=== PATIENT | male | born 1955 | race Two or more races ===

== ENCOUNTER 2018-12-23 14:48 | Inpatient (IN) | payer MEDICAID, OTHER ==
[~2018-12-23] VITALS: Ht 165.1 cm; Wt 71.4 kg
[2018-12-23] MEDS ORDERED: SODIUM CHLORIDE 0.9% 500 ML IVB ONE (15:44)
[2018-12-23 16:22] LABS: Calcium 7.2 mg/dL (8.5-10.1); Magnesium 3.7 mg/dL (1.6-2.6); Total Protein 7.1 g/dL (6.4-8.2)
[2018-12-23 16:29] LABS: Bilirubin, Total 0.9 mg/dL (0.2-1.0)
[2018-12-23 16:37] LABS: Basophils # (auto) 0 uL; Basophils % (auto) 0.2 % (0.0-2.0); Eosinophils # (auto) 0 uL; Eosinophils % (auto) 0.5 % (0.0-7.0); Hemoglobin 13.6 g/dL (13.5-17.5); Lymphocytes # (auto) 0.7 uL; Lymphocytes % (auto) 7.9 % (10.0-50.0); Mean Corpuscular Hemoglobin 29.3 pg (28.0-32.0); Mean Corpuscular Hgb Conc. 33.9 g/dL (32.0-36.0); Mean Corpuscular Volume 86.6 fL (80.0-100.0); Monocytes # (auto) 0.8 uL; Monocytes % (auto) 8.2 % (0.0-12.0); Neutrophils # (auto) 7.7 uL; Neutrophils % (auto) 83.2 % (37.0-80.0); Nucleated Red Blood Cells % 0.1 %; Platelet Count (auto) 155 10^3/uL (140-450); Red Blood Cells 4.62 10^6/uL (4.5-5.90); Red Cell Distribution Width 14.5 % (11.8-14.3); White Blood Cell 9.3 10^3/uL (4.4-10.8)
[2018-12-23 16:38] LABS: Potassium 6.3 mmol/L (3.5-5.1)
[2018-12-23] MEDS ORDERED: SODIUM BICARBONATE 8.4 % INJ 50ML VIAL IV ONE (17:00)
[2018-12-23] MEDS ORDERED: DEXTROSE (50%) 50ML SYRG IV ONE (17:00)
[2018-12-23] MEDS ORDERED: CALCIUM GLUC 4.65meq/50ml D5AE 50 ML IV ONE (17:00)
[2018-12-23] MEDS: InsuLIN REG 1unit/0.01ml Soln (100units/ml) IV ONE ×2 (17:13→17:44)
[2018-12-23] MEDS ORDERED: ONDANSETRON HCL 4 MG/2 ML VIAL IV PRN (21:00)
[2018-12-23 21:49] LABS: BUN/Creatinine Ratio 13.8
[2018-12-23 21:53] LABS: Partial Thromboplastin Time 50.6 sec (23.78-33.04); Prothrombin Time 49.2 sec (9.27-12.13)
[2018-12-23 22:27] LABS: INR 5.04 (0.9-1.15)
[2018-12-23 22:58] LABS: Urine Amorphous Crystal FEW /hpf (None Seen); Urine Bacteria FEW /hpf (None Seen); Urine Blood 2+ /uL (Negative); Urine Specific Gravity 1.011 (1.001-1.035); Urine WBC 3 /hpf (0 - 3)
[2018-12-23 23:18] LABS: Amphetamine Screen, Urine POSITIVE (NEGATIVE); Barbiturate Scree,Urine NEGATIVE (NEGATIVE); Benzodiazephine Screen, Urine NEGATIVE (NEGATIVE); Cannabinoid Screen, Urine NEGATIVE (NEGATIVE); Cocaine Screen, Urine POSITIVE (NEGATIVE); Opiate Scree,Urine POSITIVE (NEGATIVE); Phencyclidine Screen, Urine NEGATIVE (NEGATIVE)
[2018-12-24] MEDS ORDERED: SODIUM CHLORIDE 0.9% 500 ML IV ONE (07:00)
[2018-12-24 08:00] LABS: Basophils # (auto) 0 uL; Basophils % (auto) 0.4 % (0.0-2.0); Eosinophils # (auto) 0 uL; Eosinophils % (auto) 0.4 % (0.0-7.0); Hemoglobin 12.3 g/dL (13.5-17.5); Lymphocytes # (auto) 0.8 uL; Lymphocytes % (auto) 10.1 % (10.0-50.0); Mean Corpuscular Hemoglobin 29.9 pg (28.0-32.0); Mean Corpuscular Hgb Conc. 34.1 g/dL (32.0-36.0); Mean Corpuscular Volume 87.6 fL (80.0-100.0); Monocytes # (auto) 0.7 uL; Monocytes % (auto) 8.4 % (0.0-12.0); Neutrophils # (auto) 6.3 uL; Neutrophils % (auto) 80.7 % (37.0-80.0); Platelet Count (auto) 123 10^3/uL (140-450); Red Blood Cells 4.11 10^6/uL (4.5-5.90); Red Cell Distribution Width 14.3 % (11.8-14.3); White Blood Cell 7.8 10^3/uL (4.4-10.8)
[2018-12-24 08:19] LABS: Calcium 6.4 mg/dL (8.5-10.1); Potassium 5.3 mmol/L (3.5-5.1)
[2018-12-24 08:35] LABS: BUN/Creatinine Ratio 14.2
[2018-12-24] MEDS: SODIUM BICARBONATE 50ML VIAL 150 ML in D5W 5% 1,000 ML IV SCH ×3 (09:43→18:30)
--- NOTE | 2018-12-24 13:00 | NUR ---
Telemetry admit from ER MANDIE KELLY admitted to Telemetry unit after SBAR received. Patient oriented to Margarette Nolasco, primary RN, unit, room, bed, and unit policies regarding patient care and visiting hours. Patient now on continuous telemetry monitoring, tele box#19 and telemetry reading on arrival to unit is SR. Patient placed on bedside oxygen, weighed by bedscale and encouraged to call if they need something. All questions and concerns addressed, patient verbalized understanding. Family at bed side.
[2018-12-24] MEDS: ACETAMINOPHEN 500 MG TAB PO PRN ×2 (13:28→22:48)
[2018-12-24 15:09] VITALS: BP 102/58
[2018-12-24 17:35] VITALS: BP 96/50
--- NOTE | 2018-12-24 18:50 | NUR ---
end of shift note: Patient is comfortably resting in bed. Bed at lowest position and call light at reach. Will endorse care to NOC RN.
[2018-12-24] MEDS ORDERED: ALPR1TAB7 PO (19:08)
[2018-12-24] MEDS ORDERED: MET50T PO (19:08)
[2018-12-24] MEDS ORDERED: HYDR-4416 (19:08)
[2018-12-24] MEDS ORDERED: MORP1TAB13 PO (19:08)
[2018-12-24] MEDS ORDERED: FUR20T PO (19:08)
[2018-12-24] MEDS ORDERED: WARF3TAB22 PO (19:08)
[2018-12-24] MEDS ORDERED: AMLO5TAB13 PO (19:08)
[2018-12-24] MEDS ORDERED: LIDO1PAD55 BC (19:08)
[2018-12-24] MEDS ORDERED: BECL40AE11 IN (19:08)
[2018-12-24 22:00] VITALS: BP 106/62
[2018-12-25] MEDS: SODIUM BICARBONATE 50ML VIAL 150 ML in D5W 5% 1,000 ML IV SCH ×3 (00:18→17:30)
[2018-12-25 05:00] VITALS: BP 108/55
[2018-12-25 06:31] LABS: Basophils # (auto) 0 uL; Basophils % (auto) 0.2 % (0.0-2.0); Eosinophils # (auto) 0.1 uL; Eosinophils % (auto) 1.1 % (0.0-7.0); Hemoglobin 11.7 g/dL (13.5-17.5); Lymphocytes # (auto) 1.1 uL; Lymphocytes % (auto) 20.4 % (10.0-50.0); Mean Corpuscular Hemoglobin 29.9 pg (28.0-32.0); Mean Corpuscular Hgb Conc. 35.4 g/dL (32.0-36.0); Mean Corpuscular Volume 84.4 fL (80.0-100.0); Monocytes # (auto) 0.4 uL; Neutrophils # (auto) 3.9 uL; Neutrophils % (auto) 70.3 % (37.0-80.0); Platelet Count (auto) 113 10^3/uL (140-450); Red Blood Cells 3.91 10^6/uL (4.5-5.90); Red Cell Distribution Width 14.2 % (11.8-14.3); White Blood Cell 5.5 10^3/uL (4.4-10.8)
[2018-12-25] MEDS ORDERED: DICL1GEL26 TD (06:47)
[2018-12-25] MEDS ORDERED: RANO500T2 PO (06:47)
[2018-12-25] MEDS ORDERED: LOSA25TA40 PO (06:47)
[2018-12-25] MEDS ORDERED: PRED1SOL8 PO (06:47)
[2018-12-25] MEDS ORDERED: BUDE0.5S IN (06:47)
[2018-12-25] MEDS ORDERED: HYDR1TAB97 PO (06:47)
[2018-12-25 06:53] LABS: Chloride 99 mmol/L (98-107); Potassium 4.1 mmol/L (3.5-5.1); Sodium 136 mmol/L (136-145)
[2018-12-25 07:05] LABS: INR 3.17 (0.9-1.15); Prothrombin Time 31.8 sec (9.27-12.13)
--- NOTE | 2018-12-25 07:30 | NUR ---
Morning Note Patient resting in bed with even and unlabored respirations. NC resting on patient's forehead. Instructed patient on proper NC placement and positioned NC appropriately. Patient verbalized understanding. Patient is A&O to name only. Instructed patient on POC, fall precautions and to call for assistance as needed using the call light. Patient verbalized understanding although frequent reorientation is needed. Fall precautions in place with bed alarm on for safety. Will continue to monitor q1hr & PRN.
[2018-12-25 07:36] LABS: Alanine Aminotransferase 257 U/L (16-61); Alkaline Phosphatase 66 U/L (45-117); Anion Gap 15 (5-15); Aspartate Aminotransferase 177 U/L (15-37); Bilirubin, Total 0.9 mg/dL (0.2-1.0); Calcium 6.4 mg/dL (8.5-10.1); Carbon Dioxide 22 mmol/L (21-32); Creatine Kinase IFCC 6800 U/L (39-308); GFR African American 6 mL/min; GFR Non-African American 5 mL/min; Glucose 125 mg/dL (74-106); Total Protein 5.6 g/dL (6.4-8.2)
[2018-12-25 07:43] LABS: BUN/Creatinine Ratio 13.3
[2018-12-25 07:44] LABS: Blood Urea Nitrogen > 150 mg/dL (7-18)
[2018-12-25 08:32] VITALS: BP 112/60
--- NOTE | 2018-12-25 09:45 | NUR ---
Patient's statement Patient stated "I don't care any more. I don't want to live. I'm going to anyway. All I care about is my 2 dogs and my cat. They are my life. I told my sister I would do dialysis once and if I don't like it, I will just make sure my animals are taken care of and then [place] I just need to put my animals to sleep. No one can take care of them like I take care of them. Once I take care of that, I have nothing. I don't want to kill myself but I just don't want to live any more. I just don't want to get the medical treatment to keep me alive. I just want to get home to my animals and get out of here." RN will notify , Dr. Rodarte, as well as zaina Kraft RN. Will continue to monitor patient closely q1hr & PRN.
--- NOTE | 2018-12-25 10:00 | NUR ---
MD was at bedside - Dr. Aster Rodarte was at bedside discussing the POC with the patient, the patient's sister (Munira), and this RN. This RN updated MD with patient's statement. Verbal orders received. MD to place orders. RN to obtain a tele-psych. RN to place orders tele-psych recommendations per Dr. Rodarte.
--- NOTE | 2018-12-25 10:08 | NUR ---
Patient's sister (Munira) at bedside
--- NOTE | 2018-12-25 10:44 | NUR ---
Telephone call received from Digital Community Manager Dr. Wick called this RN to receive an update. Update given. Telephone orders received and read back to verify. RN to place orders per MD's request.
--- NOTE | 2018-12-25 11:06 | NUR ---
Sitter at bedside for safety. In the process of getting the tele-psych monitor to bedside.
--- NOTE | 2018-12-25 11:15 | NUR ---
Patient's niece (Marilyn) at bedside.
[2018-12-25 11:53] LABS: Hepatitis A Ab IgM Negative; Hepatitis B Core IgM Negative; Hepatitis B Surface Antigen Negative (Negative); Hepatitis C Antibody Positive (Negative)
[2018-12-25 12:02] VITALS: BP 109/58
--- NOTE | 2018-12-25 12:43 | NUR ---
Tele-psych called spoke with Tabatha. Called [phone].
--- NOTE | 2018-12-25 13:40 | NUR ---
Tele-psych in process
--- NOTE | 2018-12-25 15:00 | NUR ---
Tele-psych report placed in patient's hard chart Notified zaina Kraft RN, of tele-psych's recommendation. Patient is not medically cleared at this time. 5150 hold not to be placed on patient at this time per LINCOLN Kraft, due to patient not being medically cleared at this time. Will endorse to NOC RN.
[2018-12-25 16:06] VITALS: BP 110/46
--- NOTE | 2018-12-25 18:00 | NUR ---
Copy of recommendation given to chargeback analyst Tele-psych recommendation of Ethics consult given to Alyssa, chargeback analyst.
--- NOTE | 2018-12-25 18:45 | NUR ---
End of shift patient resting in bed with even and unlabored respirations on RA at this time. Fall precautions in place. Sitter at bedside per MD's orders to maintain patient safety. Patient continues to verbalize that he "doesn't care to continue on with life like this" and that "he doesn't care about anything but his 2 dogs and cat." and he "has no reason to smile after being in alf." Family is at bedside at this time. Urinary output not documented by Angela, day employee that sat with the patient. Staff attempting to receive information from Angela for documentation. Patient states "she emptied it twice today and it's filled again." Patient is A&Ox4 at this time. Call light within reach. Will endorse care to RN.
--- NOTE | 2018-12-25 19:30 | NUR ---
Opening Shift Note Assumed care of patient, awake and alert oriented x4. No S/S of distress/SOB noted. Sitter is at the bedside, bed is in lowest locked position with bed rails up x2 and call light is within reach of the patient. Instructed on POC and to call for assist PRN.
[2018-12-25 21:23] VITALS: BP 107/60
--- NOTE | 2018-12-25 21:30 | NUR ---
Patient seems anxious, threatens to leave AMA. Educated patient: Patient seemed anxious when walking in the room stating "They aren't going to put me on no dialysis. Its my body and I will walk out of here for a second opinion." Educated the patient about the importance of staying over night to talk to the doctor about further plan of care the next morning and to evaluate lab levels. 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 Attempted to educate patient about the benefits of dialysis treatment and what a high BUN level means but reinforcements needed.
[2018-12-25] MEDS: ACETAMINOPHEN 500 MG TAB PO PRN (23:20)
[2018-12-26] MEDS: SODIUM BICARBONATE 50ML VIAL 150 ML in D5W 5% 1,000 ML IV SCH ×2 (02:03→09:57)
[2018-12-26 06:13] VITALS: BP 118/55
[2018-12-26 06:54] LABS: Basophils # (auto) 0 uL; Basophils % (auto) 0.4 % (0.0-2.0); Eosinophils # (auto) 0.1 uL; Eosinophils % (auto) 1.1 % (0.0-7.0); Hematocrit 33.4 % (41.0-53.0); Hemoglobin 11.8 g/dL (13.5-17.5); Lymphocytes # (auto) 0.9 uL; Lymphocytes % (auto) 16.5 % (10.0-50.0); Mean Corpuscular Hemoglobin 29.7 pg (28.0-32.0); Mean Corpuscular Hgb Conc. 35.3 g/dL (32.0-36.0); Mean Corpuscular Volume 84.1 fL (80.0-100.0); Monocytes # (auto) 0.4 uL; Monocytes % (auto) 7.5 % (0.0-12.0); Neutrophils # (auto) 4.2 uL; Neutrophils % (auto) 74.5 % (37.0-80.0); Platelet Count (auto) 113 10^3/uL (140-450); Red Blood Cells 3.98 10^6/uL (4.5-5.90); Red Cell Distribution Width 14.1 % (11.8-14.3); White Blood Cell 5.7 10^3/uL (4.4-10.8)
[2018-12-26 07:03] LABS: INR 1.47 (0.9-1.15); Prothrombin Time 15.4 sec (9.27-12.13)
[2018-12-26 07:06] LABS: Albumin 3.2 g/dL (3.4-5.0); Calcium 6.9 mg/dL (8.5-10.1); Potassium 3.5 mmol/L (3.5-5.1)
--- NOTE | 2018-12-26 07:10 | NUR ---
Opening Shift Note Received report from night nurse Asya. Pt resting in bed, bed locked and in low pos., rails up x2, call light in reach. No distress noted.
[2018-12-26 07:26] LABS: BUN/Creatinine Ratio 14.4; Bilirubin, Total 0.6 mg/dL (0.2-1.0); Phosphorus 6.2 mg/dL (2.5-4.90); Total Protein 6.2 g/dL (6.4-8.2)
--- NOTE | 2018-12-26 07:55 | NUR ---
Critical lab value received: Received critical lab value for patient. Bun was 138. Will call [address] Rodarte and make MD aware.
--- NOTE | 2018-12-26 07:57 | NUR ---
Aster FISHER called, left message regarding critical lab: Left message on Aster answer machine to make doctor aware of critical BUN of 138. Will endorse information and care to day nurse.
--- NOTE | 2018-12-26 08:08 | NUR ---
Closing note: Patient is resting in bed with breaths even and unlabored. No S/S of distress, SOB noted. Sitter is at the bedside. Bed is in lowest locked position, bed rails up x2 and with call light in reach of the patient. Care endorsed to day shift nurse.
--- NOTE | 2018-12-26 08:19 | NUR ---
Dr. Rodarte called back and made aware of critical lab value.
[2018-12-26 08:54] VITALS: BP 115/59
[2018-12-26 10:27] LABS: Basophils # (auto) 0 uL; Basophils % (auto) 0.8 % (0.0-2.0); Eosinophils # (auto) 0 uL; Eosinophils % (auto) 0.8 % (0.0-7.0); Hematocrit 34.8 % (41.0-53.0); Hemoglobin 12.2 g/dL (13.5-17.5); Lymphocytes # (auto) 0.7 uL; Lymphocytes % (auto) 12.5 % (10.0-50.0); Mean Corpuscular Hemoglobin 29.6 pg (28.0-32.0); Mean Corpuscular Hgb Conc. 35.2 g/dL (32.0-36.0); Mean Corpuscular Volume 84.2 fL (80.0-100.0); Monocytes # (auto) 0.4 uL; Monocytes % (auto) 6.6 % (0.0-12.0); Neutrophils # (auto) 4.5 uL; Neutrophils % (auto) 79.3 % (37.0-80.0); Platelet Count (auto) 116 10^3/uL (140-450); Red Blood Cells 4.13 10^6/uL (4.5-5.90); White Blood Cell 5.7 10^3/uL (4.4-10.8)
[2018-12-26 10:43] LABS: Albumin 3.2 g/dL (3.4-5.0); BUN/Creatinine Ratio 14.5; Calcium 7.1 mg/dL (8.5-10.1); Potassium 3.5 mmol/L (3.5-5.1)
[2018-12-26 10:45] LABS: Bilirubin, Total 0.7 mg/dL (0.2-1.0); Total Protein 6.3 g/dL (6.4-8.2)
[2018-12-26] MEDS: SODIUM CHLORIDE 0.9% 1,000 ML IV SCH ×2 (12:16→22:49)
--- NOTE | 2018-12-26 12:30 | NUR ---
Tap Water Enema Completed MD VISIT DR small here and ordered coumadin per pharmacy protocol keeping inr 2.5 to 3.5
[2018-12-26 13:00] VITALS: BP 115/58
--- NOTE | 2018-12-26 16:54 | NUR ---
assessment Patient is a 62 year old male. Per patient prior to admission he lived with his caregiver and functioned with assistance. Per patient he will return home to his prior living arrangements post discharge and his caregiver will transport him home. patient informed me he has a fww and a scooter for home use. Patient informed me he needs assistance due to prior stroke. I informed patient he had a positive drug screen and he denied doing any illegal substance. I offered patient resources for outpatient or inpatient substance abuse facilities. Patient refused. I informed patient he has a right to speak to a hospice social worker regarding all care. I informed patient he has a right to participate in any and all discharge planning. Patient is aware of visiting hours on the hospital floor. I informed patient he has a right to privacy. Patient does not have a POA and advanced directive. I have offered patient information on POA and advanced directives. I informed the patient the advantages and benefits of having an Advanced Directive. Patient verbalized understanding and agreed to discharge plan. Addendum: 12/26/18 at 1657 by Jaelyn JACKSON Amended: Links added.
[2018-12-26 17:00] VITALS: BP 107/51
[2018-12-26] MEDS ORDERED: NICOTINE 21MG/24 HR TOPICAL PATCH TD ONE (17:00)
--- NOTE | 2018-12-26 19:18 | NUR ---
Shift report Gave shift report to Asya night RN. Pt resting in bed, bed locked, in low position, rails up x2, call light in reach. No distress noted.
--- NOTE | 2018-12-26 19:30 | NUR ---
Opening Shift Note Assumed care of patient, awake and alert oriented x4. Sitter is at the bedside. No S/S of distress/SOB noted. Bed is in lowest locked position with bed rails up x2 and call light is within reach of the patient. Instructed on POC and to call for assist PRN.
[2018-12-26 22:00] VITALS: BP 112/60
--- NOTE | 2018-12-26 23:22 | NUR ---
DR Wick office called regarding Coumadin protocol order: Patient never received Coumadin dose per pharmacy protocol today. Called Dr. Wick office and left a message with Shamika toxics program officer. Notified in message that patient had an INR of 1.47 at 0515 on 12/26/2018, has yet to receive Coumadin dose. Asked if DR Wick would want to give dose tonight and order PT INR labs draws for AM, or if they would like patient to be given it the following day. Waiting for physician to call back.
[2018-12-27] MEDS: ACETAMINOPHEN 500 MG TAB PO PRN ×2 (03:31→22:56)
[2018-12-27 04:53] VITALS: BP 129/70
[2018-12-27] MEDS: SODIUM CHLORIDE 0.9% 1,000 ML IV SCH ×2 (06:11→20:15)
[2018-12-27 06:16] LABS: Albumin 3.4 g/dL (3.4-5.0); Calcium 7.8 mg/dL (8.5-10.1); Potassium 3.9 mmol/L (3.5-5.1)
[2018-12-27 06:18] LABS: BUN/Creatinine Ratio 14.6
[2018-12-27 06:31] LABS: Bilirubin, Total 0.5 mg/dL (0.2-1.0); Total Protein 6.5 g/dL (6.4-8.2)
[2018-12-27 07:44] LABS: Basophils # (auto) 0 uL; Basophils % (auto) 0.3 % (0.0-2.0); Eosinophils # (auto) 0.1 uL; Eosinophils % (auto) 1.6 % (0.0-7.0); Hematocrit 34.6 % (41.0-53.0); Hemoglobin 11.9 g/dL (13.5-17.5); Lymphocytes # (auto) 1.1 uL; Lymphocytes % (auto) 16.8 % (10.0-50.0); Mean Corpuscular Hemoglobin 29.4 pg (28.0-32.0); Mean Corpuscular Hgb Conc. 34.4 g/dL (32.0-36.0); Mean Corpuscular Volume 85.6 fL (80.0-100.0); Monocytes # (auto) 0.4 uL; Monocytes % (auto) 6.4 % (0.0-12.0); Neutrophils # (auto) 5.1 uL; Neutrophils % (auto) 74.9 % (37.0-80.0); Nucleated Red Blood Cells % 0.1 %; Platelet Count (auto) 122 10^3/uL (140-450); Red Blood Cells 4.04 10^6/uL (4.5-5.90); Red Cell Distribution Width 14.2 % (11.8-14.3); White Blood Cell 6.8 10^3/uL (4.4-10.8)
--- NOTE | 2018-12-27 08:00 | NUR ---
Received critical lab values: Received critical lab value of BUN 112. Notified day shift nurse and care endorsed to day shift nurse. BUN is trending down and improving from previous BUN values.
--- NOTE | 2018-12-27 08:02 | NUR ---
Closing note: Patient is resting in bed with no S/S of distress or SOB noted. Sitter is at the bedside. Bed is in lowest locked position with bed rails up x2 and call light is within reach of the patient. Care endorsed to day shift nurse.
--- NOTE | 2018-12-27 08:03 | NUR ---
DR Wick did not call back for Coumadin order: No call received back about Coumadin protocol order to be placed per communication order or to obtain updated PT and INR. Care endorsed to day shift nurse.
[2018-12-27 08:30] VITALS: BP 127/63
[2018-12-27 10:28] LABS: INR 1.07 (0.9-1.15); Prothrombin Time 11.4 sec (9.27-12.13)
[2018-12-27] MEDS ORDERED: WARFARIN SODIUM 2 MG TAB PO ONE (12:00)
[2018-12-27 12:21] VITALS: BP 122/62
--- NOTE | 2018-12-27 15:07 | NUR ---
NUTRITION ASSESSMENT NOTES Please refer to link notes of nutrition screen form filed under the intervention section of the plan of care for further details. Est. Needs: 1550 kcal to 1950 kcal (20-25 kcal/kgBW), 62 gms to 78 gms pro (0.8-1.0 gms/kgBW). Will continue to monitor pertinent labs and reassess nutrient needs prn Thank you. Addendum: 12/27/18 at [address] Amended: Links added.
[2018-12-27 16:15] VITALS: BP 138/68
--- NOTE | 2018-12-27 20:00 | NUR ---
Opening Shift Note Assumed care of patient, awake and alert. No S/S of distress/SOB or pain. Instructed on POC and to call for assist PRN, will continue to monitor for changes Q1hr and PRN.Sitter at bedside.
[2018-12-27 21:30] VITALS: BP 134/74
[2018-12-28] MEDS: SODIUM CHLORIDE 0.9% 1,000 ML IV SCH ×3 (04:47→23:13)
[2018-12-28 05:00] VITALS: BP 120/74
[2018-12-28 06:38] LABS: INR 1.13 (0.9-1.15)
[2018-12-28 06:43] LABS: Calcium 8.2 mg/dL (8.5-10.1)
[2018-12-28 06:47] LABS: BUN/Creatinine Ratio 18.2; Phosphorus 4.5 mg/dL (2.5-4.90)
--- NOTE | 2018-12-28 07:08 | NUR ---
Report given to Abdi Brown to assume care, patient is resting no distress.
--- NOTE | 2018-12-28 07:25 | NUR ---
Opening Shift Note Assumed care of patient, awake and alert oriented x4. Sitter is at the bedside. No S/S of distress/SOB noted. Bed is in lowest locked position with bed rails up x2 and call light is within reach of the patient. Patient denied thoughts of suicide.Instructed on POC and to call for assist PRN.
[2018-12-28 08:59] VITALS: BP 139/81
--- NOTE | 2018-12-28 09:42 | NUR ---
Art catheter dc'd PER DR SHIN ORDER Order to discontinue art catheter. Art dc'd with clean technique following deflation of balloon. Patient tolerated well with no complaints of pain. Continue care.
--- NOTE | 2018-12-28 14:30 | NUR ---
URINAL EMPTIED 650 CC OF LIGHT YELLOW URINE.
[2018-12-28 17:00] VITALS: BP 140/80
[2018-12-28] MEDS ORDERED: WARFARIN SODIUM 2.5 MG TAB PO ONE (17:00)
[2018-12-28] MEDS ORDERED: WARFARIN SODIUM 5 MG TAB PO ONE (17:00)
--- NOTE | 2018-12-28 19:21 | NUR ---
ENDORSED CARE TO NIGHT LINCOLN BALLARD
--- NOTE | 2018-12-28 19:58 | NUR ---
Opening Shift Note Assumed care of patient, awake and alert. No S/S of distress/SOB or pain. Instructed on POC and to call for assist PRN, will continue to monitor for changes Q1hr and PRN.
[2018-12-28 21:30] VITALS: BP 131/81
[2018-12-29] MEDS: SODIUM CHLORIDE 0.9% 1,000 ML IV SCH ×3 (04:15→20:08)
[2018-12-29 05:00] VITALS: BP 135/79
[2018-12-29 06:44] LABS: Calcium 8.7 mg/dL (8.5-10.1); Potassium 4.3 mmol/L (3.5-5.1)
[2018-12-29 06:47] LABS: BUN/Creatinine Ratio 16.4; Phosphorus 3.9 mg/dL (2.5-4.90)
[2018-12-29 06:49] LABS: INR 1.57 (0.9-1.15); Prothrombin Time 16.4 sec (9.27-12.13)
--- NOTE | 2018-12-29 07:04 | NUR ---
Report given to Abdi Bronw to assume care.
--- NOTE | 2018-12-29 07:25 | NUR ---
Opening Shift Note Assumed care of patient, awake and alert oriented x4. Sitter is at the bedside. No S/S of distress/SOB noted. Bed is in lowest locked position with bed rails up x2 and call light is within reach of the patient. Patient denied thoughts of suicide.Instructed on POC; INR 1.57 this morning.
[2018-12-29 09:00] VITALS: BP 145/80
--- NOTE | 2018-12-29 11:34 | NUR ---
IV insertion IV access obtained, via clean sterile technique by inserting 22 gauge catheter at LEFT FOREARM after 1 attempt. IV secured properly. No trauma to site. Patient tolerated well.
--- NOTE | 2018-12-29 11:35 | NUR ---
IV removal IV DC'd from right forearm with clean sterile technique, catheter fully intact. Pressure dressing applied to site. Patient tolerated well.
[2018-12-29 13:00] VITALS: BP 140/82
--- NOTE | 2018-12-29 16:02 | NUR ---
AMBULATION ACTIVITY PATIENT AMBULATED HALLWAYS WITHIN THE UNIT WITH A FWW; TOLERATED ACTIVITY WELL.
[2018-12-29] MEDS ORDERED: WARFARIN SODIUM 2.5 MG TAB PO ONE (17:00)
[2018-12-29] MEDS ORDERED: WARFARIN SODIUM 10 MG TAB PO ONE (17:00)
[2018-12-29 17:40] VITALS: BP 142/87
[2018-12-29 22:29] VITALS: BP 142/78
[2018-12-30] MEDS: SODIUM CHLORIDE 0.9% 1,000 ML IV SCH ×2 (04:20→12:15)
[2018-12-30 05:30] VITALS: BP 130/74
[2018-12-30 06:38] LABS: Basophils # (auto) 0 uL; Basophils % (auto) 0.3 % (0.0-2.0); Eosinophils # (auto) 0.3 uL; Eosinophils % (auto) 3.6 % (0.0-7.0); Hematocrit 35.1 % (41.0-53.0); Hemoglobin 12.1 g/dL (13.5-17.5); Lymphocytes # (auto) 1.1 uL; Lymphocytes % (auto) 16.2 % (10.0-50.0); Mean Corpuscular Hemoglobin 29.6 pg (28.0-32.0); Mean Corpuscular Hgb Conc. 34.5 g/dL (32.0-36.0); Monocytes # (auto) 0.4 uL; Monocytes % (auto) 5.2 % (0.0-12.0); Neutrophils # (auto) 5.2 uL; Neutrophils % (auto) 74.7 % (37.0-80.0); Nucleated Red Blood Cells % 0.2 %; Platelet Count (auto) 140 10^3/uL (140-450); Red Blood Cells 4.08 10^6/uL (4.5-5.90); Red Cell Distribution Width 13.7 % (11.8-14.3)
[2018-12-30 06:51] LABS: Calcium 8.4 mg/dL (8.5-10.1); Potassium 4.5 mmol/L (3.5-5.1)
[2018-12-30 06:55] LABS: BUN/Creatinine Ratio 17.1
[2018-12-30 06:58] LABS: INR 3.78 (0.9-1.15); Prothrombin Time 37.5 sec (9.27-12.13)
--- NOTE | 2018-12-30 07:42 | NUR ---
Report given to Abdi Murphy to assume care, patient is resting no distress.
--- NOTE | 2018-12-30 07:45 | NUR ---
Opening Shift Note Assuming care of patient at this time. Patient is resting in bed. Patient does not show any signs or symptoms of distress or shortness of breath. Patient denies pain. Patient is in bed with bed locked and lowered with side rails up x2. Instructed patient on the plan of care for today. Patient verbalizes understanding. He also verbalizes that he should be going home today. Will continue to monitor. Call light within reach.
[2018-12-30 09:00] VITALS: BP 134/71
--- NOTE | 2018-12-30 10:45 | NUR ---
Re: Refusing Tele Patient is refusing to wear tele monitor at this time. Educated patient. Will continue to monitor.
--- NOTE | 2018-12-30 11:45 | NUR ---
Re: Telepsych Call Spoke with Dr. Tyler at this time. Gave report on the patient. Dr. Tyler will call patient in 60 seconds in order to do telepsych call.
--- NOTE | 2018-12-30 12:04 | NUR ---
Re: Patient off Unit Patient has left unit at this time. States that he is walking his sister out.
--- NOTE | 2018-12-30 12:05 | NUR ---
Re: Telepsych call Dr. Tyler called at this time. Patient is cleared at this time. Will fax report over when it is ready.
[2018-12-30 12:47] VITALS: BP 158/84
[2018-12-30 13:18] VITALS: BP 134/71
--- NOTE | 2018-12-30 14:11 | NUR ---
Re: Discharge Discharge instructions given as ordered. Encourage to follow up with [facility] between the hours of 0800am-0800pm. Other Options include:1)[facility] or 2) [facility] Patient should also follow up outpatient with mental health care per Dr. Tyler. All questions and concerns addressed. Patient verbalized understanding. Medication reconciliation form completed and copy given to patient. IV removed with catheter intact, pressure dressing applied. Telemetry unit returned to [facility]. Patient ambulated with walker along with all personal belongings, accompanied by family member. No distress noted at time of departure.
== END 2018-12-30 14:10 | disposition home or self-care (01) | DRG 469 ==
LOC: EDBD 14:48 → ER 14:48 → TELE 20:50 → TELE-EAST 12-24 13:03
PROVIDERS: ADMIT Nurse Practitioner Family; ATTEND Internal Medicine
DX: N17.9 Acute kidney failure, unspecified (principal); G93.41 Metabolic encephalopathy; D68.9 Coagulation defect, unspecified; E83.51 Hypocalcemia; E87.2 Acidosis; E87.1 Hypo-osmolality and hyponatremia; E87.8 Other disorders of electrolyte and fluid balance, not elsewhere classified; I95.9 Hypotension, unspecified; E83.39 Other disorders of phosphorus metabolism; M62.82 Rhabdomyolysis; I13.10 Hypertensive heart and chronic kidney disease without heart failure, with stage 1 through stage 4 chronic kidney disease, or unspecified chronic kidney disease; D64.9 Anemia, unspecified; N18.3 Chronic kidney disease, stage 3 (moderate); F32.9 Major depressive disorder, single episode, unspecified; E87.6 Hypokalemia; Z95.2 Presence of prosthetic heart valve; I25.10 Atherosclerotic heart disease of native coronary artery without angina pectoris; E87.5 Hyperkalemia; R45.851 Suicidal ideations; B19.20 Unspecified viral hepatitis C without hepatic coma; K59.00 Constipation, unspecified; F19.10 Other psychoactive substance abuse, uncomplicated; Z91.19 Patient's noncompliance with other medical treatment and regimen; F17.200 Nicotine dependence, unspecified, uncomplicated; Z79.01 Long term (current) use of anticoagulants
CPT/HCPCS: 36415; 70450; 71045; 74176; 80048; 80053; 80074; 80307; 80320; 81001; 82150; 82550; 82962; 83605; 83690; 83735; 83880; 83970; 84100; 84484; 85025; 85610; 85652; 85730; 87040; 87086; 93005; 94761; 96361; 96374; 96375; 99291; A6257; G0378; J0610; J1815

== ENCOUNTER 2023-04-10 18:35 | Inpatient (IN) | payer OTHER, MEDICAID ==
[~2023-04-10] VITALS: Ht 160 cm; Wt 65.5 kg
[2023-04-10 03:31] VITALS: BP 127/72
[~2023-04-10 18:35] MED LIST: ALPR1TAB7 PO; AMLO1TAB22 PO; BECL40AE11 IN; BUDE0.5S IN; DICL1GEL26 TD; FUR20T PO; HYDR1TAB97 PO; LIDO1PAD55 BC; LOSA25TA15 PO; MET50T PO; MORP1TAB13 PO; PRED1SOL8 PO; RANO500T2 PO; WARF-111 PO
[2023-04-10] MEDS ORDERED: IPRATROPIUM BROM 0.5 MG/2.5ML INH SOL NEB ONE (21:45)
[2023-04-10] MEDS ORDERED: DexAMETHasone SOD PHOS 10MG/1ML VIAL INJ IM ONE (21:45)
[2023-04-10] MEDS ORDERED: ALBUTEROL SULF 2.5 MG/0.5ML(0.5%) NEB SOLN NEB ONE (21:45)
[2023-04-10 22:14] LABS: Basophils # (auto) 0 10 ^3/uL (0-0.2); Eosinophils # (auto) 0 10 ^3/uL (0-0.8); Hemoglobin 10.1 g/dL (13.5-17.5)
[2023-04-10 22:17] LABS: Basophils % (auto) 0.2 % (0.0-2.0); Hematocrit 30.4 % (41.0-53.0); Lymphocytes % (auto) 5.7 % (10.0-50.0); Mean Corpuscular Hemoglobin 28.1 pg (28.0-32.0); Mean Corpuscular Hgb Conc. 33.2 g/dL (32.0-36.0); Mean Corpuscular Volume 84.7 fL (80.0-100.0); Monocytes # (auto) 0.6 10 ^3/uL (0-1.3); Monocytes % (auto) 3.3 % (0.0-12.0); Neutrophils # (auto) 15.8 10 ^3/uL (1.6-8.6); Neutrophils % (auto) 90.8 % (37.0-80.0); Nucleated Red Blood Cells % 0.1 %; Red Blood Cells 3.59 10^6/uL (4.5-5.90); Red Cell Distribution Width 14.1 % (11.8-14.3); White Blood Cell 17.4 10^3/uL (4.4-10.8)
[2023-04-10 22:30] LABS: Albumin 3.6 g/dL (3.4-5.0); Calcium 9.2 mg/dL (8.5-10.1); INR 1.41 (0.9-1.15); Magnesium 2.5 mg/dL (1.6-2.6); Partial Thromboplastin Time 33.8 sec (24.6-33.4); Potassium 4.6 mmol/L (3.5-5.1)
[2023-04-10 22:34] LABS: BUN/Creatinine Ratio 17.1 (10.0-20.0); Bilirubin, Total 0.2 mg/dL (0.2-1.0); Total Protein 7.5 g/dL (6.4-8.2)
[2023-04-10 22:37] LABS: Urine Bacteria NONE SEEN /hpf (None Seen); Urine Blood Negative /uL (Negative); Urine Specific Gravity 1.014 (1.001-1.035); Urine WBC 2 /hpf (0 - 3)
[2023-04-11] VITALS (9 sets, daily range): BP systolic 96–133; BP diastolic 50–81
[2023-04-11] MEDS ORDERED: AZITHROMYCIN 500MG/ 250ML 250 ML IV ONE
[2023-04-11] MEDS ORDERED: TEMAZEPAM 15 MG CAP PO PRN (01:00)
[2023-04-11] MEDS ORDERED: ACETAMINOPHEN 325 MG TAB PO PRN (01:00)
[2023-04-11] MEDS ORDERED: DEXTROSE (50%) 50ML SYRG IV PRN (01:00)
[2023-04-11] MEDS ORDERED: ALBUTEROL SULF 2.5 MG/0.5ML(0.5%) NEB SOLN NEB PRN (01:00)
[2023-04-11] MEDS ORDERED: cefTRIAXone 1GM/50ML D5W 50 ML IV ONE (01:00)
[2023-04-11 01:50] LABS: Lactic Acid w/Reflex 2.2 mmol/L (0.4-2.0)
[2023-04-11] MEDS ORDERED: SODIUM CHLORIDE 0.9% 500 ML IV ONE (05:15)
[2023-04-11] MEDS ORDERED: FUROSEMIDE 20 MG TAB PO SCH ×2 (06:00→18:00)
[2023-04-11] MEDS ORDERED: SODIUM BICARBONATE 650 MG TAB PO SCH (06:00)
[2023-04-11] MEDS: InsuLIN REG 1unit/0.01ml Soln (100units/ml) SC SCH ×4 (06:37→21:25)
[2023-04-11] MEDS: ACCU-CHEK COMFORT CURVE STRIP VI SCH ×4 (06:44→21:25)
[2023-04-11] MEDS ORDERED: cefTRIAXone 1GM/50ML D5W 50 ML IV SCH (09:00)
[2023-04-11] MEDS ORDERED: METOPROLOL TARTRATE 25 MG TAB PO SCH (10:00)
[2023-04-11] MEDS ORDERED: AZITHROMYCIN 500MG/ 250ML 250 ML IV SCH (10:00)
[2023-04-11] MEDS: RANOLAZINE ER 500 MG TAB PO SCH ×2 (10:16→21:20)
[2023-04-11] MEDS: PANTOPRAZOLE 40 MG TAB PO SCH (10:16)
[2023-04-11] MEDS ORDERED: FUROSEMIDE 20 MG/2 ML VIAL IV ONE (11:15)
[2023-04-11] MEDS ORDERED: MORPHINE SULF 30 mg ER tab PO ONE (11:15)
[2023-04-11 12:00] LABS: Calcium 9.1 mg/dL (8.5-10.1); Potassium 4.5 mmol/L (3.5-5.1)
[2023-04-11 12:02] LABS: BUN/Creatinine Ratio 16.7 (10.0-20.0)
[2023-04-11] MEDS ORDERED: ENOXAPARIN SOD 80 MG/0.8ML SYRINGE SC ONE (16:15)
[2023-04-11] MEDS ORDERED: WARFARIN SODIUM 2 MG TAB PO ONE (17:00)
[2023-04-11] MEDS: FUROSEMIDE 40 MG/4 ML VIAL IV SCH (17:24)
[2023-04-11] MEDS: MORPHINE SULF 30 mg ER tab PO SCH (21:21)
[2023-04-11] MEDS: DOCUSATE SOD 100 MG CAP PO SCH (21:21)
[2023-04-11] MEDS: ATORVASTATIN 20 MG TAB PO SCH (21:22)
[2023-04-12] MEDS: HYDROcodone-ACET 10/325MG TAB PO PRN (01:18)
[2023-04-12 05:00] VITALS: BP 126/83
[2023-04-12 05:13] LABS: Basophils # (auto) 0.1 10 ^3/uL (0-0.2); Basophils % (auto) 0.3 % (0.0-2.0); Eosinophils # (auto) 0.1 10 ^3/uL (0-0.8); Eosinophils % (auto) 0.4 % (0.0-7.0); Hematocrit 32.9 % (41.0-53.0); Hemoglobin 11.1 g/dL (13.5-17.5); Lymphocytes % (auto) 12.9 % (10.0-50.0); Mean Corpuscular Hgb Conc. 33.6 g/dL (32.0-36.0); Mean Corpuscular Volume 83.4 fL (80.0-100.0); Monocytes # (auto) 0.6 10 ^3/uL (0-1.3); Neutrophils % (auto) 82.4 % (37.0-80.0); Red Blood Cells 3.95 10^6/uL (4.5-5.90); Red Cell Distribution Width 14.4 % (11.8-14.3); White Blood Cell 15.7 10^3/uL (4.4-10.8)
[2023-04-12 05:41] LABS: BUN/Creatinine Ratio 18.1 (10.0-20.0); Calcium 9.1 mg/dL (8.5-10.1); Potassium 4.4 mmol/L (3.5-5.1)
[2023-04-12] MEDS: FUROSEMIDE 40 MG/4 ML VIAL IV SCH ×2 (06:19→16:54)
[2023-04-12] MEDS: ACCU-CHEK COMFORT CURVE STRIP VI SCH ×4 (06:20→21:52)
[2023-04-12] MEDS: InsuLIN REG 1unit/0.01ml Soln (100units/ml) SC SCH ×4 (06:26→21:58)
[2023-04-12 09:00] VITALS: BP 114/68
[2023-04-12] MEDS ORDERED: cefTRIAXone 1GM/50ML D5W 50 ML IV ONE (11:15)
[2023-04-12] MEDS ORDERED: AZITHROMYCIN 500MG/ 250ML 250 ML IV ONE (11:15)
[2023-04-12] MEDS: RANOLAZINE ER 500 MG TAB PO SCH ×2 (11:32→21:50)
[2023-04-12] MEDS: PANTOPRAZOLE 40 MG TAB PO SCH (11:32)
[2023-04-12] MEDS: MORPHINE SULF 30 mg ER tab PO SCH ×2 (11:32→22:00)
[2023-04-12] MEDS: DOCUSATE SOD 100 MG CAP PO SCH ×2 (11:32→21:50)
[2023-04-12] MEDS: ENOXAPARIN SOD 80 MG/0.8ML SYRINGE SC SCH (11:33)
[2023-04-12 13:00] VITALS: BP 107/72
[2023-04-12 17:00] VITALS: BP 106/65
[2023-04-12] MEDS: ATORVASTATIN 20 MG TAB PO SCH (21:50)
[2023-04-12 22:00] VITALS: BP 102/59
[2023-04-13 05:00] VITALS: BP 97/63
[2023-04-13] MEDS: FUROSEMIDE 40 MG/4 ML VIAL IV SCH ×2 (05:46→17:43)
[2023-04-13] MEDS: ACCU-CHEK COMFORT CURVE STRIP VI SCH ×4 (05:46→21:13)
[2023-04-13] MEDS: HYDROcodone-ACET 10/325MG TAB PO PRN ×2 (05:46→15:19)
[2023-04-13] MEDS: InsuLIN REG 1unit/0.01ml Soln (100units/ml) SC SCH ×4 (06:42→21:12)
[2023-04-13 06:53] LABS: Basophils # (auto) 0.1 10 ^3/uL (0-0.2); Basophils % (auto) 0.9 % (0.0-2.0); Eosinophils # (auto) 0.2 10 ^3/uL (0-0.8); Eosinophils % (auto) 2.1 % (0.0-7.0); Hematocrit 33.9 % (41.0-53.0); Hemoglobin 11.8 g/dL (13.5-17.5); Lymphocytes # (auto) 2.3 10 ^3/uL (0.4-5.4); Lymphocytes % (auto) 25.9 % (10.0-50.0); Mean Corpuscular Hemoglobin 28.6 pg (28.0-32.0); Mean Corpuscular Hgb Conc. 34.7 g/dL (32.0-36.0); Mean Corpuscular Volume 82.4 fL (80.0-100.0); Monocytes # (auto) 0.7 10 ^3/uL (0-1.3); Monocytes % (auto) 7.5 % (0.0-12.0); Neutrophils # (auto) 5.5 10 ^3/uL (1.6-8.6); Neutrophils % (auto) 63.6 % (37.0-80.0); Red Blood Cells 4.12 10^6/uL (4.5-5.90); Red Cell Distribution Width 14.7 % (11.8-14.3); White Blood Cell 8.7 10^3/uL (4.4-10.8)
[2023-04-13 07:41] LABS: Potassium 4.5 mmol/L (3.5-5.1)
[2023-04-13 07:48] LABS: BUN/Creatinine Ratio 19.1 (10.0-20.0); Calcium 8.7 mg/dL (8.5-10.1)
[2023-04-13 08:05] VITALS: BP 112/63
[2023-04-13 08:38] VITALS: BP 112/63
[2023-04-13] MEDS: cefTRIAXone 1GM/50ML D5W 50 ML IV SCH (09:21)
[2023-04-13] MEDS: PANTOPRAZOLE 40 MG TAB PO SCH (10:47)
[2023-04-13] MEDS: ENOXAPARIN SOD 80 MG/0.8ML SYRINGE SC SCH (10:47)
[2023-04-13] MEDS: RANOLAZINE ER 500 MG TAB PO SCH ×2 (10:47→21:07)
[2023-04-13] MEDS: AZITHROMYCIN 500MG/ 250ML 250 ML IV SCH (10:47)
[2023-04-13] MEDS: MORPHINE SULF 30 mg ER tab PO SCH ×2 (10:47→21:12)
[2023-04-13] MEDS: DOCUSATE SOD 100 MG CAP PO SCH ×2 (10:47→21:07)
[2023-04-13 13:00] VITALS: BP 102/68
[2023-04-13] MEDS: ONDANSETRON HCL 4 MG/2 ML VIAL IV PRN (15:19)
[2023-04-13 17:00] VITALS: BP 90/51
[2023-04-13] MEDS ORDERED: LACTULOSE 20Gm/30ML SOLN PO ONE (17:15)
[2023-04-13] MEDS: ATORVASTATIN 20 MG TAB PO SCH (21:07)
[2023-04-13 21:47] VITALS: BP 97/61
[2023-04-14] VITALS (7 sets, daily range): BP systolic 97–114; BP diastolic 57–71
[2023-04-14] MEDS: FUROSEMIDE 40 MG/4 ML VIAL IV SCH ×2 (06:21→17:59)
[2023-04-14] MEDS: InsuLIN REG 1unit/0.01ml Soln (100units/ml) SC SCH ×4 (06:26→21:39)
[2023-04-14] MEDS: ACCU-CHEK COMFORT CURVE STRIP VI SCH ×4 (06:34→22:00)
[2023-04-14] MEDS: cefTRIAXone 1GM/50ML D5W 50 ML IV SCH (08:56)
[2023-04-14] MEDS: MORPHINE SULF 30 mg ER tab PO SCH ×2 (10:00→22:00)
[2023-04-14] MEDS: PANTOPRAZOLE 40 MG TAB PO SCH (10:00)
[2023-04-14] MEDS: ONDANSETRON HCL 4 MG/2 ML VIAL IV PRN (10:04)
[2023-04-14] MEDS: ENOXAPARIN SOD 80 MG/0.8ML SYRINGE SC SCH (10:04)
[2023-04-14] MEDS: DOCUSATE SOD 100 MG CAP PO SCH ×2 (10:04→21:35)
[2023-04-14] MEDS: AZITHROMYCIN 500MG/ 250ML 250 ML IV SCH (10:04)
[2023-04-14] MEDS: RANOLAZINE ER 500 MG TAB PO SCH ×2 (10:04→21:35)
[2023-04-14] MEDS: HYDROcodone-ACET 10/325MG TAB PO PRN ×2 (10:06→19:53)
[2023-04-14] MEDS: ATORVASTATIN 20 MG TAB PO SCH (21:35)
[2023-04-15] VITALS (7 sets, daily range): BP systolic 67–118; BP diastolic 58–66
[2023-04-15] MEDS: InsuLIN REG 1unit/0.01ml Soln (100units/ml) SC SCH ×4 (06:09→23:01)
[2023-04-15] MEDS: FUROSEMIDE 40 MG/4 ML VIAL IV SCH (06:16)
[2023-04-15] MEDS: ACCU-CHEK COMFORT CURVE STRIP VI SCH ×4 (07:00→22:00)
[2023-04-15] MEDS: RANOLAZINE ER 500 MG TAB PO SCH ×2 (09:56→23:07)
[2023-04-15] MEDS: ENOXAPARIN SOD 80 MG/0.8ML SYRINGE SC SCH (09:56)
[2023-04-15] MEDS: cefTRIAXone 1GM/50ML D5W 50 ML IV SCH (09:56)
[2023-04-15] MEDS: MORPHINE SULF 30 mg ER tab PO SCH ×2 (09:56→22:00)
[2023-04-15] MEDS: DOCUSATE SOD 100 MG CAP PO SCH ×2 (09:56→23:07)
[2023-04-15] MEDS: PANTOPRAZOLE 40 MG TAB PO SCH ×2 (09:56→10:00)
[2023-04-15] MEDS: AZITHROMYCIN 500MG/ 250ML 250 ML IV SCH (11:06)
[2023-04-15] MEDS: FUROSEMIDE 40 MG TAB PO SCH (18:00)
[2023-04-15] MEDS: ATORVASTATIN 20 MG TAB PO SCH (23:07)
[2023-04-15] MEDS: HYDROcodone-ACET 10/325MG TAB PO PRN (23:07)
[2023-04-16 05:04] VITALS: BP 122/75
[2023-04-16 05:49] LABS: Basophils # (auto) 0.1 10 ^3/uL (0-0.2); Basophils % (auto) 0.7 % (0.0-2.0); Eosinophils # (auto) 0.3 10 ^3/uL (0-0.8); Eosinophils % (auto) 3.1 % (0.0-7.0); Hematocrit 33.2 % (41.0-53.0); Hemoglobin 11.5 g/dL (13.5-17.5); Lymphocytes # (auto) 2.1 10 ^3/uL (0.4-5.4); Lymphocytes % (auto) 25.1 % (10.0-50.0); Mean Corpuscular Hemoglobin 28.6 pg (28.0-32.0); Mean Corpuscular Hgb Conc. 34.5 g/dL (32.0-36.0); Mean Corpuscular Volume 82.8 fL (80.0-100.0); Monocytes # (auto) 0.6 10 ^3/uL (0-1.3); Monocytes % (auto) 7.1 % (0.0-12.0); Neutrophils # (auto) 5.3 10 ^3/uL (1.6-8.6); Red Blood Cells 4.01 10^6/uL (4.5-5.90); Red Cell Distribution Width 14.3 % (11.8-14.3); White Blood Cell 8.2 10^3/uL (4.4-10.8)
[2023-04-16 05:59] LABS: BUN/Creatinine Ratio 17.8 (10.0-20.0); Calcium 9.3 mg/dL (8.5-10.1); Magnesium 2.6 mg/dL (1.6-2.6); Phosphorus 4.3 mg/dL (2.5-4.90); Potassium 4.3 mmol/L (3.5-5.1)
[2023-04-16] MEDS: ACCU-CHEK COMFORT CURVE STRIP VI SCH ×4 (06:05→21:38)
[2023-04-16] MEDS: InsuLIN REG 1unit/0.01ml Soln (100units/ml) SC SCH ×4 (06:05→21:40)
[2023-04-16] MEDS: FUROSEMIDE 40 MG TAB PO SCH (06:08)
[2023-04-16] MEDS: cefTRIAXone 1GM/50ML D5W 50 ML IV SCH (08:56)
[2023-04-16] MEDS: ENOXAPARIN SOD 80 MG/0.8ML SYRINGE SC SCH (08:56)
[2023-04-16] MEDS: AZITHROMYCIN 250 MG TAB PO SCH (08:57)
[2023-04-16] MEDS: RANOLAZINE ER 500 MG TAB PO SCH ×2 (08:57→21:34)
[2023-04-16] MEDS: HYDROcodone-ACET 10/325MG TAB PO PRN ×3 (08:57→21:35)
[2023-04-16] MEDS: PANTOPRAZOLE 40 MG TAB PO SCH (08:58)
[2023-04-16] MEDS: MORPHINE SULF 30 mg ER tab PO SCH ×2 (08:58→21:39)
[2023-04-16] MEDS: DOCUSATE SOD 100 MG CAP PO SCH ×2 (08:58→21:35)
[2023-04-16 09:00] VITALS: BP 111/73
[2023-04-16] MEDS: SODIUM CHLORIDE 0.9% 1,000 ML IV SCH (12:01)
[2023-04-16 12:39] LABS: INR 1.21 (0.9-1.15); Partial Thromboplastin Time 38.8 sec (24.6-33.4)
[2023-04-16 12:59] VITALS: BP 107/62
[2023-04-16 16:56] VITALS: BP 113/56
[2023-04-16] MEDS ORDERED: WARFARIN SODIUM 2 MG TAB PO ONE (17:00)
[2023-04-16] MEDS: ATORVASTATIN 20 MG TAB PO SCH (21:35)
[2023-04-16 22:00] VITALS: BP 106/59
[2023-04-17] MEDS: SODIUM CHLORIDE 0.9% 1,000 ML IV SCH ×2 (02:50→21:15)
[2023-04-17 05:00] VITALS: BP 110/68
[2023-04-17 06:12] LABS: INR 1.12 (0.9-1.15); Partial Thromboplastin Time 32.2 sec (24.6-33.4)
[2023-04-17] MEDS: FUROSEMIDE 40 MG TAB PO SCH (06:21)
[2023-04-17] MEDS: ACCU-CHEK COMFORT CURVE STRIP VI SCH ×4 (06:21→21:13)
[2023-04-17 06:26] LABS: BUN/Creatinine Ratio 17.6 (10.0-20.0); Calcium 8.9 mg/dL (8.5-10.1); Potassium 4.5 mmol/L (3.5-5.1)
[2023-04-17] MEDS: InsuLIN REG 1unit/0.01ml Soln (100units/ml) SC SCH ×4 (06:34→21:29)
[2023-04-17 08:36] VITALS: BP 110/68
[2023-04-17] MEDS: MORPHINE SULF 30 mg ER tab PO SCH ×2 (10:00→21:29)
[2023-04-17] MEDS: PANTOPRAZOLE 40 MG TAB PO SCH (10:00)
[2023-04-17] MEDS: ENOXAPARIN SOD 80 MG/0.8ML SYRINGE SC SCH ×2 (10:13→11:22)
[2023-04-17] MEDS: RANOLAZINE ER 500 MG TAB PO SCH ×2 (10:13→21:12)
[2023-04-17] MEDS: AZITHROMYCIN 250 MG TAB PO SCH (10:13)
[2023-04-17] MEDS: DOCUSATE SOD 100 MG CAP PO SCH ×2 (10:13→21:12)
[2023-04-17] MEDS: cefTRIAXone 1GM/50ML D5W 50 ML IV SCH (10:13)
[2023-04-17] MEDS: HYDROcodone-ACET 10/325MG TAB PO PRN ×3 (10:14→23:17)
[2023-04-17 13:00] VITALS: BP 124/76
[2023-04-17 17:00] VITALS: BP 124/73
[2023-04-17] MEDS ORDERED: WARFARIN SODIUM 2 MG TAB PO ONE (17:00)
[2023-04-17] MEDS: ATORVASTATIN 20 MG TAB PO SCH (21:12)
[2023-04-17 22:00] VITALS: BP 106/70
[2023-04-18 05:00] VITALS: BP 115/69
[2023-04-18 05:34] LABS: INR 1.66 (0.9-1.15)
[2023-04-18 05:38] LABS: BUN/Creatinine Ratio 19.5 (10.0-20.0); Calcium 9.3 mg/dL (8.5-10.1); Potassium 4.8 mmol/L (3.5-5.1)
[2023-04-18] MEDS: FUROSEMIDE 40 MG TAB PO SCH (06:24)
[2023-04-18] MEDS: InsuLIN REG 1unit/0.01ml Soln (100units/ml) SC SCH (06:26)
[2023-04-18] MEDS: ACCU-CHEK COMFORT CURVE STRIP VI SCH (06:26)
[2023-04-18] MEDS: cefTRIAXone 1GM/50ML D5W 50 ML IV SCH (08:57)
[2023-04-18 09:00] VITALS: BP 117/85
[2023-04-18] MEDS: AZITHROMYCIN 250 MG TAB PO SCH (09:30)
[2023-04-18] MEDS: ENOXAPARIN SOD 80 MG/0.8ML SYRINGE SC SCH (09:30)
[2023-04-18] MEDS: DOCUSATE SOD 100 MG CAP PO SCH (09:30)
[2023-04-18] MEDS: PANTOPRAZOLE 40 MG TAB PO SCH (09:30)
[2023-04-18] MEDS: RANOLAZINE ER 500 MG TAB PO SCH (09:30)
[2023-04-18] MEDS: MORPHINE SULF 30 mg ER tab PO SCH (09:32)
[2023-04-18] MEDS: HYDROcodone-ACET 10/325MG TAB PO PRN (09:40)
[2023-04-18] MEDS ORDERED: AZIT500T PO (11:02)
[2023-04-18] MEDS ORDERED: ENOX80IN SC (11:02)
[2023-04-18 11:17] VITALS: BP 115/69
[2023-04-18] MEDS ORDERED: WARFARIN SODIUM 1 MG TAB PO ONE (17:00)
== END 2023-04-18 12:00 | disposition home or self-care (01) | DRG 871 ==
LOC: ER 18:35 → OVERFLOW 04-11 01:02 → EAST 04-11 02:45 → TELE-EAST 04-11 16:10
PROVIDERS: ADMIT Nurse Practitioner; ATTEND Internal Medicine
DX: A41.9 Sepsis, unspecified organism (principal); I50.43 Acute on chronic combined systolic (congestive) and diastolic (congestive) heart failure; J15.9 Unspecified bacterial pneumonia; N17.0 Acute kidney failure with tubular necrosis; I13.0 Hypertensive heart and chronic kidney disease with heart failure and stage 1 through stage 4 chronic kidney disease, or unspecified chronic kidney disease; J44.0 Chronic obstructive pulmonary disease with (acute) lower respiratory infection; I38 Endocarditis, valve unspecified; I69.354 Hemiplegia and hemiparesis following cerebral infarction affecting left non-dominant side; D64.9 Anemia, unspecified; E11.22 Type 2 diabetes mellitus with diabetic chronic kidney disease; E11.65 Type 2 diabetes mellitus with hyperglycemia; N18.32 Chronic kidney disease, stage 3b; G89.29 Other chronic pain; E78.5 Hyperlipidemia, unspecified; G47.33 Obstructive sleep apnea (adult) (pediatric); K74.60 Unspecified cirrhosis of liver; B19.20 Unspecified viral hepatitis C without hepatic coma; N40.0 Benign prostatic hyperplasia without lower urinary tract symptoms; I34.0 Nonrheumatic mitral (valve) insufficiency; Z91.041 Radiographic dye allergy status; Z83.3 Family history of diabetes mellitus; Z95.2 Presence of prosthetic heart valve
CPT/HCPCS: 36415; 71045; 71250; 80048; 80053; 81001; 82962; 83036; 83605; 83735; 83880; 84100; 84443; 84484; 85025; 85610; 85730; 87081; 93005; 93306; 94640; 96365; 96367; 96372; G0378; J0696; J1100; J1815; J2405

== ENCOUNTER 2024-01-17 | Inpatient (IN) | payer OTHER, MEDICAID ==
[2024-01-17] VITALS (12 sets, daily range): BP systolic 112–161; BP diastolic 61–93; PULSE 100–115; RESP 18–27; TEMP 97.8–98.4; O2SAT 92–98
[~2024-01-17] VITALS: Ht 160 cm; Wt 71.0 kg
[~2024-01-17] MED LIST changes: +AZIT500T PO; +ENOX80IN SC
[2024-01-17] MEDS: IPRATROPIUM BROM 0.5 MG/2.5ML INH SOL NEB ONE (00:47)
[2024-01-17] MEDS: ALBUTEROL SULF 2.5 MG/0.5ML(0.5%) NEB SOLN NEB ONE (00:47)
[2024-01-17 01:06] LABS: Albumin 4.2 g/dL (3.2-4.8); Alkaline Phosphatase 83 U/L (46-116); Anion Gap 9 (5-15); Aspartate Aminotransferase 13 U/L (13-40); BUN/Creatinine Ratio 12.8 (10.0-20.0); Bilirubin, Total 0.6 mg/dL (0.2-1.0); Blood Urea Nitrogen 24 mg/dL (9-23); Calcium 9.2 mg/dL (8.7-10.4); Carbon Dioxide 23 mmol/L (20-30); Chloride 107 mmol/L (98-107); Glucose 116 mg/dL (74-106); Lipase 41 U/L (12-53); Potassium 4.2 mmol/L (3.5-5.1); Sodium 139 mmol/L (136-145); Total Protein 6.7 g/dL (5.7-8.2)
[2024-01-17 01:09] LABS: Alanine Aminotransferase 9 U/L (7-40)
[2024-01-17 01:26] LABS: Basophils # (auto) 0.1 10 ^3/uL (0-0.2); Basophils % (auto) 0.9 % (0.0-2.0); Eosinophils # (auto) 0.2 10 ^3/uL (0-0.8); Eosinophils % (auto) 1.9 % (0.0-7.0); Hematocrit 35.3 % (41.0-53.0); Lymphocytes # (auto) 1.7 10 ^3/uL (0.4-5.4); Lymphocytes % (auto) 18.8 % (10.0-50.0); Mean Corpuscular Hemoglobin 28.9 pg (28.0-32.0); Mean Corpuscular Volume 85.1 fL (80.0-100.0); Monocytes # (auto) 0.5 10 ^3/uL (0-1.3); Monocytes % (auto) 5.5 % (0.0-12.0); Neutrophils # (auto) 6.7 10 ^3/uL (1.6-8.6); Neutrophils % (auto) 72.9 % (37.0-80.0); Nucleated Red Blood Cells % 0.2 %; Red Blood Cells 4.15 10^6/uL (4.5-5.90); Red Cell Distribution Width 15.4 % (11.8-14.3); White Blood Cell 9.2 10^3/uL (4.4-10.8)
[2024-01-17] MEDS ORDERED: HYDROcodone-ACET 5/325MG TAB PO PRN (03:15)
[2024-01-17] MEDS ORDERED: ACETAMINOPHEN 325 MG TAB PO PRN (03:15)
[2024-01-17] MEDS: DexAMETHasone SOD PHOS 10MG/1ML VIAL INJ IM ONE (04:33)
[2024-01-17] MEDS: HYDROcodone-ACET 10/325MG TAB PO ONE (04:33)
[2024-01-17] MEDS: SODIUM CHLORIDE 0.9% 1,000 ML IV SCH (04:33)
[2024-01-17 06:23] LABS: Basophils # (auto) 0.1 10 ^3/uL (0-0.2); Basophils % (auto) 0.7 % (0.0-2.0); Eosinophils # (auto) 0.1 10 ^3/uL (0-0.8); Eosinophils % (auto) 1.5 % (0.0-7.0); Hematocrit 31.1 % (41.0-53.0); Hemoglobin 10.6 g/dL (13.5-17.5); Lymphocytes # (auto) 1.2 10 ^3/uL (0.4-5.4); Lymphocytes % (auto) 15.5 % (10.0-50.0); Mean Corpuscular Hemoglobin 28.9 pg (28.0-32.0); Mean Corpuscular Hgb Conc. 34.2 g/dL (32.0-36.0); Mean Corpuscular Volume 84.5 fL (80.0-100.0); Monocytes # (auto) 0.5 10 ^3/uL (0-1.3); Monocytes % (auto) 6.4 % (0.0-12.0); Neutrophils # (auto) 5.7 10 ^3/uL (1.6-8.6); Neutrophils % (auto) 75.9 % (37.0-80.0); Red Blood Cells 3.68 10^6/uL (4.5-5.90); Red Cell Distribution Width 15.7 % (11.8-14.3); White Blood Cell 7.5 10^3/uL (4.4-10.8)
[2024-01-17] MEDS: methylPREDNISolone SOD SUCC 40 MG/ML VL IV SCH (06:30)
[2024-01-17 06:33] LABS: Alanine Aminotransferase 10 U/L (7-40); Albumin 3.8 g/dL (3.2-4.8); Alkaline Phosphatase 79 U/L (46-116); Anion Gap 9 (5-15); Aspartate Aminotransferase 18 U/L (13-40); BUN/Creatinine Ratio 15.6 (10.0-20.0); Blood Urea Nitrogen 32 mg/dL (9-23); Calcium 8.9 mg/dL (8.5-10.1); Carbon Dioxide 24 mmol/L (20-30); Chloride 107 mmol/L (98-107); Glucose 106 mg/dL (74-106); Sodium 140 mmol/L (136-145)
[2024-01-17 06:34] LABS: Bilirubin, Total 0.5 mg/dL (0.2-1.0); Total Protein 5.7 g/dL (5.7-8.2)
[2024-01-17] MEDS ORDERED: NITROGLYCERIN 0.4 MG SL TAB SL PRN (07:00)
[2024-01-17] MEDS: ONDANSETRON HCL 4 MG/2 ML VIAL IV PRN (08:20)
[2024-01-17] MEDS: MORPHINE SULFATE INJ 2 MG/ml SYRG IV PRN (08:21)
[2024-01-17 08:48] LABS: Urine Bacteria NONE SEEN /hpf (None Seen); Urine Blood Negative /uL (Negative); Urine Clarity Clear (Clear); Urine Protein, UAD 2+ (Negative); Urine Specific Gravity 1.014 (1.001-1.035); Urine Urobilinogen Normal (Negative); Urine WBC <1 /hpf (0 - 3); Urine pH 5.5 (5.0-8.0)
[2024-01-17 08:49] LABS: Urine Color Yellow (Yellow)
[2024-01-17] MEDS: ASPirin 81 mg TAB PO SCH (10:00)
[2024-01-17] MEDS: HEPARIN SODIUM (PORCINE) 5000 UNITS/ML 1ML VIAL SC SCH (10:00)
[2024-01-17] MEDS: FAMOTIDINE (10MG/ML) 2ML VL IV SCH (10:45)
[2024-01-17 12:22] LABS: Magnesium 1.9 mg/dL (1.6-2.6)
[2024-01-17 12:23] LABS: Phosphorus 3.5 mg/dL (2.4-5.1)
[2024-01-17 13:30] LABS: Protein, Urine 101.8 mg/dL (0.0-11.9)
[2024-01-17 13:32] LABS: Creatinine, Urine 52.68 mg/dL (30.0-125.0); Creatinine, Urine 54.04 mg/dL (30.0-125.0); Urine Protein/Creatinine Ratio 1.88
[2024-01-17] MEDS: FUROSEMIDE 20 MG/2 ML VIAL IV ONE (16:15)
[2024-01-17] MEDS ORDERED: SENNA 8.6 MG TAB PO PRN (16:15)
[2024-01-17] MEDS ORDERED: guaiFENesin-DM 100/10mg/5ml SYR PO PRN (16:15)
[2024-01-17] MEDS: AZITHROMYCIN 500MG/ 250ML 250 ML IV ONE (16:15)
[2024-01-17 17:59] LABS: INR 1.98 (0.9-1.15); Prothrombin Time 19.9 sec (9.3-11.8)
[2024-01-17 19:35] LABS: Erythrocyte Sedimentation Rate 41 mm/hr (0-20)
[2024-01-17] MEDS: METOPROLOL TARTRATE 50 MG TAB PO SCH (21:41)
[2024-01-17] MEDS: guaiFENesin 200 MG/10 ML UD PO PRN (21:41)
[2024-01-18] VITALS (11 sets, daily range): BP systolic 104–128; BP diastolic 69–89; PULSE 90–109; RESP 14–20; TEMP 97.4–97.8; O2SAT 94–100
[2024-01-18] MEDS: WARFARIN SODIUM 2 MG TAB PO ONE (02:21)
[2024-01-18 06:54] LABS: Basophils # (auto) 0 10 ^3/uL (0-0.2); Basophils % (auto) 0.2 % (0.0-2.0); Eosinophils # (auto) 0 10 ^3/uL (0-0.8); Eosinophils % (auto) 0.1 % (0.0-7.0); Hematocrit 32.2 % (41.0-53.0); Hemoglobin 10.5 g/dL (13.5-17.5); Lymphocytes # (auto) 0.9 10 ^3/uL (0.4-5.4); Lymphocytes % (auto) 7.1 % (10.0-50.0); Mean Corpuscular Hemoglobin 27.7 pg (28.0-32.0); Mean Corpuscular Hgb Conc. 32.5 g/dL (32.0-36.0); Mean Corpuscular Volume 85.2 fL (80.0-100.0); Monocytes # (auto) 0.6 10 ^3/uL (0-1.3); Monocytes % (auto) 4.8 % (0.0-12.0); Neutrophils # (auto) 11.6 10 ^3/uL (1.6-8.6); Neutrophils % (auto) 87.8 % (37.0-80.0); Red Blood Cells 3.78 10^6/uL (4.5-5.90); Red Cell Distribution Width 15.6 % (11.8-14.3); White Blood Cell 13.2 10^3/uL (4.4-10.8)
[2024-01-18 07:03] LABS: Alanine Aminotransferase 12 U/L (7-40); Albumin 3.9 g/dL (3.2-4.8); Alkaline Phosphatase 75 U/L (46-116); Anion Gap 8 (5-15); Aspartate Aminotransferase 16 U/L (13-40); BUN/Creatinine Ratio 14.5 (10.0-20.0); Blood Urea Nitrogen 31 mg/dL (9-23); Calcium 9.5 mg/dL (8.5-10.1); Carbon Dioxide 23 mmol/L (20-30); Chloride 108 mmol/L (98-107); Glucose 131 mg/dL (74-106); Potassium 4.5 mmol/L (3.5-5.1); Sodium 139 mmol/L (136-145)
[2024-01-18 07:04] LABS: Bilirubin, Total 0.3 mg/dL (0.2-1.0); Total Protein 6.4 g/dL (5.7-8.2)
[2024-01-18 07:09] LABS: INR 1.97 (0.9-1.15); Partial Thromboplastin Time 39.3 SEC (24.5-34.5); Prothrombin Time 19.8 sec (9.3-11.8)
[2024-01-18] MEDS: cefTRIAXone 1GM/50ML D5W 50 ML IV SCH (09:28)
[2024-01-18] MEDS: methylPREDNISolone SOD SUCC 40 MG/ML VL IV SCH (09:29)
[2024-01-18] MEDS: DOCUSATE SOD 100 MG CAP PO PRN (09:31)
[2024-01-18] MEDS: PANTOPRAZOLE 40 MG TAB PO SCH (09:31)
[2024-01-18] MEDS: EMPAGLIFLOZIN 10 MG TAB PO SCH (09:41)
[2024-01-18] MEDS: MORPHINE SULFATE INJ 2 MG/ml SYRG IV PRN (09:44)
[2024-01-18] MEDS: AZITHROMYCIN 500MG/ 250ML 250 ML IV SCH (10:32)
[2024-01-18] MEDS: IPRATROPIUM BROM 0.5 MG/2.5ML INH SOL NEB PRN (12:03)
[2024-01-18] MEDS: ALBUTEROL SULF 2.5 MG/0.5ML(0.5%) NEB SOLN NEB PRN (12:03)
[2024-01-18] MEDS: WARFARIN SODIUM 5 MG TAB PO ONE (16:58)
[2024-01-18] MEDS: HYDROcodone-ACET 10/325MG TAB PO PRN (16:59)
[2024-01-19] VITALS (10 sets, daily range): BP systolic 105–129; BP diastolic 58–87; PULSE 91–105; RESP 18–20; TEMP 97.3–97.7; O2SAT 92–97
[2024-01-19 07:02] LABS: INR 3.95 (0.9-1.15); Partial Thromboplastin Time 38.9 SEC (24.5-34.5); Prothrombin Time 37.9 sec (9.3-11.8)
[2024-01-20] VITALS (11 sets, daily range): BP systolic 58–132; BP diastolic 67–83; PULSE 88–100; RESP 18–22; TEMP 96–98.4; O2SAT 92–99
[2024-01-20] MEDS: ALPRAZolam 0.5 MG TAB PO PRN (01:51)
[2024-01-20 05:56] LABS: Anion Gap 7 (5-15); Carbon Dioxide 20 mmol/L (20-30); Chloride 108 mmol/L (98-107); Potassium 5.5 mmol/L (3.5-5.1); Sodium 135 mmol/L (136-145)
[2024-01-20 05:57] LABS: Calcium 8.7 mg/dL (8.7-10.4)
[2024-01-20 06:02] LABS: BUN/Creatinine Ratio 14.1 (10.0-20.0); Blood Urea Nitrogen 32 mg/dL (9-23); Glucose 111 mg/dL (74-106)
[2024-01-20 07:14] LABS: Partial Thromboplastin Time 41.5 SEC (24.5-34.5)
[2024-01-20 07:43] LABS: INR 4.75 (0.9-1.15)
[2024-01-20 12:24] LABS: Hemoglobin 10.8 g/dL (13.5-17.5); Mean Corpuscular Hemoglobin 28.4 pg (28.0-32.0); Mean Corpuscular Hgb Conc. 30.9 g/dL (32.0-36.0); Mean Corpuscular Volume 91.8 fL (80.0-100.0); Red Blood Cells 3.82 10^6/uL (4.5-5.90); Red Cell Distribution Width 17.1 % (11.8-14.3); White Blood Cell 14.5 10^3/uL (4.4-10.8)
[2024-01-20 12:28] LABS: Band Neutrophils % (manual) 0; Basophils % (manual) 0 (0.0-2.0); Blast Cells 0; Eosinophils % (manual) 0 (0-7); Metamyelocytes % 0; Myelocytes % 0; Promyelocytes % 0; Reactive Lymphocytes 0
[2024-01-20 12:53] LABS: Lymphocytes % (manual) 12 (10.0-50.0); Monocytes % (manual) 11 (0-12); Platelet Estimate Adequate
[2024-01-20] MEDS ORDERED: DEXTROSE (50%) 50ML SYRG IV PRN (14:45)
[2024-01-20] MEDS ORDERED: SODI650T PO (14:51)
[2024-01-20] MEDS ORDERED: IPRIH INH (14:51)
[2024-01-20] MEDS ORDERED: GLIP5TAB12 PO (14:51)
[2024-01-20] MEDS ORDERED: PRAV20TA3 PO (14:51)
[2024-01-20] MEDS ORDERED: DAPA1TAB4 PO (14:51)
[2024-01-20] MEDS ORDERED: BENA-19 PO (14:51)
[2024-01-20] MEDS ORDERED: ISOS20TA5 PO (14:51)
[2024-01-20] MEDS: FUROSEMIDE 40 MG/4 ML VIAL IV ONE (14:58)
[2024-01-20] MEDS: SODIUM ZIRCONIUM CYCL 10 GM PAK PO ONE (15:55)
[2024-01-20] MEDS: ACCU-CHEK COMFORT CURVE STRIP VI SCH (17:40)
[2024-01-20] MEDS: InsuLIN REG 1unit/0.01ml Soln (100units/ml) SC SCH (17:46)
[2024-01-21] VITALS (13 sets, daily range): BP systolic 118–134; BP diastolic 77–94; PULSE 86–105; RESP 17–24; TEMP 97.6–98.7; O2SAT 93–100
[2024-01-21 06:27] LABS: Hematocrit 34.2 % (41.0-53.0); Hemoglobin 11.4 g/dL (13.5-17.5); Mean Corpuscular Hemoglobin 28.2 pg (28.0-32.0); Mean Corpuscular Hgb Conc. 33.4 g/dL (32.0-36.0); Mean Corpuscular Volume 84.3 fL (80.0-100.0); Red Blood Cells 4.06 10^6/uL (4.5-5.90); Red Cell Distribution Width 15.8 % (11.8-14.3); White Blood Cell 16.2 10^3/uL (4.4-10.8)
[2024-01-21 06:41] LABS: Basophils % (manual) 0 (0.0-2.0); Blast Cells 0; Eosinophils % (manual) 0 (0-7); INR 2.86 (0.9-1.15); Metamyelocytes % 0; Myelocytes % 0; Partial Thromboplastin Time 36.4 SEC (24.5-34.5); Promyelocytes % 0; Reactive Lymphocytes 0
[2024-01-21 06:42] LABS: Anion Gap 10 (5-15); Carbon Dioxide 22 mmol/L (20-30); Chloride 104 mmol/L (98-107); Potassium 4.9 mmol/L (3.5-5.1); Sodium 136 mmol/L (136-145)
[2024-01-21 06:43] LABS: Calcium 9.4 mg/dL (8.5-10.1)
[2024-01-21 06:48] LABS: BUN/Creatinine Ratio 20.9 (10.0-20.0); Glucose 131 mg/dL (74-106)
[2024-01-21 06:51] LABS: Blood Urea Nitrogen 49 mg/dL (9-23)
[2024-01-21 07:49] LABS: Band Neutrophils % (manual) 2; Lymphocytes % (manual) 11 (10.0-50.0); Monocytes % (manual) 4 (0-12)
[2024-01-21 07:50] LABS: Platelet Estimate Adequate
[2024-01-21] MEDS: FUROSEMIDE 40 MG/4 ML VIAL IV ONE (08:28)
[2024-01-21] MEDS: ALBUTEROL SULF 2.5 MG/0.5ML(0.5%) NEB SOLN ONE (11:18)
[2024-01-21] MEDS: IPRATROPIUM BROM 0.5 MG/2.5ML INH SOL ONE (11:19)
[2024-01-21] MEDS: DOXYCYCLINE 100MG/250ML 250 ML IV SCH (15:27)
[2024-01-21] MEDS: CEFEPIME 1GM/ 50ML 50 ML IV SCH (18:13)
[2024-01-21] MEDS: WARFARIN SODIUM 2.5 MG TAB PO ONE (18:26)
[2024-01-21] MEDS: ALBUTEROL SULF 2.5 MG/0.5ML(0.5%) NEB SOLN NEB SCH (18:50)
[2024-01-21] MEDS: IPRATROPIUM BROM 0.5 MG/2.5ML INH SOL NEB SCH (18:50)
[2024-01-21] MEDS: BUDESONIDE (INHALATION) 0.5 MG/2 ML NEB NEB SCH (18:50)
[2024-01-22] VITALS (12 sets, daily range): BP systolic 114–136; BP diastolic 48–92; PULSE 81–95; RESP 16–21; TEMP 97.4–98.3; O2SAT 91–99
[2024-01-22 06:54] LABS: Anion Gap 10 (5-15); Basophils # (auto) 0 10 ^3/uL (0-0.2); Basophils % (auto) 0.1 % (0.0-2.0); Carbon Dioxide 24 mmol/L (20-30); Chloride 107 mmol/L (98-107); Eosinophils # (auto) 0 10 ^3/uL (0-0.8); Hemoglobin 11.7 g/dL (13.5-17.5); Lymphocytes # (auto) 1.3 10 ^3/uL (0.4-5.4); Lymphocytes % (auto) 8.2 % (10.0-50.0); Mean Corpuscular Hemoglobin 28.8 pg (28.0-32.0); Mean Corpuscular Hgb Conc. 34.3 g/dL (32.0-36.0); Mean Corpuscular Volume 84.2 fL (80.0-100.0); Monocytes # (auto) 0.9 10 ^3/uL (0-1.3); Monocytes % (auto) 5.6 % (0.0-12.0); Neutrophils % (auto) 86.1 % (37.0-80.0); Nucleated Red Blood Cells % 0.2 %; Potassium 4.1 mmol/L (3.5-5.1); Red Blood Cells 4.04 10^6/uL (4.5-5.90); Red Cell Distribution Width 15.9 % (11.8-14.3); Sodium 141 mmol/L (136-145); White Blood Cell 16.3 10^3/uL (4.4-10.8)
[2024-01-22 07:00] LABS: BUN/Creatinine Ratio 20.8 (10.0-20.0); Blood Urea Nitrogen 50 mg/dL (9-23); Glucose 124 mg/dL (74-106)
[2024-01-22 10:47] LABS: INR 2.02 (0.9-1.15); Prothrombin Time 20.3 sec (9.3-11.8)
[2024-01-22] MEDS: WARFARIN SODIUM 1 MG TAB PO ONE (16:59)
[2024-01-23] VITALS (12 sets, daily range): BP systolic 109–133; BP diastolic 71–77; PULSE 80–93; RESP 18–19; TEMP 97.6–97.9; O2SAT 91–99
[2024-01-23 07:26] LABS: Hematocrit 35.1 % (41.0-53.0); Hemoglobin 11.3 g/dL (13.5-17.5); Mean Corpuscular Hemoglobin 27.8 pg (28.0-32.0); Mean Corpuscular Hgb Conc. 32.3 g/dL (32.0-36.0); Mean Corpuscular Volume 86.2 fL (80.0-100.0); Red Blood Cells 4.08 10^6/uL (4.5-5.90); White Blood Cell 12.6 10^3/uL (4.4-10.8)
[2024-01-23 07:30] LABS: Chloride 110 mmol/L (98-107); Potassium 4.5 mmol/L (3.5-5.1); Sodium 139 mmol/L (136-145)
[2024-01-23 07:31] LABS: Anion Gap 7 (5-15); Calcium 8.9 mg/dL (8.5-10.1); Carbon Dioxide 22 mmol/L (20-30)
[2024-01-23 07:36] LABS: BUN/Creatinine Ratio 19.3 (10.0-20.0); Blood Urea Nitrogen 42 mg/dL (9-23); Glucose 92 mg/dL (74-106)
[2024-01-23 07:39] LABS: Band Neutrophils % (manual) 0; Basophils % (manual) 0 (0.0-2.0); Blast Cells 0; Metamyelocytes % 0; Promyelocytes % 0; Reactive Lymphocytes 0
[2024-01-23 07:56] LABS: INR 2.1 (0.9-1.15); Partial Thromboplastin Time 28.2 SEC (24.5-34.5)
[2024-01-23 08:31] LABS: Eosinophils % (manual) 1 (0-7); Lymphocytes % (manual) 23 (10.0-50.0); Monocytes % (manual) 5 (0-12); Myelocytes % 4; Platelet Estimate Adequate
[2024-01-23] MEDS: WARFARIN SODIUM 1 MG TAB PO ONE (19:12)
[2024-01-24] VITALS (9 sets, daily range): BP systolic 110–128; BP diastolic 71–79; PULSE 79–90; RESP 16–21; TEMP 36.4; O2SAT 94–98
[2024-01-24 07:11] LABS: Anion Gap 7 (5-15); Carbon Dioxide 22 mmol/L (20-30); Chloride 108 mmol/L (98-107); Sodium 137 mmol/L (136-145)
[2024-01-24 07:12] LABS: Hematocrit 36.1 % (41.0-53.0); Hemoglobin 11.9 g/dL (13.5-17.5); Mean Corpuscular Hemoglobin 28.4 pg (28.0-32.0); Mean Corpuscular Hgb Conc. 32.9 g/dL (32.0-36.0); Mean Corpuscular Volume 86.3 fL (80.0-100.0); Red Blood Cells 4.19 10^6/uL (4.5-5.90); Red Cell Distribution Width 16.1 % (11.8-14.3); White Blood Cell 12.7 10^3/uL (4.4-10.8)
[2024-01-24 07:13] LABS: Calcium 9.1 mg/dL (8.5-10.1)
[2024-01-24 07:14] LABS: Basophils % (manual) 0 (0.0-2.0); Blast Cells 0; Metamyelocytes % 0; Myelocytes % 0; Promyelocytes % 0; Reactive Lymphocytes 0
[2024-01-24 07:17] LABS: BUN/Creatinine Ratio 14.6 (10.0-20.0); Glucose 94 mg/dL (74-106); INR 2.32 (0.9-1.15); Partial Thromboplastin Time 34.8 SEC (24.5-34.5); Prothrombin Time 23.1 sec (9.3-11.8)
[2024-01-24 07:23] LABS: Blood Urea Nitrogen 31 mg/dL (9-23)
[2024-01-24 07:40] LABS: Band Neutrophils % (manual) 4; Eosinophils % (manual) 2 (0-7); Lymphocytes % (manual) 27 (10.0-50.0); Monocytes % (manual) 3 (0-12); Platelet Estimate Adequate
[2024-01-24] MEDS ORDERED: CEFP200T15 PO (10:36)
[2024-01-24] MEDS ORDERED: DOXY-448 PO (10:36)
[2024-01-24] MEDS: FUROSEMIDE 20 MG/2 ML VIAL IV ONE (12:14)
[2024-01-24] MEDS ORDERED: WARFARIN SODIUM 2.5 MG TAB PO ONE (17:00)
== END 2024-01-24 17:32 | disposition hospice, home (50) | DRG 177 ==
LOC: ER → TELE 07:00 → TELE-WESTW 09:20
PROVIDERS: ADMIT Nurse Practitioner Family; ATTEND Nurse Practitioner Acute Care
DX: J15.69 Pneumonia due to other Gram-negative bacteria (principal); I50.43 Acute on chronic combined systolic (congestive) and diastolic (congestive) heart failure; J96.21 Acute and chronic respiratory failure with hypoxia; I13.0 Hypertensive heart and chronic kidney disease with heart failure and stage 1 through stage 4 chronic kidney disease, or unspecified chronic kidney disease; N17.9 Acute kidney failure, unspecified; N18.32 Chronic kidney disease, stage 3b; E11.22 Type 2 diabetes mellitus with diabetic chronic kidney disease; E78.5 Hyperlipidemia, unspecified; I34.0 Nonrheumatic mitral (valve) insufficiency; B19.20 Unspecified viral hepatitis C without hepatic coma; G89.4 Chronic pain syndrome; I48.91 Unspecified atrial fibrillation; K74.60 Unspecified cirrhosis of liver; D63.1 Anemia in chronic kidney disease; G47.33 Obstructive sleep apnea (adult) (pediatric); F17.200 Nicotine dependence, unspecified, uncomplicated; I25.10 Atherosclerotic heart disease of native coronary artery without angina pectoris; I27.20 Pulmonary hypertension, unspecified; J43.9 Emphysema, unspecified; E87.5 Hyperkalemia; Z91.041 Radiographic dye allergy status; Z79.899 Other long term (current) drug therapy; Z83.3 Family history of diabetes mellitus; I25.2 Old myocardial infarction; Z99.81 Dependence on supplemental oxygen; Z79.01 Long term (current) use of anticoagulants; Z79.891 Long term (current) use of opiate analgesic; Z86.73 Personal history of transient ischemic attack (TIA), and cerebral infarction without residual deficits; Z95.2 Presence of prosthetic heart valve
CPT/HCPCS: 36415; 71045; 71046; 71250; 76775; 78582; 80048; 80053; 81001; 82306; 82570; 82962; 83036; 83690; 83735; 83880; 83970; 84100; 84156; 84300; 84484; 85007; 85025; 85027; 85379; 85610; 85652; 85730; 86141; 93005; 93306; 94640; G0378; J1100; J1815; J2405; J3490

== ENCOUNTER 2024-07-20 04:57 | Inpatient (IN) | payer OTHER, MEDICAID ==
[~2024-07-20] VITALS: Ht 160 cm; Wt 73.8 kg
[~2024-07-20 04:57] MED LIST changes: -AZIT500T PO; +BENA10TA90 PO; +CEFP200T15 PO; +DAPA1TAB4 PO; +DOXY100C79 PO; -FUR20T PO; +FURO20TA4 PO; +GLIP5TAB21 PO; +INSU100I54 SC; +IPRIH INH; +ISOS20TA5 PO; -LIDO1PAD55 BC; +LIDO1PAD55 TOP; -LOSA25TA15 PO; +PRAV20TA3 PO; +SODI650T PO
[2024-07-20 06:23] LABS: Basophils # (auto) 0.1 10 ^3/uL (0-0.2); Eosinophils # (auto) 0.2 10 ^3/uL (0-0.8); Eosinophils % (auto) 2.5 % (0.0-7.0); Lymphocytes # (auto) 1.1 10 ^3/uL (0.4-5.4); Monocytes # (auto) 0.5 10 ^3/uL (0-1.3); Platelet Count (auto) 195 10^3/uL (140-450)
[2024-07-20 06:24] LABS: Basophils % (auto) 0.7 % (0.0-2.0); Hematocrit 32.2 % (41.0-53.0); Hemoglobin 10.7 g/dL (13.5-17.5); Lymphocytes % (auto) 11.3 % (10.0-50.0); Mean Corpuscular Hemoglobin 26.4 pg (28.0-32.0); Mean Corpuscular Hgb Conc. 33.1 g/dL (32.0-36.0); Mean Corpuscular Volume 79.8 fL (80.0-100.0); Neutrophils # (auto) 7.9 10 ^3/uL (1.6-8.6); Neutrophils % (auto) 80.5 % (37.0-80.0); Nucleated Red Blood Cells % 0.3 %; Red Blood Cells 4.03 10^6/uL (4.5-5.90); White Blood Cell 9.8 10^3/uL (4.4-10.8)
[2024-07-20 06:32] LABS: Alanine Aminotransferase 19 U/L (7-40); Albumin 4.4 g/dL (3.2-4.8); Alkaline Phosphatase 113 U/L (46-116); Anion Gap 9 (5-15); Aspartate Aminotransferase 15 U/L (13-40); BUN/Creatinine Ratio 14.9 (10.0-20.0); Blood Urea Nitrogen 33 mg/dL (9-23); Calcium 9.7 mg/dL (8.7-10.4); Carbon Dioxide 18 mmol/L (20-30); Chloride 113 mmol/L (98-107); Magnesium 2.1 mg/dL (1.6-2.6); Potassium 4.1 mmol/L (3.5-5.1); Sodium 140 mmol/L (136-145); Total Protein 7.3 g/dL (5.7-8.2)
[2024-07-20 06:42] LABS: Glucose 113 mg/dL (74-106)
[2024-07-20 06:44] LABS: Red Cell Distribution Width 20.1 % (11.8-14.3)
[2024-07-20 07:13] LABS: Partial Thromboplastin Time 40.4 SEC (24.5-34.5)
[2024-07-20 07:21] LABS: INR 2.47 (0.9-1.15); Prothrombin Time 24.5 sec (9.3-11.8)
[2024-07-20] MEDS: ASPirin 81 mg TAB PO ONE (08:27)
[2024-07-20 09:20] VITALS: PULSE 103; RESP 15; O2SAT 98
[2024-07-20 09:58] LABS: Urine Bacteria None Seen /hpf (None Seen)
[2024-07-20 10:17] LABS: Urine Blood TRACE /uL (Negative); Urine Clarity Clear (Clear); Urine Color Light-Yellow (Yellow); Urine Mucus FEW (None Seen); Urine Protein, UAD 2+ (Negative); Urine Specific Gravity 1.015 (1.001-1.035); Urine Urobilinogen Normal (Negative); Urine WBC 1 /hpf (0 - 3); Urine pH 5.5 (5.0-9.0)
[2024-07-20] MEDS: HYDROcodone-ACET 10/325MG TAB PO ONE (11:13)
[2024-07-20] MEDS ORDERED: ACETAMINOPHEN 325 MG TAB PO PRN (14:45)
[2024-07-20] MEDS ORDERED: DEXTROSE (50%) 50ML SYRG IV PRN (14:45)
[2024-07-20] MEDS ORDERED: MORPHINE SULFATE INJ 2 MG/ml SYRG IV PRN (15:15)
[2024-07-20] MEDS: FUROSEMIDE 20 MG/2 ML VIAL IV ONE (16:15)
[2024-07-20] MEDS: MORPHINE SULFATE INJ 2 MG/ml SYRG IV PRN (16:16)
[2024-07-20] MEDS: ONDANSETRON HCL 4 MG/2 ML VIAL IV PRN (16:16)
[2024-07-20] MEDS: WARFARIN SODIUM 2 MG TAB PO ONE (17:00)
[2024-07-20] MEDS: InsuLIN REG 1unit/0.01ml Soln (100units/ml) SC SCH (17:00)
[2024-07-20] MEDS: ACCU-CHEK COMFORT CURVE STRIP VI SCH (17:14)
[2024-07-20] MEDS: WARFARIN SODIUM 1 MG TAB PO ONE (18:30)
[2024-07-20] MEDS: ATORVASTATIN 20 MG TAB PO SCH (21:55)
[2024-07-20] MEDS: CARVEDILOL 3.125 MG TAB PO SCH (21:56)
[2024-07-20] MEDS ORDERED: FAMOTIDINE (10MG/ML) 2ML VL IV SCH (22:00)
[2024-07-20] MEDS: SODIUM CHLOR 0.9% PF (SALINE LOCK) 10ML VIAL/SYR IV SCH (22:03)
[2024-07-20 23:06] VITALS: BP 126/73; PULSE 98; RESP 20; TEMP 97.4; O2SAT 96
[2024-07-20 23:17] VITALS: BP 126/73; PULSE 98; RESP 20; TEMP 97.4; O2SAT 96
[2024-07-20] MEDS ORDERED: HYDR-4072 PO (23:38)
[2024-07-20] MEDS ORDERED: DOCU-94 PO (23:38)
[2024-07-20] MEDS ORDERED: PROM25TA10 PO (23:38)
[2024-07-20] MEDS ORDERED: ASCO500T11 PO (23:38)
[2024-07-20] MEDS ORDERED: INSU1.2I SC (23:38)
[2024-07-20] MEDS ORDERED: FERR325T20 PO (23:38)
[2024-07-20] MEDS ORDERED: AML5T PO (23:38)
[2024-07-21] VITALS (8 sets, daily range): BP systolic 100–113; BP diastolic 61–80; PULSE 74–96; RESP 18–22; TEMP 97.4–98.7; O2SAT 96–100
[2024-07-21] MEDS: NITROGLYCERIN 0.4 MG SL TAB SL PRN (03:49)
[2024-07-21 06:26] LABS: Basophils # (auto) 0.1 10 ^3/uL (0-0.2); Hemoglobin 9.9 g/dL (13.5-17.5); Lymphocytes # (auto) 1.1 10 ^3/uL (0.4-5.4); Monocytes # (auto) 0.5 10 ^3/uL (0-1.3); Neutrophils # (auto) 6.5 10 ^3/uL (1.6-8.6); White Blood Cell 8.4 10^3/uL (4.4-10.8)
[2024-07-21 06:28] LABS: Basophils % (auto) 0.8 % (0.0-2.0); Eosinophils # (auto) 0.3 10 ^3/uL (0-0.8); Eosinophils % (auto) 3.2 % (0.0-7.0); Hematocrit 29.9 % (41.0-53.0); Mean Corpuscular Hemoglobin 25.7 pg (28.0-32.0); Monocytes % (auto) 5.9 % (0.0-12.0); Neutrophils % (auto) 77.1 % (37.0-80.0); Platelet Count (auto) 172 10^3/uL (140-450); Red Blood Cells 3.84 10^6/uL (4.5-5.90); Red Cell Distribution Width 19.2 % (11.8-14.3)
[2024-07-21 06:34] LABS: Alanine Aminotransferase 14 U/L (7-40); Alkaline Phosphatase 101 U/L (46-116); Anion Gap 7 (5-15); Aspartate Aminotransferase 10 U/L (13-40); BUN/Creatinine Ratio 17.3 (10.0-20.0); Calcium 9.3 mg/dL (8.7-10.4); Carbon Dioxide 23 mmol/L (20-30); Chloride 110 mmol/L (98-107); Glucose 102 mg/dL (74-106); Potassium 4.4 mmol/L (3.5-5.1); Sodium 140 mmol/L (136-145)
[2024-07-21 06:35] LABS: Bilirubin, Total 1.3 mg/dL (0.2-1.0); Total Protein 6.5 g/dL (5.7-8.2)
[2024-07-21 06:36] LABS: Blood Urea Nitrogen 45 mg/dL (9-23)
[2024-07-21 09:28] LABS: INR 2.34 (0.9-1.15); Prothrombin Time 23.3 sec (9.3-11.8)
[2024-07-21] MEDS: ASPirin 81 mg TAB PO SCH (09:48)
[2024-07-21] MEDS: FUROSEMIDE 20 MG/2 ML VIAL IV SCH (09:50)
[2024-07-21] MEDS: FAMOTIDINE (10MG/ML) 2ML VL IV SCH (09:51)
[2024-07-21] MEDS ORDERED: BECLOMETHASONE DIPROPIONATE 40 MCG IN PRN (10:30)
[2024-07-21] MEDS: DOXYCYCLINE 100 MG TAB/CAP PO ONE (11:24)
[2024-07-21] MEDS: cefTRIAXone 1GM/50ML D5W 50 ML IV ONE (11:25)
[2024-07-21 12:11] LABS: Triglycerides 96 mg/dL (< 150)
[2024-07-21 12:12] LABS: LDL Cholesterol 75 mg/dL (< 100)
[2024-07-21 12:13] LABS: Cholesterol 125 mg/dL (< 200); HDL Cholesterol 34 mg/dL (40-59)
[2024-07-21] MEDS: Glucerna Carbsteady SHAKE Vanilla 8oz PO SCH (13:18)
[2024-07-21] MEDS ORDERED: WARFARIN SODIUM 1 MG TAB PO ONE (17:00)
[2024-07-21] MEDS: WARFARIN SODIUM 2 MG TAB PO ONE (17:03)
[2024-07-21] MEDS: METOPROLOL TARTRATE 50 MG TAB PO SCH (21:43)
[2024-07-21] MEDS: MORPHINE SULF 30 mg ER tab PO SCH (21:43)
[2024-07-21] MEDS: DOXYCYCLINE 100 MG TAB/CAP PO SCH (21:44)
[2024-07-21] MEDS: ALPRAZolam 0.5 MG TAB PO PRN (21:45)
[2024-07-21] MEDS: INSULIN LANTUS (GLARGINE) 1 /0.01ml (100units/ml) SC SCH (21:46)
[2024-07-21] MEDS ORDERED: ISOSORBIDE DINITRATE PO SCH (22:00)
[2024-07-21] MEDS ORDERED: ISOSORBIDE DINITRATE 10 MG TAB PO SCH (22:00)
[2024-07-21] MEDS: DOCUSATE SOD 100 MG CAP PO SCH (23:00)
[2024-07-22] VITALS (9 sets, daily range): BP systolic 95–129; BP diastolic 61–79; PULSE 71–84; RESP 15–18; TEMP 96.6–98.5; O2SAT 90–99
[2024-07-22] MEDS: HYDROcodone-ACET 5/325MG TAB PO PRN (06:18)
[2024-07-22] MEDS: DOCUSATE SOD 100 MG CAP PO PRN (06:18)
[2024-07-22 06:40] LABS: INR 2.57 (0.9-1.15); Prothrombin Time 25.4 sec (9.3-11.8)
[2024-07-22] MEDS: amLODIPine BESYLATE 5 MG TAB PO SCH (10:00)
[2024-07-22] MEDS: BENAZEPRIL HCL 10 MG TAB PO SCH (10:00)
[2024-07-22] MEDS ORDERED: PATIENTS OWN MEDICATION (Ferrous Sulfate (Ferosul) 1 TAB) PO SCH (10:00)
[2024-07-22] MEDS: ISOSORBIDE MONONITRATE ER 60 MG TAB PO SCH (10:00)
[2024-07-22] MEDS: cefTRIAXone 1GM/50ML D5W 50 ML IV SCH (11:02)
[2024-07-22] MEDS: FERROUS SULFATE 325mg EC TAB PO SCH (11:02)
[2024-07-22] MEDS: ASCORBIC ACID 500 MG TAB PO SCH (11:03)
[2024-07-22] MEDS: LACTULOSE 20Gm/30ML SOLN PO PRN (11:15)
[2024-07-22 12:30] LABS: Amphetamine Screen, Urine Neg (NEGATIVE); Benzodiazephine Screen, Urine Neg (NEGATIVE)
[2024-07-22 12:31] LABS: Barbiturate Scree,Urine Neg (NEGATIVE); Cannabinoid Screen, Urine Neg (NEGATIVE); Cocaine Screen, Urine Neg (NEGATIVE); Opiate Scree,Urine Pos (NEGATIVE); Phencyclidine Screen, Urine Neg (NEGATIVE)
[2024-07-22] MEDS: WARFARIN SODIUM 2 MG TAB PO ONE (17:01)
[2024-07-23 01:00] VITALS: BP 103/68; PULSE 73; RESP 15; TEMP 97.3; O2SAT 96
[2024-07-23 05:00] VITALS: BP 129/77; PULSE 80; RESP 16; TEMP 98.9; O2SAT 99
[2024-07-23 06:18] LABS: INR 2.85 (0.9-1.15)
[2024-07-23 08:00] VITALS: PULSE 75; RESP 18
[2024-07-23 08:01] VITALS: BP 127/76; PULSE 79; RESP 18; TEMP 98.5; O2SAT 94
[2024-07-23] MEDS ORDERED: HYDR-4902 PO (11:06)
[2024-07-23] MEDS ORDERED: DOXY1CAP57 PO (11:06)
[2024-07-23 11:58] VITALS: BP 122/77; PULSE 79; RESP 16; TEMP 97.4; O2SAT 91
== END 2024-07-23 14:25 | disposition home or self-care (01) | DRG 291 ==
LOC: ER 05:14 → TELE 15:11 → TELE-E-ADS 23:00
PROVIDERS: ADMIT Nurse Practitioner Family; ATTEND Internal Medicine Geriatric Medicine
DX: I13.0 Hypertensive heart and chronic kidney disease with heart failure and stage 1 through stage 4 chronic kidney disease, or unspecified chronic kidney disease (principal); I50.23 Acute on chronic systolic (congestive) heart failure; J44.0 Chronic obstructive pulmonary disease with (acute) lower respiratory infection; I69.354 Hemiplegia and hemiparesis following cerebral infarction affecting left non-dominant side; J20.9 Acute bronchitis, unspecified; I25.118 Atherosclerotic heart disease of native coronary artery with other forms of angina pectoris; D64.9 Anemia, unspecified; E87.8 Other disorders of electrolyte and fluid balance, not elsewhere classified; E11.22 Type 2 diabetes mellitus with diabetic chronic kidney disease; E66.9 Obesity, unspecified; I35.0 Nonrheumatic aortic (valve) stenosis; I34.0 Nonrheumatic mitral (valve) insufficiency; N18.30 Chronic kidney disease, stage 3 unspecified; E78.5 Hyperlipidemia, unspecified; I25.2 Old myocardial infarction; K74.60 Unspecified cirrhosis of liver; Z91.041 Radiographic dye allergy status; Z83.3 Family history of diabetes mellitus; Z82.49 Family history of ischemic heart disease and other diseases of the circulatory system; Z87.891 Personal history of nicotine dependence; Z95.2 Presence of prosthetic heart valve; Z79.01 Long term (current) use of anticoagulants; Z68.27 Body mass index [BMI] 27.0-27.9, adult
CPT/HCPCS: 36415; 71046; 80053; 80061; 80307; 81001; 82962; 83036; 83735; 83880; 84443; 84484; 85025; 85610; 85730; 87081; 93005; 93306; 99291; G0378; J2405; J3490

== ENCOUNTER 2024-08-14 18:29 | Inpatient (IN) | payer OTHER, MEDICAID ==
[~2024-08-14] VITALS: Ht 160 cm; Wt 75.1 kg
[~2024-08-14 18:29] MED LIST changes: +AML5T PO; -AMLO1TAB22 PO; +ASCO500T11 PO; +CARV-214 PO; -CEFP200T15 PO; +DOCU-94 PO; -DOXY100C79 PO; +DOXY1CAP57 PO; -ENOX80IN SC; +FERR325T20 PO; -GLIP5TAB21 PO; +HYDR-4072 PO; +HYDR-4902 PO; -HYDR1TAB97 PO; +INSU1.2I SC; -PRED1SOL8 PO; +PROM25TA10 PO; -RANO500T2 PO; -SODI650T PO
[2024-08-14] MEDS ORDERED: NITROGLYCERIN 0.4 MG SL TAB SL ONE (19:15)
[2024-08-14] MEDS: ALBUTEROL SULF 2.5 MG/0.5ML(0.5%) NEB SOLN NEB ONE (19:25)
[2024-08-14] MEDS: IPRATROPIUM BROM 0.5 MG/2.5ML INH SOL NEB ONE (19:25)
[2024-08-14 19:28] LABS: Basophils # (auto) 0 10 ^3/uL (0-0.2); Basophils % (auto) 0.7 % (0.0-2.0); Eosinophils # (auto) 0.1 10 ^3/uL (0-0.8); Hematocrit 29.8 % (41.0-53.0); Lymphocytes # (auto) 0.6 10 ^3/uL (0.4-5.4); Monocytes # (auto) 0.5 10 ^3/uL (0-1.3)
[2024-08-14 19:30] LABS: Hemoglobin 9.7 g/dL (13.5-17.5); Lymphocytes % (auto) 9.6 % (10.0-50.0); Mean Corpuscular Hgb Conc. 32.7 g/dL (32.0-36.0); Mean Corpuscular Volume 79.4 fL (80.0-100.0); Monocytes % (auto) 8.5 % (0.0-12.0); Neutrophils # (auto) 5.1 10 ^3/uL (1.6-8.6); Neutrophils % (auto) 80.2 % (37.0-80.0); Platelet Count (auto) 159 10^3/uL (140-450); Red Blood Cells 3.75 10^6/uL (4.5-5.90); White Blood Cell 6.4 10^3/uL (4.4-10.8)
[2024-08-14 19:36] LABS: Red Cell Distribution Width 20.4 % (11.8-14.3)
[2024-08-14 19:45] LABS: Alanine Aminotransferase 21 U/L (7-40); Albumin 4.3 g/dL (3.2-4.8); Alkaline Phosphatase 111 U/L (46-116); Anion Gap 9 (5-15); Aspartate Aminotransferase 21 U/L (13-40); BUN/Creatinine Ratio 15.6 (10.0-20.0); Blood Urea Nitrogen 40 mg/dL (9-23); Calcium 9.2 mg/dL (8.7-10.4); Carbon Dioxide 20 mmol/L (20-30); Chloride 110 mmol/L (98-107); Glucose 111 mg/dL (74-106); INR 2.24 (0.9-1.15); Magnesium 2.1 mg/dL (1.6-2.6); Potassium 4.3 mmol/L (3.5-5.1); Prothrombin Time 22.4 sec (9.3-11.8); Sodium 139 mmol/L (136-145)
[2024-08-14 19:46] LABS: Bilirubin, Total 1.5 mg/dL (0.2-1.0); Total Protein 6.5 g/dL (5.7-8.2)
[2024-08-14] MEDS: ONDANSETRON HCL 4 MG/2 ML VIAL IV ONE (20:35)
[2024-08-14] MEDS: MORPHINE SULFATE INJ 2 MG/ml SYRG IM ONE (20:36)
[2024-08-14 21:19] VITALS: PULSE 96; RESP 19; O2SAT 93
[2024-08-15] VITALS (14 sets, daily range): BP systolic 108–126; BP diastolic 63–86; PULSE 66–96; RESP 12–22; TEMP 96–98.8; O2SAT 92–100
[2024-08-15] MEDS: HYDROcodone-ACET 10/325MG TAB PO ONE (00:57)
[2024-08-15] MEDS: LORazepam 2MG/ML-1ML VIAL IV ONE (00:57)
[2024-08-15] MEDS ORDERED: ACETAMINOPHEN 325 MG TAB PO PRN (01:30)
[2024-08-15] MEDS ORDERED: MORPHINE SULFATE INJ 2 MG/ml SYRG IV PRN (01:30)
[2024-08-15] MEDS ORDERED: DEXTROSE (50%) 50ML SYRG IV PRN (01:30)
[2024-08-15] MEDS ORDERED: DOCUSATE SOD 100 MG CAP PO PRN (01:30)
[2024-08-15] MEDS ORDERED: NITROGLYCERIN 0.4 MG SL TAB SL PRN (01:30)
[2024-08-15] MEDS: SODIUM CHLOR 0.9% PF (SALINE LOCK) 10ML VIAL/SYR IV SCH (05:52)
[2024-08-15 05:55] LABS: Alanine Aminotransferase 17 U/L (7-40); Albumin 4.1 g/dL (3.2-4.8); Alkaline Phosphatase 99 U/L (46-116); Anion Gap 7 (5-15); Aspartate Aminotransferase 16 U/L (13-40); BUN/Creatinine Ratio 12.6 (10.0-20.0); Bilirubin, Total 1.1 mg/dL (0.2-1.0); Blood Urea Nitrogen 33 mg/dL (9-23); Calcium 9.2 mg/dL (8.7-10.4); Carbon Dioxide 21 mmol/L (20-30); Chloride 109 mmol/L (98-107); Glucose 122 mg/dL (74-106); Potassium 4.1 mmol/L (3.5-5.1); Sodium 137 mmol/L (136-145)
[2024-08-15 05:56] LABS: Total Protein 6.6 g/dL (5.7-8.2)
[2024-08-15] MEDS: InsuLIN REG 1unit/0.01ml Soln (100units/ml) SC SCH (06:24)
[2024-08-15] MEDS: ACCU-CHEK COMFORT CURVE STRIP VI SCH (06:24)
[2024-08-15] MEDS: ALBUTEROL SULF 2.5 MG/0.5ML(0.5%) NEB SOLN NEB PRN (07:23)
[2024-08-15] MEDS: IPRATROPIUM BROM 0.5 MG/2.5ML INH SOL NEB PRN (07:23)
[2024-08-15] MEDS: FUROSEMIDE 20 MG/2 ML VIAL IV ONE (08:11)
[2024-08-15] MEDS: MORPHINE SULFATE INJ 2 MG/ml SYRG IV PRN (08:12)
[2024-08-15 08:17] LABS: Basophils # (auto) 0 10 ^3/uL (0-0.2); Basophils % (auto) 0.6 % (0.0-2.0); Eosinophils # (auto) 0.1 10 ^3/uL (0-0.8); Eosinophils % (auto) 1.8 % (0.0-7.0); Hemoglobin 10.1 g/dL (13.5-17.5); Lymphocytes # (auto) 0.7 10 ^3/uL (0.4-5.4); Lymphocytes % (auto) 16.8 % (10.0-50.0); Mean Corpuscular Hemoglobin 26.6 pg (28.0-32.0); Mean Corpuscular Hgb Conc. 32.6 g/dL (32.0-36.0); Mean Corpuscular Volume 81.6 fL (80.0-100.0); Monocytes # (auto) 0.3 10 ^3/uL (0-1.3); Monocytes % (auto) 8.5 % (0.0-12.0); Neutrophils # (auto) 2.8 10 ^3/uL (1.6-8.6); Neutrophils % (auto) 72.3 % (37.0-80.0); Nucleated Red Blood Cells % 0.1 %; Platelet Count (auto) 132 10^3/uL (140-450); Red Cell Distribution Width 21.3 % (11.8-14.3); White Blood Cell 3.9 10^3/uL (4.4-10.8)
[2024-08-15 09:02] LABS: Anisocytosis Slight
[2024-08-15 09:03] LABS: Ovalocytes FEW; Platelet Estimate Decreased
[2024-08-15] MEDS: CARVEDILOL 3.125 MG TAB PO SCH (09:22)
[2024-08-15] MEDS: ASPirin 81 mg TAB PO SCH (09:23)
[2024-08-15] MEDS: FUROSEMIDE 20 MG/2 ML VIAL IV SCH (09:23)
[2024-08-15] MEDS: FAMOTIDINE (10MG/ML) 2ML VL IV SCH (09:23)
[2024-08-15 12:02] LABS: Magnesium 2.2 mg/dL (1.6-2.6)
[2024-08-15 12:03] LABS: Phosphorus 5.1 mg/dL (2.4-5.1)
[2024-08-15] MEDS: ONDANSETRON HCL 4 MG/2 ML VIAL IV PRN (14:17)
[2024-08-15 17:20] LABS: INR 2.06 (0.9-1.15); Partial Thromboplastin Time 39.5 SEC (24.5-34.5); Prothrombin Time 20.7 sec (9.3-11.8)
[2024-08-15] MEDS: WARFARIN SODIUM 2 MG TAB PO ONE (17:57)
[2024-08-15] MEDS: ATORVASTATIN 20 MG TAB PO SCH (22:28)
[2024-08-16] VITALS (10 sets, daily range): BP systolic 105–125; BP diastolic 65–83; PULSE 78–92; RESP 16–21; TEMP 97.1–98.8; O2SAT 90–98
[2024-08-16] MEDS: LORazepam 2MG/ML-1ML VIAL IV PRN (00:21)
[2024-08-16 07:44] LABS: Alanine Aminotransferase 16 U/L (7-40); Alkaline Phosphatase 101 U/L (46-116); Anion Gap 9 (5-15); BUN/Creatinine Ratio 14.1 (10.0-20.0); Basophils # (auto) 0 10 ^3/uL (0-0.2); Basophils % (auto) 0.8 % (0.0-2.0); Blood Urea Nitrogen 41 mg/dL (9-23); Calcium 9.2 mg/dL (8.7-10.4); Carbon Dioxide 21 mmol/L (20-30); Chloride 107 mmol/L (98-107); Eosinophils # (auto) 0.2 10 ^3/uL (0-0.8); Eosinophils % (auto) 3.3 % (0.0-7.0); Glucose 93 mg/dL (74-106); Hematocrit 29.9 % (41.0-53.0); Hemoglobin 10.1 g/dL (13.5-17.5); Lymphocytes # (auto) 0.9 10 ^3/uL (0.4-5.4); Lymphocytes % (auto) 17.3 % (10.0-50.0); Mean Corpuscular Hemoglobin 27.2 pg (28.0-32.0); Mean Corpuscular Hgb Conc. 33.9 g/dL (32.0-36.0); Mean Corpuscular Volume 80.1 fL (80.0-100.0); Monocytes # (auto) 0.6 10 ^3/uL (0-1.3); Monocytes % (auto) 11.4 % (0.0-12.0); Neutrophils # (auto) 3.6 10 ^3/uL (1.6-8.6); Neutrophils % (auto) 67.2 % (37.0-80.0); Nucleated Red Blood Cells % 0.1 %; Platelet Count (auto) 149 10^3/uL (140-450); Potassium 4.6 mmol/L (3.5-5.1); Red Blood Cells 3.73 10^6/uL (4.5-5.90); Sodium 137 mmol/L (136-145); White Blood Cell 5.4 10^3/uL (4.4-10.8)
[2024-08-16 07:45] LABS: Albumin 4.1 g/dL (3.2-4.8); Aspartate Aminotransferase 16 U/L (13-40); Bilirubin, Total 0.9 mg/dL (0.2-1.0); Total Protein 6.5 g/dL (5.7-8.2)
[2024-08-16 07:58] LABS: INR 2.12 (0.9-1.15); Prothrombin Time 21.3 sec (9.3-11.8)
[2024-08-16] MEDS: ALBUMIN 25% 50 ML IV SCH (17:41)
[2024-08-16] MEDS: HYDROcodone-ACET 5/325MG TAB PO PRN (17:45)
[2024-08-16] MEDS: WARFARIN SODIUM 2 MG TAB PO ONE (18:06)
[2024-08-17 05:00] VITALS: BP 98/58; PULSE 68; RESP 18; TEMP 98.3; O2SAT 95
[2024-08-17 07:39] LABS: Anion Gap 9 (5-15); Calcium 9.3 mg/dL (8.7-10.4); Carbon Dioxide 21 mmol/L (20-30); Chloride 106 mmol/L (98-107); Potassium 4.4 mmol/L (3.5-5.1); Sodium 136 mmol/L (136-145)
[2024-08-17 07:43] LABS: Glucose 116 mg/dL (74-106)
[2024-08-17 07:45] LABS: BUN/Creatinine Ratio 14.8 (10.0-20.0); Blood Urea Nitrogen 44 mg/dL (9-23); Magnesium 2.3 mg/dL (1.6-2.6)
[2024-08-17 07:53] LABS: INR 2.59 (0.9-1.15); Partial Thromboplastin Time 40.7 SEC (24.5-34.5); Prothrombin Time 25.6 sec (9.3-11.8)
[2024-08-17 08:00] VITALS: PULSE 71
[2024-08-17 08:09] VITALS: O2SAT 99
[2024-08-17 09:00] VITALS: BP 101/71; PULSE 67; RESP 18; TEMP 98.1; O2SAT 99
[2024-08-17 10:00] VITALS: O2SAT 95
[2024-08-17] MEDS ORDERED: WARFARIN SODIUM 2 MG TAB PO ONE (17:00)
== END 2024-08-17 13:48 | disposition left against medical advice (07) | DRG 682 ==
LOC: ER 18:29 → EDBD 18:29 → EDUNIT# 18:29 → TELE 08-15 01:16 → TELE-EAST 08-15 06:00
PROVIDERS: ADMIT Nurse Practitioner Family; ATTEND Hospitalist
DX: N17.9 Acute kidney failure, unspecified (principal); I50.23 Acute on chronic systolic (congestive) heart failure; I13.0 Hypertensive heart and chronic kidney disease with heart failure and stage 1 through stage 4 chronic kidney disease, or unspecified chronic kidney disease; I24.9 Acute ischemic heart disease, unspecified; N18.4 Chronic kidney disease, stage 4 (severe); D63.1 Anemia in chronic kidney disease; Z53.29 Procedure and treatment not carried out because of patient's decision for other reasons; E11.22 Type 2 diabetes mellitus with diabetic chronic kidney disease; J44.9 Chronic obstructive pulmonary disease, unspecified; N18.9 Chronic kidney disease, unspecified; I25.2 Old myocardial infarction; Z87.891 Personal history of nicotine dependence; Z83.3 Family history of diabetes mellitus; Z86.73 Personal history of transient ischemic attack (TIA), and cerebral infarction without residual deficits
CPT/HCPCS: 36415; 71045; 76775; 80048; 80053; 82306; 82962; 83735; 83880; 83970; 84100; 84484; 85025; 85610; 85730; 86850; 86900; 86901; 87081; 93005; 94640; 96372; 96374; 97110; 97163; G0378; J1815; J2405; J3490

== ENCOUNTER 2024-08-20 18:58 | Emergency (ER) | payer OTHER, MEDICAID ==
[~2024-08-20] VITALS: Ht 160 cm; Wt 70.9 kg
[~2024-08-20 18:58] MED LIST changes: -ALBU108A5 IN; -ATOR-507 PO; -EZET10TA22 PO; -GLIP5TAB21 PO; -[UNRECOGNIZED DRUG - CODE] BU
[2024-08-20 19:08] VITALS: BP 132/89
[2024-08-20 19:14] VITALS: RESP 19; O2SAT 97
[2024-08-20 20:04] LABS: Basophils # (auto) 0.1 10 ^3/uL (0-0.2); Basophils % (auto) 0.6 % (0.0-2.0); Eosinophils # (auto) 0.1 10 ^3/uL (0-0.8); Eosinophils % (auto) 1.6 % (0.0-7.0); Hematocrit 33.2 % (41.0-53.0); Hemoglobin 11.1 g/dL (13.5-17.5); Lymphocytes # (auto) 1.3 10 ^3/uL (0.4-5.4); Lymphocytes % (auto) 13.3 % (10.0-50.0); Mean Corpuscular Hemoglobin 26.2 pg (28.0-32.0); Mean Corpuscular Hgb Conc. 33.3 g/dL (32.0-36.0); Mean Corpuscular Volume 78.5 fL (80.0-100.0); Monocytes # (auto) 0.6 10 ^3/uL (0-1.3); Monocytes % (auto) 5.9 % (0.0-12.0); Neutrophils # (auto) 7.4 10 ^3/uL (1.6-8.6); Neutrophils % (auto) 78.6 % (37.0-80.0); Platelet Count (auto) 208 10^3/uL (140-450); Red Blood Cells 4.23 10^6/uL (4.5-5.90); White Blood Cell 9.4 10^3/uL (4.4-10.8)
[2024-08-20 20:05] LABS: Red Cell Distribution Width 20.4 % (11.8-14.3)
[2024-08-20 20:13] VITALS: PULSE 97
[2024-08-20 20:19] LABS: Alanine Aminotransferase 19 U/L (7-40); Albumin 4.7 g/dL (3.2-4.8); Alkaline Phosphatase 111 U/L (46-116); Anion Gap 6 (5-15); Aspartate Aminotransferase 18 U/L (13-40); BUN/Creatinine Ratio 12.8 (10.0-20.0); Blood Urea Nitrogen 30 mg/dL (9-23); Carbon Dioxide 22 mmol/L (20-31); Chloride 113 mmol/L (98-107); Glucose 101 mg/dL (74-106); Potassium 4.7 mmol/L (3.5-5.1); Sodium 141 mmol/L (136-145)
[2024-08-20 20:20] LABS: Total Protein 7.1 g/dL (5.7-8.2)
== END 2024-08-20 23:30 | disposition left against medical advice (07) ==
LOC: ER 18:58
DX: E11.22 Type 2 diabetes mellitus with diabetic chronic kidney disease (principal); I13.0 Hypertensive heart and chronic kidney disease with heart failure and stage 1 through stage 4 chronic kidney disease, or unspecified chronic kidney disease; N18.9 Chronic kidney disease, unspecified; I50.89 Other heart failure; R07.9 Chest pain, unspecified; J44.9 Chronic obstructive pulmonary disease, unspecified; E78.5 Hyperlipidemia, unspecified; Z86.73 Personal history of transient ischemic attack (TIA), and cerebral infarction without residual deficits; Z87.891 Personal history of nicotine dependence
CPT/HCPCS: 36415; 71045; 80053; 83880; 84484; 85025; 93005

== ENCOUNTER → 2024-08-20 | Emergency (ER) | payer OTHER, MEDICAID ==
[~2024-08-20] MED LIST changes: +ALBU108A5 IN; +ATOR-507 PO; +EZET10TA22 PO; +GLIP5TAB21 PO; +[UNRECOGNIZED DRUG - CODE] BU
== END | disposition left against medical advice (07) ==
LOC: EDUNIT# 18:55 → ER 18:55
DX: R06.02 Shortness of breath (principal); Z53.21 Procedure and treatment not carried out due to patient leaving prior to being seen by health care provider

== ENCOUNTER 2024-08-21 14:50 | Emergency (ER) | payer OTHER, MEDICAID ==
[~2024-08-21] VITALS: Ht 160 cm; Wt 71.0 kg
[2024-08-21 15:58] LABS: Basophils # (auto) 0.1 10 ^3/uL (0-0.2); Basophils % (auto) 0.9 % (0.0-2.0); Eosinophils # (auto) 0.2 10 ^3/uL (0-0.8); Eosinophils % (auto) 2.4 % (0.0-7.0); Hematocrit 31.9 % (41.0-53.0); Hemoglobin 10.6 g/dL (13.5-17.5); Lymphocytes # (auto) 1.1 10 ^3/uL (0.4-5.4); Lymphocytes % (auto) 12.8 % (10.0-50.0); Mean Corpuscular Hemoglobin 26.2 pg (28.0-32.0); Mean Corpuscular Hgb Conc. 33.2 g/dL (32.0-36.0); Mean Corpuscular Volume 79.1 fL (80.0-100.0); Monocytes # (auto) 0.6 10 ^3/uL (0-1.3); Monocytes % (auto) 6.5 % (0.0-12.0); Neutrophils # (auto) 6.5 10 ^3/uL (1.6-8.6); Neutrophils % (auto) 77.4 % (37.0-80.0); Platelet Count (auto) 205 10^3/uL (140-450); Red Blood Cells 4.03 10^6/uL (4.5-5.90); Red Cell Distribution Width 19.6 % (11.8-14.3); White Blood Cell 8.4 10^3/uL (4.4-10.8)
[2024-08-21 16:07] LABS: Chloride 111 mmol/L (98-107); Potassium 4.3 mmol/L (3.5-5.1); Sodium 141 mmol/L (136-145)
[2024-08-21 16:08] LABS: Anion Gap 9 (5-15); Carbon Dioxide 21 mmol/L (20-31)
[2024-08-21 16:09] LABS: Calcium 9.9 mg/dL (8.7-10.4)
[2024-08-21 16:13] LABS: BUN/Creatinine Ratio 12.2 (10.0-20.0); Blood Urea Nitrogen 28 mg/dL (9-23); Glucose 114 mg/dL (74-106)
[2024-08-21 18:15] VITALS: PULSE 98; RESP 20; O2SAT 93
[2024-08-21 19:45] VITALS: BP 136/79
[2024-08-21 20:57] VITALS: PULSE 90; RESP 20; O2SAT 95
[2024-08-21] MEDS ORDERED: DOCUSATE SOD 100 MG CAP PO PRN (22:00)
[2024-08-21] MEDS ORDERED: ATORVASTATIN 20 MG TAB PO SCH (22:00)
[2024-08-21] MEDS ORDERED: CARVEDILOL 3.125 MG TAB PO SCH (22:00)
[2024-08-21] MEDS ORDERED: ACCU-CHEK COMFORT CURVE STRIP VI SCH (22:00)
[2024-08-21] MEDS ORDERED: ONDANSETRON HCL 4 MG/2 ML VIAL IV PRN (22:00)
[2024-08-21] MEDS ORDERED: SODIUM CHLOR 0.9% PF (SALINE LOCK) 10ML VIAL/SYR IV SCH (22:00)
[2024-08-21] MEDS ORDERED: FUROSEMIDE 40 MG/4 ML VIAL IV ONE (22:00)
[2024-08-21] MEDS ORDERED: ACETAMINOPHEN 325 MG TAB PO PRN (22:00)
[2024-08-21] MEDS ORDERED: InsuLIN REG 1unit/0.01ml Soln (100units/ml) SC SCH (22:00)
[2024-08-21] MEDS ORDERED: HYDROcodone-ACET 5/325MG TAB PO PRN (22:00)
[2024-08-21] MEDS ORDERED: DEXTROSE (50%) 50ML SYRG IV PRN (22:00)
[2024-08-22] MEDS ORDERED: FUROSEMIDE 40 MG/4 ML VIAL IV SCH (10:00)
== END 2024-08-21 15:57 | disposition left against medical advice (07) ==
LOC: ER 14:50
DX: I50.43 Acute on chronic combined systolic (congestive) and diastolic (congestive) heart failure (principal)
CPT/HCPCS: 36415; 71045; 80048; 82962; 83880; 84484; 85025; 93005; 99291

== ENCOUNTER 2024-08-21 14:50 | Emergency (ER) | payer OTHER, MEDICAID ==
[~2024-08-21 14:50] MED LIST changes: -BENA10TA90 PO; -DAPA1TAB4 PO; -FERR325T20 PO; -FURO20TA4 PO; +GLIP5TAB21 PO; -HYDR-4072 PO; -INSU1.2I SC; -INSU100I54 SC; -IPRIH INH; -MET50T PO; -WARF-111 PO
[2024-08-28] MEDS ORDERED: DAPA1TAB4 PO (14:51)
[2024-09-08] MEDS ORDERED: BENA10TA90 PO (14:51)
[2024-09-08] MEDS ORDERED: MET50T PO (19:08)
[2024-09-08] MEDS ORDERED: INSU100I54 SC (23:38)
[2024-09-09] MEDS ORDERED: IPRIH INH (14:51)
[2024-09-09] MEDS ORDERED: INSU1.2I SC (23:38)
[2024-09-11] MEDS ORDERED: WARF-111 PO (19:08)
[2024-09-25] MEDS ORDERED: [UNRECOGNIZED DRUG - CODE] BU (13:52)
[2024-09-25] MEDS ORDERED: FERR325T20 PO (23:38)
[2024-09-27] MEDS ORDERED: EZET10TA22 PO (13:52)
[2024-09-27] MEDS ORDERED: ATOR-507 PO (13:52)
[2024-09-28] MEDS ORDERED: FURO20TA4 PO (19:08)
[2024-10-05] MEDS ORDERED: HYDR-4072 PO (23:38)
== END 2024-08-21 15:01 | disposition left against medical advice (07) ==
LOC: ER 14:50 → EDUNIT# 14:50 → ER 15:01
DX: R06.02 Shortness of breath (principal)
CPT/HCPCS: 82962

== ENCOUNTER 2024-10-14 00:52 | Inpatient (IN) | payer OTHER, MEDICAID ==
[~2024-10-14] VITALS: Ht 160 cm; Wt 70.9 kg
[~2024-10-14 00:52] MED LIST changes: +ATOR-507 PO; +BENA10TA90 PO; +DAPA1TAB4 PO; +EZET10TA22 PO; +FERR325T20 PO; +FURO20TA4 PO; +HYDR-4072 PO; +INSU1.2I SC; +INSU100I54 SC; +IPRIH INH; +MET50T PO; +WARF-111 PO; +[UNRECOGNIZED DRUG - CODE] BU
[2024-10-14 01:11] LABS: Basophils # (auto) 0.1 10 ^3/uL (0-0.2); Basophils % (auto) 0.8 % (0.0-2.0); Eosinophils # (auto) 0.2 10 ^3/uL (0-0.8); Eosinophils % (auto) 2.5 % (0.0-7.0); Hematocrit 32.9 % (41.0-53.0); Hemoglobin 10.8 g/dL (13.5-17.5); Lymphocytes # (auto) 1.2 10 ^3/uL (0.4-5.4); Mean Corpuscular Hemoglobin 27.2 pg (28.0-32.0); Mean Corpuscular Hgb Conc. 32.9 g/dL (32.0-36.0); Mean Corpuscular Volume 82.7 fL (80.0-100.0); Monocytes # (auto) 0.6 10 ^3/uL (0-1.3); Neutrophils # (auto) 7.1 10 ^3/uL (1.6-8.6); Neutrophils % (auto) 77.7 % (37.0-80.0); Nucleated Red Blood Cells % 0.1 %; Platelet Count (auto) 210 10^3/uL (140-450); Red Blood Cells 3.98 10^6/uL (4.5-5.90); Red Cell Distribution Width 17.9 % (11.8-14.3); White Blood Cell 9.1 10^3/uL (4.4-10.8)
--- NOTE | 2024-10-14 01:18 | ED.PDOC ---
History of Present Illness HPI Comments 68 y/o M, with a Hx of CHF, CKF, CKF w/PRN homeO2, DM, HLD, IA, CABG, heart valve Sx, and former tobacco use and a FMHx of heart disease, is BIBA for c/o chest pain, shortness of breath, productive cough, nausea, vomiting, and chills, today. Patient endorses on 06/03 persisting, sharp chest pain for 1 week, with additional onset of difficulty breathing w/yellow sputum producing cough and other remaining aforementioned symptoms for the past 2 past two days. Patient arrived to ED with a SpO2 of 99%2LPM> Patient denies having any palpitations, dizziness, lightheadedness, fever, or other associated symptoms or modifiers at this time. Time Seen by MD: 01:00 Primary Care Provider: AMADOU Reviewed Notes: Nurses Notes, Etl Application Developer Notes, Medications, Allergies Allergies: Coded Allergies: Iodine (Verified Allergy, Unknown, 04/10/23) No Known Drug Allergy (Unverified Allergy, 11/15/10) Home Meds Active Scripts Hydrocodone-Acetaminophen (Hydrocodone Bitartrate/AC 5-325 mg) 1 Tab Tab, 1 TAB PO Q6HP PRN, #20 TAB Prov:MARILYNN MALLOY MD 07/23/24 Doxycycline Monohydrate (Doxycycline Monohydrate) 100 Mg Cap, 1 CAP PO BID, #10 CAP Prov:MARILYNN MALLOY MD 07/23/24 Isosorbide Dinitrate (Isosorbide Dinitrate) 20 Mg Tab, 20 MG PO DAILY, #30 TAB Prov:ISAIAH STANFORD MD 03/19/24 Carvedilol (COREG) 3.125 Mg Tab, 3.125 MG PO BID, #60 TAB Prov:ISAIAH STANFORD MD 03/19/24 Reported Medications Ascorbic Acid (VITAMIN C TABLET) 500 Mg Tb, 500 MG PO DAILY, TAB 07/20/24 Ferrous Sulfate (Ferosul) 325 Mg Tab, 1 TAB PO DAILY 07/20/24 Insulin Lispro (Insulin Lispro Kwikpen) 100 Unit/Ml Inj, SC UD for 90 Days, #45 Inject PER SLIDING SCALE 07/20/24 Hydrocodone-Acetaminophen (Hydrocodone/Acetaminophen 10-325 mg) 1 Tab Tab, 1 TAB PO Q6HPRN PRN for PAIN SCALE 7 THRU 10 07/20/24 Insulin Glargine (Toujeo Solostar) 300 Unit/Ml Inj, 15 UNITS SC HS 07/20/24 Promethazine Hcl (Promethazine Hcl) 25 Mg Tab, 25 MG PO BID, TAB 07/20/24 Docusate Sodium (Colace) 100 Mg Cap, 100 MG PO DAILY, CAP 07/20/24 Amlodipine Besylate (NORVASC TABLET) 5 Mg Tb, 5 MG PO DAILY, TAB 07/20/24 Ipratropium [place] Hfa (Atrovent Hfa) 17 Mcg Aer, 2 PUFF INH QID 01/20/24 Benazepril Hcl (Benazepril Hcl) 10 Mg Tab, 1 TAB PO DAILY 01/20/24 Isosorbide Dinitrate (Isosorbide Dinitrate) 20 Mg Tab, 1 TAB PO BID 01/20/24 Pravastatin Sodium (PRAVACHOL TABLET) 20 Mg Tb, 40 MG PO DAILY 01/20/24 Dapagliflozin Propanediol (Farxiga) 10 Mg Tab, 1 TAB PO DAILY for 90 Days, #90 01/20/24 Diclofenac Sodium (Topical) (Voltaren) 1 % Gel, 1 % TD PRN for PAIN, GEL 12/25/18 Budesonide (Inhalation) (Budesonide) 0.5 Mg/2 Ml Janette, 0.5 MG IN QIDP 12/25/18 Beclomethasone Dipropionate (Qvar Redihaler) 40 Mcg/Act Aer, 40 MCG IN PRN PRN for SHORTNESS OF BREATH 12/24/18 Lidocaine (Lidocaine) 5 % Pad, 1 PATCH TOP DAILY PRN for PAIN for 30 Days, #30 12/24/18 Warfarin Sodium (Warfarin Sodium) 3 Mg Tab, 2 TAB PO DAILY for BLOOD THINNER 12/24/18 Metoprolol Tartrate (LOPRESSOR TABLET) 50 Mg Tb, 50 MG PO BID for BLOOD PRESSURE 12/24/18 Alprazolam (Alprazolam) 1 Mg Tab, 0.5 MG PO QPM PRN for ANXIETY Take 1/2 tablet (0.5 mg) by mouth at night as needed for anxiety 12/24/18 Furosemide (Furosemide) 20 Mg Tab, 20 MG PO BID for WATER RETENTION 12/24/18 Morphine Sulfate (Morphine Sulfate Er) 30 Mg Tab, 30 MG PO Q12HR for PAIN 12/24/18 Information Source: Patient, Emergency Med Personnel Mode of Arrival: EMS Severity: Moderate Timing: Weeks Duration: Since onset Prehospital treatment: 12 Lead EKG, 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 Interactive 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 Past Medical History PAST MEDICAL HISTORY: CHF, CKF, COPD (w/PRN homeO2), DM, High Lipids, IA Surgical History: CABG Surgical History (Other): heart valve Sx Family History Family History: No family hx of Cancer, No family hx of DM, No family hx of HTN, No family hx ofKidney ruben, No family hx of Liver ruben, No family hx of Lung ruben, No family hx of Stroke, Family hx of heart ruben Social History Smoker: Quit Greater Than 1 Year Alcohol: Denies ETOH Use Drugs: Denies Drug Use Lives In: Home Constitutional: reports: chills; denies: diaphoresis, fatigue, fever, malaise, sweats, weakness, others EENTM: denies: blurred vision, double vision, ear bleeding, ear discharge, ear drainage, ear pain, ear ringing, eye pain, eye redness, hearing loss, mouth pain, mouth swelling, nasal discharge, nose bleeding, nose congestion, nose pain, photophobia, tearing, throat pain, throat swelling, voice changes, others Respiratory: reports: cough, shortness of breath; denies: hemoptysis, orthopnea, SOB at rest, SOB with excertion, stridor, wheezing, others Cardiovascular: reports: chest pain; denies: dizzy spells, diaphoresis, Dyspnea on exertion, edema, irregular heart beat, left arm pain, lightheadedness, pa lpitations, PND, syncope, others Gastrointestinal: reports: nausea, vomiting; denies: abdomen distended, abdominal pain, blood streaked bowels, constipated, diarrhea, dysphagia, difficulty swallowing, hematemesis, melena, poor appetite, poor fluid intake, rectal bleeding, rectal pain, others Genitourinary: denies: burning, dysuria, flank pain, frequency, hematuria, incontinence, penile discharge, penile sore, pain, testicle pain, testicle swelling, urgency, others Neurological: denies: dizziness, fainting, headache, left sided numbness, left sided weakness, numbness, paresthesia, pre-existing deficit, right sided numbness, right sided weakness, seizure, speech problems, tingling, tremors, weakness, others Musculoskeletal: denies: back pain, gout, joint pain, joint swelling, muscle pain, muscle stiffness, neck pain, others Integumetry: denies: bruises, change in color, change in hair/nails, dryness, laceration, lesions, lumps, rash, wounds, others Allergic/Immunocompromised: denies: Difficulty Healing, Frequent Infections, Hives, Itching, others Hematologic/Lymphatic: denies: anemia, blood clots, easy bleeding, easy bruising, swollen glands, others Endocrine: denies: excessive hunger, excessive sweating, excessive thirst, excessive urination, flushing, intolerance to cold, intolerance to heat, unex plained weight gain, unexplained weight loss, others Psychiatric: denies: anxiety, bipolar disorder, depression, hopeless, panic disorder, schizophrenia, sleepless, suicidal, others All Other Systems: Reviewed and Negative Physical Exam General Appearance: Moderate Distress HEENT: Normal ENT Inspection, Pharynx Normal, TMs Normal Neck: Full Range of Motion, Non-Tender, Normal, Normal Inspection Respiratory: Chest Non-Tender, Lungs Clear, No Accessory Muscle Use, No Respiratory Distress, Normal Breath Sounds Cardiovascular: No Edema, No JVD, No Murmur, No Gallop, Normal Peripheral Pulses, Regular Rate/Rhythm Breast Exam: Deferred Gastrointestinal: No Organomegaly, Non Tender, No Pulsatile Mass, Normal Bowel Sounds, Soft Genitalia: Deferred Pelvic: Deferred Rectal: Deferred Extremities: No calf tenderness, Normal capillary refill, Pedal edema Musculoskeletal : Apperance: Normal Neurologic: Alert, cpa tax II-XII nml as Tested, Motor Weakness, Normal Affect, Normal Mood, No Sensory Deficits Cerebellar Function: Normal Reflexes: Normal Skin: Dry, Normal Color, Warm Lymphatic: No Adenopathy Was a procedure done? Was a procedure done?: No EKG EKG : Pulse Rate (adult): 102 F[place] Gap: Normal Cardiac Rhythm: ST Block: None Hypertrophy: LAE ST: Normal Differential Dx Considerations may include: IA, ACS, PE, anxiety, angina, costochondritis, pericarditis, gastritis, gastroenteritis, PNA, musculoskeletal pain, viral syndrome, CHF exacerbation X-Ray, Labs, Meds, VS Vital Signs Date Time Temp Pulse Resp B/P (MAP) Pulse Ox O2 Delivery O2 Flow Rate FiO2 10/14/24 01:18 102 10/14/24 00:56 102 10/14/24 00:52 99.1 102 22 155/107 (123) 99 Lab Test 10/14/24 01:00 Range/Units White Blood Count 9.1 4.4-10.8 10^3/uL Red Blood Count 3.98 L 4.5-5.90 10^6/uL Hemoglobin 10.8 L 13.5-17.5 g/dL Hematocrit 32.9 L 41.0-53.0 % Mean Corpuscular Volume 82.7 80.0-100.0 fL Mean Corpuscular Hemoglobin 27.2 L 28.0-32.0 pg Mean Corpuscular Hemoglobin Concent 32.9 32.0-36.0 g/dL Red Cell Distribution Width 17.9 H 11.8-14.3 % Platelet Count 210 140-450 10^3/uL Mean Platelet Volume 7.4 6.9-10.8 fL Neutrophils (%) (Auto) 77.7 37.0-80.0 % Lymphocytes (%) (Auto) 13.0 10.0-50.0 % Monocytes (%) (Auto) 6.0 0.0-12.0 % Eosinophils (%) (Auto) 2.5 0.0-7.0 % Basophils (%) (Auto) 0.8 0.0-2.0 % Neutrophils # (Auto) 7.1 1.6-8.6 10 ^3/uL Lymphocytes # (Auto) 1.2 0.4-5.4 10 ^3/uL Monocytes # (Auto) 0.6 0-1.3 10 ^3/uL Eosinophils # (Auto) 0.2 0-0.8 10 ^3/uL Basophils # (Auto) 0.1 0-0.2 10 ^3/uL Nucleated Red Blood Cells 0.1 % Sodium Level 142 136-145 mmol/L Potassium Level 4.1 3.5-5.1 mmol/L Chloride Level 113 H 98-107 mmol/L Carbon Dioxide Level 20 20-31 mmol/L Anion Gap 9 5-15 Blood Urea Nitrogen 30 H 9-23 mg/dL Creatinine 2.25 H 0.700-1.30 mg/dL Glomerular Filtration Rate Calc 31 >90 mL/min BUN/Creatinine Ratio 13.3 10.0-20.0 Serum Glucose 121 H 74-106 mg/dL Calcium Level 9.4 8.7-10.4 mg/dL Troponin I High Sensitivity 68 *H </=54 ng/L B-Type Natriuretic Peptide 1170.75 0-100 pg/mL PROCEDURE(s): CXRP - CHEST PORTABLE IMPRESSION: 1. Moderate interstitial pulmonary edema in the setting of cardiomegaly. IV Hep-Lock was established The patient was being given Lasix 40 mg IV push The patient's BNP is elevated at 1170.5 The troponin level is elevated at 68 At this time the BUN is 30 and the creatinine is 2.25 The rest of the CBC and chemistry panel indicates some anemia with a hemoglobin of 10.8 and hematocrit of 32.9 At this time, the patient was being admitted to the hospitalist Images Reviewed?: Images reviewed and evaluated by me Time of 1ST Reevaluation: 01:30 Reevaluation 1ST: Unchanged Patient Education/Counseling: Diagnosis, Treatment, Prognosis Family Education/Counseling: No Family Present Departure 1 Departure Time of Disposition: 01:56 Impression: Primary Impression: Acute on chronic diastolic heart failure Disposition: ADMITTED INPATIENT Admit to: Tele Condition: Fair Critical Care Note Critical Care Time?: Yes (35 min-critical care time only) Stability Stability form required: Yes Unstable for transfer: Telemetry monitoring (Telemetry monitoring required), ED Physician Assesment (Clinical assesment) Heart Score Heart Score: Heart Score Response (Comments) Value History Moderate Suspicious 1 EKG Normal 0 Age >65 2 Risk Factors >3 or Hx ASHD 2 Troponin Normal limit 0 Total 5 I personally scribed for DOLLY ROBERTSON MD ([email or web address]) on 10/14/24 at 01:18. Electronically submitted by Stephen Jimenez ([email or web address]). I personally scribed for DOLLY ROBERTSON MD ([email or web address]) on 10/14/24 at 01:36. Electronically submitted by Stephen Jimenez ([email or web address]). I personally scribed for DOLLY ROBERTSON MD ([email or web address]) on 10/14/24 at 01:39. Electronically submitted by Stephen Jimenez ([email or web address]). DOLLY ROBERTSON MD Oct 14, 2024 01:18
[2024-10-14 01:20] LABS: Chloride 113 mmol/L (98-107); Potassium 4.1 mmol/L (3.5-5.1); Sodium 142 mmol/L (136-145)
[2024-10-14 01:21] LABS: Anion Gap 9 (5-15); Carbon Dioxide 20 mmol/L (20-31)
[2024-10-14 01:22] LABS: Calcium 9.4 mg/dL (8.7-10.4)
[2024-10-14 01:26] LABS: BUN/Creatinine Ratio 13.3 (10.0-20.0); Blood Urea Nitrogen 30 mg/dL (9-23); Glucose 121 mg/dL (74-106)
--- NOTE | 2024-10-14 01:27 | DVH ---
CHEST RADIOGRAPH Indication: cp Technique: Single frontal view of the chest was obtained COMPARISON: XY CHEST PORTABLE on DOS: 08/21/24, XY CHEST XRAY 1 VIEW on DOS: 08/20/24, XY CHEST PORTABL E on DOS: 08/14/24, XY CHEST PORTABLE on DOS: 01/24/24, XY CHEST XRAY 1 VIEW on DOS: 01/20/24 FINDINGS: Lines and Tubes: None Lungs: Moderate interstitial pulmonary edema. Pleura: No effusion. No pneumothorax. Cardiomediastinal contours: Cardiomegaly Bones: Unremarkable IMPRESSION: 1. Moderate interstitial pulmonary edema in the setting of cardiomegaly.
[2024-10-14 05:00] VITALS: PULSE 104; RESP 20; O2SAT 99
[2024-10-14] MEDS: FUROSEMIDE 100 MG/10ML VIAL IV ONE (05:18)
[2024-10-14] MEDS: ASPirin 81 mg TAB PO ONE (05:18)
[2024-10-14] MEDS ORDERED: DEXTROSE (50%) 50ML SYRG IV PRN (05:30)
[2024-10-14] MEDS ORDERED: ACETAMINOPHEN 325 MG TAB PO PRN (05:30)
[2024-10-14] MEDS ORDERED: NITROGLYCERIN 0.4 MG SL TAB SL PRN (05:30)
[2024-10-14] MEDS: FUROSEMIDE 20 MG/2 ML VIAL IV SCH (06:00)
[2024-10-14 06:15] VITALS: PULSE 97; RESP 30; O2SAT 100
[2024-10-14] MEDS: ALBUTEROL SULF 2.5 MG/0.5ML(0.5%) NEB SOLN NEB PRN (06:15)
[2024-10-14 06:21] VITALS: PULSE 98; RESP 26; O2SAT 100
[2024-10-14 06:34] LABS: Rapid Influenza A Negative (Negative); Rapid Influenza B Negative (Negative)
[2024-10-14 06:35] LABS: COVID19 ANTIGEN SOFIA FIA NEGATIVE (NEGATIVE)
[2024-10-14 06:52] LABS: INR 3.63 (0.9-1.15); Partial Thromboplastin Time 47.1 SEC (24.5-34.5)
[2024-10-14] MEDS: ACCU-CHEK COMFORT CURVE STRIP VI SCH (07:04)
[2024-10-14] MEDS: InsuLIN REG 1unit/0.01ml Soln (100units/ml) SC SCH (07:08)
--- NOTE | 2024-10-14 07:21 | DVHHP2 ---
History of Present Illness Reason for Visit: Shortness of breaths History of Present Illness 68-year-old male presents for evaluation of shortness for breath. Patient with extensive cardiac history presents with a two day history of worsening shortness for breath with associated chest tightness, cough, nausea and vomiting. Denies any other acute complaints at the moment. Past Medical History COPD, chronic kidney disease, congestive heart failure, dyslipidemia, diabetes mellitus, MT Past Surgical History CABG Family History Noncontributory Smoke: Quit ALCOHOL: none Drugs: None Review of Systems Review of Systems Review of systems are currently negative otherwise addressed in HPI. Allergies: Coded Allergies: Iodine (Verified Allergy, Unknown, 04/10/23) No Known Drug Allergy (Unverified Allergy, Unknown, 10/14/24) Medications Current Medications Medications Dose Ordered Sig/Cynthia Route Start Time Stop Time Status Last Admin Dose Admin Aspirin 81 mg DAILY PO 10/14/24 10:00 Furosemide 20 mg BIDD IV 10/14/24 06:00 Atorvastatin Calcium 40 mg HS PO 10/14/24 22:00 Warfarin Sodium RX PROTOCOL PER PHARMACY PO 10/14/24 05:30 UNV Metoprolol Tartrate 25 mg BID PO 10/14/24 10:00 Albuterol 2.5 mg Q6HPRN PRN NEB 10/14/24 05:30 10/14/24 06:15 2.5 MG Isosorbide Dinitrate 20 mg BID PO 10/14/24 10:00 Diagnostic Test (Pha) 1 strip ACHS 10/14/24 07:00 10/14/24 07:04 1 STRIP Insulin Human Regular ACHS SC 10/14/24 07:00 10/14/24 07:08 3 UNITS Dextrose 50 ml UD PRN IV 10/14/24 05:30 Ondansetron HCl 4 mg Q4HP PRN IV 10/14/24 05:30 Acetaminophen 650 mg Q6HP PRN PO 10/14/24 05:30 Nitroglycerin 0.4 mg Q5MINP PRN SL 10/14/24 05:30 Morphine Sulfate 2 mg Q30M PRN IV 10/14/24 05:30 Exam Vital Signs Vital Signs Date Time Temp Pulse Resp B/P (MAP) Pulse Ox O2 Delivery O2 Flow Rate FiO2 10/14/24 06:21 98 26 100 10/14/24 06:15 Nasal Cannula 3.0 10/14/24 06:15 32 10/14/24 05:18 141/93 10/14/24 00:52 99.1 Exam Gen: 68-year-old male mild distress. Skin: Warm, dry, normal color and texture, no rash. HEENT: Normocephalic atraumatic, mucous membranes moist and pink. Neck: Cervical and supraclavicular nodes normal without enlargement, trachea is midline, thyroid gland is normal without masses. Pulmonary: Clear to auscultation and percussion bilaterally. Cardiac: Regular rate and rhythm. No murmur Abdomen: Soft, nontender, nondistended, bowel sounds present all 4 quadrants, no guarding, no rigidity, no organomegaly. Extremities: No cyanosis, clubbing, no edema Neuro: Cranial nerves II through XII grossly intact, normal affect and speech, no focal motor deficits. Labs/Xrays ORDERING PHYSICIAN: BRIAN AVILA DNP PROCEDURE(s): ECIDC - ECHO 2D MODE CARDIAC DOP REASON: CHF exacerbation, unspecified ORDER NUMBER(s): [id number], ACCESSION NUMBER(s): [id number] APPROVED REPORT EXAM: Two-dimensional and M-mode echocardiogram with Doppler and color Doppler. Blood Pressure: 142/97 mmHg INDICATION CHF exacerbation, unspecified Surgery/Intervention Valve Replacement: Aortic Valve RISK FACTORS Height: 62, Weight: 152 DIMENSIONS LVDd 4.8 (3.8-5.7cm) LA (2D) 4.9 (1.9-4.0cm) Aortic Root (2.0-3 .7cm) LVDs 3.9 (2.5-4.0cm) LA (MM) (1.9-4.0cm) Aortic Cusp Exc (1.5- 2.0cm) EF (%) 40.0 (55-70%) Rt. Atrium 4.7 (1.9-4.0cm) Asc. Aorta cm Mitral Valve Mitral Mitral Stenosis E wave 1.60m/s MV Mean GR. mmHg A wave m/s MV Peak GR. 119mmHg E/A ratio 0.0 2D MVA cm2 DECEL Time ms PRESS 1/2 Time 66ms IVRT ms Dop MVA 3.32cm2 Aortic Valve Aortic Valve Aortic Stenosis V1 2.20m/s AO Mean GR. 11mmHg V2 2.20m/s AO Peak GR. 19mmHg LVOT Diameter 2.0 (1.8-2.4cm) Doppler REKHA 3.14cm2 Pulmonic Valve V2 0.72m/s Tricuspid Valve TR Velocity 3.87m/s RVSP 75mmHg Conclusion Left ventricle: Concentric left ventricular hypertrophy was seen. LVEF was 45 to 50%. Mild diffuse hypokinesis of left ventricle was seen. Right ventricle was dilated with preserved systolic function. Both atria were moderately dilated. Aortic valve: Metallic prosthetic valve was positioned in aortic area. It works properly. There was no stenosis/mismatch. There was trivial regurgi tation. Moderate to severe mitral regurgitation was observed. Moderate tricuspid regurgitation was observed. Pulmonary valve was not well visualized. Right ventricular systolic pressure was assessed at 70 mm Hg. There was no pericardial effusion. ORDERING PHYSICIAN: DOLLY ROBERTSON MD PROCEDURE(s): CXRP - CHEST PORTABLE REASON: cp ORDER NUMBER(s): [id number], ACCESSION NUMBER(s): [id number] CHEST RADIOGRAPH Indication: cp Technique: Single frontal view of the chest was obtained COMPARISON: XY CHEST PORTABLE on DOS: 08/21/24, XY CHEST XRAY 1 VIEW on DOS: 08/20/24, XY CHEST PORTABLE on DOS: 08/14/24, XY CHEST PORTABLE on DOS: 01/24/24, XY CHEST XRAY 1 VIEW on DOS: 01/20/24 FINDINGS: Lines and Tubes: None Lungs: Moderate interstitial pulmonary edema. Pleura: No effusion. No pneumothorax. Cardiomediastinal contours: Cardiomegaly Bones: Unremarkable IMPRESSION: 1. Moderate interstitial pulmonary edema in the setting of cardiomegaly. Labs Test 10/14/24 06:22 10/14/24 05:24 10/14/24 05:05 10/14/24 04:01 Range/Units Influenza Type A Antigen Negative Negative Influenza Type B Antigen Negative Negative SARS-CoV-2 Antigen (Rapid) Negative NEGATIVE POC Glucose 116 H 70-106 mg/dl Troponin I High Sensitivity 65 *H </=54 ng/L Test 10/14/24 01:00 Range/Units White Blood Count 9.1 4.4-10.8 10^3/uL Red Blood Count 3.98 L 4.5-5.90 10^6/uL Hemoglobin 10.8 L 13.5-17.5 g/dL Hematocrit 32.9 L 41.0-53.0 % Mean Corpuscular Volume 82.7 80.0-100.0 fL Mean Corpuscular Hemoglobin 27.2 L 28.0-32.0 pg Mean Corpuscular Hemoglobin Concent 32.9 32.0-36.0 g/dL Red Cell Distribution Width 17.9 H 11.8-14.3 % Platelet Count 210 140-450 10^3/uL Mean Platelet Volume 7.4 6.9-10.8 fL Neutrophils (%) (Auto) 77.7 37.0-80.0 % Lymphocytes (%) (Auto) 13.0 10.0-50.0 % Monocytes (%) (Auto) 6.0 0.0-12.0 % Eosinophils (%) (Auto) 2.5 0.0-7.0 % Basophils (%) (Auto) 0.8 0.0-2.0 % Neutrophils # (Auto) 7.1 1.6-8.6 10 ^3/uL Lymphocytes # (Auto) 1.2 0.4-5.4 10 ^3/uL Monocytes # (Auto) 0.6 0-1.3 10 ^3/uL Eosinophils # (Auto) 0.2 0-0.8 10 ^3/uL Basophils # (Auto) 0.1 0-0.2 10 ^3/uL Nucleated Red Blood Cells 0.1 % Sodium Level 142 136-145 mmol/L Potassium Level 4.1 3.5-5.1 mmol/L Chloride Level 113 H 98-107 mmol/L Carbon Dioxide Level 20 20-31 mmol/L Anion Gap 9 5-15 Blood Urea Nitrogen 30 H 9-23 mg/dL Creatinine 2.25 H 0.700-1.30 mg/dL Glomerular Filtration Rate Calc 31 >90 mL/min BUN/Creatinine Ratio 13.3 10.0-20.0 Serum Glucose 121 H 74-106 mg/dL Calcium Level 9.4 8.7-10.4 mg/dL B-Type Natriuretic Peptide 1170.75 0-100 pg/mL Assessment/Plan Assessment/Plan Assessment Acute on chronic congestive heart failure Diabetes mellitus Chronic kidney disease History of CABG The patient to telemetry to hospitalist IV Lasix Resume home medications Continue treatment per orders. Plan discussed with: Patient My Orders Orders - BHARGAV JACKSON Procedure Category Date Status Time * Cardiology Consult CONS 10/14/24 Transmitted 05:19 Aspirin Tablet PHA 10/14/24 In Process 10:00 Furosemide Injection PHA 10/14/24 In Process (Lasix Injection) 06:00 Atorvastatin (Lipitor) PHA 10/14/24 In Process 22:00 PTPTT LAB 10/14/24 In Process 05:19 Warfarin Per Rx PHA 10/14/24 Pending Protocol (Coumadin 05:30 Metoprolol Tartrate PHA 10/14/24 In Process Tablet (Lopressor Ta 10:00 Albuterol Medneb PHA 10/14/24 In Process (Ventolin Medneb) 05:30 Isosorbide Dinitrate PHA 10/14/24 In Process Tablet (Isordil Tab 10:00 Basic Metabolic Panel LAB 10/15/24 Verified 04:00 Glucose Blood PHA 10/14/24 In Process (Accu-Chek Comfort 07:00 Insulin R (Human) PHA 10/14/24 In Process (Insulin R) 07:00 Dextrose 50% Syringe PHA 10/14/24 In Process 05:30 Admit ADMIT 10/14/24 Transmitted 05:19 Renal DIET 10/14/24 Transmitted Standard(2gna,3gk,Lopho) Breakfast Ondansetron Hcl PHA 10/14/24 In Process (Zofran) 05:30 Condition: Fair VIJAY 10/14/24 In Process 05:19 Acetaminophen Tablet PHA 10/14/24 In Process (Tylenol Tablet) 05:30 Bedrest With Bathroom VIJAY 10/14/24 In Process Privileg 05:19 Nitroglycerin PHA 10/14/24 In Process Sublingual (Ntrostat 05:30 Morphine Sulfate PHA 10/14/24 In Process Injection 05:30 Stat Ekg For Chest [facility] 10/14/24 In Process Pain 05:19 Notify Of Changes [facility] 10/14/24 In Process From Base 05:19 Supervisor Extruding Department For [facility] 10/14/24 In Process 24 Hours 05:19 Emergency Dysrhythmia VIJAY 10/14/24 In Process Protocol 05:19 Rhythm Strips Once [facility] 10/14/24 In Process Every Shift 05:19 Oxygen By Nasal RT 10/14/24 Transmitted Cannula 05:19 Date of Service: Oct 14, 2024 Billing Provider: BHARGAV JACKSON Common Visit Codes: [id number] INP/OBS CARE (HIGH) BHARGAV JACKSON Oct 14, 2024 07:21
[2024-10-14 09:00] VITALS: BP 127/69; PULSE 97; RESP 26; TEMP 97.4; O2SAT 97
[2024-10-14] MEDS: ASPirin 81 mg TAB PO SCH (09:07)
--- NOTE | 2024-10-14 09:29 | DVHCONRES ---
Date Seen: Oct 14, 2024 Resident Creating Document: MARIANN RIBERA RESIDENT Referring Physician MISAEL Dsouza Reason for Consultation CHF exacerbation History of Present Illness 68-year-old man history of COPD, CAD status post CABG, chronic kidney disease, congestive heart failure, dyslipidemia, diabetes mellitus type 2, myocardial infarction who presented with shortness of breath. Patient notes shortness of breath with chest tightness for the last two days. He also notes nausea and vomiting. He is known to Cardiology Service (Dr Greer) Cardiology consultation called for CHF. Review of systems: 14 point review of systems is negative unless otherwise noted above. Past medical history: COPD, chronic kidney disease, congestive heart failure, dyslipidemia, diabetes mellitus type 2, myocardial infarction Past surgical history: CAD status post CABG Medications: Reviewed Allergies: Iodine Family history: No family history of premature CAD. No family history of lung disease. Social history: Ex-smoker. No alcohol or illicit drug use. Family History: Diabetes mellitus G8 FATHER, FH: cancer G8 MOTHER, FH: heart disease G8 MOTHER, FH: kidney disease G8 MOTHER, Allergies: Coded Allergies: Iodine (Verified Allergy, Unknown, 04/10/23) No Known Drug Allergy (Unverified Allergy, Unknown, 10/14/24) Home Meds Active Scripts Hydrocodone-Acetaminophen (Hydrocodone Bitartrate/AC 5-325 mg) 1 Tab Tab, 1 TAB PO Q6HP PRN, #20 TAB Prov:MARILYNN MALLOY MD 07/23/24 Doxycycline Monohydrate (Doxycycline Monohydrate) 100 Mg Cap, 1 CAP PO BID, #10 CAP Prov:MARILYNN MALLOY MD 07/23/24 Isosorbide Dinitrate (Isosorbide Dinitrate) 20 Mg Tab, 20 MG PO DAILY, #30 TAB Prov:ISAIAH STANFORD MD 03/19/24 Carvedilol (COREG) 3.125 Mg Tab, 3.125 MG PO BID, #60 TAB Prov:ISAIAH STANFORD MD 03/19/24 Reported Medications Ascorbic Acid (VITAMIN C TABLET) 500 Mg Tb, 500 MG PO DAILY, TAB 07/20/24 Ferrous Sulfate (Ferosul) 325 Mg Tab, 1 TAB PO DAILY 07/20/24 Insulin Lispro (Insulin Lispro Kwikpen) 100 Unit/Ml Inj, SC UD for 90 Days, #45 Inject PER SLIDING SCALE 07/20/24 Hydrocodone-Acetaminophen (Hydrocodone/Acetaminophen 10-325 mg) 1 Tab Tab, 1 TAB PO Q6HPRN PRN for PAIN SCALE 7 THRU 10 07/20/24 Insulin Glargine (Toujeo Solostar) 300 Unit/Ml Inj, 15 UNITS SC HS 07/20/24 Promethazine Hcl (Promethazine Hcl) 25 Mg Tab, 25 MG PO BID, TAB 07/20/24 Docusate Sodium (Colace) 100 Mg Cap, 100 MG PO DAILY, CAP 07/20/24 Amlodipine Besylate (NORVASC TABLET) 5 Mg Tb, 5 MG PO DAILY, TAB 07/20/24 Ipratropium Marion Hfa (Atrovent Hfa) 17 Mcg Aer, 2 PUFF INH QID 01/20/24 Benazepril Hcl (Benazepril Hcl) 10 Mg Tab, 1 TAB PO DAILY 01/20/24 Isosorbide Dinitrate (Isosorbide Dinitrate) 20 Mg Tab, 1 TAB PO BID 01/20/24 Pravastatin Sodium (PRAVACHOL TABLET) 20 Mg Tb, 40 MG PO DAILY 01/20/24 Dapagliflozin Propanediol (Farxiga) 10 Mg Tab, 1 TAB PO DAILY for 90 Days, #90 01/20/24 Diclofenac Sodium (Topical) (Voltaren) 1 % Gel, 1 % TD PRN for PAIN, GEL 12/25/18 Budesonide (Inhalation) (Budesonide) 0.5 Mg/2 Ml Janette, 0.5 MG IN QIDP 12/25/18 Beclomethasone Dipropionate (Qvar Redihaler) 40 Mcg/Act Aer, 40 MCG IN PRN PRN for SHORTNESS OF BREATH 12/24/18 Lidocaine (Lidocaine) 5 % Pad, 1 PATCH TOP DAILY PRN for PAIN for 30 Days, #30 12/24/18 Warfarin Sodium (Warfarin Sodium) 3 Mg Tab, 2 TAB PO DAILY for BLOOD THINNER 12/24/18 Metoprolol Tartrate (LOPRESSOR TABLET) 50 Mg Tb, 50 MG PO BID for BLOOD PRESSURE 12/24/18 Alprazolam (Alprazolam) 1 Mg Tab, 0.5 MG PO QPM PRN for ANXIETY Take 1/2 tablet (0.5 mg) by mouth at night as needed for anxiety 12/24/18 Furosemide (Furosemide) 20 Mg Tab, 20 MG PO BID for WATER RETENTION 12/24/18 Morphine Sulfate (Morphine Sulfate Er) 30 Mg Tab, 30 MG PO Q12HR for PAIN 12/24/18 Current Medications Current Medications Medications (Trade) Dose Ordered Sig/Cynthia Route PRN Reason Start Time Stop Time Status Last Admin Aspirin 81 mg DAILY PO 10/14/24 10:00 10/14/24 07:17 DC Furosemide (Lasix Injection) 20 mg BIDD IV 10/14/24 06:00 Atorvastatin Calcium (Lipitor) 40 mg HS PO 10/14/24 22:00 Warfarin Sodium (Coumadin Per Rx Protocol) RX PROTOCOL PER PHARMACY PO 10/14/24 05:30 Metoprolol Tartrate (Lopressor Tablet) 25 mg BID PO 10/14/24 10:00 Albuterol (Ventolin Medneb) 2.5 mg Q6HPRN PRN NEB SHORTNESS OF BREATH 10/14/24 05:30 10/14/24 06:15 Isosorbide Dinitrate (Isordil Tablet) 20 mg BID PO 10/14/24 10:00 Diagnostic Test (Pha) (Accu-Chek Comfort Curve T) 1 strip ACHS 10/14/24 07:00 10/14/24 07:04 Insulin Human Regular (InsuLIN R) ACHS SC 10/14/24 07:00 10/14/24 07:08 Dextrose 50 ml UD PRN IV Blood Sugar LESS THAN 60 10/14/24 05:30 Ondansetron HCl (Zofran) 4 mg Q4HP PRN IV NAUSEA / VOMITING 10/14/24 05:30 Acetaminophen (Tylenol Tablet) 650 mg Q6HP PRN PO PAIN SCALE 1-3 OR TEMP>100.4 10/14/24 05:30 Nitroglycerin (Ntrostat Sublingual) 0.4 mg Q5MINP PRN SL FOR CHEST PAIN 10/14/24 05:30 Morphine Sulfate 2 mg Q30M PRN IV FOR CHEST PAIN 10/14/24 05:30 Aspirin 162 mg DAILY PO 10/14/24 07:30 10/14/24 09:07 Ceftriaxone Sodium 50 ml @ 100 mls/hr DAILY@09 IV 10/14/24 09:00 Vital Signs Vital Signs Date Time Temp Pulse Resp B/P (MAP) Pulse Ox O2 Delivery O2 Flow Rate FiO2 10/14/24 07:56 97.4 102 16 127/69 (88) 100 97.4 10/14/24 06:15 Nasal Cannula 3.0 10/14/24 06:15 32 Physical Exam Gen.: Patient lying in bed in no apparent distress. On supplemental oxygen. He is breathing comfortably on room air. Head: Normocephalic, atraumatic Eyes: EOMI/PERRLA. Ears: Normal hearing. Normal anatomy. Neck/trachea: Trachea midline, supple. Nose: Normal external anatomy. Mouth: Moist mucous membranes. Chest: Fair air entry bilaterally. No wheezing or rhonchi. Cardio vascular: Positive S1, positive S2. Regular rate and rhythm. Abdomen: Positive bowel sounds in all 4 quadrants. Soft, non-tender, non- distended. : Deferred. Rectal: Deferred Skin: Warm, dry. Extremities: 2+ radial pulses bilaterally. No lower extremity edema. Neuro: Awake, alert, oriented x3. No gross motor or sensory deficits. Cranial nerves II through XII intact. Gait not assessed. Labs/Diagnostic Data Labs Test 10/14/24 06:22 10/14/24 05:24 10/14/24 05:05 10/14/24 04:01 Range/Units Prothrombin Time 35.0 H 9.3-11.8 sec Prothrombin Time INR 3.63 H 0.9-1.15 Activated Partial Thromboplast Time 47.1 H 24.5-34.5 SEC Influenza Type A Antigen Negative Negative Influenza Type B Antigen Negative Negative SARS-CoV-2 Antigen (Rapid) Negative NEGATIVE POC Glucose 116 H 70-106 mg/dl Troponin I High Sensitivity 65 *H </=54 ng/L Test 10/14/24 01:00 Range/Units White Blood Count 9.1 4.4-10.8 10^3/uL Red Blood Count 3.98 L 4.5-5.90 10^6/uL Hemoglobin 10.8 L 13.5-17.5 g/dL Hematocrit 32.9 L 41.0-53.0 % Mean Corpuscular Volume 82.7 80.0-100.0 fL Mean Corpuscular Hemoglobin 27.2 L 28.0-32.0 pg Mean Corpuscular Hemoglobin Concent 32.9 32.0-36.0 g/dL Red Cell Distribution Width 17.9 H 11.8-14.3 % Platelet Count 210 140-450 10^3/uL Mean Platelet Volume 7.4 6.9-10.8 fL Neutrophils (%) (Auto) 77.7 37.0-80.0 % Lymphocytes (%) (Auto) 13.0 10.0-50.0 % Monocytes (%) (Auto) 6.0 0.0-12.0 % Eosinophils (%) (Auto) 2.5 0.0-7.0 % Basophils (%) (Auto) 0.8 0.0-2.0 % Neutrophils # (Auto) 7.1 1.6-8.6 10 ^3/uL Lymphocytes # (Auto) 1.2 0.4-5.4 10 ^3/uL Monocytes # (Auto) 0.6 0-1.3 10 ^3/uL Eosinophils # (Auto) 0.2 0-0.8 10 ^3/uL Basophils # (Auto) 0.1 0-0.2 10 ^3/uL Nucleated Red Blood Cells 0.1 % Sodium Level 142 136-145 mmol/L Potassium Level 4.1 3.5-5.1 mmol/L Chloride Level 113 H 98-107 mmol/L Carbon Dioxide Level 20 20-31 mmol/L Anion Gap 9 5-15 Blood Urea Nitrogen 30 H 9-23 mg/dL Creatinine 2.25 H 0.700-1.30 mg/dL Glomerular Filtration Rate Calc 31 >90 mL/min BUN/Creatinine Ratio 13.3 10.0-20.0 Serum Glucose 121 H 74-106 mg/dL Calcium Level 9.4 8.7-10.4 mg/dL B-Type Natriuretic Peptide 1170.75 0-100 pg/mL Assessment Impression: Acute on chronic congestive heart failure Diabetes mellitus type 2 Chronic kidney disease CAD status post CABG Status post aortic valve replacement Dhsqqxze-ze-ztbjzo mitral regurgitation Pulmonary hypertension, right ventricular 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 Left ventricular ejection fraction 45-50%. Mild diffuse hypokinesis. Right ventricle was dilated with preserved systolic function. Dilation of bilateral atria. Metallic prosthetic valve in place. Trivial regurgitation. Tbtlwghw-gc-cywdfk mitral regurgitation. Moderate tricuspid regurgitation. Right ventricular systolic pressure 70 mmHg. Chest x-ray imaging report reviewed. Moderate interstitial pulmonary edema. No pleural effusion or pneumothorax. Plan: On 3 liters/minute via nasal cannula Keep O2 saturation above 92%. Bronchodilators Antibiotics Diuresis euvolemia Start Lasix drip, fixed dose 2.5 mg/hour Strict in's and out's Fluid restriction, 1.2 L Monitor renal function Monitor electrolytes . Supplement as necessary. Resume home medications. Continue warfarin per pharmacy protocol due to aortic valve replacement. Accu-Cheks, insulin sliding scale DVT prophylaxis-on warfarin Prognosis: Guarded given multiple comorbidities. Rest of plan per hospitalist and other consultants. Thank you MISAEL Dsouza for allowing me to participate in this patient's care. Further recommendations will depend on patient's clinical course. Please do not hesitate to contact me if you have any questions or concerns. This medical document was created using an electronic medical record system with [employer] dictation system. Although this document has been carefully reviewed, there may still be some phonetic and typographical errors. These areas are purely typographical due to imperfections of the software programs, and do not reflect any compromise in the patient's medical care. Plan discussed with: Patient, Other (RN, ALIGNMENT MECHANIC) Visit Coding Cardiology RES Date of Service: Oct 14, 2024 Billing Provider: ESAU GREER MD Cardiology Common Codes: [id number] INP/OBS CARE (High) MARIANN RIBERA RESIDENT Oct 14, 2024 09:29
[2024-10-14] MEDS ORDERED: ASPirin 81 mg TAB PO SCH (10:00)
[2024-10-14 10:26] VITALS: BP 128/71; PULSE 94; RESP 18
[2024-10-14] MEDS: MORPHINE SULFATE INJ 2 MG/ml SYRG IV PRN (10:26)
[2024-10-14] MEDS: cefTRIAXone 1GM/50ML D5W 50 ML IV SCH (10:44)
[2024-10-14] MEDS: ONDANSETRON HCL 4 MG/2 ML VIAL IV PRN (10:46)
[2024-10-14] MEDS: METOPROLOL TARTRATE 25 MG TAB PO SCH (10:46)
[2024-10-14] MEDS: ISOSORBIDE DINITRATE 10 MG TAB PO SCH (10:46)
[2024-10-14] MEDS ORDERED: FUROSEMIDE INJECTION 100 MG in SODIUM CHL 0.9% 100 ML IV SCH (11:45)
[2024-10-14] MEDS ORDERED: ALBU108A5 IN (13:52)
--- NOTE | 2024-10-14 14:43 | DVHPN2 ---
Reviewed: Care Plan, H&P, Labs, Medications, Previous Orders, Radiology Changes from previous H/P or p: No Changes Objective Vitals Vital Signs Date Time Temp Pulse Resp B/P (MAP) Pulse Ox O2 Delivery O2 Flow Rate FiO2 10/14/24 10:46 128/71 10/14/24 10:46 94 10/14/24 10:26 18 10/14/24 09:00 97.4 97 3.0 32 97.4 10/14/24 06:15 Nasal Cannula Medications Current Medications Medications Dose Ordered Sig/Cynthia Route Start Time Stop Time Status Last Admin Dose Admin Atorvastatin Calcium 40 mg HS PO 10/14/24 22:00 Warfarin Sodium RX PROTOCOL PER PHARMACY PO 10/14/24 05:30 Metoprolol Tartrate 25 mg BID PO 10/14/24 10:00 10/14/24 10:46 25 MG Albuterol 2.5 mg Q6HPRN PRN NEB 10/14/24 05:30 10/14/24 06:15 2.5 MG Isosorbide Dinitrate 20 mg BID PO 10/14/24 10:00 10/14/24 10:46 20 MG Diagnostic Test (Pha) 1 strip ACHS 10/14/24 07:00 10/14/24 07:04 1 STRIP Insulin Human Regular ACHS SC 10/14/24 07:00 10/14/24 07:08 3 UNITS Dextrose 50 ml UD PRN IV 10/14/24 05:30 Ondansetron HCl 4 mg Q4HP PRN IV 10/14/24 05:30 10/14/24 10:46 4 MG Acetaminophen 650 mg Q6HP PRN PO 10/14/24 05:30 Nitroglycerin 0.4 mg Q5MINP PRN SL 10/14/24 05:30 Morphine Sulfate 2 mg Q30M PRN IV 10/14/24 05:30 10/14/24 10:26 2 MG Aspirin 162 mg DAILY PO 10/14/24 07:30 10/14/24 09:07 162 MG Ceftriaxone Sodium 50 ml @ 100 mls/hr DAILY@09 IV 10/14/24 09:00 10/14/24 10:44 100 MLS/HR Furosemide 100 mg/ Sodium Chloride 110 ml @ 2.75 mls/hr Q24H IV 10/14/24 11:45 Laboratory Results Laboratory Tests 10/14/24 01:00 Chemistry Test 10/14/24 01:00 Calcium Level 9.4 mg/dL (8.7-10.4) Coagulation Test 10/14/24 06:22 Prothrombin Time 35.0 sec (9.3-11.8) H Prothrombin Time INR 3.63 (0.9-1.15) H Activated Partial Thromboplast Time 47.1 SEC (24.5-34.5) H Cardiac Markers Test 10/14/24 01:00 B-Type Natriuretic Peptide 1170.75 pg/mL (0-100) Labs and/or images reviewed: Labs reviewed by me, Image(s) reviewed by me Assessment/Plan Assessment/Plan Acute on chronic congestive heart failure , Lasix Non ST-elevation AL: Borderline elevation of troponin, consult for Dr. Ovalle Diabetes mellitus type 2 Chronic kidney disease CAD status post CABG Status post aortic valve replacement on Coumadin Ofmszakk-bi-vwieqg mitral regurgitation Pulmonary hypertension, right ventricular systolic pressure 70 mmHg, Acute hypoxic respiratory failure: Consult by Dr. Jacinto appreciated Time spent 65 minutes Patient is full code Advanced care planning time 20 minutes Plan discussed with: Patient Date of Service: Oct 14, 2024 Billing Provider: ISAIAH STANFORD MD Common Visit Codes: [id number] CARE 30-74 MIN ISAIAH STANFORD MD Oct 14, 2024 14:43
[2024-10-14] MEDS ORDERED: ATORVASTATIN 20 MG TAB PO SCH (22:00)
--- NOTE | 2024-10-15 12:31 | ECG ---
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
--- NOTE | 2024-10-15 12:32 | ECG ---
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
== END 2024-10-14 15:03 | disposition left against medical advice (07) | DRG 280 ==
LOC: ER 00:52 → EDBD 00:52 → TELE 05:26
PROVIDERS: ADMIT Nurse Practitioner; ATTEND Family Medicine
DX: I21.4 Non-ST elevation (NSTEMI) myocardial infarction (principal); I50.33 Acute on chronic diastolic (congestive) heart failure; J96.01 Acute respiratory failure with hypoxia; I13.0 Hypertensive heart and chronic kidney disease with heart failure and stage 1 through stage 4 chronic kidney disease, or unspecified chronic kidney disease; N18.9 Chronic kidney disease, unspecified; I27.20 Pulmonary hypertension, unspecified; I25.10 Atherosclerotic heart disease of native coronary artery without angina pectoris; Z20.822 Contact with and (suspected) exposure to COVID-19; J44.9 Chronic obstructive pulmonary disease, unspecified; I34.0 Nonrheumatic mitral (valve) insufficiency; E11.22 Type 2 diabetes mellitus with diabetic chronic kidney disease; E78.5 Hyperlipidemia, unspecified; Z95.1 Presence of aortocoronary bypass graft; Z95.2 Presence of prosthetic heart valve; Z87.891 Personal history of nicotine dependence; Z91.041 Radiographic dye allergy status; Z79.899 Other long term (current) drug therapy; Z79.891 Long term (current) use of opiate analgesic; Z79.4 Long term (current) use of insulin; Z83.3 Family history of diabetes mellitus; Z82.49 Family history of ischemic heart disease and other diseases of the circulatory system
CPT/HCPCS: 36415; 71045; 80048; 82962; 83605; 83880; 84484; 85025; 85610; 85730; 87426; 87804; 93005; 94640; 99291; G0378; J1815; J2405

== ENCOUNTER → 2024-11-16 | Outpatient (CLI) | payer OTHER, MEDICAID ==
[~2024-11-16] MED LIST changes: +ALBU108A5 IN; +ALPR0.5T PO; +ATOR20TA50 PO; +ATOR40TA52 PO; +AZITTAB PO; +BENA-30 PO; +BENA-36 PO; +CEFP200T15 PO; +FENO5TAB PO; +FURO20TA3 PO; +GABA600T PO; +HYDR-4798 PO; -HYDR-4902 PO; +INSU100I4 SC; +ISOS10TA5 PO; +LINA5TAB IJ; +METH-532 PO; +METH4PAK PO; +METO-158 PO; +METO-289 PO; +MORP1TAB14 PO; +MORP30TA PO; +MORP30TA5 PO; +NOR10T PO; +NORVASC PO; +PANT40TA2 PO; +ROSU5TAB24 PO; +SODI650T PO; +SUCR1TAB31 OR; +TEMA30CA PO; +WARF2TAB PO
== END | disposition home or self-care (01) ==
LOC: MERGE 09:13 → LAB 09:13
PROVIDERS: ATTEND Physician Assistant
DX: D68.69 Other thrombophilia (principal)
CPT/HCPCS: 36415; 85576

== ENCOUNTER 2025-06-01 22:47 | Inpatient (IN) | payer OTHER, MEDICAID ==
[~2025-06-01] VITALS: Ht 160 cm; Wt 70.1 kg
--- NOTE | 2025-06-01 23:00 | ED.PDOC ---
SOB-HPI HPI Comments HPI: Poor Historian. 69-year-old male brought in by ambulance from home for evaluation of three day history of shortness of breath. Patient has history of COPD and CHF and asthma. Patient has been taking his Lasix and Coumadin and albuterol without significant improvement. Patient thinks he needs Lasix today. Denies any chest pain or any other acute symptoms. Per EMS, patient was slightly tachycardic heart rate 106. Patient uses 2 L nasal cannula at baseline at home. Pulse ox was 97% at 2 L. Past Medical History: COPD, asthma, diabetes, CHF, chronic back pain Past Surgical History: , open heart surgery valve replacement. Patient is allergic to iodine. Vitals: Temperature of 98.2 F pulse rate of 104, respiratory rate 30, blood pressure 153/66, and pulse ox 97% on room air REVIEW OF SYSTEMS: CONSTITUTIONAL: Denies acute: fever, diaphoresis, chills, generalized weakness. HEAD: Denies acute: headache, photophobia Eyes: Denies acute: Double vision, vision loss, eye pain, eye discharge. EARS: Denies acute: tinnitus, hearing loss, ear discharge, ear pain, THROAT: Denies acute: sore throat, swelling, difficulty swallowing , pain with swallowing, change in voice. NECK: Denies acute: neck pain, neck swelling, stiff neck. HEART: Denies acute : chest pain, palpitations, LUNGS: Denies acute: wheezing, cough, hemoptysis ABDOMEN: Denies acute: abdominal pain, Nausea, Vomiting, diarrhea, melena , hematemesis, hematochezia SKIN: Denies acute: rash, redness, lesions, itchiness. EXTREMITIES: Denies acute: calf pain, numbness, tingling, weakness, denies pain in extremity. Denies acute: Low back pain. Neuro: Denies acute: focal neurological deficit, motor or sensory focal neurological deficit, tremors, seizure like activity, confusion, dizziness, change in mental status, loss of bowel or bladder function, cauda equina like symptoms. : Denies acute: dysuria, hematuria, flank pain, increase in urinary frequency. PSYCH: Denies acute: hallucination, suicidal ideation, homicidal ideation. PHYSICAL EXAM: General: ---ugtc-hc-gaqbjugm-----acute distress, awake and alert. Head: normocephalic, atraumatic. Neck: supple, trachea is midline, no swelling. Throat: Normal phonation. Eyes:, no erythema, no purulent discharge, no proptosis, no icterus. Heart: regular tachycardia no significant murmur appreciated. Lungs: no apparent respiratory distress, Able to speak in full sentences. No wheezing, no rhonchi, no crackles. No stridors Clear to auscultation bilaterally. Abdomen: non tender to palpation, non distended, soft, no guarding, no rebound, + bowel sounds. Obese Neuro: Awake, Alert, oriented to name, self, situation, follows commands GCS=15. Speech is normal. Skin: no petechia, no purpura, no cyanosis, non-pale, not jaundice. Lower extremities: --no - Pitting edema no deformity, no focal swelling, no calf TTP. Makes eye contact. moves all four extremities. Face: no apparent facial droop. ED COURSE: DISCLAIMER: This medical document was created using an electronic medical record system with voice recognition software and computerized dictation system. Although this document has been carefully reviewed, there might still be some phonetic and typographical errors. Occasional wrong-word or "sound-alike" substitutions may have occurred due to the inherent limitations of voice recognition software. These areas are purely typographical due to imperfections of the software programs and do not reflect any compromise in the patient's medical care. Please read the chart carefully and recognize, using context, where these substitutions have occurred. Time Seen by MD: 22:55 Reviewed notes: Allergies Information Source: Patient, Emergency Med Personnel EKG EKG : Pulse Rate (adult): 104 [place]: Normal Cardiac Rhythm: ST Block: None Hypertrophy: None ST: Normal Was a procedure done? Was a procedure done?: No X-Ray, Labs, Meds, VS Vital Signs Date Time Temp Pulse Resp B/P (MAP) Pulse Ox O2 Delivery O2 Flow Rate FiO2 06/02/25 00:00 107 06/01/25 23:25 154/97 06/01/25 23:03 98.2 106 30 153/66 (95) 97 98.2 06/01/25 22:49 104 Lab Test 06/02/25 00:14 06/01/25 23:57 06/01/25 23:10 Range/Units Troponin I High Sensitivity 62 *H 56 *H </=54 ng/L Thyroid Stimulating Hormone (TSH) 1.69 0.55-4.78 uIU/mL Urine Color Light-yellow Yellow Urine Clarity Clear Clear Urine pH 5.5 5.0-9.0 Urine Specific [place] 1.011 1.001-1.035 Urine Protein 1+ H Negative Urine Ketones Negative Negative Urine Blood Trace H Negative /uL Urine Nitrite Negative Negative Urine Bilirubin Negative Negative Urine Urobilinogen Normal Negative mg/dL Urine Leukocyte Esterase Negative Negative /uL Urine RBC None seen 0 - 3 /hpf Urine Microscopic WBC < 1 0-3 /HPF Urine Squamous Epithelial Cells Few <5 /hpf Urine Bacteria None seen None Seen /hpf Urine Glucose Normal Normal mg/dL White Blood Count 9.3 4.4-10.8 10^3/uL Red Blood Count 3.80 L 4.5-5.90 10^6/uL Hemoglobin 11.3 L 13.5-17.5 g/dL Hematocrit 32.8 L 41.0-53.0 % Mean Corpuscular Volume 86.2 80.0-100.0 fL Mean Corpuscular Hemoglobin 29.7 28.0-32.0 pg Mean Corpuscular Hemoglobin Concent 34.5 32.0-36.0 g/dL Red Cell Distribution Width 14.9 H 11.8-14.3 % Platelet Count 197 140-450 10^3/uL Mean Platelet Volume 7.4 6.9-10.8 fL Neutrophils (%) (Auto) 80.0 37.0-80.0 % Lymphocytes (%) (Auto) 11.4 10.0-50.0 % Monocytes (%) (Auto) 5.2 0.0-12.0 % Eosinophils (%) (Auto) 2.7 0.0-7.0 % Basophils (%) (Auto) 0.7 0.0-2.0 % Neutrophils # (Auto) 7.4 1.6-8.6 10 ^3/uL Lymphocytes # (Auto) 1.1 0.4-5.4 10 ^3/uL Monocytes # (Auto) 0.5 0-1.3 10 ^3/uL Eosinophils # (Auto) 0.2 0-0.8 10 ^3/uL Basophils # (Auto) 0.1 0-0.2 10 ^3/uL Nucleated Red Blood Cells 0.1 % Prothrombin Time 27.5 H 9.3-11.8 sec Prothrombin Time INR 2.88 H 0.9-1.15 Activated Partial Thromboplast Time 46.4 H 24.5-34.5 SEC Sodium Level 141 136-145 mmol/L Potassium Level 4.1 3.5-5.1 mmol/L Chloride Level 111 H 98-107 mmol/L Carbon Dioxide Level 19 L 20-31 mmol/L Anion Gap 11 5-15 Blood Urea Nitrogen 35 H 9-23 mg/dL Creatinine 2.27 H 0.700-1.30 mg/dL Glomerular Filtration Rate Calc 31 >90 mL/min BUN/Creatinine Ratio 15.4 10.0-20.0 Serum Glucose 125 H 74-106 mg/dL Calcium Level 8.9 8.7-10.4 mg/dL Magnesium Level 2.1 1.6-2.6 mg/dL Total Bilirubin 1.1 H 0.2-1.0 mg/dL Aspartate Amino Transferase (AST) 22 13-40 U/L Alanine Aminotransferase (ALT) 20 7-40 U/L Alkaline Phosphatase 91 46-116 U/L B-Type Natriuretic Peptide 907.38 0-100 pg/mL Total Protein 6.4 5.7-8.2 g/dL Albumin 4.0 3.2-4.8 g/dL Current Medications Medications (Trade) Dose Ordered Sig/Cynthia Route Start Time Stop Time Status Last Admin Furosemide (Lasix Injection) 80 mg ONCE ONCE IV 06/01/25 23:00 06/01/25 23:20 DC 06/01/25 23:25 Aspirin 325 mg ONCE ONCE PO 06/02/25 00:30 06/02/25 00:33 DC 06/02/25 00:[address] [address] Ph: [phone] DIAGNOSTIC IMAGING Diagnostic Imaging Report : [id number] Signed PATIENT: MANDIE KELLY SR ACCT: [id number] UNIT: [id number] : 1955 LOC: ER ROOM / BED: / AGE / SEX: 69 / M ADM STATUS: REG ER SERVICE [id number] ORDERING PHYSICIAN: RAJ HILL DO PROCEDURE(s): CXRP - CHEST PORTABLE REASON: sob ORDER NUMBER(s): [id number], ACCESSION NUMBER(s): [id number] CHEST RADIOGRAPH Indication: sob Technique: Single frontal view of the chest was obtained COMPARISON: None FINDINGS: Lines and Tubes: None Lungs: Diffuse pulmonary airspace disease with consolidative features within the right lung base. Pleura: No effusion. No pneumothorax. Cardiomediastinal contours: Cardiomegaly status post median sternotomy. Bones: Unremarkable IMPRESSION: 1. Diffuse bilateral pulmonary airspace disease with right basilar consolidative features, concerning for an infectious process such as pneumonia. 2. Cardiomegaly. ATED BY: BALDIMIR FRANCOIS MD DICTATED DATE/TIME: 06/02/2510 SIGNED BY: BLADIMIR FRANCOIS MD SIGNED DATE/TIME: 06/02/2510 CC: Time of 1ST Reevaluation: 23:15 Reevaluation 1ST: Unchanged Patient Education/Counseling: Other (Need for admission) Family Education/Counseling: No Family Present SEPSIS Sepsis Screen Physician Orders Bilingual Social Worker (06/01/25 ) Chest Portable (06/01/25 22:58) Electrocardigram (06/01/25 22:58) Troponin-I Hs (06/02/25 01:58) Vital Signs Date Time Temp Pulse Resp B/P (MAP) Pulse Ox O2 Delivery O2 Flow Rate FiO2 06/02/25 00:00 107 06/01/25 23:25 154/97 06/01/25 23:03 98.2 106 30 153/66 (95) 97 98.2 06/01/25 22:49 104 Laboratory Tests Test 06/01/25 23:10 White Blood Count 9.3 10^3/uL (4.4-10.8) Medications Medications Dose Ordered Sig/Cynthia Route Start Time Stop Time Status Last Admin Dose Admin Aspirin 325 mg ONCE ONCE PO 06/02/25 00:30 06/02/25 00:33 DC 06/02/25 00:37 Furosemide 80 mg ONCE ONCE IV 06/01/25 23:00 06/01/25 23:20 DC 06/01/25 23:25 Departure 1 Departure Time of Disposition: 23:44 Impression: Primary Impression: CHF exacerbation Additional Impressions: Elevated troponin Acute renal insufficiency Disposition: ADMITTED INPATIENT Admit to: Tele Condition: Guarded Discharged With: Self Critical Care Note Critical Care Time?: No Heart Score Heart Score: Heart Score Response (Comments) Value History N/A 0 EKG Normal 0 Age >65 2 Risk Factors >3 or Hx ASHD 2 Troponin >3 x's Normal limit 2 Total 6 I personally scribed for RAJ HILL DO ([email or web address]) on 06/02/25 at 01:58. Electronically submitted by Stephen Jimenez [email or web address]). RAJ HILL DO Jun 01, 2025 22:59
[2025-06-01] MEDS: FUROSEMIDE 100 MG/10ML VIAL IV ONE (23:25)
[2025-06-01 23:30] VITALS: PULSE 100; RESP 20; O2SAT 98
[2025-06-01 23:45] LABS: Hematocrit 32.8 % (41.0-53.0); Hemoglobin 11.3 g/dL (13.5-17.5); Mean Corpuscular Hemoglobin 29.7 pg (28.0-32.0); Mean Corpuscular Volume 86.2 fL (80.0-100.0); Nucleated Red Blood Cells % 0.1 %
[2025-06-01 23:48] LABS: Alanine Aminotransferase 20 U/L (7-40); Albumin 4.0 g/dL (3.2-4.8); Alkaline Phosphatase 91 U/L (46-116); Anion Gap 11 (5-15); BUN/Creatinine Ratio 15.4 (10.0-20.0); Bilirubin, Total 1.1 mg/dL (0.2-1.0); Calcium 8.9 mg/dL (8.7-10.4); Magnesium 2.1 mg/dL (1.6-2.6); Potassium 4.1 mmol/L (3.5-5.1); Sodium 141 mmol/L (136-145); Total Protein 6.4 g/dL (5.7-8.2)
[2025-06-01 23:57] LABS: Blood Urea Nitrogen 35 mg/dL (9-23); Carbon Dioxide 19 mmol/L (20-31); Chloride 111 mmol/L (98-107); Glucose 125 mg/dL (74-106)
[2025-06-02] VITALS (14 sets, daily range): BP systolic 107–127; BP diastolic 59–72; PULSE 75–99; RESP 17–20; TEMP 97.4–97.9; O2SAT 94–99
--- NOTE | 2025-06-02 00:13 | DVH ---
CHEST RADIOGRAPH Indication: sob Technique: Single frontal view of the chest was obtained COMPARISON: None FINDINGS: Lines and Tubes: None Lungs: Diffuse pulmonary airspace disease with consolidative features within the right lung base. Pleura: No effusion. No pneumothorax. Cardiomediastinal contours: Cardiomegaly status post median sternotomy. Bones: Unremarkable IMPRESSION: 1. Diffuse bilateral pulmonary airspace disease with right basilar consolidative features, concerning for an infectious process such as pneumonia. 2. Cardiomegaly.
[2025-06-02 00:15] LABS: Urine Protein, UAD 1+ (Negative)
[2025-06-02] MEDS: PANTOPRAZOLE 40 MG TAB PO ONE (01:15)
[2025-06-02] MEDS: METOPROLOL SUCCINATE XL 50 MG TAB PO ONE (01:15)
[2025-06-02] MEDS ORDERED: NITROGLYCERIN 0.4 MG SL TAB SL PRN (01:15)
[2025-06-02] MEDS: POTASSIUM CHL 20MEQ/100ML 100 ML IV SCH (01:15)
[2025-06-02] MEDS: FUROSEMIDE 40 MG/4 ML VIAL IV ONE (01:15)
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
[2025-06-02 01:30] LABS: INR 2.88 (0.9-1.15); Partial Thromboplastin Time 46.4 SEC (24.5-34.5); Prothrombin Time 27.5 sec (9.3-11.8)
[2025-06-02] MEDS: ATORVASTATIN 20 MG TAB PO ONE (01:53)
[2025-06-02] MEDS: cefTRIAXone 1GM/50ML D5W 50 ML IV ONE (02:31)
[2025-06-02] MEDS: AZITHROMYCIN 500MG/ 250ML 250 ML IV ONE (02:32)
[2025-06-02 02:37] LABS: Potassium 4.4 mmol/L (3.5-5.1); Sodium 138 mmol/L (136-145)
[2025-06-02 02:38] LABS: Anion Gap 10 (5-15); Calcium 9.2 mg/dL (8.7-10.4)
[2025-06-02 02:43] LABS: BUN/Creatinine Ratio 13.5 (10.0-20.0); Glucose 104 mg/dL (74-106)
[2025-06-02] MEDS ORDERED: DEXTROSE (50%) 50ML SYRG IV PRN (02:45)
[2025-06-02 02:58] LABS: Blood Urea Nitrogen 31 mg/dL (9-23); Carbon Dioxide 19 mmol/L (20-31); Chloride 109 mmol/L (98-107)
[2025-06-02] MEDS: IPRATROPIUM BROM 0.5 MG/2.5ML INH SOL NEB ONE (02:59)
[2025-06-02] MEDS: IPRATROPIUM BROM 0.5 MG/2.5ML INH SOL ONE (02:59)
[2025-06-02] MEDS: ALBUTEROL SULF 2.5 MG/0.5ML(0.5%) NEB SOLN ONE (02:59)
[2025-06-02] MEDS: ALBUTEROL SULF 2.5 MG/0.5ML(0.5%) NEB SOLN NEB ONE (02:59)
[2025-06-02] MEDS: HYDROcodone-ACET 5/325MG TAB PO ONE (03:05)
[2025-06-02] MEDS: SODIUM BICARBONATE 650 MG TAB PO ONE (04:35)
[2025-06-02] MEDS ORDERED: ACETAMINOPHEN 325 MG TAB PO PRN (05:30)
[2025-06-02] MEDS: ACETAMINOPHEN 325 MG TAB PO ONE (05:44)
[2025-06-02] MEDS: ACCU-CHEK COMFORT CURVE STRIP VI SCH (05:47)
--- NOTE | 2025-06-02 05:48 | ECG ---
[facility] Test Date: 2025-06-01 Test Time: 22:49:43 Pat Name: MANDIE KELLY Department: ED Room: 0284T Gender: M Forensic Science Examiner: LAWANDA : 1955 Requested By: RAJ HILL Order Number: [id number] Reading MD: Jacinto Virk Measurements Intervals [place] Rate: 104 P: 49 TX: 205 QRS: 69 QRSD: 85 T: 76 QT: 325 QTc: 428 Interpretive Statements Sinus tachycardia Probable left atrial enlargement Probable left ventricular hypertrophy Borderline T abnormalities, lateral leads Electronically Signed On 06-03-2025 19:04:24 PDT by Jacinto Virk Please click the below link to view image of tracing.
[2025-06-02 05:50] LABS: Hematocrit 36.1 % (41.0-53.0); Hemoglobin 12.2 g/dL (13.5-17.5); Mean Corpuscular Hemoglobin 29.4 pg (28.0-32.0); Mean Corpuscular Volume 87.1 fL (80.0-100.0); Nucleated Red Blood Cells % 0.3 %
[2025-06-02] MEDS: InsuLIN REG 1unit/0.01ml Soln (100units/ml) SC SCH (05:50)
[2025-06-02 05:59] LABS: Calcium 9.7 mg/dL (8.7-10.4); Carbon Dioxide 21 mmol/L (20-31)
[2025-06-02 06:04] LABS: BUN/Creatinine Ratio 15.9 (10.0-20.0); INR 2.95 (0.9-1.15); Partial Thromboplastin Time 48.6 SEC (24.5-34.5); Prothrombin Time 28.1 sec (9.3-11.8)
[2025-06-02 06:06] LABS: Blood Urea Nitrogen 38 mg/dL (9-23); Glucose 164 mg/dL (74-106)
[2025-06-02 06:21] LABS: Anion Gap 11 (5-15); Chloride 106 mmol/L (98-107); Potassium 4.2 mmol/L (3.5-5.1); Sodium 138 mmol/L (136-145)
[2025-06-02] MEDS: ALBUTEROL SULF 2.5 MG/0.5ML(0.5%) NEB SOLN NEB SCH ×2 (06:35→10:43)
[2025-06-02] MEDS: IPRATROPIUM BROM 0.5 MG/2.5ML INH SOL NEB SCH ×2 (06:35→10:43)
[2025-06-02] MEDS: cefTRIAXone 1GM/50ML D5W 50 ML IV SCH (09:15)
[2025-06-02 09:19] LABS: Cocaine Screen, Urine Neg (NEGATIVE)
[2025-06-02 09:34] LABS: Amphetamine Screen, Urine Neg (NEGATIVE); Barbiturate Scree,Urine Neg (NEGATIVE); Benzodiazephine Screen, Urine Neg (NEGATIVE); Cannabinoid Screen, Urine Neg (NEGATIVE); Opiate Scree,Urine Neg (NEGATIVE); Phencyclidine Screen, Urine Neg (NEGATIVE)
[2025-06-02] MEDS: AZITHROMYCIN 500MG/ 250ML 250 ML IV SCH (10:15)
[2025-06-02] MEDS: SACUBITRIL-VALSARTAN 24mg/26mg TAB PO SCH (10:15)
[2025-06-02] MEDS: SODIUM BICARBONATE 650 MG TAB PO SCH (10:16)
[2025-06-02] MEDS: EZETIMIBE 10 MG TAB PO SCH (10:19)
[2025-06-02] MEDS: BUDESONIDE (INHALATION) 0.5 MG/2 ML NEB NEB SCH (10:43)
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
[2025-06-02] MEDS: methylPREDNISolone SOD SUCC 40 MG/ML VL IV SCH (10:52)
--- NOTE | 2025-06-02 10:57 | DVHINCON2 ---
Date Seen: Jun 02, 2025 Referring Physician MD Libra Reason for Consultation Congestive heart failure History of Present Illness This is a 69-year-old man who presented to the emergency room with a chief complaint of shortness of breath for two days. The patient presents with complaints of progressive shortness of breath associated with PINEDA. Denies chest pain, palpitations, diaphoresis, or syncopal events. He underwent a 12 lead electrocardiogram revealing a normal sinus rhythm with an associated first- degree atrioventricular block. Troponin levels peaked at 62 ng/L. Follows up with primary barnworker groom at [facility] with upcoming appointment on 06/03/2025. Significant past medical history includes severe aortic stenosis status post open heart with mechanical aortic valve replacement (on warfarin therapy), congestive heart failure with mildly reduced EF, non-ischemic cardiomyopathy, severe mitral valve regurgitation, hypertension, hyperlipidemia, COPD, chronic kidney disease, type 2 diabetes mellitus, cerebrovascular accident with left- sided hemiparesis in 2002, history of hepatitis C, liver cirrhosis, chronic pain, remote history of drug use, and obesity. Past Medical History Past medical history reviewed. No other significant than mentioned above. Past Surgical History Mechanical aortic valve replacement at [facility] in 2003 Family History Family history reviewed. Social History Denies the use of illicit drugs, alcohol, or tobacco use. Allergies: Coded Allergies: Iodine (Verified Allergy, Unknown, 06/01/25) Home Meds Home medications reviewed. Current Medications Current Medications Medications (Trade) Dose Ordered Sig/Cynthia Route PRN Reason Start Time Stop Time Status Last Admin Nitroglycerin (Ntrostat Sublingual) 0.4 mg Q5MINP PRN SL FOR CHEST PAIN 06/02/25 01:15 Furosemide (Lasix Injection) 40 mg BIDD IV 06/02/25 18:00 Metoprolol Succinate (Toprol Xl) 100 mg DAILY PO 06/03/25 10:00 Sacubitril/ Valsartan (Entresto 24-26 Mg tab) 1 tab BID PO 06/02/25 10:00 06/02/25 10:15 Potassium Chloride 100 ml @ 50 mls/hr Q2H IV 06/02/25 01:15 06/02/25 01:55 DC 06/02/25 01:15 Pantoprazole Sodium (Protonix Tablet) 40 mg DAILY@0600 PO 06/03/25 06:00 Warfarin Sodium (Coumadin) 3 mg DAILY@17 PO 06/02/25 17:00 UNV Atorvastatin Calcium (Lipitor) 40 mg HS PO 06/02/25 22:00 EZETIMIBE (Zetia) 5 mg DAILY PO 06/02/25 10:00 06/02/25 10:19 Ceftriaxone Sodium 50 ml @ 100 mls/hr DAILY@09 IV 06/02/25 09:00 06/02/25 09:15 Azithromycin 250 ml @ 125 mls/hr DAILY IV 06/02/25 10:00 06/02/25 10:15 Acetaminophen/ Hydrocodone Bitart ([place] 5/325MG Tab) 1 tab Q6HPRN PRN PO SEVERE PAIN (7-10 PAIN SCALE) 06/02/25 02:45 Albuterol (Ventolin Medneb) 2.5 mg Q6HWA NEB 06/02/25 06:00 06/02/25 10:11 DC 06/02/25 06:35 Ipratropium [place] (Atrovent Medneb) 0.5 mg Q6HWA NEB 06/02/25 06:00 06/02/25 10:11 DC 06/02/25 06:35 Diagnostic Test (Pha) (Accu-Chek Comfort Curve T) 1 strip ACHS 06/02/25 07:00 06/02/25 05:47 Insulin Human Regular (InsuLIN R) ACHS SC 06/02/25 07:00 06/02/25 05:50 Dextrose 50 ml UD PRN IV Blood Sugar LESS THAN 60 06/02/25 02:45 Sodium Bicarbonate 650 mg BID PO 06/02/25 10:00 06/02/25 10:16 Acetaminophen (Tylenol Tablet) 650 mg Q6HP PRN PO MODERATE PAIN (4-6 PAIN SCALE) 06/02/25 05:30 Methylprednisolone Sodium Succinate (Solu Medrol) 40 mg BID IV 06/02/25 10:00 UNV Budesonide (Pulmicort) 0.5 mg BID NEB 06/02/25 10:00 UNV Albuterol (Ventolin Medneb) 2.5 mg Q4H NEB 06/02/25 10:00 UNV Ipratropium [place] (Atrovent Medneb) 0.5 mg Q4HR NEB 06/02/25 10:00 UNV Review of Systems Constitutional: No symptom reported Ears, Nose, & Throat: No symptom reported Eyes: No symptom reported Neurological: No symptoms reported Pulmonary/Respiratory: SOB Cardiovascular: No symptom reported Gastrointestinal: No symptom reported Genitourinary: No symptom reported Musculoskeletal: No symptom reported Skin: No symptom reported Psychiatric: No symptom reported Endocrine: No symptom reported Hemotologic/Lymphatic: No symptom reported Vital Signs Vital Signs Date Time Temp Pulse Resp B/P (MAP) Pulse Ox O2 Delivery O2 Flow Rate FiO2 06/02/25 08:00 91 06/02/25 06:42 20 98 06/02/25 06:34 Nasal Cannula* 2 28 06/02/25 05:12 98.1 101/69 (80) 98.1 Physical Exam General Appearance: Cooperative. Well developed. Well nourished. In no acute distress Head Exam: Normal inspection Neck Exam: Normal inspection. Non-tender. Normal alignment Pulmonary/Respiratory: Chest non-tender. Coarse bilateral breath sounds R>L Cardiovascular/Chest: Regular rate and rhythm. S1, S2. Clicking sound Peripheral Pulses: 2+ Radial (R). 2+ Radial (L). 2+ Pedal (R). 2+ Pedal (L) Abdominal Exam: Normal bowel sounds. Soft. Nontender. Ankle Exam: Negative ankle edema Lower extremities: Negative lower extremity edema Neuro/Mental Status: A&O x4. Coherent Thoughts/Psych: Normal thought pattern. Appropriate mood and affect. Good judgement and insight Appearance: In no acute distress Skin Exam: Normal inspection. Normal color. Warm. Dry Labs/Diagnostic Data Labs Test 06/02/25 08:07 06/02/25 05:46 06/02/25 05:02 06/02/25 04:21 Range/Units Urine Opiates Screen Neg NEGATIVE Urine Fentanyl Screen Neg NEGATIVE Urine Barbiturates Screen Neg NEGATIVE Urine Phencyclidine Screen Neg NEGATIVE Urine Amphetamines Screen Neg NEGATIVE Urine Benzodiazepines Screen Neg NEGATIVE Urine Cocaine Screen Neg NEGATIVE Urine Cannabinoids Screen Neg NEGATIVE POC Glucose 156 H 70-106 mg/dl White Blood Count 9.7 4.4-10.8 10^3/uL Red Blood Count 4.14 L 4.5-5.90 10^6/uL Hemoglobin 12.2 L 13.5-17.5 g/dL Hematocrit 36.1 #L 41.0-53.0 % Mean Corpuscular Volume 87.1 80.0-100.0 fL Mean Corpuscular Hemoglobin 29.4 28.0-32.0 pg Mean Corpuscular Hemoglobin Concent 33.7 32.0-36.0 g/dL Red Cell Distribution Width 14.7 H 11.8-14.3 % Platelet Count 208 140-450 10^3/uL Mean Platelet Volume 7.7 6.9-10.8 fL Neutrophils (%) (Auto) 77.6 37.0-80.0 % Lymphocytes (%) (Auto) 14.3 10.0-50.0 % Monocytes (%) (Auto) 5.5 0.0-12.0 % Eosinophils (%) (Auto) 1.9 0.0-7.0 % Basophils (%) (Auto) 0.7 0.0-2.0 % Neutrophils # (Auto) 7.5 1.6-8.6 10 ^3/uL Lymphocytes # (Auto) 1.4 0.4-5.4 10 ^3/uL Monocytes # (Auto) 0.5 0-1.3 10 ^3/uL Eosinophils # (Auto) 0.2 0-0.8 10 ^3/uL Basophils # (Auto) 0.1 0-0.2 10 ^3/uL Nucleated Red Blood Cells 0.3 % Prothrombin Time 28.1 H 9.3-11.8 sec Prothrombin Time INR 2.95 H 0.9-1.15 Activated Partial Thromboplast Time 48.6 H 24.5-34.5 SEC Sodium Level 138 136-145 mmol/L Potassium Level 4.2 3.5-5.1 mmol/L Chloride Level 106 98-107 mmol/L Carbon Dioxide Level 21 20-31 mmol/L Anion Gap 11 5-15 Blood Urea Nitrogen 38 H 9-23 mg/dL Creatinine 2.39 H 0.700-1.30 mg/dL Glomerular Filtration Rate Calc 29 >90 mL/min BUN/Creatinine Ratio 15.9 10.0-20.0 Serum Glucose 164 H 74-106 mg/dL Hemoglobin A1c 5.2 <5.7 % A1C Calcium Level 9.7 8.7-10.4 mg/dL Phosphorus Level 3.8 2.4-5.1 mg/dL Vitamin B12 Level 280 211-911 pg/mL Vitamin D 25-Hydroxy 37.0 30.0-100 ng/mL Folic Acid 15.18 >5.38 ng/mL Plasma/Serum Blood Alcohol < 3.0 <10 mg/dL Parathyroid Hormone (Intact) 299.5 H 18.4-80.1 pg/mL Test 06/02/25 02:16 06/02/25 00:14 06/01/25 23:57 06/01/25 23:10 Range/Units Troponin I High Sensitivity 61 *H </=54 ng/L Thyroid Stimulating Hormone (TSH) 1.69 0.55-4.78 uIU/mL Urine Color Light-yellow Yellow Urine Clarity Clear Clear Urine pH 5.5 5.0-9.0 Urine Specific [place] 1.011 1.001-1.035 Urine Protein 1+ H Negative Urine Ketones Negative Negative Urine Blood Trace H Negative /uL Urine Nitrite Negative Negative Urine Bilirubin Negative Negative Urine Urobilinogen Normal Negative mg/dL Urine Leukocyte Esterase Negative Negative /uL Urine RBC None seen 0 - 3 /hpf Urine Microscopic WBC < 1 0-3 /HPF Urine Squamous Epithelial Cells Few <5 /hpf Urine Bacteria None seen None Seen /hpf Urine Glucose Normal Normal mg/dL Magnesium Level 2.1 1.6-2.6 mg/dL Total Bilirubin 1.1 H 0.2-1.0 mg/dL Aspartate Amino Transferase (AST) 22 13-40 U/L Alanine Aminotransferase (ALT) 20 7-40 U/L Alkaline Phosphatase 91 46-116 U/L B-Type Natriuretic Peptide 907.38 0-100 pg/mL Total Protein 6.4 5.7-8.2 g/dL Albumin 4.0 3.2-4.8 g/dL Assessment Acute pneumonia Acute on chronic decompensated HFmrEF, NYHA class III Nonischemic cardiomyopathy Severe aortic stenosis status post open-heart with mechanical valve replacement (on warfarin therapy) Mitral valve/tricuspid valve regurgitation, moderate to severe degree Pulmonary hypertension, moderate degree Hypertension Hyperlipidemia COPD Coby on CKD Stage IIIb CVA with left-sided hemiparesis Obesity Plan/Recommendation (Dr. Virk) Transthoracic echocardiogram from 11/05/24 revealed EF 45%, RVSP 54 mmHg, mo derate to severe mitral/tricuspid valve regurgitation. Continue preload and afterload reduction as tolerated. Continue GDMT for HFmrEF as renal function permits, avoid nephrotoxic agents. Maintain Coumadin levels at therapeutic range for an INR in between 2-3. Continue lipid lowering agent. ABX therapy per primary care team. Continue follow-up at [facility] with primary barnworker groom as scheduled. He can benefit from an outpatient ISIS to further evaluate need of [place] Clip. Abx therapy per primary care team. Kindly call if in need to re- consult or perhaps any questions or concerns. Thank you for allowing us to participate in this patient's care. This medical document was created using an electronic medical record system with voice recognition software and computerized dictation system. Although this document has been carefully reviewed, there might still be some phonetic and typographical errors. Occasional wrong-word or ``sound-alike substitutions may have occurred due to the inherent limitations of voice recognition software. These areas are purely typographical due to imperfections of the software programs and do not reflect any compromise in the patient's medical care. Please read the chart carefully and recognize, using context, where these substitutions have occurred. Plan discussed with: Patient, Other NYHA Physical activity limitations: Class3(Marked) ordinary (activity causes symtoms) Date of Service: Jun 02, 2025 Billing Provider: LOLY EDOUARD Cardiology Common Codes: 23086-[id number] INP/OBS CARE (High) LOLY EDOUARD Jun 02, 2025 10:57
[2025-06-02] MEDS: MORPHINE SULFATE INJ 2 MG/ml SYRG IV PRN (13:16)
[2025-06-02 15:42] LABS: Protein, Urine 122.5 mg/dL (1-14)
[2025-06-02] MEDS ORDERED: WARFARIN SODIUM 1 MG TAB PO ONE (17:00)
[2025-06-02] MEDS ORDERED: WARFARIN SODIUM 1 MG TAB PO SCH (17:00)
--- NOTE | 2025-06-02 17:03 | DVHCONRES ---
Date Seen: Jun 02, 2025 Resident Creating Document: RED FARNSWORTH RESIDENT Referring Physician Dr. Smyth History of Present Illness This is a 69-year-old male with diabetes mellitus type 2 on insulin for the past 5 years, heart failure with moderately reduced ejection fraction-EF 45%, COPD on 2 L home oxygen, history of CVA, asthma, aortic valve replacement 2003 on warfarin, CKD stage 4 who presented to the ER with a chief complaint of shortness of breaths for the past 3 days. Patient reports gradually worsening shortness of breaths associated with cough with clear phlegm, associated symptoms include nausea but no vomiting, reports night sweats and chills. He also reports episodes of loose watery stools with greenish color. Patient reports generalized weakness. Patient increased his O2 from 2 L to 3 L which did not improve his shortness of breaths so he decided to come into the ER. Nephrology consulted for SILVIA on CKD Patient seen and examined at bedside. Bilateral coarse rales heard more on the left lower side, no pedal edema. Family History: Cardiovascular disease G8 MOTHER G8 FATHER G8 MOTHER Cardiovascular disease G8 MOTHER G8 FATHER G8 MOTHER Colon cancer G8 MOTHER, Diabetes mellitus G8 FATHER, G8 FATHER G8 FATHER Diabetes mellitus G8 FATHER, G8 FATHER G8 FATHER Diabetes mellitus G8 FATHER, G8 FATHER G8 FATHER FH: cancer G8 MOTHER, FH: colon cancer FH: heart disease G8 MOTHER, FH: kidney disease G8 MOTHER, Hypertension G8 MOTHER G8 FATHER G8 MOTHER G8 FATHER Hypertension G8 MOTHER G8 FATHER G8 MOTHER G8 FATHER Ischemic heart disease G8 MOTHER G8 FATHER Allergies: Coded Allergies: Iodine (Verified Allergy, Unknown, 04/10/23) Iohexol (Verified Allergy, Unknown, 01/05/25) No Known Drug Allergy (Unverified Allergy, Unknown, 10/14/24) Home Meds Active Scripts Sucralfate (CARAFATE) 1 Gm Tab, 1 GM OR DAILY for 7 Days, #7 TAB Prov:VENITA VILLAR RESIDENT 11/06/24 Methylprednisolone (Medrol Dosepak) 4 Mg Melchor, 4 MG PO UD, #21 TAB UAD Prov:BETZAIDA QUEZADA RESIDENT 09/02/24 Azithromycin (Zithromax Z-Melchor) 250 Mg Tab, 250 MG PO DAILY for 5 Days, #5 TAB Prov:BETZAIDA QUEZADA 09/02/24 Doxycycline Monohydrate (Doxycycline Monohydrate) 100 Mg Cap, 1 CAP PO BID, #10 CAP Prov:MARILYNN MALLOY MD 07/23/24 Carvedilol (COREG) 3.125 Mg Tab, 3.125 MG PO BID, #60 TAB Prov:ISAIAH STANFORD MD 03/19/24 Reported Medications Glipizide (Glipizide) 5 Mg Tab, 5 MG PO QAM, MG 11/06/24 Dapagliflozin Propanediol (Farxiga) 10 Mg Tab, 10 MG PO DAILY, TAB 11/06/24 Insulin Lispro (Humalog Kwikpen) 100 Unit/Ml Inj, SC AC, INJ INJECT WITH MEALS PER SLIDING SCALE REFER TO PRESCRIPTION NOTES 11/06/24 Ipratropium Mathias Hfa (Atrovent Hfa) 17 Mcg Aer, 2 PUFF INH QID PRN for SHORTNESS OF BREATH 11/06/24 Insulin Glargine (Toujeo Solostar) 300 Unit/Ml Inj, 15 UNIT SC HS, INJ 11/06/24 Buprenorphine HCl (Belbuca) 150 Mcg Mis, 150 MCG BU BID PRN for WITHDRAWAL, MISC 11/06/24 Atorvastatin Calcium (ATORVASTATIN CALCIUM) 40 Mg Tab, 40 MG PO DAILY, TAB 11/06/24 Ezetimibe (Zetia) 10 Mg Tab, 10 MG PO, TAB 11/06/24 Isosorbide Dinitrate (Isosorbide Dinitrate) 20 Mg Tab, 20 MG PO BID, MG 11/06/24 Ferrous Sulfate (Ferosul) 325 Mg Tab, 325 MG PO DAILY@BREAKFAST, TAB 11/06/24 Hydrocodone-Acetaminophen (Hydrocodone/Acetaminophen 10-325 mg) 1 Tab Tab, 1 TAB PO TID PRN for PAIN SCALE 7 THRU 10 for 30 Days, #90 TAB 11/06/24 Warfarin Sodium (Warfarin Sodium) 3 Mg Tab, 2 TAB PO DAILY for 30 Days, #60 TAB 11/06/24 Benazepril HCl (Benazepril Hydrochloride) 20 Mg Tab, 20 MG PO DAILY, TAB 11/06/24 Metoprolol Succinate (Metoprolol Succinate Er) 50 Mg Tab, 50 MG PO DAILY, TAB 11/06/24 Pantoprazole Sodium Sesquihydr (Protonix) 40 Mg Tab, 40 MG PO DAILY, #30 TAB 11/05/24 Furosemide (Furosemide) 20 Mg Tab, 20 MG PO BIDD for 30 Days, MG 11/05/24 Albuterol Sulfate (Albuterol Sulfate Hfa) 108 Mcg/Act Aer, 2 PUFF IN Q4-6HR PRN for 16 Days, #8.5 10/14/24 Glipizide (Glipizide) 5 Mg Tab, 1 TAB PO DAILY for 90 Days, #90 10/14/24 Buprenorphine HCl (Belbuca) 150 Mcg Mis, 150 MCG BU BID PRN for 30 Days, #[address] 1 FILM BETWEEN CHEEK AND GUM BY BUCCAL ROUTE NEEDED TWICE A DAY. 10/14/24 Atorvastatin Calcium (Lipitor) 40 Mg Tab, 1 TAB PO DAILY for 90 Days, #90 10/14/24 Ezetimibe (Zetia) 10 Mg Tab, 1 TAB PO DAILY for 90 Days, #90 10/14/24 Atorvastatin Calcium (Lipitor) 40 Mg Tab, 40 MG PO DAILY, TAB 08/31/24 Isosorbide Mononitrate (Isosorbide Mononitrate) 10 Mg Tab, 20 MG PO BID, TAB 08/31/24 Metoprolol Tartrate (Metoprolol Tartrate) 50 Mg Tab, 50 MG PO BID for 30 Days, MG 08/31/24 Temazepam (Temazepam) 30 Mg Cap, 1 CAP PO QPM, #30 CAP 1 Refill 08/31/24 Alprazolam (Xanax) 0.5 Mg Tb, 1 TAB PO DAILY, #30 TAB 08/31/24 Hydrocodone-Acetaminophen (Hydrocodone Bitartrate/AC 10-325 mg) 1 Tab Tab, 1 TAB PO QID, TAB 08/31/24 Morphine Sulfate (Morphine Sulfate Er) 60 Mg Tab, 30 TAB PO BID, #60 TAB 08/31/24 Ascorbic Acid (VITAMIN C TABLET) 500 Mg Tb, 500 MG PO DAILY, TAB 07/20/24 Ferrous Sulfate (Ferosul) 325 Mg Tab, 1 TAB PO DAILY for 30 Days, #30 07/20/24 Insulin Lispro (Insulin Lispro Kwikpen) 100 Unit/Ml Inj, SC UD for 15 Days, #3 INJECT PER SLIDING SCALE 07/20/24 Hydrocodone-Acetaminophen (Hydrocodone/Acetaminophen 10-325 mg) 1 Tab Tab, 1 TAB PO TID PRN for PAIN SCALE 7 THRU 10 for 30 Days, #90 07/20/24 Insulin Glargine (Toujeo Solostar) 300 Unit/Ml Inj, 15 UNITS SC HS for 75 Days, #4.5 07/20/24 Promethazine Hcl (Promethazine Hcl) 25 Mg Tab, 25 MG PO BID, TAB 07/20/24 Docusate Sodium (Colace) 100 Mg Cap, 100 MG PO DAILY, CAP 07/20/24 Amlodipine Besylate (NORVASC TABLET) 5 Mg Tb, 5 MG PO DAILY, TAB 07/20/24 Linagliptin Base (TRADJENTA) 5 Mg Tab, 15 MG IJ PRN for Diabetes, TAB 07/03/24 Promethazine Hcl (Promethazine Hcl) 25 Mg Tab, 25 MG PO Q4HP PRN for NAUSEA OR VOMITING, TAB 06/27/24 Hydrocodone-Acetaminophen (Hydrocodone Bitartrate/AC 10-325 mg) 1 Tab Tab, 1 TAB PO QID PRN for PAIN SCALE 7 THRU 10, TAB 06/27/24 Morphine Sulfate (Morphine Sulfate) 30 Mg Tab, 30 MG PO BID PRN for PAIN SCALE 1 THRU 6, TAB 06/27/24 Amlodipine Besylate (NORVASC TABLET) 5 Mg Tb, 1 TAB PO DAILY, #30 TAB 5 Refills 06/27/24 Benazepril Hcl (Benazepril Hcl) 10 Mg Tab, 10 MG PO DAILY, MG 06/27/24 Metoprolol Tartrate (Metoprolol Tartrate) 50 Mg Tab, 50 MG PO BID for 30 Days, MG 06/27/24 Warfarin Sodium (Warfarin Sodium) 3 Mg Tab, 3 MG PO DAILY for 30 Days, MG 06/27/24 Docusate Sodium (Colace) 100 Mg Cap, 1 CAP PO BID, #30 CAP 03/17/24 Alprazolam (Alprazolam) 1 Mg Tab, 0.5 MG PO QPM PRN for ANXIETY 03/14/24 Rosuvastatin Calcium (Rosuvastatin Calcium) 5 Mg Tab, 1 TAB PO DAILY 03/14/24 Sodium Bicarbonate (Sodium Bicarbonate) 650 Mg Tab, 1 TAB PO BID 03/14/24 Dapagliflozin Propanediol (Farxiga) 10 Mg Tab, 1 TAB PO DAILY 03/14/24 Doxycycline Monohydrate (Doxycycline Monohydrate) 100 Mg Cap, 1 CAP PO BID 03/14/24 Cefpodoxime Proxetil (Cefpodoxime Proxetil) 200 Mg Tab, 1 TAB PO BID 03/14/24 Warfarin Sodium (Warfarin Sodium) 3 Mg Tab, 1 TAB PO DAILY 03/14/24 Lidocaine (Lidocaine) 5 % Pad, 1 PATCH TOP DAILY APPLY 1 PATCH TOPICALLY ONCE DAILY. REMOVE AFTER 12 HOURS. 03/14/24 Isosorbide Dinitrate (Isosorbide Dinitrate) 20 Mg Tab, 1 TAB PO BID 03/14/24 Ipratropium Mathias Hfa (Atrovent Hfa) 17 Mcg Aer, 2 PUFF INH QID 03/14/24 Hydrocodone-Acetaminophen (Hydrocodone/Acetaminophen 10-325 mg) 1 Tab Tab, 1 TAB PO Q6HR PRN for 7 Days 03/14/24 Morphine Sulfate (Morphine Sulfate Cr) 30 Mg Tab, 1 TAB PO Q12HR for 15 Days 03/14/24 Benazepril Hcl (Benazepril Hcl) 10 Mg Tab, 1 TAB PO DAILY 03/14/24 Atorvastatin Calcium (ATORVASTATIN CALCIUM) 20 Mg Tab, 1 TAB PO DAILY 03/14/24 Furosemide (Furosemide) 20 Mg Tab, 1 TAB PO DAILY 03/14/24 Ipratropium Mathias Hfa (Atrovent Hfa) 17 Mcg Aer, 2 PUFF INH Q6HR PRN for 75 Days, #38.7 01/20/24 Benazepril Hcl (Benazepril Hcl) 10 Mg Tab, 1 TAB PO DAILY for 90 Days, #90 01/20/24 Isosorbide Dinitrate (Isosorbide Dinitrate) 20 Mg Tab, 1 TAB PO BID for 90 Days, #180 01/20/24 Pravastatin Sodium (PRAVACHOL TABLET) 20 Mg Tb, 1 TAB PO HS for 90 Days, #90 01/20/24 Dapagliflozin Propanediol (Farxiga) 10 Mg Tab, 1 TAB PO DAILY for 90 Days, #90 01/20/24 Diclofenac Sodium (Topical) (Voltaren) 1 % Gel, 1 % TD PRN for PAIN, GEL 12/25/18 Budesonide (Inhalation) (Budesonide) 0.5 Mg/2 Ml Janette, 0.5 MG IN QIDP 12/25/18 Beclomethasone Dipropionate (Qvar Redihaler) 40 Mcg/Act Aer, 40 MCG IN PRN PRN for SHORTNESS OF BREATH 12/24/18 Lidocaine (Lidocaine) 5 % Pad, 1 PATCH TOP DAILY PRN for PAIN for 30 Days, #30 12/24/18 Warfarin Sodium (Warfarin Sodium) 3 Mg Tab, 2 TAB PO DAILY for BLOOD THINNER for 30 Days, #60 12/24/18 Metoprolol Tartrate (LOPRESSOR TABLET) 50 Mg Tb, 1.5 TAB PO BID for BLOOD PRESSURE for 270 Days, #90 12/24/18 Alprazolam (Alprazolam) 1 Mg Tab, 0.5 MG PO QPM PRN for ANXIETY Take 1/2 tablet (0.5 mg) by mouth at night as needed for anxiety 12/24/18 Furosemide (Furosemide) 20 Mg Tab, 1 TAB PO BID for WATER RETENTION for 90 Days, #180 12/24/18 Morphine Sulfate (Morphine Sulfate Er) 30 Mg Tab, 30 MG PO Q12HR for PAIN 12/24/18 [[facility]] No Conflict Check, 2.5 MG PO DAILY 11/14/10 Hydrocodone-Acetaminophen ([place] 10/325MG) 1 Tab Tb, 10 MG PO 11/14/10 Furosemide (Furosemide) 20 Mg Tab, 20 MG PO DAILY 11/14/10 Fenofibrate (Tricor) 145 Mg Tab, 145 MG PO DAILY 11/14/10 Methocarbamol (Robaxin-750) 750 Mg Tab, 750 MG PO TID 11/14/10 Gabapentin (Neurontin) 600 Mg Tab, 600 MG PO TID 11/14/10 Metoprolol Succinate (Metoprolol Succinate Er) 50 Mg Tab, 50 MG PO BID 11/14/10 Benazepril Hcl (Benazepril Hcl) 20 Mg Tab, 20 MG PO BID 11/14/10 Warfarin Sodium (Coumadin) 2 Mg Tab, 2 MG PO 11/14/10 Current Medications Current Medications Medications (Trade) Dose Ordered Sig/Cynthia Route PRN Reason Start Time Stop Time Status Last Admin Nitroglycerin (Ntrostat Sublingual) 0.4 mg Q5MINP PRN SL FOR CHEST PAIN 06/02/25 01:15 Furosemide (Lasix Injection) 40 mg BIDD IV 06/02/25 18:00 Metoprolol Succinate (Toprol Xl) 100 mg DAILY PO 06/03/25 10:00 06/02/25 11:00 DC Sacubitril/ Valsartan (Entresto 24-26 Mg tab) 1 tab BID PO 06/02/25 10:00 06/02/25 11:00 DC 06/02/25 10:15 Potassium Chloride 100 ml @ 50 mls/hr Q2H IV 06/02/25 01:15 06/02/25 01:55 DC 06/02/25 01:15 Pantoprazole Sodium (Protonix Tablet) 40 mg DAILY@0600 PO 06/03/25 06:00 Warfarin Sodium (Coumadin) 3 mg DAILY@17 PO 06/02/25 17:00 06/02/25 10:56 DC Atorvastatin Calcium (Lipitor) 40 mg HS PO 06/02/25 22:00 EZETIMIBE (Zetia) 5 mg DAILY PO 06/02/25 10:00 06/02/25 10:19 Ceftriaxone Sodium 50 ml @ 100 mls/hr DAILY@09 IV 06/02/25 09:00 06/02/25 09:15 Azithromycin 250 ml @ 125 mls/hr DAILY IV 06/02/25 10:00 06/02/25 10:15 Acetaminophen/ Hydrocodone Bitart ([place] 5/325MG Tab) 1 tab Q6HPRN PRN PO SEVERE PAIN (7-10 PAIN SCALE) 06/02/25 02:45 Albuterol (Ventolin Medneb) 2.5 mg Q6HWA NEB 06/02/25 06:00 06/02/25 10:11 DC 06/02/25 06:35 Ipratropium Mathias (Atrovent Medneb) 0.5 mg Q6HWA NEB 06/02/25 06:00 06/02/25 10:11 DC 06/02/25 06:35 Diagnostic Test (Pha) (Accu-Chek Comfort Curve T) 1 strip ACHS 06/02/25 07:00 06/02/25 11:37 Insulin Human Regular (InsuLIN R) ACHS SC 06/02/25 07:00 06/02/25 11:38 Dextrose 50 ml UD PRN IV Blood Sugar LESS THAN 60 06/02/25 02:45 Sodium Bicarbonate 650 mg BID PO 06/02/25 10:00 06/02/25 10:16 Acetaminophen (Tylenol Tablet) 650 mg Q6HP PRN PO MODERATE PAIN (4-6 PAIN SCALE) 06/02/25 05:30 Methylprednisolone Sodium Succinate (Solu Medrol) 40 mg BID IV 06/02/25 10:00 06/02/25 10:52 Budesonide (Pulmicort) 0.5 mg BID NEB 06/02/25 10:00 06/02/25 10:43 Albuterol (Ventolin Medneb) 2.5 mg Q4H NEB 06/02/25 10:00 06/02/25 13:29 Ipratropium Mathias (Atrovent Medneb) 0.5 mg Q4HR NEB 06/02/25 10:00 06/02/25 13:29 Warfarin Sodium (Coumadin Per Rx Protocol) RX PROTOCOL PER PHARMACY PO 06/02/25 11:00 Metoprolol Succinate (Toprol Xl) 50 mg DAILY PO 06/03/25 10:00 Morphine Sulfate 1 mg Q6HP PRN IV SEVERE PAIN (7-10 PAIN SCALE) 06/02/25 13:15 06/02/25 13:16 Vital Signs Vital Signs Date Time Temp Pulse Resp B/P (MAP) Pulse Ox O2 Delivery O2 Flow Rate FiO2 06/02/25 16:29 97.9 89 19 122/72 (89) 98 97.9 06/02/25 13:29 Nasal Cannula* 2 28 Physical Exam Overweight male patient lying in bed comfortably, no acute distress General: Overweight, palor, mucosae are moist Cardiovascular: Regular S1 and S2. No murmurs, gallops or rubs. No JVD elevation. No pedal edema Respiratory: Bilateral coarse rales heard on auscultation, more on left lower as compared to right. On NC 2 L saturating 94. Abdomen: Soft, nontender, nondistended, normoactive bowel sounds, no rebound tenderness, no organomegaly, no masses Genitourinary: Deferred MSK/skin: Mobilizes 4 limbs. Skin is dry and warm Neurological: No motor, no sensitive deficits, normal speech. Pupils are isocoric and reactive. Psych/Mental Status: A/Ox3 Labs/Diagnostic Data Labs Test 06/02/25 11:30 06/02/25 08:07 06/02/25 05:02 06/02/25 04:21 Range/Units POC Glucose 159 H 70-106 mg/dl Urine Creatinine 52.76 30.0-125.0 mg/dL Urine Protein/Creatinine Ratio 2.32 Urine Sodium 102 40-220 mmol/L Urine Total Protein 122.5 H 1-14 mg/dL Urine Opiates Screen Neg NEGATIVE Urine Fentanyl Screen Neg NEGATIVE Urine Barbiturates Screen Neg NEGATIVE Urine Phencyclidine Screen Neg NEGATIVE Urine Amphetamines Screen Neg NEGATIVE Urine Benzodiazepines Screen Neg NEGATIVE Urine Cocaine Screen Neg NEGATIVE Urine Cannabinoids Screen Neg NEGATIVE White Blood Count 9.7 4.4-10.8 10^3/uL Red Blood Count 4.14 L 4.5-5.90 10^6/uL Hemoglobin 12.2 L 13.5-17.5 g/dL Hematocrit 36.1 #L 41.0-53.0 % Mean Corpuscular Volume 87.1 80.0-100.0 fL Mean Corpuscular Hemoglobin 29.4 28.0-32.0 pg Mean Corpuscular Hemoglobin Concent 33.7 32.0-36.0 g/dL Red Cell Distribution Width 14.7 H 11.8-14.3 % Platelet Count 208 140-450 10^3/uL Mean Platelet Volume 7.7 6.9-10.8 fL Neutrophils (%) (Auto) 77.6 37.0-80.0 % Lymphocytes (%) (Auto) 14.3 10.0-50.0 % Monocytes (%) (Auto) 5.5 0.0-12.0 % Eosinophils (%) (Auto) 1.9 0.0-7.0 % Basophils (%) (Auto) 0.7 0.0-2.0 % Neutrophils # (Auto) 7.5 1.6-8.6 10 ^3/uL Lymphocytes # (Auto) 1.4 0.4-5.4 10 ^3/uL Monocytes # (Auto) 0.5 0-1.3 10 ^3/uL Eosinophils # (Auto) 0.2 0-0.8 10 ^3/uL Basophils # (Auto) 0.1 0-0.2 10 ^3/uL Nucleated Red Blood Cells 0.3 % Prothrombin Time 28.1 H 9.3-11.8 sec Prothrombin Time INR 2.95 H 0.9-1.15 Activated Partial Thromboplast Time 48.6 H 24.5-34.5 SEC Sodium Level 138 136-145 mmol/L Potassium Level 4.2 3.5-5.1 mmol/L Chloride Level 106 98-107 mmol/L Carbon Dioxide Level 21 20-31 mmol/L Anion Gap 11 5-15 Blood Urea Nitrogen 38 H 9-23 mg/dL Creatinine 2.39 H 0.700-1.30 mg/dL Glomerular Filtration Rate Calc 29 >90 mL/min BUN/Creatinine Ratio 15.9 10.0-20.0 Serum Glucose 164 H 74-106 mg/dL Hemoglobin A1c 5.2 <5.7 % A1C Calcium Level 9.7 8.7-10.4 mg/dL Phosphorus Level 3.8 2.4-5.1 mg/dL Vitamin B12 Level 280 211-911 pg/mL Vitamin D 25-Hydroxy 37.0 30.0-100 ng/mL Folic Acid 15.18 >5.38 ng/mL Plasma/Serum Blood Alcohol < 3.0 <10 mg/dL Parathyroid Hormone (Intact) 299.5 H 18.4-80.1 pg/mL Test 06/02/25 02:16 06/02/25 00:14 06/01/25 23:57 06/01/25 23:10 Range/Units Troponin I High Sensitivity 61 *H </=54 ng/L Thyroid Stimulating Hormone (TSH) 1.69 0.55-4.78 uIU/mL Urine Color Light-yellow Yellow Urine Clarity Clear Clear Urine pH 5.5 5.0-9.0 Urine Specific Alexander 1.011 1.001-1.035 Urine Protein 1+ H Negative Urine Ketones Negative Negative Urine Blood Trace H Negative /uL Urine Nitrite Negative Negative Urine Bilirubin Negative Negative Urine Urobilinogen Normal Negative mg/dL Urine Leukocyte Esterase Negative Negative /uL Urine RBC None seen 0 - 3 /hpf Urine Microscopic WBC < 1 0-3 /HPF Urine Squamous Epithelial Cells Few <5 /hpf Urine Bacteria None seen None Seen /hpf Urine Glucose Normal Normal mg/dL Magnesium Level 2.1 1.6-2.6 mg/dL Total Bilirubin 1.1 H 0.2-1.0 mg/dL Aspartate Amino Transferase (AST) 22 13-40 U/L Alanine Aminotransferase (ALT) 20 7-40 U/L Alkaline Phosphatase 91 46-116 U/L B-Type Natriuretic Peptide 907.38 0-100 pg/mL Total Protein 6.4 5.7-8.2 g/dL Albumin 4.0 3.2-4.8 g/dL Assessment Acute kidney injury likely superimposed on CKD stage 4 in the setting of pneumonia Gram-positive and negative pneumonia. Acute on chronic hypoxic respiratory failure Possible COPD exacerbation NSTEMI Chronic congestive systolic heart failure Anemia likely chronic kidney disease Secondary hyperparathyroidism Plan: Continue IV antibiotics per primary team. Renally dose antibiotics to GFR to avoid toxicity Continue Lasix 40 mg daily Fluid restrictions Strict I&Os, daily weight We will continue to follow up Cardiac and renal diet Plan discussed with patient in which all questions have been answered Case discussed with Dr. Huang Addendum Patient seen and examined, plan discussed with resident. Agree with above, we will follow closely Plan discussed with: Patient RED FARNSWORTH RESIDENT Jun 02, 2025 17:03 MARY HUANG MD Jun 02, 2025 18:14
[2025-06-02] MEDS ORDERED: FUROSEMIDE 40 MG/4 ML VIAL IV SCH (18:00)
[2025-06-02] MEDS: WARFARIN SODIUM 2 MG TAB PO ONE (19:41)
[2025-06-02] MEDS: ATORVASTATIN 20 MG TAB PO SCH (21:11)
[2025-06-03] VITALS (19 sets, daily range): BP systolic 102–132; BP diastolic 56–87; PULSE 77–108; RESP 14–20; TEMP 97.4–97.7; O2SAT 91–99
[2025-06-03] MEDS: guaiFENesin-DM 100/10mg/5ml SYR PO PRN (00:19)
[2025-06-03] MEDS: PANTOPRAZOLE 40 MG TAB PO SCH (05:55)
[2025-06-03] MEDS: HYDROcodone-ACET 5/325MG TAB PO PRN (06:05)
[2025-06-03 06:31] LABS: Hematocrit 35.7 % (41.0-53.0); Hemoglobin 12.2 g/dL (13.5-17.5); Mean Corpuscular Hemoglobin 29.2 pg (28.0-32.0); Mean Corpuscular Volume 85.3 fL (80.0-100.0)
[2025-06-03 06:45] LABS: Alanine Aminotransferase 17 U/L (7-40); Albumin 4.2 g/dL (3.2-4.8); Alkaline Phosphatase 91 U/L (46-116); Anion Gap 11 (5-15); BUN/Creatinine Ratio 18.7 (10.0-20.0); Calcium 10.1 mg/dL (8.7-10.4); Carbon Dioxide 22 mmol/L (20-31); Partial Thromboplastin Time 45.4 SEC (24.5-34.5); Potassium 4.5 mmol/L (3.5-5.1); Prothrombin Time 37.2 sec (9.3-11.8); Sodium 141 mmol/L (136-145); Total Protein 6.7 g/dL (5.7-8.2)
[2025-06-03 06:46] LABS: Bilirubin, Total 0.5 mg/dL (0.2-1.0); Blood Urea Nitrogen 47 mg/dL (9-23); Chloride 108 mmol/L (98-107); Glucose 149 mg/dL (74-106)
[2025-06-03 07:08] LABS: INR 4.03 (0.9-1.15)
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
[2025-06-03 08:34] LABS: RBC Morphology Normal; Total Cells Counted 100.0 (100)
[2025-06-03] MEDS ORDERED: METOPROLOL SUCCINATE XL 50 MG TAB PO SCH (10:00)
[2025-06-03] MEDS ORDERED: FUROSEMIDE 40 MG/4 ML VIAL IV SCH (10:00)
[2025-06-03] MEDS: LACTULOSE 20Gm/30ML SOLN PO SCH (10:07)
[2025-06-03] MEDS: METOPROLOL SUCCINATE XL 50 MG TAB PO SCH (10:12)
--- NOTE | 2025-06-03 10:56 | DVHPN2 ---
Progress Note Date Seen: Jun 03, 2025 Resident Creating Document: RED FARNSWORTH RESIDENT Has the PT tested + for MRSA If YES, has PT been informed?: No Medical Necessity Reason Pt with a Central, PICC or Fol: No Subjective Review of Systems This is a 69-year-old male with diabetes mellitus type 2 on insulin for the past 5 years, heart failure with moderately reduced ejection fraction-EF 45%, COPD on 2 L home oxygen, history of CVA, asthma, aortic valve replacement 2003 on warfarin, CKD stage 4 who presented to the ER with a chief complaint of shortness of breaths for the past 3 days. Patient reports gradually worsening shortness of breaths associated with cough with clear phlegm, associated symptoms include nausea but no vomiting, reports night sweats and chills. He also reports episodes of loose watery stools with greenish color. Patient reports generalized weakness. Patient increased his O2 from 2 L to 3 L which did not improve his shortness of breaths so he decided to come into the ER. Nephrology consulted for SILVIA on CKD 06/02-Patient seen and examined at bedside. Bilateral coarse rales heard more on the left lower side, no pedal edema. 06/03-patient seen and examined, rales left greater than right side. Patient reports the cough is worsening, with sputum turning yellow. Objective vital signs Vital Sign Date Time Temp Pulse Resp B/P (MAP) Pulse Ox O2 Delivery O2 Flow Rate FiO2 06/03/25 10:22 85 14 132/76 06/03/25 10:00 96 06/03/25 09:52 Nasal Cannula 2.0 06/03/25 09:52 28 06/03/25 09:00 97.5 97.5 Total Intake and Output 06/02/25 06/02/25 06/03/25 15:00 23:00 07:00 Intake Total 300 ml 0 ml 650 ml Output Total 700 ml Balance 300 ml 0 ml -50 ml medications Current Medications Medications Dose Ordered Sig/Cynthia Route Start Time Stop Time Status Last Admin Dose Admin Nitroglycerin 0.4 mg Q5MINP PRN SL 06/02/25 01:15 Pantoprazole Sodium 40 mg DAILY@0600 PO 06/03/25 06:00 06/03/25 05:55 40 MG Atorvastatin Calcium 40 mg HS PO 06/02/25 22:00 06/02/25 21:11 40 MG EZETIMIBE 5 mg DAILY PO 06/02/25 10:00 06/03/25 10:09 5 MG Ceftriaxone Sodium 50 ml @ 100 mls/hr DAILY@09 IV 06/02/25 09:00 06/03/25 08:20 100 MLS/HR Azithromycin 250 ml @ 125 mls/hr DAILY IV 06/02/25 10:00 06/03/25 10:10 125 MLS/HR Acetaminophen/ Hydrocodone Bitart 1 tab Q6HPRN PRN PO 06/02/25 02:45 06/03/25 06:05 1 TAB Diagnostic Test (Pha) 1 strip ACHS 06/02/25 07:00 06/03/25 05:55 1 STRIP Insulin Human Regular ACHS SC 06/02/25 07:00 06/03/25 06:10 2 UNITS Dextrose 50 ml UD PRN IV 06/02/25 02:45 Acetaminophen 650 mg Q6HP PRN PO 06/02/25 05:30 Methylprednisolone Sodium Succinate 40 mg BID IV 06/02/25 10:00 06/03/25 10:07 40 MG Budesonide 0.5 mg BID NEB 06/02/25 10:00 06/03/25 09:51 0.5 MG Albuterol 2.5 mg Q4H NEB 06/02/25 10:00 06/03/25 09:52 2.5 MG Ipratropium [place] 0.5 mg Q4HR NEB 06/02/25 10:00 06/03/25 09:52 0.5 MG Warfarin Sodium RX PROTOCOL PER PHARMACY PO 06/02/25 11:00 Metoprolol Succinate 50 mg DAILY PO 06/03/25 10:00 06/03/25 10:12 50 MG Morphine Sulfate 1 mg Q6HP PRN IV 06/02/25 13:15 06/03/25 10:22 1 MG Guaifenesin/ Dextromethorphan 10 ml 6XD PRN PO 06/02/25 17:00 06/03/25 00:19 10 ML Lactulose 30 ml DAILY PO 06/03/25 10:00 06/03/25 10:07 30 ML Examination Overweight male patient lying in bed comfortably, no acute distress General: Overweight, palor, mucosae are moist Cardiovascular: Regular S1 and S2. No murmurs, gallops or rubs. No JVD elevation. No pedal edema Respiratory: Bilateral coarse rales heard on auscultation, more on left lower as compared to right. On NC 2 L saturating 94. Abdomen: Soft, nontender, nondistended, normoactive bowel sounds, no rebound tenderness, no organomegaly, no masses Genitourinary: Deferred MSK/skin: Mobilizes 4 limbs. Skin is dry and warm Neurological: No motor, no sensitive deficits, normal speech. Pupils are isocoric and reactive. Psych/Mental Status: A/Ox3 laboratory and microbiology Laboratory Tests 06/03/25 05:57 Test 06/03/25 05:57 Range/Units Serum Glucose 149 H 74-106 mg/dL Microbiology Date/Time Source Procedure Growth Status 06/02/25 05:02 Blood Blood Culture - Preliminary NO GROWTH AFTER 24 HOURS OF INCUBATION. Resulted Labs and/or images reviewed: Labs reviewed by me, Image(s) reviewed by me Problem List/Assessment/Plan Problem List/Assessment/Plan Acute kidney injury likely superimposed on CKD stage 4 in the setting of pneumonia pneumonia. Unknown etiology Acute on chronic hypoxic respiratory failure Possible COPD exacerbation NSTEMI Chronic congestive systolic heart failure Anemia likely chronic kidney disease Secondary hyperparathyroidism FENA 3.4% Plan: Continue IV antibiotics per primary team. Renally dose antibiotics to GFR to avoid toxicity Continue Lasix 40 mg daily Fluid restrictions Echocardiogram report pending Strict I&Os, daily weight We will continue to follow up Cardiac and renal diet Plan discussed with patient in which all questions have been answered Case discussed with Dr. Huang Addendum Patient seen and examined, plan discussed with resident. Agree with above, we will follow closely Plan discussed with: Patient My Orders My Orders Orders - RED FARNSWORTH Procedure Category Date Status Time Cardiac DIET 06/02/25 Transmitted Diet-2gna,Lofat,Lochol Dinner RED FARNSWORTH Jun 03, 2025 10:56 MARY HUANG MD Jun 03, 2025 12:35
[2025-06-03] MEDS ORDERED: Ensure HIGH Protein Chocolate 8oz Bottle PO SCH (12:00)
--- NOTE | 2025-06-03 13:11 | DVHSR ---
APPROVED REPORT EXAM: Two-dimensional and M-mode echocardiogram with Doppler and color Doppler. Blood Pressure: 101/69 mmHg INDICATION HF valvular disease Surgery/Intervention Valve Replacement: Mechanical Type: Aortic RISK FACTORS Height: 63, Weight: 166 DIMENSIONS LVDd5.3 (3.8-5.7cm)LA (2D)4.8 (1.9-4.0cm)Aortic Root2.9 (2.0-3.7cm) LVDs4.2 (2.5-4.0cm)LA (MM) (1.9-4.0cm)Aortic Cusp Exc (1.5-2.0cm) EF (%) 41.0 (55-70%)Rt. Atrium4.3 (1.9-4.0cm)Asc. Aorta cm Mitral Valve MitralMitral Stenosis E wave1.35m/sMV Mean GR.4mmHg A wave0.87m/sMV Peak GR.116mmHg E/A ratio1.62D MVAcm2 DECEL [id number] 1/2 Oxih01ue IVRTmsDop MVA4.04cm2 Aortic Valve Aortic ValveAortic Stenosis V10.74m/Sulma Mean GR.13mmHg V22.38m/S[place]ma Peak GR.23mmHg LVOT Diameter1.7 (1.8-2.4cm)Doppler AVA0.71cm2 Pulmonic Valve V20.75m/s Tricuspid Valve TR Velocity3.31m/s [id number] Conclusion Technically good study. Sinus rhythm. Left atrial enlargement. LV enlargement. There appears to be echogenicity of the aortic leaflets. It appears to be a prosthetic aortic valve. No apparent dysfunction noted. Moderate mitral annular calcification. Left ventricular function is diminished. EF is about 30% with global hypokinesis. Mbootzmw-vo-sdmizz mitral insufficiency. Moderate tricuspid regurgitation. No pericardial effusion masses or vegetations discernible.
[2025-06-03 16:14] LABS: COVID19 ANTIGEN SOFIA FIA NEGATIVE (NEGATIVE)
[2025-06-03] MEDS: Nepro With Carbsteady Vanilla 8oz Carton PO SCH (18:20)
[2025-06-03] MEDS: PROMETHAZINE-DM 5 ML ORAL SYRUP GT ONE (22:26)
[2025-06-04] VITALS (17 sets, daily range): BP systolic 98–135; BP diastolic 54–83; PULSE 54–102; RESP 17–22; TEMP 97.8–98.6; O2SAT 91–99
[2025-06-04 07:05] LABS: Hematocrit 34.5 % (41.0-53.0); Hemoglobin 11.5 g/dL (13.5-17.5); Mean Corpuscular Hemoglobin 28.9 pg (28.0-32.0); Mean Corpuscular Volume 87.1 fL (80.0-100.0); Nucleated Red Blood Cells % 0.0 %
[2025-06-04 07:23] LABS: Partial Thromboplastin Time 45.5 SEC (24.5-34.5); Prothrombin Time 64.0 sec (9.3-11.8)
[2025-06-04 07:24] LABS: Alanine Aminotransferase 27 U/L (7-40); Albumin 3.9 g/dL (3.2-4.8); Alkaline Phosphatase 83 U/L (46-116); Anion Gap 12 (5-15); BUN/Creatinine Ratio 19.3 (10.0-20.0); Bilirubin, Total 0.3 mg/dL (0.2-1.0); Calcium 9.0 mg/dL (8.7-10.4); Carbon Dioxide 21 mmol/L (20-31); Chloride 105 mmol/L (98-107); Potassium 4.5 mmol/L (3.5-5.1); Sodium 138 mmol/L (136-145); Total Protein 6.2 g/dL (5.7-8.2)
[2025-06-04 07:25] LABS: Blood Urea Nitrogen 48 mg/dL (9-23); Glucose 159 mg/dL (74-106)
[2025-06-04 07:32] LABS: INR 7.36 (0.9-1.15)
[2025-06-04] MEDS: ACETAMINOPHEN IV 100 ML IV ONE (08:04)
[2025-06-04] MEDS: PHYTONADIONE(VitK) ORAL Susp 5mg/5ml(1mg/ml) PO ONE (08:15)
[2025-06-04] MEDS: MILK OF MAGNESIA 30ML SUSP PO ONE ×2 (09:45→15:15)
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
--- NOTE | 2025-06-04 12:29 | DVHPN2 ---
Progress Note Date Seen: Jun 04, 2025 Resident Creating Document: RED FARNSWORTH RESIDENT Has the PT tested + for MRSA If YES, has PT been informed?: No Medical Necessity Reason Pt with a Central, PICC or Fol: No Subjective Review of Systems This is a 69-year-old male with diabetes mellitus type 2 on insulin for the past 5 years, heart failure with moderately reduced ejection fraction-EF 45%, COPD on 2 L home oxygen, history of CVA, asthma, aortic valve replacement 2003 on warfarin, CKD stage 4 who presented to the ER with a chief complaint of shortness of breaths for the past 3 days. Patient reports gradually worsening shortness of breaths associated with cough with clear phlegm, associated symptoms include nausea but no vomiting, reports night sweats and chills. He also reports episodes of loose watery stools with greenish color. Patient reports generalized weakness. Patient increased his O2 from 2 L to 3 L which did not improve his shortness of breaths so he decided to come into the ER. Nephrology consulted for SILVIA on CKD 06/02-Patient seen and examined at bedside. Bilateral coarse rales heard more on the left lower side, no pedal edema. 06/03-patient seen and examined, rales left greater than right side. Patient reports the cough is worsening, with sputum turning yellow. 06/04 - patient seen and examined at the bedside. Reports feeling the same. Echo resulted in EF 30%. Objective vital signs Vital Sign Date Time Temp Pulse Resp B/P (MAP) Pulse Ox O2 Delivery O2 Flow Rate FiO2 06/04/25 10:01 62 121/83 06/04/25 09:55 18 06/04/25 09:00 98.4 99 98.4 06/04/25 06:44 Nasal Cannula 2.0 06/04/25 06:44 28 Total Intake and Output 06/03/25 06/03/25 06/04/25 15:00 23:00 07:00 Intake Total 300 ml 800 ml 675 ml Output Total 500 ml 750 ml Balance 300 ml 300 ml -75 ml medications Current Medications Medications Dose Ordered Sig/Cynthia Route Start Time Stop Time Status Last Admin Dose Admin Nitroglycerin 0.4 mg Q5MINP PRN SL 06/02/25 01:15 Pantoprazole Sodium 40 mg DAILY@0600 PO 06/03/25 06:00 06/03/25 05:55 40 MG Atorvastatin Calcium 40 mg HS PO 06/02/25 22:00 06/03/25 22:31 40 MG EZETIMIBE 5 mg DAILY PO 06/02/25 10:00 06/04/25 10:01 5 MG Ceftriaxone Sodium 50 ml @ 100 mls/hr DAILY@09 IV 06/02/25 09:00 06/04/25 09:41 100 MLS/HR Azithromycin 250 ml @ 125 mls/hr DAILY IV 06/02/25 10:00 06/04/25 09:41 125 MLS/HR Acetaminophen/ Hydrocodone Bitart 1 tab Q6HPRN PRN PO 06/02/25 02:45 06/03/25 06:05 1 TAB Diagnostic Test (Pha) 1 strip ACHS 06/02/25 07:00 06/04/25 11:30 1 STRIP Insulin Human Regular ACHS SC 06/02/25 07:00 06/04/25 12:15 3 UNITS Dextrose 50 ml UD PRN IV 06/02/25 02:45 Acetaminophen 650 mg Q6HP PRN PO 06/02/25 05:30 Methylprednisolone Sodium Succinate 40 mg BID IV 06/02/25 10:00 06/04/25 09:41 40 MG Budesonide 0.5 mg BID NEB 06/02/25 10:00 06/04/25 06:44 0.5 MG Albuterol 2.5 mg Q4H NEB 06/02/25 10:00 06/04/25 06:44 2.5 MG Ipratropium [place] 0.5 mg Q4HR NEB 06/02/25 10:00 06/04/25 06:44 0.5 MG Warfarin Sodium RX PROTOCOL PER PHARMACY PO 06/02/25 11:00 Hold Metoprolol Succinate 50 mg DAILY PO 06/03/25 10:00 06/04/25 10:01 50 MG Morphine Sulfate 1 mg Q6HP PRN IV 06/02/25 13:15 06/04/25 09:55 1 MG Guaifenesin/ Dextromethorphan 10 ml 6XD PRN PO 06/02/25 17:00 06/03/25 00:19 10 ML Lactulose 30 ml DAILY PO 06/03/25 10:00 06/04/25 12:15 30 ML Enteral Nutritional Formula 240 ml TIDWM PO 06/03/25 12:00 06/04/25 09:38 240 ML Examination Overweight male patient lying in bed comfortably, no acute distress General: Overweight, palor, mucosae are moist Cardiovascular: Regular S1 and S2. No murmurs, gallops or rubs. No JVD elevation. No pedal edema Respiratory: Bilateral coarse rales heard on auscultation, more on left lower as compared to right. On NC 2 L saturating 94. Abdomen: Soft, nontender, nondistended, normoactive bowel sounds, no rebound tenderness, no organomegaly, no masses Genitourinary: Deferred MSK/skin: Mobilizes 4 limbs. Skin is dry and warm Neurological: No motor, no sensitive deficits, normal speech. Pupils are isocoric and reactive. Psych/Mental Status: A/Ox3 laboratory and microbiology Laboratory Tests 06/04/25 06:00 Test 06/04/25 06:00 Range/Units Serum Glucose 159 H 74-106 mg/dL Microbiology Date/Time Source Procedure Growth Status 06/03/25 18:10 Sputum Gram Stain Pending Resulted 06/03/25 18:10 Sputum Respiratory Culture - Preliminary Resulted 06/02/25 05:02 Blood Blood Culture - Preliminary NO GROWTH AFTER 48 HOURS OF INCUBATION. Resulted Labs and/or images reviewed: Labs reviewed by me, Image(s) reviewed by me Problem List/Assessment/Plan Problem List/Assessment/Plan Acute kidney injury likely superimposed on CKD stage 4 in the setting of pneumonia pneumonia. Acute on chronic hypoxic respiratory failure Possible COPD exacerbation NSTEMI Chronic congestive systolic heart failure Anemia likely chronic kidney disease Secondary hyperparathyroidism FENA 3.4% Plan: BUN/creatinine stable. GFR stable. Continue IV antibiotics per primary team. Renally dose antibiotics to GFR to avoid toxicity Started Lasix 40mg IV daily Fluid restrictions Echocardiogram reviewed, shows EF 30% with global hypokinesis. Strict I&Os, daily weight We will continue to follow up Cardiac and renal diet Plan discussed with patient in which all questions have been answered Case discussed with Dr. Huang Addendum Patient seen and examined, plan discussed with resident. Agree with above, we will follow closely Elevated INR likely secondary to interaction between warfarin and azithromycin I have called hospitalist Dr. Welsh to stop azithromycin and prescribe different antibiotic he said he will do it Plan discussed with: Patient RED FARNSWORTH RESIDENT Jun 04, 2025 12:29 MARY HUANG MD Jun 04, 2025 20:05
--- NOTE | 2025-06-04 14:30 | DVH ---
CHEST RADIOGRAPH Indication: reeval pulm parenchyma Technique: Single frontal view of the chest was obtained Comparison: XY CHEST PORTABLE on DOS: 10/14/24, XY CHEST PORTABLE on DOS: 08/21/24, XY CHEST XRAY 1 EW on DOS: 08/20/24 FINDINGS: Lines and Tubes: None Lungs: Diffuse interstitial prominence. Pleura: No effusion. No pneumothorax. Cardiomediastinal contours: Cardiomegaly. Midline sternotomy wires are noted. Bones: No acute osseous abnormality. IMPRESSION: Mild cardiomegaly with pulmonary edema. Underlying infectious process can not be excluded.
[2025-06-04 14:41] LABS: Prothrombin Time 64.2 sec (9.3-11.8)
[2025-06-04 14:45] LABS: INR 7.38 (0.9-1.15)
[2025-06-04] MEDS: FUROSEMIDE 40 MG/4 ML VIAL IV ONE (14:45)
[2025-06-04] MEDS: DOXYCYCLINE 100 MG TAB/CAP PO SCH (22:06)
[2025-06-05] VITALS (15 sets, daily range): BP systolic 109–135; BP diastolic 66–86; PULSE 88–103; RESP 17–20; TEMP 97.5–98.1; O2SAT 92–98
[2025-06-05 07:02] LABS: Alkaline Phosphatase 78 U/L (46-116); Anion Gap 10 (5-15); BUN/Creatinine Ratio 23.8 (10.0-20.0); Calcium 9.4 mg/dL (8.7-10.4); Carbon Dioxide 22 mmol/L (20-31); Chloride 105 mmol/L (98-107); Potassium 5.0 mmol/L (3.5-5.1); Sodium 137 mmol/L (136-145); Total Protein 6.1 g/dL (5.7-8.2)
[2025-06-05 07:03] LABS: Albumin 3.9 g/dL (3.2-4.8); Partial Thromboplastin Time 41.6 SEC (24.5-34.5); Prothrombin Time 40.7 sec (9.3-11.8)
[2025-06-05 07:04] LABS: Bilirubin, Total 0.3 mg/dL (0.2-1.0)
[2025-06-05 07:13] LABS: Alanine Aminotransferase 43 U/L (7-40); Blood Urea Nitrogen 56 mg/dL (9-23); Glucose 170 mg/dL (74-106)
[2025-06-05 07:31] LABS: Hematocrit 33.8 % (41.0-53.0); Hemoglobin 11.3 g/dL (13.5-17.5); Mean Corpuscular Hemoglobin 29.1 pg (28.0-32.0); Mean Corpuscular Volume 86.4 fL (80.0-100.0); Nucleated Red Blood Cells % 0.2 %
[2025-06-05 07:41] LABS: INR 4.45 (0.9-1.15)
--- NOTE | 2025-06-05 08:23 | DVHPN2 ---
Progress Note Date Seen: Jun 05, 2025 Has the PT tested + for MRSA If YES, has PT been informed?: No Medical Necessity Reason Pt with a Central, PICC or Fol: No Subjective Review of Systems: RESPIRATORY:Abnormal Objective vital signs Vital Sign Date Time Temp Pulse Resp B/P (MAP) Pulse Ox O2 Delivery O2 Flow Rate FiO2 06/05/25 06:29 90 18 96 06/05/25 06:20 Nasal Cannula* 2 28 06/05/25 05:34 103/68 06/05/25 05:00 97.5 97.5 Total Intake and Output 06/04/25 06/04/25 06/05/25 15:00 23:00 07:00 Intake Total 300 ml 350 ml 150 ml Output Total 1600 ml 725 ml Balance 300 ml -1250 ml -575 ml medications Current Medications Medications Dose Ordered Sig/Cynthia Route Start Time Stop Time Status Last Admin Dose Admin Nitroglycerin 0.4 mg Q5MINP PRN SL 06/02/25 01:15 Pantoprazole Sodium 40 mg DAILY@0600 PO 06/03/25 06:00 06/05/25 05:32 40 MG Atorvastatin Calcium 40 mg HS PO 06/02/25 22:00 06/04/25 22:05 40 MG EZETIMIBE 5 mg DAILY PO 06/02/25 10:00 06/04/25 10:01 5 MG Ceftriaxone Sodium 50 ml @ 100 mls/hr DAILY@09 IV 06/02/25 09:00 06/04/25 09:41 100 MLS/HR Acetaminophen/ Hydrocodone Bitart 1 tab Q6HPRN PRN PO 06/02/25 02:45 06/03/25 06:05 1 TAB Diagnostic Test (Pha) 1 strip ACHS 06/02/25 07:00 06/05/25 06:33 1 STRIP Insulin Human Regular ACHS SC 06/02/25 07:00 06/05/25 06:36 2 UNITS Dextrose 50 ml UD PRN IV 06/02/25 02:45 Acetaminophen 650 mg Q6HP PRN PO 06/02/25 05:30 Methylprednisolone Sodium Succinate 40 mg BID IV 06/02/25 10:00 06/04/25 22:05 40 MG Budesonide 0.5 mg BID NEB 06/02/25 10:00 06/05/25 06:19 0.5 MG Albuterol 2.5 mg Q4H NEB 06/02/25 10:00 06/05/25 06:19 2.5 MG Ipratropium [place] 0.5 mg Q4HR NEB 06/02/25 10:00 06/05/25 06:19 0.5 MG Warfarin Sodium RX PROTOCOL PER PHARMACY PO 06/02/25 11:00 Hold Metoprolol Succinate 50 mg DAILY PO 06/03/25 10:00 06/04/25 10:01 50 MG Morphine Sulfate 1 mg Q6HP PRN IV 06/02/25 13:15 06/05/25 04:52 1 MG Guaifenesin/ Dextromethorphan 10 ml 6XD PRN PO 06/02/25 17:00 06/03/25 00:19 10 ML Lactulose 30 ml DAILY PO 06/03/25 10:00 06/03/25 10:07 30 ML Enteral Nutritional Formula 240 ml TIDWM PO 06/03/25 12:00 06/04/25 18:12 240 ML Furosemide 20 mg DAILY PO 06/05/25 10:00 Cancel Furosemide 40 mg DAILY IV 06/05/25 10:00 Doxycycline Monohydrate 100 mg Q12HR PO 06/04/25 22:00 06/04/25 22:06 100 MG Examination: GENERAL:Normal, LUNGS:Abnormal, MSK:Normal, SKIN:Normal, NEURO:Normal laboratory and microbiology Laboratory Tests 06/05/25 06:16 Test 06/05/25 06:16 Range/Units Serum Glucose 170 H 74-106 mg/dL Microbiology Date/Time Source Procedure Growth Status 06/03/25 18:10 Sputum Gram Stain Pending Resulted 06/03/25 18:10 Sputum Respiratory Culture - Preliminary Resulted 06/03/25 15:18 Nose MRSA Screen - Final Complete 06/02/25 05:02 Blood Blood Culture - Preliminary NO GROWTH AFTER 72 HOURS OF INCUBATION. Resulted Problem List/Assessment/Plan Problem List/Assessment/Plan Acute kidney injury likely superimposed on CKD stage 4 in the setting of pneumonia pneumonia. Acute on chronic hypoxic respiratory failure Possible COPD exacerbation NSTEMI Chronic congestive systolic heart failure Anemia likely chronic kidney disease Secondary hyperparathyroidism FENA 3.4% Plan: iv lasix 40mg daily will f/u feels better today Plan discussed with: Patient My Orders My Orders Orders - MARY HUANG MD Procedure Category Date Status Time Doxycycline Tablet PHA 06/04/25 In Process (Vibramycin Tablet) 22:00 MARY HUANG MD Jun 05, 2025 08:23
[2025-06-05] MEDS: FUROSEMIDE 40 MG/4 ML VIAL IV SCH ×2 (09:22→17:16)
[2025-06-05] MEDS ORDERED: FUROSEMIDE 20 MG TAB PO SCH (10:00)
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
[2025-06-06] VITALS (17 sets, daily range): BP systolic 114–133; BP diastolic 70–86; PULSE 70–102; RESP 16–18; TEMP 97.4–98.1; O2SAT 92–100
[2025-06-06 06:47] LABS: Hematocrit 33.7 % (41.0-53.0); Hemoglobin 11.2 g/dL (13.5-17.5); Mean Corpuscular Hemoglobin 28.9 pg (28.0-32.0); Mean Corpuscular Volume 87.1 fL (80.0-100.0); Nucleated Red Blood Cells % 0.0 %
[2025-06-06 07:03] LABS: INR 2.72 (0.9-1.15); Partial Thromboplastin Time 35.1 SEC (24.5-34.5); Prothrombin Time 26.1 sec (9.3-11.8)
[2025-06-06 07:06] LABS: Albumin 3.8 g/dL (3.2-4.8); Alkaline Phosphatase 74 U/L (46-116); Anion Gap 11 (5-15); Calcium 9.4 mg/dL (8.7-10.4); Carbon Dioxide 24 mmol/L (20-31); Chloride 104 mmol/L (98-107); Potassium 4.3 mmol/L (3.5-5.1); Sodium 139 mmol/L (136-145); Total Protein 6.0 g/dL (5.7-8.2)
[2025-06-06 07:08] LABS: Bilirubin, Total 0.3 mg/dL (0.2-1.0)
[2025-06-06 07:15] LABS: Alanine Aminotransferase 44 U/L (7-40); Blood Urea Nitrogen 57 mg/dL (9-23); Glucose 150 mg/dL (74-106)
[2025-06-06 07:27] LABS: BUN/Creatinine Ratio 21.6 (10.0-20.0)
--- NOTE | 2025-06-06 08:32 | DVHPN2 ---
Progress Note Date Seen: Jun 06, 2025 Has the PT tested + for MRSA If YES, has PT been informed?: No Medical Necessity Reason Pt with a Central, PICC or Fol: No Subjective Patient reports: No new complaints Review of Systems: Deferred Objective vital signs Vital Sign Date Time Temp Pulse Resp B/P (MAP) Pulse Ox O2 Delivery O2 Flow Rate FiO2 06/06/25 06:33 94 16 100 06/06/25 06:23 Room Air 06/06/25 06:23 0 21 06/06/25 06:03 114/70 06/06/25 05:00 97.4 97.4 Total Intake and Output 06/05/25 06/05/25 06/06/25 14:59 22:59 06:59 Intake Total 50 ml 225 ml 625 ml Output Total 1300 ml 1775 ml Balance 50 ml -1075 ml -1150 ml medications Current Medications Medications Dose Ordered Sig/Cynthia Route Start Time Stop Time Status Last Admin Dose Admin Nitroglycerin 0.4 mg Q5MINP PRN SL 06/02/25 01:15 Pantoprazole Sodium 40 mg DAILY@0600 PO 06/03/25 06:00 06/06/25 06:03 40 MG Atorvastatin Calcium 40 mg HS PO 06/02/25 22:00 06/05/25 22:29 40 MG EZETIMIBE 5 mg DAILY PO 06/02/25 10:00 06/05/25 09:23 5 MG Ceftriaxone Sodium 50 ml @ 100 mls/hr DAILY@09 IV 06/02/25 09:00 06/05/25 09:22 100 MLS/HR Acetaminophen/ Hydrocodone Bitart 1 tab Q6HPRN PRN PO 06/02/25 02:45 06/06/25 00:50 1 TAB Diagnostic Test (Pha) 1 strip ACHS 06/02/25 07:00 06/06/25 05:55 1 STRIP Insulin Human Regular ACHS SC 06/02/25 07:00 06/06/25 06:02 3 UNITS Dextrose 50 ml UD PRN IV 06/02/25 02:45 Acetaminophen 650 mg Q6HP PRN PO 06/02/25 05:30 Budesonide 0.5 mg BID NEB 06/02/25 10:00 06/06/25 06:23 0.5 MG Albuterol 2.5 mg Q4H NEB 06/02/25 10:00 06/06/25 06:23 2.5 MG Ipratropium [place] 0.5 mg Q4HR NEB 06/02/25 10:00 06/06/25 06:23 0.5 MG Warfarin Sodium RX PROTOCOL PER PHARMACY PO 06/02/25 11:00 Hold Metoprolol Succinate 50 mg DAILY PO 06/03/25 10:00 06/05/25 09:24 50 MG Morphine Sulfate 1 mg Q6HP PRN IV 06/02/25 13:15 06/05/25 18:18 1 MG Guaifenesin/ Dextromethorphan 10 ml 6XD PRN PO 06/02/25 17:00 06/03/25 00:19 10 ML Lactulose 30 ml DAILY PO 06/03/25 10:00 06/05/25 09:23 30 ML Enteral Nutritional Formula 240 ml TIDWM PO 06/03/25 12:00 06/06/25 08:17 240 ML Furosemide 20 mg DAILY PO 06/05/25 10:00 Cancel Doxycycline Monohydrate 100 mg Q12HR PO 06/04/25 22:00 06/05/25 22:29 100 MG Furosemide 40 mg BIDD IV 06/05/25 18:00 06/06/25 06:03 40 MG Examination: GENERAL:Normal, HEENT:Normal, NECK:Normal, LUNGS:Abnormal, CVS:Normal, ABDOMEN:Normal, MSK:Normal, SKIN:Normal, NEURO:Normal, :Normal laboratory and microbiology Laboratory Tests 06/06/25 05:47 Test 06/06/25 05:47 Range/Units Serum Glucose 150 H 74-106 mg/dL Microbiology Date/Time Source Procedure Growth Status 06/03/25 18:10 Sputum Gram Stain - Final Resulted 06/03/25 18:10 Sputum Respiratory Culture - Preliminary Resulted 06/03/25 15:18 Nose MRSA Screen - Final Complete 06/02/25 05:02 Blood Blood Culture - Preliminary NO GROWTH AFTER 72 HOURS OF INCUBATION. Resulted Problem List/Assessment/Plan Problem List/Assessment/Plan Acute kidney injury likely superimposed on CKD stage 4 in the setting of pneumonia pneumonia. Acute on chronic hypoxic respiratory failure Possible COPD exacerbation NSTEMI Acute on Chronic congestive systolic heart failure Anemia likely chronic kidney disease Secondary hyperparathyroidism Supratherapeutic INR---likely secondary to warfarin and Zithromax interaction--now better Plan: iv lasix 40mg daily will f/u feels better today Plan discussed with: Patient My Orders My Orders Orders - MARY HUANG MD Procedure Category Date Status Time Furosemide Injection PHA 06/06/25 Verified (Lasix Injection) 10:00 MARY HUANG MD Jun 06, 2025 08:32
[2025-06-06] MEDS: FUROSEMIDE 40 MG/4 ML VIAL IV SCH (09:36)
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
[2025-06-06] MEDS: WARFARIN SODIUM 1 MG TAB PO ONE (17:12)
[2025-06-07] VITALS (11 sets, daily range): BP systolic 118–138; BP diastolic 72–89; PULSE 84–93; RESP 12–98; TEMP 98–98.5; O2SAT 18–98
[2025-06-07 07:45] LABS: Hematocrit 39.7 % (41.0-53.0); Hemoglobin 13.3 g/dL (13.5-17.5); Mean Corpuscular Hemoglobin 29.1 pg (28.0-32.0); Mean Corpuscular Volume 87.1 fL (80.0-100.0)
[2025-06-07 07:50] LABS: Albumin 4.1 g/dL (3.2-4.8); Alkaline Phosphatase 82 U/L (46-116); Anion Gap 12 (5-15); BUN/Creatinine Ratio 17.1 (10.0-20.0); Bilirubin, Total 0.4 mg/dL (0.2-1.0); Calcium 9.6 mg/dL (8.7-10.4); Carbon Dioxide 24 mmol/L (20-31); Chloride 103 mmol/L (98-107); INR 2.01 (0.9-1.15); Partial Thromboplastin Time 31.6 SEC (24.5-34.5); Potassium 4.0 mmol/L (3.5-5.1); Prothrombin Time 19.9 sec (9.3-11.8); Sodium 139 mmol/L (136-145); Total Protein 6.4 g/dL (5.7-8.2)
[2025-06-07 07:52] LABS: Alanine Aminotransferase 50 U/L (7-40); Blood Urea Nitrogen 51 mg/dL (9-23); Glucose 126 mg/dL (74-106)
[2025-06-07 08:13] LABS: Total Cells Counted 100.0 (100)
[2025-06-07 08:14] LABS: RBC Morphology Normal
--- NOTE | 2025-06-07 13:43 | DVHPN2 ---
Progress Note Date Seen: Jun 07, 2025 Resident Creating Document: RED FARNSWORTH RESIDENT Has the PT tested + for MRSA If YES, has PT been informed?: No Medical Necessity Reason Pt with a Central, PICC or Fol: No Subjective Review of Systems This is a 69-year-old male with diabetes mellitus type 2 on insulin for the past 5 years, heart failure with moderately reduced ejection fraction-EF 45%, COPD on 2 L home oxygen, history of CVA, asthma, aortic valve replacement 2003 on warfarin, CKD stage 4 who presented to the ER with a chief complaint of shortness of breaths for the past 3 days. Patient reports gradually worsening shortness of breaths associated with cough with clear phlegm, associated symptoms include nausea but no vomiting, reports night sweats and chills. He also reports episodes of loose watery stools with greenish color. Patient reports generalized weakness. Patient increased his O2 from 2 L to 3 L which did not improve his shortness of breaths so he decided to come into the ER. Nephrology consulted for SILVIA on CKD 06/02-Patient seen and examined at bedside. Bilateral coarse rales heard more on the left lower side, no pedal edema. 06/03-patient seen and examined, rales left greater than right side. Patient reports the cough is worsening, with sputum turning yellow. 06/04 - patient seen and examined at the bedside. Reports feeling the same. Echo resulted in EF 30%. 06/07- mucous membranes moist, decreased breath sounds bilaterally but no crackles. BUN/creatinine trending up. Holding of Lasix. Objective vital signs Vital Sign Date Time Temp Pulse Resp B/P (MAP) Pulse Ox O2 Delivery O2 Flow Rate FiO2 06/07/25 09:07 73 131/83 06/07/25 09:00 98.5 98 18 98.5 06/07/25 06:05 Room Air* 0 21 Total Intake and Output 06/06/25 06/06/25 06/07/25 15:00 23:00 07:00 Intake Total 50 ml 525 ml 200 ml Output Total 1100 ml 275 ml Balance 50 ml -575 ml -75 ml medications Current Medications Medications Dose Ordered Sig/Cynthia Route Start Time Stop Time Status Last Admin Dose Admin Nitroglycerin 0.4 mg Q5MINP PRN SL 06/02/25 01:15 Pantoprazole Sodium 40 mg DAILY@0600 PO 06/03/25 06:00 06/07/25 05:33 40 MG Atorvastatin Calcium 40 mg HS PO 06/02/25 22:00 06/06/25 21:49 40 MG EZETIMIBE 5 mg DAILY PO 06/02/25 10:00 06/07/25 09:07 5 MG Ceftriaxone Sodium 50 ml @ 100 mls/hr DAILY@09 IV 06/02/25 09:00 06/07/25 09:04 100 MLS/HR Acetaminophen/ Hydrocodone Bitart 1 tab Q6HPRN PRN PO 06/02/25 02:45 06/07/25 04:39 1 TAB Diagnostic Test (Pha) 1 strip ACHS 06/02/25 07:00 06/07/25 11:46 1 STRIP Insulin Human Regular ACHS SC 06/02/25 07:00 06/06/25 21:46 3 UNITS Dextrose 50 ml UD PRN IV 06/02/25 02:45 Acetaminophen 650 mg Q6HP PRN PO 06/02/25 05:30 Budesonide 0.5 mg BID NEB 06/02/25 10:00 06/07/25 06:05 0.5 MG Albuterol 2.5 mg Q4H NEB 06/02/25 10:00 06/07/25 06:05 2.5 MG Ipratropium [place] 0.5 mg Q4HR NEB 06/02/25 10:00 06/07/25 06:05 0.5 MG Metoprolol Succinate 50 mg DAILY PO 06/03/25 10:00 06/07/25 09:07 50 MG Morphine Sulfate 1 mg Q6HP PRN IV 06/02/25 13:15 06/07/25 00:39 1 MG Guaifenesin/ Dextromethorphan 10 ml 6XD PRN PO 06/02/25 17:00 06/07/25 00:32 10 ML Lactulose 30 ml DAILY PO 06/03/25 10:00 06/07/25 09:06 30 ML Enteral Nutritional Formula 240 ml TIDWM PO 06/03/25 12:00 06/07/25 08:00 240 ML Furosemide 20 mg DAILY PO 06/05/25 10:00 Cancel Doxycycline Monohydrate 100 mg Q12HR PO 06/04/25 22:00 06/07/25 09:06 100 MG Furosemide 40 mg DAILY IV 06/06/25 10:00 Hold 06/07/25 09:06 40 MG Warfarin Sodium RX PROTOCOL PER PHARMACY PO 06/06/25 12:45 Examination Overweight male patient lying in bed comfortably, no acute distress General: Overweight, palor, mucosae are moist Cardiovascular: Regular S1 and S2. No murmurs, gallops or rubs. No JVD elevation. No pedal edema Respiratory: Resolving Bilateral coarse rales heard on auscultation, more on left lower as compared to right. On NC 2 L saturating 94. Abdomen: Soft, nontender, nondistended, normoactive bowel sounds, no rebound tenderness, no organomegaly, no masses Genitourinary: Deferred MSK/skin: Mobilizes 4 limbs. Skin is dry and warm Neurological: No motor, no sensitive deficits, normal speech. Pupils are isocoric and reactive. Psych/Mental Status: A/Ox3 laboratory and microbiology Laboratory Tests 06/07/25 07:12 Test 06/07/25 07:12 Range/Units Serum Glucose 126 H 74-106 mg/dL Microbiology Date/Time Source Procedure Growth Status 06/03/25 18:10 Sputum Gram Stain - Final Complete 06/03/25 18:10 Sputum Respiratory Culture - Final Complete 06/03/25 15:18 Nose MRSA Screen - Final Complete 06/02/25 05:02 Blood Blood Culture - Final NO GROWTH AFTER 5 DAYS OF INCUBATION. Complete Labs and/or images reviewed: Labs reviewed by me, Image(s) reviewed by me Problem List/Assessment/Plan Problem List/Assessment/Plan Acute kidney injury likely superimposed on CKD stage 4 in the setting of pneumonia Gram-positive and negative pneumonia. Acute on chronic hypoxic respiratory failure Possible COPD exacerbation NSTEMI Chronic congestive systolic heart failure Anemia likely chronic kidney disease Secondary hyperparathyroidism FENA 3.4% Plan: BUN/creatinine up trending, likely secondary to diuresis. Hold IV Lasix for today. We will monitor kidney function off diuretics. Repeat BNP decreased to 226 from 900 Repeat chest x-ray pending Continue IV antibiotics per primary team. Renally dose antibiotics to GFR to avoid toxicity Fluid restrictions Echocardiogram reviewed, shows EF 30% with global hypokinesis. Strict I&Os, daily weight We will continue to follow up Cardiac and renal diet Plan discussed with patient in which all questions have been answered Case discussed with Dr. Gonzalez Plan discussed with: Patient My Orders My Orders Orders - RED FARNSWORTH Procedure Category Date Status Time Chest Xray 1 View XY 06/07/25 Logged 11:35 RED FARNSWORTH Jun 07, 2025 13:42
--- NOTE | 2025-06-07 14:21 | DVH ---
AP portable chest CLINICAL INDICATION: f/u Comparison: 06/04/2025 FINDINGS: Heart size is slightly enlarged. Prosthetic heart valve seen. Aorta tortuous. No infiltrat es or effusions IMPRESSION: 1. Cardiomegaly. No signs of acute cardiopulmonary pathology
[2025-06-07] MEDS ORDERED: FLUT1AER3 IN (15:18)
[2025-06-07] MEDS ORDERED: FURO40TA4 PO (15:18)
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
[2025-06-07] MEDS ORDERED: WARFARIN SODIUM 2.5 MG TAB PO ONE (17:00)
== END 2025-06-07 16:58 | disposition home or self-care (01) | DRG 871 ==
LOC: EDBD 22:47 → ER 22:47 → EDUNIT# 06-02 01:08 → OVERFLOW 06-02 01:08 → TELE-WESTW 06-02 15:58
PROVIDERS: ADMIT Student in an Organized Health Care Education/Training Program; ATTEND Student in an Organized Health Care Education/Training Program
DX: A41.59 Other Gram-negative sepsis (principal); I21.A1 Myocardial infarction type 2; I50.23 Acute on chronic systolic (congestive) heart failure; J96.21 Acute and chronic respiratory failure with hypoxia; J15.69 Pneumonia due to other Gram-negative bacteria; J15.9 Unspecified bacterial pneumonia; N17.0 Acute kidney failure with tubular necrosis; I13.0 Hypertensive heart and chronic kidney disease with heart failure and stage 1 through stage 4 chronic kidney disease, or unspecified chronic kidney disease; J44.1 Chronic obstructive pulmonary disease with (acute) exacerbation; J44.0 Chronic obstructive pulmonary disease with (acute) lower respiratory infection; N25.81 Secondary hyperparathyroidism of renal origin; I69.354 Hemiplegia and hemiparesis following cerebral infarction affecting left non-dominant side; N18.4 Chronic kidney disease, stage 4 (severe); I42.8 Other cardiomyopathies; I27.20 Pulmonary hypertension, unspecified; Z20.822 Contact with and (suspected) exposure to COVID-19; G89.29 Other chronic pain; E11.22 Type 2 diabetes mellitus with diabetic chronic kidney disease; E78.5 Hyperlipidemia, unspecified; D64.9 Anemia, unspecified; E66.9 Obesity, unspecified; K74.60 Unspecified cirrhosis of liver; I08.0 Rheumatic disorders of both mitral and aortic valves; Z91.041 Radiographic dye allergy status; Z95.2 Presence of prosthetic heart valve; Z79.01 Long term (current) use of anticoagulants; Z68.29 Body mass index [BMI] 29.0-29.9, adult
CPT/HCPCS: 36415; 71045; 80048; 80053; 80307; 80320; 81001; 82306; 82570; 82607; 82746; 82962; 83036; 83735; 83880; 83970; 84100; 84156; 84300; 84443; 84484; 85007; 85025; 85027; 85379; 85610; 85730; 87040; 87070; 87081; 87205; 87426; 87804; 93005; 93306; 94640; 96374; G0378; J0131; J1815; J3480

== ENCOUNTER 2025-06-21 12:53 | Inpatient (IN) | payer OTHER, MEDICAID ==
[2025-06-21] VITALS (8 sets, daily range): BP systolic 117–149; BP diastolic 76–79; PULSE 89–107; RESP 15–25; TEMP 96.6–97.8; O2SAT 92–100
[~2025-06-21] VITALS: Ht 160 cm; Wt 72.4 kg
[~2025-06-21 12:53] MED LIST changes: -ALPR0.5T PO; -ATOR20TA50 PO; -ATOR40TA52 PO; -AZITTAB PO; -BENA-30 PO; -BENA-36 PO; -CARV-214 PO; -CEFP200T15 PO; -DICL1GEL26 TD; -DOXY1CAP57 PO; +FLUT1AER3 IN; -FURO20TA3 PO; -FURO20TA4 PO; +FURO40TA4 PO; -HYDR-4072 PO; -HYDR-4798 PO; -INSU100I4 SC; -INSU100I54 SC; -ISOS10TA5 PO; -ISOS20TA5 PO; -LIDO1PAD55 TOP; -LINA5TAB IJ; -MET50T PO; -METH4PAK PO; -METO-158 PO; -MORP1TAB13 PO; -MORP1TAB14 PO; -MORP30TA PO; -MORP30TA5 PO; -NOR10T PO; -NORVASC PO; -PANT40TA2 PO; -PRAV20TA3 PO; -PROM25TA10 PO; -ROSU5TAB24 PO; -SODI650T PO; -TEMA30CA PO; -WARF2TAB PO; -[UNRECOGNIZED DRUG - CODE] BU
--- NOTE | 2025-06-21 13:10 | ED.PDOC ---
History of Present Illness HPI Comments 69-year-old male who comes in with chief complaint of shortness a breath since last night. The patient states that the symptoms worsened today. He has been complaining of some nausea as well as some mild vomiting. The symptoms started at rest. He denies any chest pain at this time. He does have a history of COPD as well as congestive heart failure. Prior to arrival, the patient did take a hand-held nebulizer which stimulated him to cough but did not make him feel any better. When the paramedics arrived on scene the patient did have some accessory muscle use with his respirations. They did not give him a breathing treatment EN route because the patient did not have any wheezing. Upon arrival, the patient was hypertensive with a blood pressure of 151/87. He was somewhat anxious when he was placed on the CPAP machine so they also did give him Versed 1 mg IV push. EN route, the patient had no other complications. Upon arrival, the patient was able to give us his history with full sentences after being taken off the CPAP. He was immediately placed on 4 L nasal cannula of oxygen. Typically the patient is on 2 L at home secondary to a COPD. Again, the patient's cough is nonproductive. Chief Complaint: Shortness of Breath Time Seen by MD: 12:55 Reviewed Notes: Nurses Notes, Jogger Operator Notes, Medications, Allergies (Allergies listed above) Allergies: Coded Allergies: Iodine (Verified Allergy, Unknown, 04/10/23) Iohexol (Verified Allergy, Unknown, 01/05/25) No Known Drug Allergy (Unverified Allergy, Unknown, 10/14/24) Home Meds Active Scripts Furosemide (Furosemide) 40 Mg Tab, 1 TAB PO DAILY for 30 Days, #30 TAB 5 Refills Prov:JESSICA DAHL RESIDENT 06/07/25 [id number] (Trelegy Ellipta 100-62.5-25 Mcg/INH) 1 Aer Aer, 1 AER IN DAILY for 30 Days, #2 AER Prov:JESSICA DAHL RESIDENT 06/07/25 Furosemide (Furosemide) 40 Mg Tab, 1 TAB PO DAILY for 30 Days, #30 TAB 5 Refills Prov:JESSICA DAHL RESIDENT 06/07/25 [id number] (Trelegy Ellipta 100-62.5-25 Mcg/INH) 1 Aer Aer, 1 AER IN DAILY for 30 Days, #2 AER Prov:LOUANN JESSICA Whitfield RESIDENT 06/07/25 Sucralfate (CARAFATE) 1 Gm Tab, 1 GM OR DAILY for 7 Days, #7 TAB Prov:VENITA VILLAR RESIDENT 11/06/24 Reported Medications Metoprolol Succinate (Metoprolol Succinate Er) 50 Mg Tab, 50 MG PO DAILY, TAB 11/06/24 Albuterol Sulfate (Albuterol Sulfate Hfa) 108 Mcg/Act Aer, 2 PUFF IN Q4-6HR PRN for 16 Days, #8.5 10/14/24 Glipizide (Glipizide) 5 Mg Tab, 1 TAB PO DAILY for 90 Days, #90 10/14/24 Ezetimibe (Zetia) 10 Mg Tab, 1 TAB PO DAILY for 90 Days, #90 10/14/24 Atorvastatin Calcium (Lipitor) 40 Mg Tab, 40 MG PO DAILY, TAB 08/31/24 Ascorbic Acid (VITAMIN C TABLET) 500 Mg Tb, 500 MG PO DAILY, TAB 07/20/24 Ferrous Sulfate (Ferosul) 325 Mg Tab, 1 TAB PO DAILY for 30 Days, #30 07/20/24 Insulin Glargine (Toujeo Solostar) 300 Unit/Ml Inj, 15 UNITS SC HS for 75 Days, #4.5 07/20/24 Amlodipine Besylate (NORVASC TABLET) 5 Mg Tb, 1 TAB PO DAILY, #30 TAB 5 Refills 06/27/24 Docusate Sodium (Colace) 100 Mg Cap, 1 CAP PO BID, #30 CAP 03/17/24 Warfarin Sodium (Warfarin Sodium) 3 Mg Tab, 1 TAB PO DAILY 03/14/24 Ipratropium [place] Hfa (Atrovent Hfa) 17 Mcg Aer, 2 PUFF INH Q6HR PRN for 75 Days, #38.7 01/20/24 Benazepril Hcl (Benazepril Hcl) 10 Mg Tab, 1 TAB PO DAILY for 90 Days, #90 01/20/24 Dapagliflozin Propanediol (Farxiga) 10 Mg Tab, 1 TAB PO DAILY for 90 Days, #90 01/20/24 Budesonide (Inhalation) (Budesonide) 0.5 Mg/2 Ml Janette, 0.5 MG IN QIDP 12/25/18 Beclomethasone Dipropionate (Qvar Redihaler) 40 Mcg/Act Aer, 40 MCG IN PRN PRN for SHORTNESS OF BREATH 12/24/18 Alprazolam (Alprazolam) 1 Mg Tab, 0.5 MG PO QPM PRN for ANXIETY Take 1/2 tablet (0.5 mg) by mouth at night as needed for anxiety 12/24/18 Fenofibrate (Tricor) 145 Mg Tab, 145 MG PO DAILY 11/14/10 Methocarbamol (Robaxin-750) 750 Mg Tab, 750 MG PO TID 11/14/10 Gabapentin (Neurontin) 600 Mg Tab, 600 MG PO TID 11/14/10 Information Source: Patient, Emergency Med Personnel Mode of Arrival: EMS Severity: Severe Timing: Days Duration: Since onset Prehospital treatment: 12 Lead EKG, Director Of Psychiatry, C-Pap, IVF Associated signs and symptoms The patient is complaining of nausea, vomiting as well as shortness for breath and cough Past Medical History PAST MEDICAL HISTORY: CHF, CKF, COPD (Ear currently on 2 L oxygen at home), CVA, DM, High Lipids, HTN, Liver, DE Surgical History (Other): Aortic valve surgery Family History Family History: Family hx of heart ruben Social History Smoker: Non-Smoker Alcohol: Denies ETOH Use Drugs: Denies Drug Use Lives In: Home Constitutional: denies: chills, diaphoresis, fatigue, fever, malaise, sweats, weakness, others EENTM: denies: blurred vision, double vision, ear bleeding, ear discharge, ear drainage, ear pain, ear ringing, eye pain, eye redness, hearing loss, mouth pain, mouth swelling, nasal discharge, nose bleeding, nose congestion, nose pain, photophobia, tearing, throat pain, throat swelling, voice changes, others Respiratory: reports: cough, shortness of breath; denies: hemoptysis, orthopnea, SOB at rest, SOB with excertion, stridor, wheezing, others Cardiovascular: denies: chest pain, dizzy spells, diaphoresis, Dyspnea on exertion, edema, irregular heart beat, left arm pain, lightheadedness, palpitations, PND, syncope, others Gastrointestinal: reports: abdominal pain, nausea, vomiting; denies: abdomen di stended, blood streaked bowels, constipated, diarrhea, dysphagia, difficulty swallowing, hematemesis, melena, poor appetite, poor fluid intake, rectal bleeding, rectal pain, others Genitourinary: denies: burning, dysuria, flank pain, frequency, hematuria, incontinence, penile discharge, penile sore, pain, testicle pain, testicle swelling, urgency, others Neurological: denies: dizziness, fainting, headache, left sided numbness, left sided weakness, numbness, paresthesia, pre-existing deficit, right sided numbness, right sided weakness, seizure, speech problems, tingling, tremors, weakness, others Musculoskeletal: denies: back pain, gout, joint pain, joint swelling, muscle pain, muscle stiffness, neck pain, others Integumetry: denies: bruises, change in color, change in hair/nails, dryness, laceration, lesions, lumps, rash, wounds, others Allergic/Immunocompromised: denies: Difficulty Healing, Frequent Infections, Hives, Itching, others Hematologic/Lymphatic: denies: anemia, blood clots, easy bleeding, easy bruising, swollen glands, others Endocrine: denies: excessive hunger, excessive sweating, excessive thirst, excessive urination, flushing, intolerance to cold, intolerance to heat, unexplained weight gain, unexplained weight loss, others Psychiatric: denies: anxiety, bipolar disorder, depression, hopeless, panic disorder, schizophrenia, sleepless, suicidal, others Physical Exam General Appearance: Moderate Distress HEENT: Normal ENT Inspection, Pharynx Normal, TMs Normal Neck: Full Range of Motion, Non-Tender, Normal, Normal Inspection Respiratory: Accessory Muscle Use, Chest Non-Tender, Decreased Breath Sounds, Lungs Clear, Respiratory Distress Cardiovascular: No Edema, No JVD, No Murmur, No Gallop, Tachycardia Breast Exam: Deferred Gastrointestinal: No Organomegaly, No Pulsatile Mass, Normal Bowel Sounds, Soft, Tenderness Genitalia: Deferred Pelvic: Deferred Rectal: Deferred Extremities: No calf tenderness, Normal capillary refill, Normal inspection, Normal range of motion, Non-tender, No pedal edema Musculoskeletal : Apperance: Normal Neurologic: Alert, sales order specialist II-XII nml as Tested, Motor Weakness, Normal Affect, Normal Mood, No Sensory Deficits Cerebellar Function: Normal Reflexes: Normal Skin: Dry, Normal Color, Warm Lymphatic: No Adenopathy Was a procedure done? Was a procedure done?: No EKG EKG : Pulse Rate (adult): 106 [place]: Normal Cardiac Rhythm: ST Hypertrophy: LVH Differential Dx Considerations may include: COPD exacerbation, CHF, DE, generalized weakness, electrolyte imbalance X-Ray, Labs, Meds, VS Vital Signs Date Time Temp Pulse Resp B/P (MAP) Pulse Ox O2 Delivery O2 Flow Rate FiO2 06/21/25 16:12 97.8 89 25 117/76 97 4.0 36 97.8 06/21/25 15:14 93 06/21/25 15:00 94 24 132/81 (98) 99 06/21/25 14:22 89 117/76 06/21/25 14:00 89 25 117/76 (90) 97 06/21/25 13:22 106 159/93 06/21/25 13:21 159/93 06/21/25 13:19 106 06/21/25 13:00 97.8 107 20 151/87 (108) 98 97.8 06/21/25 12:59 107 25 97 Nasal Cannula* 4 36 06/21/25 12:59 97.8 107 25 159/93 (115) 97 97.8 06/21/25 12:56 106 Lab Test 06/21/25 16:03 06/21/25 15:20 06/21/25 14:08 06/21/25 13:17 Range/Units Troponin I High Sensitivity 58 *H 59 *H 50 </=54 ng/L Urine Color Colorless Yellow Urine Clarity Clear Clear Urine pH 5.0 5.0-9.0 Urine Specific [place] 1.007 1.001-1.035 Urine Protein 1+ H Negative Urine Ketones Negative Negative Urine Blood 1+ H Negative /uL Urine Nitrite Negative Negative Urine Bilirubin Negative Negative Urine Urobilinogen Normal Negative mg/dL Urine Leukocyte Esterase Negative Negative /uL Urine RBC 2 0 - 3 /hpf Urine Microscopic WBC < 1 0-3 /HPF Urine Squamous Epithelial Cells None seen <5 /hpf Urine Bacteria None seen None Seen /hpf Urine Hyaline Casts Few 0 - 2 /lpf Urine Glucose Normal Normal mg/dL White Blood Count 8.3 4.4-10.8 10^3/uL Red Blood Count 3.64 L 4.5-5.90 10^6/uL Hemoglobin 10.9 L 13.5-17.5 g/dL Hematocrit 32.2 L 41.0-53.0 % Mean Corpuscular Volume 88.5 80.0-100.0 fL Mean Corpuscular Hemoglobin 30.0 28.0-32.0 pg Mean Corpuscular Hemoglobin Concent 33.9 32.0-36.0 g/dL Red Cell Distribution Width 15.1 H 11.8-14.3 % Platelet Count 137 L 140-450 10^3/uL Mean Platelet Volume 7.7 6.9-10.8 fL Neutrophils (%) (Auto) 84.3 H 37.0-80.0 % Lymphocytes (%) (Auto) 8.3 L 10.0-50.0 % Monocytes (%) (Auto) 4.4 0.0-12.0 % Eosinophils (%) (Auto) 2.0 0.0-7.0 % Basophils (%) (Auto) 1.0 0.0-2.0 % Neutrophils # (Auto) 7.0 1.6-8.6 10 ^3/uL Lymphocytes # (Auto) 0.7 0.4-5.4 10 ^3/uL Monocytes # (Auto) 0.4 0-1.3 10 ^3/uL Eosinophils # (Auto) 0.2 0-0.8 10 ^3/uL Basophils # (Auto) 0.1 0-0.2 10 ^3/uL Nucleated Red Blood Cells 0.0 % Sodium Level 139 136-145 mmol/L Potassium Level 4.2 3.5-5.1 mmol/L Chloride Level 109 H 98-107 mmol/L Carbon Dioxide Level 21 20-31 mmol/L Anion Gap 9 5-15 Blood Urea Nitrogen 34 H 9-23 mg/dL Creatinine 2.07 H 0.700-1.30 mg/dL Glomerular Filtration Rate Calc 34 >90 mL/min BUN/Creatinine Ratio 16.4 10.0-20.0 Serum Glucose 126 H 74-106 mg/dL Calcium Level 9.6 8.7-10.4 mg/dL B-Type Natriuretic Peptide 506.35 0-100 pg/mL Current Medications Medications (Trade) Dose Ordered Sig/Cynthia Route Start Time Stop Time Status Last Admin Methylprednisolone Sodium Succinate (Solu Medrol) 125 mg ONCE ONCE IV 06/21/25 13:15 06/21/25 13:16 DC 06/21/25 13:21 Furosemide (Lasix Injection) 40 mg ONCE ONCE IV 06/21/25 13:15 06/21/25 13:16 DC 06/21/25 13:21 Metoprolol Tartrate (Lopressor) 5 mg ONCE ONCE IV 06/21/25 13:15 06/21/25 13:16 DC 06/21/25 13:22 Albuterol (Ventolin Medneb) 2.5 mg Q4HPRN PRN NEB 06/21/25 16:15 06/21/25 16:35 IV Hep-Lock was established The patient was given Solu-Medrol 125 mg IV push The patient was given Lasix 40 mg IV push For the elevated blood pressure, the patient was given Lopressor 5 mg IV push The patient is currently tachycardic The patient did receive a breathing treatment of albuterol The chemistry panel shows a BUN of 34 and a creatinine of 2.07 The BNP is 506 The CBC also shows anemia with a hemoglobin of 10.9 and hematocrit of 32.2 The urine test is negative The patient's troponin level is elevated at 59 and 58 The patient is being admitted to the hospitalist. Images Reviewed?: Images reviewed and evaluated by me Time of 1ST Reevaluation: 13:19 Reevaluation 1ST: Unchanged Patient Education/Counseling: Diagnosis, Treatment, Prognosis Family Education/Counseling: No Family Present SEPSIS Sepsis Screen Physician Orders Electrocardigram (06/21/25 12:59) Chest Portable (06/21/25 13:02) Heplock Iv (06/21/25 13:02) Pulse Oximetry (06/21/25 13:02) Oxygen (06/21/25 13:02) Director Of Psychiatry (06/21/25 13:02) Blood Pressure (06/21/25 13:02) Albuterol Medneb (Ventolin Medneb) (06/21/25 16:15) Vital Signs Date Time Temp Pulse Resp B/P (MAP) Pulse Ox O2 Delivery O2 Flow Rate FiO2 06/21/25 16:12 97.8 89 25 117/76 97 4.0 36 97.8 06/21/25 15:14 93 06/21/25 15:00 94 24 132/81 (98) 99 06/21/25 14:22 89 117/76 06/21/25 14:00 89 25 117/76 (90) 97 06/21/25 13:22 106 159/93 06/21/25 13:21 159/93 06/21/25 13:19 106 06/21/25 13:00 97.8 107 20 151/87 (108) 98 97.8 06/21/25 12:59 107 25 97 Nasal Cannula* 4 36 06/21/25 12:59 97.8 107 25 159/93 (115) 97 97.8 06/21/25 12:56 106 Laboratory Tests Test 06/21/25 13:17 White Blood Count 8.3 10^3/uL (4.4-10.8) Medications Medications Dose Ordered Sig/Cynthia Route Start Time Stop Time Status Last Admin Dose Admin Albuterol 2.5 mg Q4HPRN PRN NEB 06/21/25 16:15 06/21/25 16:35 Furosemide 40 mg ONCE ONCE IV 06/21/25 13:15 06/21/25 13:16 DC 06/21/25 13:21 Methylprednisolone Sodium Succinate 125 mg ONCE ONCE IV 06/21/25 13:15 06/21/25 13:16 DC 06/21/25 13:21 Metoprolol Tartrate 5 mg ONCE ONCE IV 06/21/25 13:15 06/21/25 13:16 DC 06/21/25 13:22 Departure 1 Departure Time of Disposition: 17:37 Impression: Primary Impression: Acute respiratory failure Qualified Codes: J96.01 - Acute respiratory failure with hypoxia Additional Impression: COPD exacerbation Disposition: ADMITTED INPATIENT Admit to: Tele Condition: Fair Critical Care Note Critical Care Time?: Yes (45 min-critical care time only) Stability Stability form required: Yes Unstable for transfer: Telemetry monitoring (Telemetry monitoring required), ED Physician Assesment (Clinical assesment) Heart Score Heart Score: Heart Score Response (Comments) Value History Slightly Suspicious 0 EKG Normal 0 Age >65 2 Risk Factors >3 or Hx ASHD 2 Troponin Normal limit 0 Total 4 DOLLY ROBERTSON MD Jun 21, 2025 13:10
[2025-06-21] MEDS: methylPREDNISolone SOD SUCC 125 MG/2 ML VL IV ONE (13:21)
[2025-06-21] MEDS: FUROSEMIDE 40 MG/4 ML VIAL IV ONE (13:21)
[2025-06-21] MEDS: METOPROLOL TARTRATE 1MG/1ML-5ML VIAL IV ONE (13:22)
[2025-06-21 13:27] LABS: Hematocrit 32.2 % (41.0-53.0); Hemoglobin 10.9 g/dL (13.5-17.5); Mean Corpuscular Hemoglobin 30.0 pg (28.0-32.0); Mean Corpuscular Volume 88.5 fL (80.0-100.0); Nucleated Red Blood Cells % 0.0 %
--- NOTE | 2025-06-21 13:44 | DVH ---
AP portable chest CLINICAL INDICATION: sob FINDINGS: Heart size is enlarged. Pulmonary vascular markings are congested. IMPRESSION: 1. Pulmonary edema
[2025-06-21 13:54] LABS: Anion Gap 9 (5-15); Carbon Dioxide 21 mmol/L (20-31); Potassium 4.2 mmol/L (3.5-5.1); Sodium 139 mmol/L (136-145)
[2025-06-21 13:55] LABS: Calcium 9.6 mg/dL (8.7-10.4)
[2025-06-21 13:57] LABS: Chloride 109 mmol/L (98-107)
[2025-06-21 14:00] LABS: BUN/Creatinine Ratio 16.4 (10.0-20.0)
[2025-06-21 14:02] LABS: Blood Urea Nitrogen 34 mg/dL (9-23); Glucose 126 mg/dL (74-106)
[2025-06-21 15:52] LABS: Urine Protein, UAD 1+ (Negative)
[2025-06-21] MEDS ORDERED: DEXTROSE (50%) 50ML SYRG IV PRN (16:30)
[2025-06-21] MEDS ORDERED: ACETAMINOPHEN 325 MG TAB PO PRN (16:30)
[2025-06-21] MEDS ORDERED: ONDANSETRON HCL 4 MG/2 ML VIAL IV PRN (16:30)
[2025-06-21] MEDS ORDERED: ALBUTEROL SULF 2.5 MG/0.5ML(0.5%) NEB SOLN NEB PRN (16:30)
[2025-06-21] MEDS: ALBUTEROL SULF 2.5 MG/0.5ML(0.5%) NEB SOLN NEB PRN (16:35)
--- NOTE | 2025-06-21 16:37 | DVHHP2 ---
History of Present Illness Reason for Visit: COPD with acute exacerbation History of Present Illness The patient is a 69-year-old male with multiple past medical history including COPD, chronic kidney failure, CHF, CVA, DM, and hypertension who presented to [facility] ED with complaint of shortness of breaths. Patient reports he has been experiencing shortness of breaths, associated with cough, abdominal pain, nausea, vomiting, getting worse that prompted this visit. Patient was seen and evaluated in the ED, laboratory data shows WBC 8.3, hemoglobin 10.9, hematocrit 32.2, platelets 137, sodium 139, potassium 4.2, BUN 34, creatinine 2.07, glucose 126, calcium 9.6, BNP 506.35, troponin 59, blood pressure 117/76, heart rate 89, temperature 97.8 F, O2 saturation 97% on oxygen. Chest x-ray revealing pulmonary edema. Patient was started on IV Lasix, please see medication orders section in the computer. On my assessment, patient denied chest pain, no headache, no dizziness, no diaphoresis, currently on oxygen, no abdominal pain, no diarrhea, no nausea, no vomiting, no fever, no chills. Patient was admitted for further evaluation and medical management. Past Medical History CHF, CKF, COPD (currently on 2 L oxygen at home), CVA, DM, High Lipids, HTN, Liver, UT Past Surgical History Aortic valve surgery Family History Reviewed, noncontributory to the management of this case. Past Social History The patient lives at home, denies smoking, alcohol or illicit drugs abuse. Review of Systems Constitutional: Yes: Weakness; No: Fever, Chills, Sweats, Malaise, Other Eyes: No: Pain, Vision change, Conjunctivae inflammation, Eyelid inflammation, Other, Redness ENT: No: Ear pain, Ear discharge, Nose pain, Nose discharge, Nose congestion, Mouth pain, Mouth swelling, Throat pain, Throat swelling, Other Respiratory: Cough, Shortness of breath, Other (SOB at rest); No: Dry, SOB with excertion, Wheezing, Hemoptysis, Pleuritic Pain, Sputum, Wheezing Cardiovascular: No: Chest Pain, Palpitations, Orthopnea, Paroxysmal Noc. Dyspnea, Edema, Lt Headedness, Other Gastrointestinal: Nausea, Vomiting, Abdominal Pain; No: Diarrhea, Constipation, Melena, Hematochezia, Other Genitourinary: No Dysuria, No Frequency, No Incontinence, No Hematuria, No Retention, No Other Musculoskeletal: No: other, neck pain, shoulder pain, arm pain, back pain, hand pain, leg pain, foot pain Skin: No: Rash, Lesions, Jaundice, Bruising, Other Neurological: No: Weakness, Numbness, Incoordination, Change in speech, Confusion, Seizures, Other Allergies: Coded Allergies: Iodine (Verified Allergy, Unknown, 04/10/23) Iohexol (Verified Allergy, Unknown, 01/05/25) No Known Drug Allergy (Unverified Allergy, Unknown, 10/14/24) Medications Current Medications Medications Dose Ordered Sig/Cynthia Route Start Time Stop Time Status Last Admin Dose Admin Albuterol 2.5 mg Q4HPRN PRN NEB 06/21/25 16:15 06/21/25 16:35 2.5 MG Exam Vital Signs Vital Signs Date Time Temp Pulse Resp B/P (MAP) Pulse Ox O2 Delivery O2 Flow Rate FiO2 06/21/25 16:12 97.8 89 25 117/76 97 4.0 36 97.8 06/21/25 12:59 Nasal Cannula* General Appearance: Alert, Oriented X3, Cooperative, No acute distress HEENT: Atraumatic, PERRLA, EOMI, Mucous membr. moist/pink Respiratory: Clear to auscultation, Normal air movement Cardiovascular: Regular rate, Normal S1, Normal S2, No murmurs Abdominal: Normal bowel sounds, Soft, No tenderness, No hepatospenomegaly, No masses Extremities: No clubbing, No cyanosis, No edema, Normal pulses, No tenderness/swelling Skin: No rashes, No breakdown, No significant lesion Neuro: Normal speech, Normal tone, Sensation intact, Cranial nerves 3-12 NL, Reflexes 2+, Other (Generalized weakness) Psych/Mental Status: Mental status NL, Mood NL Labs/Xrays Labs Test 06/21/25 16:03 06/21/25 15:20 06/21/25 13:17 Range/Units Troponin I High Sensitivity 58 *H </=54 ng/L Urine Color Colorless Yellow Urine Clarity Clear Clear Urine pH 5.0 5.0-9.0 Urine Specific [employer] 1.007 1.001-1.035 Urine Protein 1+ H Negative Urine Ketones Negative Negative Urine Blood 1+ H Negative /uL Urine Nitrite Negative Negative Urine Bilirubin Negative Negative Urine Urobilinogen Normal Negative mg/dL Urine Leukocyte Esterase Negative Negative /uL Urine RBC 2 0 - 3 /hpf Urine Microscopic WBC < 1 0-3 /HPF Urine Squamous Epithelial Cells None seen <5 /hpf Urine Bacteria None seen None Seen /hpf Urine Hyaline Casts Few 0 - 2 /lpf Urine Glucose Normal Normal mg/dL White Blood Count 8.3 4.4-10.8 10^3/uL Red Blood Count 3.64 L 4.5-5.90 10^6/uL Hemoglobin 10.9 L 13.5-17.5 g/dL Hematocrit 32.2 L 41.0-53.0 % Mean Corpuscular Volume 88.5 80.0-100.0 fL Mean Corpuscular Hemoglobin 30.0 28.0-32.0 pg Mean Corpuscular Hemoglobin Concent 33.9 32.0-36.0 g/dL Red Cell Distribution Width 15.1 H 11.8-14.3 % Platelet Count 137 L 140-450 10^3/uL Mean Platelet Volume 7.7 6.9-10.8 fL Neutrophils (%) (Auto) 84.3 H 37.0-80.0 % Lymphocytes (%) (Auto) 8.3 L 10.0-50.0 % Monocytes (%) (Auto) 4.4 0.0-12.0 % Eosinophils (%) (Auto) 2.0 0.0-7.0 % Basophils (%) (Auto) 1.0 0.0-2.0 % Neutrophils # (Auto) 7.0 1.6-8.6 10 ^3/uL Lymphocytes # (Auto) 0.7 0.4-5.4 10 ^3/uL Monocytes # (Auto) 0.4 0-1.3 10 ^3/uL Eosinophils # (Auto) 0.2 0-0.8 10 ^3/uL Basophils # (Auto) 0.1 0-0.2 10 ^3/uL Nucleated Red Blood Cells 0.0 % Sodium Level 139 136-145 mmol/L Potassium Level 4.2 3.5-5.1 mmol/L Chloride Level 109 H 98-107 mmol/L Carbon Dioxide Level 21 20-31 mmol/L Anion Gap 9 5-15 Blood Urea Nitrogen 34 H 9-23 mg/dL Creatinine 2.07 H 0.700-1.30 mg/dL Glomerular Filtration Rate Calc 34 >90 mL/min BUN/Creatinine Ratio 16.4 10.0-20.0 Serum Glucose 126 H 74-106 mg/dL Calcium Level 9.6 8.7-10.4 mg/dL B-Type Natriuretic Peptide 506.35 0-100 pg/mL PATIENT: MANDIE KELLY ACCT: [id number] UNIT: [id number] : 1955 LOC: ER ROOM / BED: / AGE / SEX: 69 / M ADM STATUS: REG ER SERVICE 1302 ORDERING PHYSICIAN: DOLLY ROBERSTON MD PROCEDURE(s): CXRP - CHEST PORTABLE REASON: sob ORDER NUMBER(s): [id number], ACCESSION NUMBER(s): [id number] AP portable chest CLINICAL INDICATION: sob FINDINGS: Heart size is enlarged. Pulmonary vascular markings are congested. IMPRESSION: 1. Pulmonary edema SEPSIS Sepsis Screen Date sepsis recognized/suspect: Jun 21, 2025 Time Sepsis recognized/suspect: 1300 Recent Procedure: No On Antibiotic Therapy: No Respiratory Rate >20: No Heart Rate >90: Yes Temp<36 C (96.8 F) or >38.3 C: No SBP <90 or MAP <65 mmHG: No New Acute Mental Status Change: No Is the patient on CPAP, BIPAP,: Yes Physician Orders Electrocardigram (06/21/25 12:59) Chest Portable (06/21/25 13:02) Heplock Iv (06/21/25 13:02) Pulse Oximetry (06/21/25 13:02) Oxygen (06/21/25 13:02) Backend Developer (06/21/25 13:02) Blood Pressure (06/21/25 13:02) Albuterol Medneb (Ventolin Medneb) (06/21/25 16:15) Aspirin Tablet (06/22/25 10:00) Aspirin Tablet (06/21/25 16:30) Atorvastatin (Lipitor) (06/21/25 22:00) Famotidine Injection (Pepcid Injection) (06/21/25 22:00) Methylprednisolone Sod Succ (Solu Medrol (06/21/25 22:00) Furosemide Injection (Lasix Injection) (06/22/25 10:00) Amlodipine Tablet (Norvasc Tablet) (06/22/25 10:00) Metoprolol Tartrate Tablet (Lopressor Ta (06/21/25 22:00) Albuterol Medneb (Ventolin Medneb) (06/21/25 16:30) Ipratropium Medneb (Atrovent Medneb) (06/21/25 16:30) Consistent Carb(Ccho)Diabetes (06/21/25 Dinner) Gabapentin Capsule (Neurontin Capsule) (06/21/25 22:00) Glucose Blood (Accu-Chek Comfort Curve T (06/21/25 17:00) Mild Sliding Scale (06/21/25 17:00) Dextrose 50% Syringe (06/21/25 16:30) Admit (06/21/25 16:25) Allergies (06/21/25 16:25) Code Status (06/21/25 16:25) Sodium Chloride Lock (Saline Lock Ns) (06/21/25 22:00) Oxygen Per Hour (06/21/25 16:25) Hydrocodone-Acet 5/325mg Tab ([place] 5/32 (06/21/25 16:30) Ondansetron Hcl (Zofran) (06/21/25 16:30) Docusate Sodium Capsule (Colace Capsule) (06/21/25 16:30) Complete Blood Count (06/22/25 04:00) Comprehensive Metabolic Panel (06/22/25 04:00) Cardiac Diet-2gna,Lofat,Lochol (06/21/25 Dinner) Condition: Serious (06/21/25 16:25) Acetaminophen Tablet (Tylenol Tablet) (06/21/25 16:30) Bedrest With Bathroom Privileg (06/21/25 16:25) Sequential Compression Device (06/21/25 ) Nitroglycerin Sublingual (Ntrostat Subli (06/21/25 16:30) Vital Signs Date Time Temp Pulse Resp B/P (MAP) Pulse Ox O2 Delivery O2 Flow Rate FiO2 06/21/25 16:12 97.8 89 25 117/76 97 4.0 36 97.8 06/21/25 15:14 93 06/21/25 15:00 94 24 132/81 (98) 99 06/21/25 14:22 89 117/76 06/21/25 14:00 89 25 117/76 (90) 97 06/21/25 13:22 106 159/93 06/21/25 13:21 159/93 06/21/25 13:19 106 06/21/25 13:00 97.8 107 20 151/87 (108) 98 97.8 06/21/25 12:59 107 25 97 Nasal Cannula* 4 36 06/21/25 12:59 97.8 107 25 159/93 (115) 97 97.8 06/21/25 12:56 106 Laboratory Tests Test 06/21/25 13:17 White Blood Count 8.3 10^3/uL (4.4-10.8) Medications Medications Dose Ordered Sig/Cynthia Route Start Time Stop Time Status Last Admin Dose Admin Albuterol 2.5 mg Q4HPRN PRN NEB 06/21/25 16:15 06/21/25 16:35 2.5 MG Furosemide 40 mg ONCE ONCE IV 06/21/25 13:15 06/21/25 13:16 DC 06/21/25 13:21 40 MG Methylprednisolone Sodium Succinate 125 mg ONCE ONCE IV 06/21/25 13:15 06/21/25 13:16 DC 06/21/25 13:21 125 MG Metoprolol Tartrate 5 mg ONCE ONCE IV 06/21/25 13:15 06/21/25 13:16 DC 06/21/25 13:22 5 MG Assessment/Plan Assessment/Plan Acute respiratory failure Pulmonary edema Acute respiratory failure with hypoxia COPD with acute exacerbation Acute exacerbation of congestive heart failure Generalized weakness Plan 1. Admit to telemetry unit 2. Breathing treatment 3. Pain control management 4. Management of fluids and electrolytes 5. Consultation for hospitalist 6. Diagnostic tests chest x-ray 7. DVT prophylaxis-on aspirin 8. Repeat labs CBC, CMP in a.m. 9. Continue with current medical management 10. Treatment plan discussed with patient and RN. Patient verbalized understanding. Plan discussed with: Patient, Other (RN) My Orders Orders - BRIAN AVILA DNP Procedure Category Date Status Time Albuterol Medneb PHA 06/21/25 In Process (Ventolin Medneb) 16:15 Aspirin Tablet PHA 06/22/25 Verified 10:00 Aspirin Tablet PHA 06/21/25 Verified 16:30 Atorvastatin (Lipitor) PHA 06/21/25 Verified 22:00 Famotidine Injection PHA 06/21/25 Verified (Pepcid Injection) 22:00 Methylprednisolone PHA 06/21/25 Verified Sod Succ (Solu Medrol 22:00 Furosemide Injection PHA 06/22/25 Verified (Lasix Injection) 10:00 Amlodipine Tablet PHA 06/22/25 Verified (Norvasc Tablet) 10:00 Metoprolol Tartrate PHA 06/21/25 Verified Tablet (Lopressor Ta 22:00 Albuterol Medneb PHA 06/21/25 Verified (Ventolin Medneb) 16:30 Ipratropium Medneb PHA 06/21/25 Verified (Atrovent Medneb) 16:30 Consistent DIET 06/21/25 Verified Carb(Ccho)Diabetes Dinner Gabapentin Capsule PHA 06/21/25 Verified (Neurontin Capsule) 22:00 Glucose Blood PHA 06/21/25 Verified (Accu-Chek Comfort 17:00 Mild Sliding Scale PHA 06/21/25 Verified 17:00 Dextrose 50% Syringe PHA 06/21/25 Verified 16:30 Admit ADMIT 06/21/25 Verified 16:25 Allergies VIJAY 06/21/25 Verified 16:25 Code Status CODE 06/21/25 Verified 16:25 Sodium Chloride Lock PHA 06/21/25 Verified (Saline Lock Ns) 22:00 Oxygen Per Hour RT 06/21/25 Verified 16:25 Hydrocodone-Acet PHA 06/21/25 Verified 5/325mg Tab ([place] 16:30 Ondansetron Hcl PHA 06/21/25 Verified (Zofran) 16:30 Docusate Sodium PHA 06/21/25 Verified Capsule (Colace 16:30 Complete Blood Count LAB 06/22/25 Verified 04:00 Comprehensive LAB 06/22/25 Verified Metabolic Panel 04:00 Cardiac DIET 06/21/25 Verified Diet-2gna,Lofat,Lochol Dinner Condition: Serious VIJAY 06/21/25 Verified 16:25 Acetaminophen Tablet PHA 06/21/25 Verified (Tylenol Tablet) 16:30 Bedrest With Bathroom VIJAY 06/21/25 Verified Privileg 16:25 Sequential VIJAY 06/21/25 Verified Compression Device Nitroglycerin PHA 06/21/25 Verified Sublingual (Ntrostat 16:30 Problem List: (1) Acute respiratory failure (2) Pulmonary edema (3) Acute respiratory failure with hypoxia (4) COPD with acute exacerbation (5) Acute exacerbation of congestive heart failure (6) Generalized weakness Date of Service: Jun 21, 2025 Billing Provider: BRIAN AVILA DNP Common Visit Codes: [id number] INP/OBS CARE (HIGH) BRIAN AVILA DNP Jun 21, 2025 16:37
[2025-06-21] MEDS: InsuLIN REG 1unit/0.01ml Soln (100units/ml) SC SCH (17:55)
[2025-06-21] MEDS: ACCU-CHEK COMFORT CURVE STRIP VI SCH (17:57)
[2025-06-21] MEDS: HYDROcodone-ACET 5/325MG TAB PO PRN (17:59)
[2025-06-21] MEDS: GABAPENTIN 300 MG CAP PO SCH (22:33)
[2025-06-21] MEDS: ATORVASTATIN 20 MG TAB PO SCH (22:33)
[2025-06-21] MEDS: METOPROLOL TARTRATE 25 MG TAB PO SCH (22:33)
[2025-06-21] MEDS: methylPREDNISolone SOD SUCC 40 MG/ML VL IV SCH (22:34)
[2025-06-21] MEDS: FAMOTIDINE (10MG/ML) 2ML VL IV SCH (22:40)
[2025-06-21] MEDS: SODIUM CHLOR 0.9% PF (SALINE LOCK) 10ML VIAL/SYR IV SCH (22:46)
[2025-06-22] VITALS (18 sets, daily range): BP systolic 110–145; BP diastolic 60–90; PULSE 78–115; RESP 14–75; TEMP 97–98; O2SAT 94–100
[2025-06-22] MEDS: KETOROLAC TROMETH 30 MG/ML 1ML VIAL IV ONE (00:17)
[2025-06-22] MEDS: IPRATROPIUM BROM 0.5 MG/2.5ML INH SOL NEB PRN (02:04)
[2025-06-22 07:14] LABS: Hematocrit 32.3 % (41.0-53.0); Hemoglobin 11.3 g/dL (13.5-17.5); Mean Corpuscular Hemoglobin 30.0 pg (28.0-32.0); Mean Corpuscular Volume 86.1 fL (80.0-100.0)
[2025-06-22 07:30] LABS: Alanine Aminotransferase 17 U/L (7-40); Alkaline Phosphatase 78 U/L (46-116); Anion Gap 12 (5-15); BUN/Creatinine Ratio 16.4 (10.0-20.0); Calcium 10.1 mg/dL (8.7-10.4); Carbon Dioxide 21 mmol/L (20-31); Potassium 4.7 mmol/L (3.5-5.1); Sodium 140 mmol/L (136-145)
[2025-06-22 07:31] LABS: Albumin 4.3 g/dL (3.2-4.8); Blood Urea Nitrogen 40 mg/dL (9-23); Chloride 107 mmol/L (98-107); Glucose 150 mg/dL (74-106); Total Protein 6.5 g/dL (5.7-8.2)
[2025-06-22 07:33] LABS: Bilirubin, Total 1.0 mg/dL (0.2-1.0)
[2025-06-22 07:45] LABS: Total Cells Counted 100.0 (100)
[2025-06-22 08:46] LABS: Partial Thromboplastin Time 55.8 SEC (24.5-34.5); Prothrombin Time 43.5 sec (9.3-11.8)
[2025-06-22 08:56] LABS: INR 4.79 (0.9-1.15)
--- NOTE | 2025-06-22 09:24 | DVH ---
US ABDOMEN LIMITED, HISTORY: possible ascites COMPARISON(S): None TECHNICAL DATA: Transverse and longitudinal images are obtained of the chest. FINDING: IMPRESSION(S): Trace right effusion. No ascites.
[2025-06-22] MEDS: IPRATROPIUM BROM 0.5 MG/2.5ML INH SOL NEB SCH (10:00)
[2025-06-22] MEDS: ALBUTEROL SULF 2.5 MG/0.5ML(0.5%) NEB SOLN NEB SCH (10:00)
[2025-06-22] MEDS: methylPREDNISolone SOD SUCC 40 MG/ML VL IV SCH (10:11)
[2025-06-22] MEDS: ERGOCALCIFEROL 50,000 UNIT(1.25MG) CAP PO SCH (10:12)
[2025-06-22] MEDS: FUROSEMIDE 40 MG/4 ML VIAL IV SCH ×2 (10:13→22:04)
[2025-06-22] MEDS: CYANOCOBALAMIN (B-12) 1000 MCG/1 ML VIAL IM ONE (10:15)
[2025-06-22] MEDS: PANTOPRAZOLE 40 MG/10 ML VIAL INJ IV SCH (10:15)
[2025-06-22] MEDS: DOXYCYCLINE 100MG/100ML 100 ML IV SCH (10:15)
[2025-06-22] MEDS: MORPHINE SULFATE INJ 2 MG/ml SYRG IV PRN (10:17)
--- NOTE | 2025-06-22 11:02 | ECG ---
[facility] Test Date: 2025-06-21 Test Time: 12:56:34 Pat Name: MANDIE KELLY Department: ED Room: [facility]2T B Gender: M Charter Coordinator: lizzette : 1955 Requested By: VAL COCHRAN Order Number: [id number] Reading MD: Jacinto Virk Measurements Intervals [place] Rate: 106 P: 60 OH: 186 QRS: 76 QRSD: 87 T: 74 QT: 346 QTc: 460 Interpretive Statements Sinus tachycardia Consider left ventricular hypertrophy Borderline T abnormalities, lateral leads Electronically Signed On 06-23-2025 17:50:18 PDT by Jacinto Virk Please click the below link to view image of tracing.
[2025-06-22 12:36] LABS: Benzodiazephine Screen, Urine Pos (NEGATIVE); Cocaine Screen, Urine Neg (NEGATIVE)
[2025-06-22 12:37] LABS: Protein, Urine 74.9 mg/dL (1-14)
[2025-06-22 12:38] LABS: Amphetamine Screen, Urine Neg (NEGATIVE); Barbiturate Scree,Urine Neg (NEGATIVE); Cannabinoid Screen, Urine Neg (NEGATIVE); Opiate Scree,Urine Pos (NEGATIVE); Phencyclidine Screen, Urine Neg (NEGATIVE)
[2025-06-22 14:44] LABS: COVID19 ANTIGEN SOFIA FIA NEGATIVE (NEGATIVE)
--- NOTE | 2025-06-22 17:05 | DVHPNRES ---
Progress Note Date Seen: Jun 22, 2025 Resident Creating Document: VAL COCHRAN RESIDENT Medical Necessity Reason Pt with a Central, PICC or Fol: No Subjective Review of Systems Som Cosby is a 69-year-old male with a past medical history of diabetes type 2 for 5 years, HFrEF 30%, COPD on 2 L of home oxygen, CVA, asthma, CKD stage 4, aortic valve replacement on warfarin who came in with complaints of shortness of breath For the past 2 days. He has had not traveled recently, or had any sick contacts. His shortness of breath is associated with cough which is dry /no phlegm. Patient reports he has not had fever but had night sweats and chills. He complains that he can not lie flat on his bed and uses a recliner. Patient denies any chest pain, nausea vomiting. He reports he had to increase his oxygen from 2 L to 4 L and that he tried using his inhalers more frequently but it did not help. PMH: Diabetes type 2, HFrEF 30%, COPD @ home oxygen 2L, CVA, asthma, CKD stage 4 PSH: AVR Family History: Reviewed, noncontributory to the management of this case. Past Social History: The patient lives at home, smokes 3 cigarettes per day, denies alcohol or illicit drugs abuse. Home medication: Warfarin, Entresto, Lasix 20 mg b.i.d., hydralazine TDS, metoprolol, isosorbide dinitrate TDS, dapagliflozin allergies: none ROS: Patient was seen and examined by me at the bedside. Overnight events were reviewed. Patient still reports having shortness of breath. He also complains of chest tightness since today morning. Rest of the ROS is negative. Today we ordered an ECG, started nebulization of albuterol and ipratropium bromide, ordered methylprednisolone once a day, started him on antibiotics doxycycline 100 mg b.i.d. IV, started input-output charting, strict fluid restriction, USG abdomen, give him morphine and continued his [place] for pain management. We have also sent urinary sodium, urinary creatinine to protein ratio. Vitamin B 12 and vitamin-D repleted. since patient is on warfarin, PT INR was sent which were both high so we are holding off warfarin and started her on SCD. Objective vital signs Vital Sign Date Time Temp Pulse Resp B/P (MAP) Pulse Ox O2 Delivery O2 Flow Rate FiO2 06/22/25 16:34 97.5 101 75 134/77 (96) 100 97.5 06/22/25 15:00 Nasal Cannula* 4 36 Total Intake and Output 06/21/25 06/21/25 06/22/25 15:00 23:00 07:00 Intake Total 350 ml Output Total 400 ml 400 ml Balance -400 ml -50 ml medications Current Medications Medications Dose Ordered Sig/Cynthia Route Start Time Stop Time Status Last Admin Dose Admin Aspirin 81 mg DAILY PO 06/22/25 10:00 Atorvastatin Calcium 20 mg HS PO 06/21/25 22:00 06/21/25 22:33 20 MG Furosemide 40 mg DAILY IV 06/22/25 10:00 06/22/25 10:13 40 MG Amlodipine Besylate 5 mg DAILY PO 06/22/25 10:00 06/22/25 10:12 5 MG Ipratropium [place] 0.5 mg Q4HPRN PRN NEB 06/21/25 16:30 06/22/25 02:04 0.5 MG Gabapentin 300 mg TID PO 06/21/25 22:00 06/22/25 15:00 300 MG Diagnostic Test (Pha) 1 strip ACHS 06/21/25 17:00 06/22/25 11:30 1 STRIP Insulin Human Regular ACHS SC 06/21/25 17:00 06/22/25 11:30 3 UNITS Dextrose 50 ml UD PRN IV 06/21/25 16:30 Sodium Chloride 10 ml Q8HR IV 06/21/25 22:00 06/22/25 14:00 10 ML Acetaminophen/ Hydrocodone Bitart 1 tab Q4HP PRN PO 06/21/25 16:30 06/22/25 15:04 1 TAB Ondansetron HCl 4 mg Q4HP PRN IV 06/21/25 16:30 Docusate Sodium 100 mg BIDPRN PRN PO 06/21/25 16:30 Acetaminophen 650 mg Q6HP PRN PO 06/21/25 16:30 Nitroglycerin 0.4 mg Q5MINP PRN SL 06/21/25 16:30 Morphine Sulfate 2 mg Q30M PRN IV 06/21/25 16:30 Albuterol 2.5 mg Q4HR NEB 06/22/25 10:00 06/22/25 14:00 2.5 MG Ipratropium [place] 0.5 mg Q4HR NEB 06/22/25 10:00 06/22/25 14:00 0.5 MG Methylprednisolone Sodium Succinate 40 mg DAILY IV 06/22/25 10:00 06/22/25 10:11 40 MG Pantoprazole Sodium 40 mg DAILY IV 06/22/25 10:00 06/22/25 10:15 40 MG Ergocalciferol 50,000 unit Q7D PO 06/22/25 08:15 06/22/25 10:12 50,000 UNIT Morphine Sulfate 1 mg Q4HP PRN IV 06/22/25 09:15 06/22/25 10:17 1 MG Doxycycline Hyclate 100 ml @ 50 mls/hr Q12H IV 06/22/25 10:15 06/22/25 10:15 50 MLS/HR Examination General Appearance: Alert, Oriented X3, Cooperative, No acute distress HEENT: Atraumatic, PERRLA, EOMI, Mucous membr. moist/pink Respiratory: Normal air movement, presence of expiratory wheeze, presence of bibasilar crackles Cardiovascular: Regular rate, Normal S1, Normal S2, No murmurs Abdominal: Normal bowel sounds, Soft, No hepatospenomegaly, No masses, slightly distended, tenderness in all quadrants Extremities: No clubbing, No cyanosis, No edema, Normal pulses, No tenderness/swelling Skin: No rashes, No breakdown, No significant lesion Neuro: Normal speech, Normal tone, Sensation intact, Cranial nerves 3-12 NL, Reflexes 2+, Other (Generalized weakness) Psych/Mental Status: Mental status NL, Mood NL laboratory and microbiology Laboratory Tests 06/22/25 06:38 Test 06/22/25 06:38 Range/Units Serum Glucose 150 H 74-106 mg/dL Microbiology Date/Time Source Procedure Growth Status 06/22/25 06:15 Nose MRSA Screen - Final Complete Labs and/or images reviewed: Labs reviewed by me, Image(s) reviewed by me Problem List/Assessment/Plan Problem List/Assessment/Plan # Acute on chronic CHF # Aortic valve replacement # Acute Chest pain, rule out ACS -BMP 506 -Troponin 59> 58 -ECG Sinus tachycardia -IV furosemide 40 mg -Strict input-output chart -Fluid restriction -USG abdomen- Trace right effusion. No ascites. -Morphine, [place] for pain management -PT INR 43.5, 4.79 -hold warfarin -BIPAP #Acute exacerbation of COPD with pneumonitis #Pulmonary edema as seen on x-ray chest #Acute respiratory failure with hypoxia due to above -Nebulization ipratropium bromide and albuterol -Methylprednisolone once a day -Doxycycline 100 mg IV b.i.d. #SILVIA on CKD stage 4 -creatinine 2. 44, BUN 40 -Urine sodium, urine creatinine to protein ratio -Monitor labs # Diabetes mellitus type 2, uncontrolled - Hb1AC ordered - ISS #vitamin B12 deficiency -Repleted #vitamin-D deficiency -repleted GI prophylaxis: Protonix 40 mg IV daily DVT prophylaxis: SCD Diet: diabetic, cardiac diet Goals of care discussed with the patient for more than 27 minutes: Full code status Case discussed with patient and nurse. Plan discussed with: Patient, Other My Orders My Orders Orders - VAL COCHRAN Procedure Category Date Status Time Mrsa Screen MARIE 06/22/25 Uncollected 08:03 Abdomen Limited US 06/22/25 Resulted 08:03 Cardiac DIET 06/22/25 Transmitted Diet-2gna,Lofat,Lochol Breakfast Document Fluid Input VIJAY 06/22/25 In Process And Outpu 08:03 Maintain Fluid VIJAY 06/22/25 In Process Restrictions 08:03 Strict I & O VIJAY 06/22/25 In Process 08:03 Albuterol Medneb PHA 06/22/25 In Process (Ventolin Medneb) 10:00 Ipratropium Medneb PHA 06/22/25 In Process (Atrovent Medneb) 10:00 Methylprednisolone PHA 06/22/25 In Process Sod Succ (Solu Medrol 10:00 Pantoprazole PHA 06/22/25 In Process (Protonix) 10:00 Ergocalciferol PHA 06/22/25 In Process (Vitamin D 50,000 08:15 Communication Order ORDERS 06/22/25 Transmitted 08:16 Doxycycline PHA 06/22/25 In Process 100mg/100ml 10:15 Date of Service: Jun 22, 2025 Billing Provider: JAMILA BANKS MD Common Visit Codes: [id number] INP/OBS CARE(HIGH) VAL COCHRAN Jun 22, 2025 17:05 JAMILA BANKS MD Jun 23, 2025 02:04
[2025-06-22] MEDS: FUROSEMIDE 40 MG/4 ML VIAL IV ONE (17:46)
[2025-06-23] VITALS (18 sets, daily range): BP systolic 114–138; BP diastolic 72–94; PULSE 99–107; RESP 15–20; TEMP 97.3–98.2; O2SAT 92–100
[2025-06-23 05:17] LABS: Hematocrit 30.9 % (41.0-53.0); Hemoglobin 10.5 g/dL (13.5-17.5); Mean Corpuscular Hemoglobin 29.6 pg (28.0-32.0); Mean Corpuscular Volume 86.9 fL (80.0-100.0); Nucleated Red Blood Cells % 0.0 %
[2025-06-23 05:34] LABS: Chloride 103 mmol/L (98-107); Potassium 4.6 mmol/L (3.5-5.1); Sodium 138 mmol/L (136-145)
[2025-06-23 05:35] LABS: Anion Gap 12 (5-15); Calcium 9.5 mg/dL (8.7-10.4); Carbon Dioxide 23 mmol/L (20-31)
[2025-06-23 05:40] LABS: BUN/Creatinine Ratio 18.4 (10.0-20.0)
[2025-06-23 05:41] LABS: Blood Urea Nitrogen 56 mg/dL (9-23); Glucose 137 mg/dL (74-106)
[2025-06-23] MEDS: DOCUSATE SOD 100 MG CAP PO PRN (10:52)
[2025-06-23 12:02] LABS: INR 3.85 (0.9-1.15); Prothrombin Time 35.7 sec (9.3-11.8)
[2025-06-23] MEDS: NITROGLYCERIN 0.4 MG SL TAB SL PRN (13:41)
[2025-06-23] MEDS: MORPHINE SULFATE INJ 2 MG/ml SYRG IV PRN (13:55)
[2025-06-23] MEDS: FAMOTIDINE (10MG/ML) 2ML VL IV ONE (14:31)
--- NOTE | 2025-06-23 15:06 | DVH ---
CHEST RADIOGRAPH Indication: chest pain Technique: Single frontal view of the chest was obtained COMPARISON: XY CHEST XRAY 1 VIEW on DOS: 06/07/25, XY CHEST XRAY 1 VIEW on DOS: 06/04/25, XY CHEST PORT ABLE on DOS: 10/14/24, XY CHEST PORTABLE on DOS: 08/21/24, XY CHEST XRAY 1 VIEW on DOS: 08/20/24 FINDINGS: Lines and Tubes: Median sternotomy Lungs: Congestion Pleura: No effusion. No pneumothorax. Cardiomediastinal contours: Cardiomegaly Bones: Unremarkable IMPRESSION: Pulmonary vascular congestion
[2025-06-23 15:52] LABS: Hematocrit 34.6 % (41.0-53.0); Hemoglobin 11.3 g/dL (13.5-17.5); Mean Corpuscular Hemoglobin 28.9 pg (28.0-32.0); Mean Corpuscular Volume 88.4 fL (80.0-100.0); Nucleated Red Blood Cells % 0.1 %
[2025-06-23 16:01] LABS: Chloride 102 mmol/L (98-107); Potassium 4.7 mmol/L (3.5-5.1); Sodium 138 mmol/L (136-145)
[2025-06-23 16:02] LABS: Anion Gap 13 (5-15); Calcium 10.1 mg/dL (8.7-10.4); Carbon Dioxide 23 mmol/L (20-31)
[2025-06-23 16:07] LABS: BUN/Creatinine Ratio 20.4 (10.0-20.0)
[2025-06-23 16:10] LABS: Blood Urea Nitrogen 65 mg/dL (9-23); Glucose 193 mg/dL (74-106)
--- NOTE | 2025-06-23 17:18 | DVHPNRES ---
Progress Note Date Seen: Jun 23, 2025 Resident Creating Document: VAL COCHRAN RESIDENT Medical Necessity Reason Pt with a Central, PICC or Fol: No Subjective Review of Systems Som Cosby is a 69-year-old male with a past medical history of diabetes type 2 for 5 years, HFrEF 30%, COPD on 2 L of home oxygen, CVA, asthma, CKD stage 4, aortic valve replacement on warfarin who came in with complaints of shortness of breath For the past 2 days. He has had not traveled recently, or had any sick contacts. His shortness of breath is associated with cough which is dry /no phlegm. Patient reports he has not had fever but had night sweats and chills. He complains that he can not lie flat on his bed and uses a recliner. Patient denies any chest pain, nausea vomiting. He reports he had to increase his oxygen from 2 L to 4 L and that he tried using his inhalers more frequently but it did not help. PMH: Diabetes type 2, HFrEF 30%, COPD @ home oxygen 2L, CVA, asthma, CKD stage 4 PSH: AVR Family History: Reviewed, noncontributory to the management of this case. Past Social History: The patient lives at home, smokes 3 cigarettes per day, denies alcohol or illicit drugs abuse. Home medication: Warfarin, Entresto, Lasix 20 mg b.i.d., hydralazine TDS, metoprolol, isosorbide dinitrate TDS, dapagliflozin allergies: none ROS: Patient was seen and examined by me at the bedside. Overnight events were reviewed. Patient still reports having shortness of breath. He also complains of chest tightness since today morning. Rest of the ROS is negative. Today we ordered an ECG, started nebulization of albuterol and ipratropium bromide, ordered methylprednisolone once a day, started him on antibiotics doxycycline 100 mg b.i.d. IV, started input-output charting, strict fluid restriction, USG abdomen, give him morphine and continued his [place] for pain management. We have also sent urinary sodium, urinary creatinine to protein ratio. Vitamin B 12 and vitamin-D repleted. since patient is on warfarin, PT INR was sent which were both high so we are holding off warfarin and started her on SCD. 06/23/2025 patient was seen and examined by me at the bedside. patient has back pain because of his spine which is 7/ 10. He still reports he has the shortness of breath and that he try the BiPAP machine for 1-1/2 hour yesterday but because of his anxiety could not continue it. We are giving him hydroxyzine seen HS while he takes the BiPAP. Patient complained of chest pain in the evening. EKG was normal at troponins were negative. We have stopped Lasix because his creatinine and BUN increasing. Rest of the ROS is negative Objective vital signs Vital Sign Date Time Temp Pulse Resp B/P (MAP) Pulse Ox O2 Delivery O2 Flow Rate FiO2 06/23/25 16:26 98.2 101 19 123/74 (90) 99 98.2 06/23/25 08:00 Nasal Cannula* 4 36 Total Intake and Output 06/22/25 06/22/25 06/23/25 15:00 23:00 07:00 Intake Total 320 ml 710 ml 400 ml Output Total 800 ml 1500 ml Balance 320 ml -90 ml -1100 ml medications Current Medications Medications Dose Ordered Sig/Cynthia Route Start Time Stop Time Status Last Admin Dose Admin Aspirin 81 mg DAILY PO 06/22/25 10:00 Atorvastatin Calcium 20 mg HS PO 06/21/25 22:00 06/22/25 22:02 20 MG Amlodipine Besylate 5 mg DAILY PO 06/22/25 10:00 06/23/25 10:35 5 MG Ipratropium [place] 0.5 mg Q4HPRN PRN NEB 06/21/25 16:30 06/22/25 02:04 0.5 MG Gabapentin 300 mg TID PO 06/21/25 22:00 06/23/25 06:42 300 MG Diagnostic Test (Pha) 1 strip ACHS 06/21/25 17:00 06/23/25 11:30 1 STRIP Insulin Human Regular ACHS SC 06/21/25 17:00 06/23/25 10:53 2 UNITS Dextrose 50 ml UD PRN IV 06/21/25 16:30 Sodium Chloride 10 ml Q8HR IV 06/21/25 22:00 06/23/25 14:01 10 ML Acetaminophen/ Hydrocodone Bitart 1 tab Q4HP PRN PO 06/21/25 16:30 06/23/25 10:36 1 TAB Ondansetron HCl 4 mg Q4HP PRN IV 06/21/25 16:30 Docusate Sodium 100 mg BIDPRN PRN PO 06/21/25 16:30 06/23/25 10:52 100 MG Acetaminophen 650 mg Q6HP PRN PO 06/21/25 16:30 Nitroglycerin 0.4 mg Q5MINP PRN SL 06/21/25 16:30 06/23/25 13:58 0.4 MG Morphine Sulfate 2 mg Q30M PRN IV 06/21/25 16:30 06/23/25 13:55 2 MG Albuterol 2.5 mg Q4HR NEB 06/22/25 10:00 06/23/25 09:18 2.5 MG Ipratropium [place] 0.5 mg Q4HR NEB 06/22/25 10:00 06/23/25 09:17 0.5 MG Methylprednisolone Sodium Succinate 40 mg DAILY IV 06/22/25 10:00 06/23/25 10:34 40 MG Pantoprazole Sodium 40 mg DAILY IV 06/22/25 10:00 06/23/25 10:34 40 MG Ergocalciferol 50,000 unit Q7D PO 06/22/25 08:15 06/22/25 10:12 50,000 UNIT Morphine Sulfate 1 mg Q4HP PRN IV 06/22/25 09:15 06/23/25 06:51 1 MG Doxycycline Hyclate 100 ml @ 50 mls/hr Q12H IV 06/22/25 10:15 06/23/25 10:35 50 MLS/HR Examination General Appearance: Alert, Oriented X3, Cooperative, No acute distress HEENT: Atraumatic, PERRLA, EOMI, Mucous membr. moist/pink Respiratory: Normal air movement, presence of expiratory wheeze, presence of bibasilar crackles Cardiovascular: Regular rate, Normal S1, Normal S2, No murmurs Abdominal: Normal bowel sounds, Soft, No hepatospenomegaly, No masses, slightly distended, tenderness in all quadrants Extremities: No clubbing, No cyanosis, No edema, Normal pulses, No tenderness/swelling Skin: No rashes, No breakdown, No significant lesion Neuro: Normal speech, Normal tone, Sensation intact, Cranial nerves 3-12 NL, Reflexes 2+, Other (Generalized weakness) Psych/Mental Status: Mental status NL, Mood NL laboratory and microbiology Laboratory Tests 06/23/25 15:16 Test 06/23/25 15:16 Range/Units Serum Glucose 193 H 74-106 mg/dL Microbiology Date/Time Source Procedure Growth Status 06/22/25 06:15 Nose MRSA Screen - Final Complete Labs and/or images reviewed: Labs reviewed by me, Image(s) reviewed by me Problem List/Assessment/Plan Problem List/Assessment/Plan # Acute on chronic CHF # Aortic valve replacement # Acute Chest pain, rule out ACS -BMP 506 -Troponin 59> 58 -ECG Sinus tachycardia -IV furosemide 40 mg -Strict input-output chart -Fluid restriction -USG abdomen- Trace right effusion. No ascites. -Morphine, [place] for pain management -PT INR 43.5, 4.79 -hold warfarin -BIPAP, for anxiety -hydroxyzine -Repeat ekg and troponins (06/23/2025) normal #Acute exacerbation of COPD with pneumonitis #Pulmonary edema as seen on x-ray chest #Acute respiratory failure with hypoxia due to above -Nebulization ipratropium bromide and albuterol -Methylprednisolone once a day -Doxycycline 100 mg IV b.i.d. #SILVIA on CKD stage 4 -creatinine 2. 44, BUN 40 -Urine sodium, urine creatinine to protein ratio -Monitor labs # Diabetes mellitus type 2, uncontrolled - Hb1AC ordered - ISS #vitamin B12 deficiency -Repleted #vitamin-D deficiency -repleted GI prophylaxis: Protonix 40 mg IV daily DVT prophylaxis: SCD Diet: diabetic, cardiac diet Goals of care discussed with the patient for more than 27 minutes: Full code status Case discussed with patient and nurse. Plan discussed with: Patient, Other (rn) My Orders My Orders Orders - VAL COCHRAN Procedure Category Date Status Time Hydroxyzine Oral PHA 06/23/25 In Process (Vistaril Oral) 20:00 Date of Service: Jun 23, 2025 Billing Provider: JAMILA BANKS MD Common Visit Codes: [id number] INP/OBS CARE(HIGH) VAL COCHRAN Jun 23, 2025 17:18 JAMILA BANKS MD Jun 28, 2025 00:33
[2025-06-23] MEDS: hydrOXYzine HCL 10 MG TAB PO ONE (22:40)
[2025-06-24] VITALS (18 sets, daily range): BP systolic 113–135; BP diastolic 65–90; PULSE 88–110; RESP 16–22; TEMP 94.8–97.9; O2SAT 92–100
[2025-06-24 06:53] LABS: Protein, Urine 40.2 mg/dL (1-14)
[2025-06-24 07:45] LABS: Hematocrit 33.4 % (41.0-53.0); Hemoglobin 11.2 g/dL (13.5-17.5); Mean Corpuscular Hemoglobin 29.5 pg (28.0-32.0); Mean Corpuscular Volume 88.2 fL (80.0-100.0)
[2025-06-24 07:51] LABS: Anion Gap 11 (5-15); Carbon Dioxide 24 mmol/L (20-31); Chloride 104 mmol/L (98-107); Potassium 5.0 mmol/L (3.5-5.1); Sodium 139 mmol/L (136-145)
[2025-06-24 07:52] LABS: Calcium 10.1 mg/dL (8.7-10.4)
[2025-06-24 07:57] LABS: BUN/Creatinine Ratio 23.6 (10.0-20.0); Glucose 105 mg/dL (74-106)
[2025-06-24 07:58] LABS: Blood Urea Nitrogen 68 mg/dL (9-23); Magnesium 2.4 mg/dL (1.6-2.6)
[2025-06-24 08:08] LABS: INR 2.31 (0.9-1.15); Partial Thromboplastin Time 37.3 SEC (24.5-34.5); Prothrombin Time 22.5 sec (9.3-11.8)
[2025-06-24 09:06] LABS: Total Cells Counted 100.0 (100)
--- NOTE | 2025-06-24 11:17 | DVH ---
Indication: ABDOMINAL PAIN; SOB; COPD EXACERBATION Technique: CT axial images of the abdomen and pelvis are obtained without contrast. Coronal and sagit estrellita reformats were obtained. Radiation Dose Information: CTDI volume is 7.62 mGy. Dose-length product is 363 mGy*cm Comparison: None FINDINGS: There is limited interpretation of the abdomen and pelvis without administration of intravenous contr ast. Lung bases demonstrate bilateral pulmonary ground-glass attenuation. Bibasilar pulmonary airspace con solidation. Cardiomegaly. Distal esophageal distention. Adrenal glands unremarkable. Spleen measures 10.3 cm AP. Pancreas, liver unremarkable in shape. No CT evidence for cholelithiasis. Kidneys demonstrate no hydronephrosis. Left renal cyst measuring 1.9 cm. Stomach is partially distended. Small bowel loops are normal in caliber. Moderate to large volume stool within the colon. Normal appendix. Abdominal aortic atherosclerotic disease, tortuosity. Bladder partially distended. No free pelvic fl uid. No inguinal lymphadenopathy. Small bilateral fat containing inguinal hernias. Old posterior left rib fractures. Moderate to advanced thoracolumbar degenerative disc disease. Left gluteal region muscular atrophy. IMPRESSION: Limited evaluation without contrast. Bibasilar pulmonary airspace consolidation and ground-glass disease, likely secondary to infection /p neumonia. Follow-up to resolution. Other considerations include concomitant inflammatory, edematous etiologies. Moderate to large volume stool within the colon. Cardiomegaly. Atherosclerotic disease. Other findings as described.
--- NOTE | 2025-06-24 13:42 | ECG ---
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
[2025-06-24] MEDS: DOCUSATE SOD 100 MG CAP PO ONE (14:00)
[2025-06-24] MEDS: POLYETHYLENE GLYCOL 17 GM PWDR PO ONE (14:00)
[2025-06-24] MEDS: CARVEDILOL 3.125 MG TAB PO ONE (14:03)
--- NOTE | 2025-06-24 15:09 | DVHINCON2 ---
Date Seen: Jun 24, 2025 Referring Physician MD Jony resident Reason for Consultation Eval for severe MR History of Present Illness This is a 69-year-old male patient who presents to the emergency room with chief complaint of worsening shortness or breath over the last week. The patient pre sents with complaints of progressive shortness or breath and associated dyspnea on exertion as well as orthopnea. A twelve lead electrocardiogram done in the emergency room reveals normal sinus rhythm with first-degree conduction delay, nonspecific T-wave inversion to lateral leads (I and aVL), left ventricular hypertrophy and baseline wander. The patient denies any chest pain at time of assessment. Initial troponin level of 50ng/L with flat trend thereafter. Initial BNP level of 506.35pg/mL. Significant past medical history includes severe aortic stenosis status post open heart with mechanical aortic valve replacement (on warfarin therapy), congestive heart failure with mildly reduced EF, non-ischemic cardiomyopathy, severe mitral valve regurgitation, hypertension, hyperlipidemia, COPD, chronic kidney disease, type 2 diabetes mellitus, cerebrovascular accident with left-sided hemiparesis in 2002, history of hepatitis C, liver cirrhosis, chronic pain, remote history of drug use, and obesity. The patient states he follows up with a primary roadability machine operator at [facility] for which he has been undergoing evaluation for mitral clip. Past Medical History Past medical history reviewed. No other significant than mentioned above. Past Surgical History Mechanical aortic valve replacement at [facility] in 2003 Family History: Cardiovascular disease G8 MOTHER G8 FATHER G8 MOTHER Cardiovascular disease G8 MOTHER G8 FATHER G8 MOTHER Colon cancer G8 MOTHER, Diabetes mellitus G8 FATHER, G8 FATHER G8 FATHER Diabetes mellitus G8 FATHER, G8 FATHER G8 FATHER Diabetes mellitus G8 FATHER, G8 FATHER G8 FATHER FH: cancer G8 MOTHER, FH: colon cancer FH: heart disease G8 MOTHER, FH: kidney disease G8 MOTHER, Hypertension G8 MOTHER G8 FATHER G8 MOTHER G8 FATHER Hypertension G8 MOTHER G8 FATHER G8 MOTHER G8 FATHER Ischemic heart disease G8 MOTHER G8 FATHER Family History Family history reviewed. Social History Patient reports a prior history of illicit drug use, states been approximately 10 years since he last use any illicit drugs Patient denies any alcohol use Patient denies any tobacco use Allergies: Coded Allergies: Iodine (Verified Allergy, Unknown, 5/17/23) Iohexol (Verified Allergy, Unknown, 01/05/25) No Known Drug Allergy (Unverified Allergy, Unknown, 10/14/24) Home Meds Active Scripts Furosemide (Furosemide) 40 Mg Tab, 1 TAB PO DAILY for 30 Days, #30 TAB 5 Refills Prov:JESSICA DAHL [facility] [facility] 06/07/25 Ucuknjciqlu-Dihxnrhardfy-Vfqet (Trelegy Ellipta 100-62.5-25 Mcg/INH) 1 Aer Aer, 1 AER IN DAILY for 30 Days, #2 AER Prov:JESSICA DAHL [facility] 06/07/25 Furosemide (Furosemide) 40 Mg Tab, 1 TAB PO DAILY for 30 Days, #30 TAB 5 Refills Prov:JESSICA DAHL RESIDENT 06/07/25 Duajqzxurnh-Asscqeulbnhy-Oeelw (Trelegy Ellipta 100-62.5-25 Mcg/INH) 1 Aer Aer, 1 AER IN DAILY for 30 Days, #2 AER Prov:JESSICA DAHL RESIDENT 06/07/25 Sucralfate (CARAFATE) 1 Gm Tab, 1 GM OR DAILY for 7 Days, #7 TAB Prov:CELE VENITA Castaneda RESIDENT 11/06/24 Reported Medications Metoprolol Succinate (Metoprolol Succinate Er) 50 Mg Tab, 50 MG PO DAILY, TAB 11/06/24 Albuterol Sulfate (Albuterol Sulfate Hfa) 108 Mcg/Act Aer, 2 PUFF IN Q4-6HR PRN for 16 Days, #8.5 10/14/24 Glipizide (Glipizide) 5 Mg Tab, 1 TAB PO DAILY for 90 Days, #90 10/14/24 Ezetimibe (Zetia) 10 Mg Tab, 1 TAB PO DAILY for 90 Days, #90 10/14/24 Atorvastatin Calcium (Lipitor) 40 Mg Tab, 40 MG PO DAILY, TAB 08/31/24 Ascorbic Acid (VITAMIN C TABLET) 500 Mg Tb, 500 MG PO DAILY, TAB 07/20/24 Ferrous Sulfate (Ferosul) 325 Mg Tab, 1 TAB PO DAILY for 30 Days, #30 07/20/24 Insulin Glargine (Toujeo Solostar) 300 Unit/Ml Inj, 15 UNITS SC HS for 75 Days, #4.5 07/20/24 Amlodipine Besylate (NORVASC TABLET) 5 Mg Tb, 1 TAB PO DAILY, #30 TAB 5 Refills 06/27/24 Docusate Sodium (Colace) 100 Mg Cap, 1 CAP PO BID, #30 CAP 03/17/24 Warfarin Sodium (Warfarin Sodium) 3 Mg Tab, 1 TAB PO DAILY 03/14/24 Ipratropium [place] Hfa (Atrovent Hfa) 17 Mcg Aer, 2 PUFF INH Q6HR PRN for 75 Days, #38.7 01/20/24 Benazepril Hcl (Benazepril Hcl) 10 Mg Tab, 1 TAB PO DAILY for 90 Days, #90 01/20/24 Dapagliflozin Propanediol (Farxiga) 10 Mg Tab, 1 TAB PO DAILY for 90 Days, #90 01/20/24 Budesonide (Inhalation) (Budesonide) 0.5 Mg/2 Ml Janette, 0.5 MG IN QIDP 12/25/18 Beclomethasone Dipropionate (Qvar Redihaler) 40 Mcg/Act Aer, 40 MCG IN PRN PRN for SHORTNESS OF BREATH 12/24/18 Alprazolam (Alprazolam) 1 Mg Tab, 0.5 MG PO QPM PRN for ANXIETY Take 1/2 tablet (0.5 mg) by mouth at night as needed for anxiety 12/24/18 Fenofibrate (Tricor) 145 Mg Tab, 145 MG PO DAILY 11/14/10 Methocarbamol (Robaxin-750) 750 Mg Tab, 750 MG PO TID 11/14/10 Gabapentin (Neurontin) 600 Mg Tab, 600 MG PO TID 11/14/10 Home Meds Home medications reviewed. Current Medications Current Medications Medications (Trade) Dose Ordered Sig/Cynthia Route PRN Reason Start Time Stop Time Status Last Admin Warfarin Sodium (Coumadin Per Rx Protocol) RX PROTOCOL PER PHARMACY PO 06/24/25 08:30 Guaifenesin (Robitussin Plain Liquid) 200 mg Q4HP PRN PO FOR COUGH 06/24/25 10:15 Carvedilol (Coreg Tablet) 6.25 mg Q12HR PO 06/24/25 22:00 Docusate Sodium (Colace Capsule) 100 mg BID PO 06/24/25 22:00 UNV Review of Systems Constitutional: No symptom reported Ears, Nose, & Throat: No symptom reported Eyes: No symptom reported Neurological: No symptoms reported Pulmonary/Respiratory: Shortness of breath Cardiovascular: No symptom reported Gastrointestinal: No symptom reported Genitourinary: No symptom reported Musculoskeletal: No symptom reported Skin: No symptom reported Psychiatric: No symptom reported Endocrine: No symptom reported Hematologic/Lymphatic: No symptom reported Vital Signs Vital Signs Date Time Temp Pulse Resp B/P (MAP) Pulse Ox O2 Delivery O2 Flow Rate FiO2 06/24/25 14:03 104 133/76 06/24/25 11:20 18 94 4.0 36 06/24/25 08:30 97.3 97.3 06/24/25 08:00 Nasal Cannula* Physical Exam General Appearance: Cooperative. Well-developed. Well-nourished. No acute distress. Pulmonary/Respiratory: Expiratory wheeze. Cardiovascular/Chest: Regular rate and rhythm. Clicking sound Peripheral Pulses: 2+ Radial (R). 2+ Radial (L). 2+ Pedal (R). 2+ Pedal (L) Abdominal Exam: Normal bowel sounds. Ankle Exam: Negative ankle edema Lower extremities: Negative lower extremity edema Neuro/Mental Status: A/OX4, coherent. Thoughts/Psych: Normal thought pattern. Appropriate mood and affect. Good judgment and insight. Appearance: No acute distress. Skin Exam: Normal inspection. Normal color. Warm and dry. Labs/Diagnostic Data Labs Test 06/24/25 11:12 06/24/25 06:15 06/24/25 06:05 06/23/25 15:16 Range/Units D-Dimer, Quantitative 0.24 0.0-0.49 mg/L FEU POC Glucose 114 H 70-106 mg/dl Urine Creatinine 61.03 30.0-125.0 mg/dL Urine Protein/Creatinine Ratio 0.66 Urine Sodium 35 L 40-220 mmol/L Urine Total Protein 40.2 H 1-14 mg/dL White Blood Count 12.3 H 4.4-10.8 10^3/uL Red Blood Count 3.78 L 4.5-5.90 10^6/uL Hemoglobin 11.2 L 13.5-17.5 g/dL Hematocrit 33.4 L 41.0-53.0 % Mean Corpuscular Volume 88.2 80.0-100.0 fL Mean Corpuscular Hemoglobin 29.5 28.0-32.0 pg Mean Corpuscular Hemoglobin Concent 33.4 32.0-36.0 g/dL Red Cell Distribution Width 15.9 H 11.8-14.3 % Platelet Count 162 140-450 10^3/uL Mean Platelet Volume 8.0 6.9-10.8 fL Neutrophils (%) (Auto) 37.0-80.0 % Lymphocytes (%) (Auto) 10.0-50.0 % Monocytes (%) (Auto) 0.0-12.0 % Basophils (%) (Auto) 0.0-2.0 % Neutrophils # (Auto) 1.6-8.6 10 ^3/uL Lymphocytes # (Auto) 0.4-5.4 10 ^3/uL Monocytes # (Auto) 0-1.3 10 ^3/uL Differential Total Cells Counted 100.0 100 Neutrophils % (Manual) 93 H 37.0-80.0 Band Neutrophils % (Manual) 0 Lymphocytes % (Manual) 5 L 10.0-50.0 Monocytes % (Manual) 2 0-12 Eosinophils % (Manual) 0 0-7 Basophils % (Manual) 0 0.0-2.0 Metamyelocytes % (manual) 0 Myelocytes % (Manual) 0 Promyelocytes % (Manual) 0 Blast Cells % (Manual) 0 Reactive Lymphocytes 0 Platelet Estimate Adequate Clumped Platelets None Prothrombin Time 22.5 H 9.3-11.8 sec Prothrombin Time INR 2.31 H 0.9-1.15 Activated Partial Thromboplast Time 37.3 H 24.5-34.5 SEC Sodium Level 139 136-145 mmol/L Potassium Level 5.0 3.5-5.1 mmol/L Chloride Level 104 98-107 mmol/L Carbon Dioxide Level 24 20-31 mmol/L Anion Gap 11 5-15 Blood Urea Nitrogen 68 H 9-23 mg/dL Creatinine 2.88 H 0.700-1.30 mg/dL Glomerular Filtration Rate Calc 23 >90 mL/min BUN/Creatinine Ratio 23.6 H 10.0-20.0 Serum Glucose 105 74-106 mg/dL Calcium Level 10.1 8.7-10.4 mg/dL Magnesium Level 2.4 1.6-2.6 mg/dL Eosinophils (%) (Auto) 0.0 0.0-7.0 % Eosinophils # (Auto) 0 0-0.8 10 ^3/uL Basophils # (Auto) 0 0-0.2 10 ^3/uL Nucleated Red Blood Cells 0.1 % Troponin I High Sensitivity 57 *H </=54 ng/L Test 06/23/25 04:39 06/22/25 14:17 06/22/25 12:00 06/22/25 06:38 Range/Units B-Type Natriuretic Peptide 444.32 0-100 pg/mL Influenza Type A Antigen Negative Negative Influenza Type B Antigen Negative Negative SARS-CoV-2 Antigen (Rapid) Negative NEGATIVE Urine Opiates Screen Pos NEGATIVE Urine Fentanyl Screen Neg NEGATIVE Urine Barbiturates Screen Neg NEGATIVE Urine Phencyclidine Screen Neg NEGATIVE Urine Amphetamines Screen Neg NEGATIVE Urine Benzodiazepines Screen Pos NEGATIVE Urine Cocaine Screen Neg NEGATIVE Urine Cannabinoids Screen Neg NEGATIVE Total Bilirubin 1.0 0.2-1.0 mg/dL Aspartate Amino Transferase (AST) 16 13-40 U/L Alanine Aminotransferase (ALT) 17 7-40 U/L Alkaline Phosphatase 78 46-116 U/L Total Protein 6.5 5.7-8.2 g/dL Albumin 4.3 3.2-4.8 g/dL Test 06/21/25 15:20 Range/Units Urine Color Colorless Yellow Urine Clarity Clear Clear Urine pH 5.0 5.0-9.0 Urine Specific [place] 1.007 1.001-1.035 Urine Protein 1+ H Negative Urine Ketones Negative Negative Urine Blood 1+ H Negative /uL Urine Nitrite Negative Negative Urine Bilirubin Negative Negative Urine Urobilinogen Normal Negative mg/dL Urine Leukocyte Esterase Negative Negative /uL Urine RBC 2 0 - 3 /hpf Urine Microscopic WBC < 1 0-3 /HPF Urine Squamous Epithelial Cells None seen <5 /hpf Urine Bacteria None seen None Seen /hpf Urine Hyaline Casts Few 0 - 2 /lpf Urine Glucose Normal Normal mg/dL Microbiology Date/Time Source Procedure Growth Status 06/22/25 06:15 Nose MRSA Screen - Final Complete Assessment Acute on chronic decompensated HFrEF, NYHA class III NTSEMI, type II secondary to above Nonischemic cardiomyopathy Severe aortic stenosis status post open-heart with mechanical valve replacement (on warfarin therapy) Mitral valve/tricuspid valve regurgitation, moderate to severe degree Acute hypoxic respiratory failure secondary to pneumonia Pulmonary hypertension Hypertension Hyperlipidemia COPD Coby on CKD CVA with left-sided hemiparesis Obesity Plan/Recommendation We will continue with the following plan/recommendations (Dr. Virk): Case discussed with . Transthoracic echocardiogram from 06/02/2025 r eveals an EF of 30% with moderate to severe mitral insufficiency and moderate tricuspid regurgitation. Continue preload and afterload reduction as tolerated by patient blood pressures and renal function. Continue GDMT for HFrEF as renal function permits, avoid nephrotoxic agents. Maintain Coumadin levels at therapeutic range for an INR in between 2-3. Continue lipid lowering agent. ABX therapy per primary care team. Continue follow-up at [facility] with primary roadability machine operator as scheduled. If the patient is unable to tolerate aggressive preload and afterload reduction, and remains symptomatic, consider transfer to higher level of care for mitral clip evaluation. Thank you for allowing us to care for this patient. Please call with any questions or concerns. Critical care time spent: 44 minutes This medical document was created using an electronic medical record system with voice recognition software and computerized dictation system. Although this document has been carefully reviewed, there might still be some phonetic and typographical errors. Occasional wrong-word or ``sound-alike substitutions may have occurred due to the inherent limitations of voice recognition software. These areas are purely typographical due to imperfections of the software programs and do not reflect any compromise in the patient's medical care. Please read the chart carefully and recognize, using context, where these substitutions have occurred. Plan discussed with: Patient NYHA Physical activity limitations: Class3(Marked) ordinary (activity causes symtoms) Date of Service: Jun 24, 2025 Billing Provider: DAKOTAH CONROY Cardiology Common Codes: [id number] INP/OBS CARE (High) Cardiology Consultation Codes: [id number] CONSULT <45MIN DAKOTAH CONROY Jun 24, 2025 15:09
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
[2025-06-24] MEDS: WARFARIN SODIUM 1 MG TAB PO ONE (16:48)
--- NOTE | 2025-06-24 18:52 | DVHPNRES ---
Progress Note Date Seen: Jun 24, 2025 Resident Creating Document: VAL COCHRAN RESIDENT Medical Necessity Reason Pt with a Central, PICC or Fol: No Subjective Review of Systems Som Cosby is a 69-year-old male with a past medical history of diabetes type 2 for 5 years, HFrEF 30%, COPD on 2 L of home oxygen, CVA, asthma, CKD stage 4, aortic valve replacement on warfarin who came in with complaints of shortness of breath For the past 2 days. He has had not traveled recently, or had any sick contacts. His shortness of breath is associated with cough which is dry /no phlegm. Patient reports he has not had fever but had night sweats and chills. He complains that he can not lie flat on his bed and uses a recliner. Patient denies any chest pain, nausea vomiting. He reports he had to increase his oxygen from 2 L to 4 L and that he tried using his inhalers more frequently but it did not help. PMH: Diabetes type 2, HFrEF 30%, COPD @ home oxygen 2L, CVA, asthma, CKD stage 4 PSH: AVR Family History: Reviewed, noncontributory to the management of this case. Past Social History: The patient lives at home, smokes 3 cigarettes per day, denies alcohol or illicit drugs abuse. Home medication: Warfarin, Entresto, Lasix 20 mg b.i.d., hydralazine TDS, metoprolol, isosorbide dinitrate TDS, dapagliflozin allergies: none ROS: Patient was seen and examined by me at the bedside. Overnight events were reviewed. Patient still reports having shortness of breath. He also complains of chest tightness since today morning. Rest of the ROS is negative. Today we ordered an ECG, started nebulization of albuterol and ipratropium bromide, ordered methylprednisolone once a day, started him on antibiotics doxycycline 100 mg b.i.d. IV, started input-output charting, strict fluid restriction, USG abdomen, give him morphine and continued his [place] for pain management. We have also sent urinary sodium, urinary creatinine to protein ratio. Vitamin B 12 and vitamin-D repleted. since patient is on warfarin, PT INR was sent which were both high so we are holding off warfarin and started her on SCD. 06/23/2025 patient was seen and examined by me at the bedside. patient has back pain because of his spine which is 7/ 10. He still reports he has the shortness of breath and that he try the BiPAP machine for 1-1/2 hour yesterday but because of his anxiety could not continue it. We are giving him hydroxyzine seen HS while he takes the BiPAP. Patient complained of chest pain in the evening. EKG was normal at troponins were negative. We have stopped Lasix because his creatinine and BUN increasing. Rest of the ROS is negative 06/24/2025: Patient was seen and examined by me at the bedside. Overnight events were reviewed. Patient still complains of shortness of breath. Last night he tried the BiPAP but was unable to use it for long because of the anxiety. He said the hydroxyzine did not help. his INR came to 2.3 and warfarin has been resumed. We calculated the FENA which was 1.2. D-dimer was sent and CT chest/abdomen was done which showed bilateral lower lobe pneumonia. Patient also complained that he was not able to expectorate the cough so we gave guaifenesin 200 mg per orally once q.4. Plan is to transfer to higher level of care, [place] for mitral clip Objective vital signs Vital Sign Date Time Temp Pulse Resp B/P (MAP) Pulse Ox O2 Delivery O2 Flow Rate FiO2 06/24/25 17:30 97.6 101 20 127/78 (94) 96 97.6 06/24/25 11:20 4.0 36 06/24/25 08:00 Nasal Cannula* Total Intake and Output 06/23/25 06/23/25 06/24/25 15:00 23:00 07:00 Intake Total 580 ml 800 ml 500 ml Output Total 1800 ml 200 ml Balance 580 ml -1000 ml 300 ml medications Current Medications Medications Dose Ordered Sig/Cynthia Route Start Time Stop Time Status Last Admin Dose Admin Aspirin 81 mg DAILY PO 06/22/25 10:00 06/24/25 10:14 81 MG Atorvastatin Calcium 20 mg HS PO 06/21/25 22:00 06/23/25 22:17 20 MG Ipratropium [place] 0.5 mg Q4HPRN PRN NEB 06/21/25 16:30 06/22/25 02:04 0.5 MG Gabapentin 300 mg TID PO 06/21/25 22:00 06/24/25 14:03 300 MG Diagnostic Test (Pha) 1 strip ACHS 06/21/25 17:00 06/24/25 16:50 1 STRIP Insulin Human Regular ACHS SC 06/21/25 17:00 06/24/25 16:47 2 UNITS Dextrose 50 ml UD PRN IV 06/21/25 16:30 Sodium Chloride 10 ml Q8HR IV 06/21/25 22:00 06/24/25 14:03 10 ML Acetaminophen/ Hydrocodone Bitart 1 tab Q4HP PRN PO 06/21/25 16:30 06/24/25 15:29 1 TAB Ondansetron HCl 4 mg Q4HP PRN IV 06/21/25 16:30 Docusate Sodium 100 mg BIDPRN PRN PO 06/21/25 16:30 06/23/25 10:52 100 MG Acetaminophen 650 mg Q6HP PRN PO 06/21/25 16:30 Nitroglycerin 0.4 mg Q5MINP PRN SL 06/21/25 16:30 06/23/25 13:58 0.4 MG Morphine Sulfate 2 mg Q30M PRN IV 06/21/25 16:30 06/23/25 13:55 2 MG Albuterol 2.5 mg Q4HR NEB 06/22/25 10:00 06/24/25 15:06 2.5 MG Ipratropium [place] 0.5 mg Q4HR NEB 06/22/25 10:00 06/24/25 15:06 0.5 MG Methylprednisolone Sodium Succinate 40 mg DAILY IV 06/22/25 10:00 06/24/25 10:12 40 MG Pantoprazole Sodium 40 mg DAILY IV 06/22/25 10:00 06/24/25 10:12 40 MG Ergocalciferol 50,000 unit Q7D PO 06/22/25 08:15 06/22/25 10:12 50,000 UNIT Morphine Sulfate 1 mg Q4HP PRN IV 06/22/25 09:15 06/24/25 06:36 1 MG Doxycycline Hyclate 100 ml @ 50 mls/hr Q12H IV 06/22/25 10:15 06/24/25 10:15 50 MLS/HR Warfarin Sodium RX PROTOCOL PER PHARMACY PO 06/24/25 08:30 Guaifenesin 200 mg Q4HP PRN PO 06/24/25 10:15 06/24/25 15:28 200 MG Carvedilol 6.25 mg Q12HR PO 06/24/25 22:00 Docusate Sodium 100 mg BID PO 06/24/25 22:00 Isosorbide Mononitrate 30 mg DAILY PO 06/25/25 10:00 Examination General Appearance: Alert, Oriented X3, Cooperative, No acute distress HEENT: Atraumatic, PERRLA, EOMI, Mucous membr. moist/pink Respiratory: Normal air movement, presence of expiratory wheeze, presence of bibasilar crackles Cardiovascular: Regular rate, Normal S1, Normal S2, No murmurs Abdominal: Normal bowel sounds, Soft, No hepatospenomegaly, No masses, slightly distended, tenderness in all quadrants Extremities: No clubbing, No cyanosis, No edema, Normal pulses, No tenderness/swelling Skin: No rashes, No breakdown, No significant lesion Neuro: Normal speech, Normal tone, Sensation intact, Cranial nerves 3-12 NL, Reflexes 2+, Other (Generalized weakness) Psych/Mental Status: Mental status NL, Mood NL laboratory and microbiology Laboratory Tests 06/24/25 06:05 Test 06/24/25 06:05 Range/Units Serum Glucose 105 74-106 mg/dL Microbiology Date/Time Source Procedure Growth Status 06/22/25 06:15 Nose MRSA Screen - Final Complete Labs and/or images reviewed: Labs reviewed by me, Image(s) reviewed by me Problem List/Assessment/Plan Problem List/Assessment/Plan # Acute on chronic decompensated HFrEF, NYHA class III NTSEMI, type II secondary to above # Aortic valve replacement # Acute Chest pain, rule out ACS #Nonischemic cardiomyopathy #Severe aortic stenosis status post open-heart with mechanical valve replacement (on warfarin therapy) #Mitral valve/tricuspid valve regurgitation, moderate to severe degree #Acute hypoxic respiratory failure secondary to pneumonia #Pulmonary hypertension -BMP 506 -Troponin 59> 58 -ECG Sinus tachycardia -IV furosemide 40 mg -Strict input-output chart -Fluid restriction -USG abdomen- Trace right effusion. No ascites. -Morphine, [place] for pain management -PT INR 43.5, 4.79 -hold warfarin -BIPAP, for anxiety -hydroxyzine -Repeat ekg and troponins (06/23/2025) normal -Cardiac consultation suggested outpatient [facility],Continue follow-up at [facility] with primary preventative maintenance technician as scheduled for mitral clip #Acute exacerbation of COPD with pneumonitis #Pulmonary edema as seen on x-ray chest #Acute respiratory failure with hypoxia due to above -Nebulization ipratropium bromide and albuterol -Methylprednisolone once a day -Doxycycline 100 mg IV b.i.d. #SILVIA on CKD stage 4 -creatinine 2. 44, BUN 40 -Urine sodium, urine creatinine to protein ratio -Monitor labs # Diabetes mellitus type 2, uncontrolled - Hb1AC ordered - ISS # multi-drug abuse (benzodiazepine and opiate) -counseled regarding cessation #vitamin B12 deficiency -Repleted #vitamin-D deficiency -repleted # hyperlipidemia -Continue atorvastatin 20 mg #Obesity - Counseled regarding need of exercise, lifestyle modification GI prophylaxis: Protonix 40 mg IV daily DVT prophylaxis: SCD Diet: diabetic, cardiac diet Goals of care discussed with the patient for more than 27 minutes: Full code status Case discussed with patient and nurse. Plan is to transfer to higher level of [facility] for mitral clip Plan discussed with: Patient, Other (rn) My Orders My Orders Orders - VAL COCHRAN Procedure Category Date Status Time Warfarin Per Rx PHA 06/24/25 In Process Protocol (Coumadin 08:30 Guaifenesin Plain PHA 06/24/25 In Process Liquid (Robitussin [place] 10:15 Ct Ab Pel Wo Con-No CT 06/24/25 Resulted Oral Or Iv 10:15 Date of Service: Jun 24, 2025 Billing Provider: JAMILA BANKS MD Common Visit Codes: [id number] INP/OBS CARE(HIGH) VAL COCHRAN Jun 24, 2025 18:52 JAMILA BANKS MD Jun 28, 2025 00:43
[2025-06-24] MEDS: CARVEDILOL 3.125 MG TAB PO SCH (21:10)
[2025-06-24] MEDS: DOCUSATE SOD 100 MG CAP PO SCH (21:10)
[2025-06-25] VITALS (15 sets, daily range): BP systolic 126–139; BP diastolic 79–87; PULSE 79–96; RESP 16–28; TEMP 97.3–98.4; O2SAT 91–100
[2025-06-25 06:36] LABS: Hematocrit 33.5 % (41.0-53.0); Hemoglobin 11.5 g/dL (13.5-17.5); Mean Corpuscular Hemoglobin 29.8 pg (28.0-32.0); Mean Corpuscular Volume 86.9 fL (80.0-100.0); Nucleated Red Blood Cells % 0.0 %
[2025-06-25 06:38] LABS: INR 1.67 (0.9-1.15); Partial Thromboplastin Time 32.3 SEC (24.5-34.5); Prothrombin Time 16.8 sec (9.3-11.8)
[2025-06-25 06:43] LABS: Anion Gap 11 (5-15); Carbon Dioxide 24 mmol/L (20-31); Chloride 104 mmol/L (98-107); Potassium 5.1 mmol/L (3.5-5.1); Sodium 139 mmol/L (136-145)
[2025-06-25 06:44] LABS: Calcium 10.2 mg/dL (8.7-10.4)
[2025-06-25 06:49] LABS: Glucose 150 mg/dL (74-106)
[2025-06-25 06:51] LABS: BUN/Creatinine Ratio 30.3 (10.0-20.0); Blood Urea Nitrogen 81 mg/dL (9-23)
[2025-06-25] MEDS: POLYETHYLENE GLYCOL 17 GM PWDR PO ONE (08:30)
[2025-06-25 09:01] LABS: Iron 63.0 ug/dL (65-175)
[2025-06-25 09:04] LABS: Total Iron Binding Capacity 304.0 ug/dL (250-425)
[2025-06-25] MEDS: ISOSORBIDE MONONITRATE ER 60 MG TAB PO SCH (10:39)
--- NOTE | 2025-06-25 15:12 | DVHPNRES ---
Progress Note Date Seen: Jun 25, 2025 Resident Creating Document: VAL COCHRAN RESIDENT Medical Necessity Reason Pt with a Central, PICC or Fol: No Subjective Review of Systems Som Cosby is a 69-year-old male with a past medical history of diabetes type 2 for 5 years, HFrEF 30%, COPD on 2 L of home oxygen, CVA, asthma, CKD stage 4, aortic valve replacement on warfarin who came in with complaints of shortness of breath For the past 2 days. He has had not traveled recently, or had any sick contacts. His shortness of breath is associated with cough which is dry /no phlegm. Patient reports he has not had fever but had night sweats and chills. He complains that he can not lie flat on his bed and uses a recliner. Patient denies any chest pain, nausea vomiting. He reports he had to increase his oxygen from 2 L to 4 L and that he tried using his inhalers more frequently but it did not help. PMH: Diabetes type 2, HFrEF 30%, COPD @ home oxygen 2L, CVA, asthma, CKD stage 4 PSH: AVR Family History: Reviewed, noncontributory to the management of this case. Past Social History: The patient lives at home, smokes 3 cigarettes per day, denies alcohol or illicit drugs abuse. Home medication: Warfarin, Entresto, Lasix 20 mg b.i.d., hydralazine TDS, metoprolol, isosorbide dinitrate TDS, dapagliflozin allergies: none ROS: Patient was seen and examined by me at the bedside. Overnight events were reviewed. Patient still reports having shortness of breath. He also complains of chest tightness since today morning. Rest of the ROS is negative. Today we ordered an ECG, started nebulization of albuterol and ipratropium bromide, ordered methylprednisolone once a day, started him on antibiotics doxycycline 100 mg b.i.d. IV, started input-output charting, strict fluid restriction, USG abdomen, give him morphine and continued his [place] for pain management. We have also sent urinary sodium, urinary creatinine to protein ratio. Vitamin B 12 and vitamin-D repleted. since patient is on warfarin, PT INR was sent which were both high so we are holding off warfarin and started her on SCD. 06/23/2025 patient was seen and examined by me at the bedside. patient has back pain because of his spine which is 7/ 10. He still reports he has the shortness of breath and that he try the BiPAP machine for 1-1/2 hour yesterday but because of his anxiety could not continue it. We are giving him hydroxyzine seen HS while he takes the BiPAP. Patient complained of chest pain in the evening. EKG was normal at troponins were negative. We have stopped Lasix because his creatinine and BUN increasing. Rest of the ROS is negative 06/24/2025: Patient was seen and examined by me at the bedside. Overnight events were reviewed. Patient still complains of shortness of breath. Last night he tried the BiPAP but was unable to use it for long because of the anxiety. He said the hydroxyzine did not help. his INR came to 2.3 and warfarin has been resumed. We calculated the FENA which was 1.2. D-dimer was sent and CT chest/abdomen was done which showed bilateral lower lobe pneumonia. Patient also complained that he was not able to expectorate the cough so we gave guaifenesin 200 mg per orally once q.4. We consulted Cardiology regarding mitral clip and they have suggested outpatient follow up in [place]. 06/25/2025: Patient was seen and examined by me at the bedside. Patient complains of hemoptysis today. We are quantifying the amount of blood. Sputum culture has been sent today. Patient also complains that there was a streak of blood in his stool yesterday and today so we have sent out for stool occult blood. We stopped warfarin because of the bleed. His BUN is 81. We consulted cardio yesterday and pulmonology Dr. Saravia as well. We consulted Nephro regarding the possible need of hemodialysis as the patient is resistant to diuresis and still volume overloaded. We also consulted psychiatric social worker for higher level of care transfer to [place]. Objective vital signs Vital Sign Date Time Temp Pulse Resp B/P (MAP) Pulse Ox O2 Delivery O2 Flow Rate FiO2 06/25/25 13:00 98.1 91 20 138/87 (104) 95 98.1 06/25/25 10:23 Room Air* 0 21 Total Intake and Output 06/24/25 06/24/25 06/25/25 15:00 23:00 07:00 Intake Total 100 ml 900 ml 400 ml Output Total 950 ml Balance 100 ml 900 ml -550 ml medications Current Medications Medications Dose Ordered Sig/Cynthia Route Start Time Stop Time Status Last Admin Dose Admin Aspirin 81 mg DAILY PO 06/22/25 10:00 06/24/25 10:14 81 MG Atorvastatin Calcium 20 mg HS PO 06/21/25 22:00 06/24/25 21:10 20 MG Ipratropium [place] 0.5 mg Q4HPRN PRN NEB 06/21/25 16:30 06/22/25 02:04 0.5 MG Gabapentin 300 mg TID PO 06/21/25 22:00 06/25/25 13:33 300 MG Diagnostic Test (Pha) 1 strip ACHS 06/21/25 17:00 06/25/25 11:42 1 STRIP Insulin Human Regular ACHS SC 06/21/25 17:00 06/25/25 11:48 4 UNITS Dextrose 50 ml UD PRN IV 06/21/25 16:30 Sodium Chloride 10 ml Q8HR IV 06/21/25 22:00 06/25/25 05:40 10 ML Acetaminophen/ Hydrocodone Bitart 1 tab Q4HP PRN PO 06/21/25 16:30 06/25/25 13:24 1 TAB Ondansetron HCl 4 mg Q4HP PRN IV 06/21/25 16:30 Docusate Sodium 100 mg BIDPRN PRN PO 06/21/25 16:30 06/23/25 10:52 100 MG Acetaminophen 650 mg Q6HP PRN PO 06/21/25 16:30 Nitroglycerin 0.4 mg Q5MINP PRN SL 06/21/25 16:30 06/23/25 13:58 0.4 MG Morphine Sulfate 2 mg Q30M PRN IV 06/21/25 16:30 06/25/25 05:27 2 MG Albuterol 2.5 mg Q4HR NEB 06/22/25 10:00 06/25/25 10:23 2.5 MG Ipratropium [place] 0.5 mg Q4HR NEB 06/22/25 10:00 06/25/25 10:23 0.5 MG Methylprednisolone Sodium Succinate 40 mg DAILY IV 06/22/25 10:00 06/25/25 10:35 40 MG Pantoprazole Sodium 40 mg DAILY IV 06/22/25 10:00 06/25/25 10:41 40 MG Ergocalciferol 50,000 unit Q7D PO 06/22/25 08:15 06/22/25 10:12 50,000 UNIT Morphine Sulfate 1 mg Q4HP PRN IV 06/22/25 09:15 06/24/25 06:36 1 MG Doxycycline Hyclate 100 ml @ 50 mls/hr Q12H IV 06/22/25 10:15 06/25/25 10:41 50 MLS/HR Warfarin Sodium RX PROTOCOL PER PHARMACY PO 06/24/25 08:30 Hold Guaifenesin 200 mg Q4HP PRN PO 06/24/25 10:15 06/25/25 10:40 200 MG Carvedilol 6.25 mg Q12HR PO 06/24/25 22:00 06/25/25 10:38 6.25 MG Docusate Sodium 100 mg BID PO 06/24/25 22:00 06/25/25 10:39 100 MG Isosorbide Mononitrate 30 mg DAILY PO 06/25/25 10:00 06/25/25 10:39 30 MG Examination General Appearance: Alert, Oriented X3, Cooperative, in acute distress HEENT: Atraumatic, PERRLA, EOMI, Mucous membr. moist/pink Respiratory: Normal air movement, presence of expiratory wheeze, presence of bibasilar crackles Cardiovascular: Regular rate, Normal S1, Normal S2, No murmurs Abdominal: Normal bowel sounds, Soft, No hepatospenomegaly, No masses, distended, tenderness in all quadrants, more in the epigastric region Extremities: No clubbing, No cyanosis, No edema, Normal pulses, No tenderness/swelling Skin: No rashes, No breakdown, No significant lesion Neuro: Normal speech, Normal tone, Sensation intact, Cranial nerves 3-12 NL, Reflexes 2+, Other (Generalized weakness) Psych/Mental Status: Mental status NL, Mood NL laboratory and microbiology Laboratory Tests 06/25/25 05:01 Test 06/25/25 05:01 Range/Units Serum Glucose 150 H 74-106 mg/dL Microbiology Date/Time Source Procedure Growth Status 06/22/25 06:15 Nose MRSA Screen - Final Complete Labs and/or images reviewed: Labs reviewed by me, Image(s) reviewed by me Problem List/Assessment/Plan Problem List/Assessment/Plan # Acute on chronic decompensated HFrEF, NYHA class III NTSEMI, type II secondary to above # Aortic valve replacement # Acute Chest pain, rule out ACS #Nonischemic cardiomyopathy #Severe aortic stenosis status post open-heart with mechanical valve replacement (on warfarin therapy) #Mitral valve/tricuspid valve regurgitation, moderate to severe degree #Acute hypoxic respiratory failure secondary to pneumonia #Pulmonary hypertension -BMP 506 -Troponin 59> 58 -ECG Sinus tachycardia -IV furosemide 40 mg -Strict input-output chart -Fluid restriction -USG abdomen- Trace right effusion. No ascites. -Morphine, [place] for pain management -PT INR 43.5, 4.79 -hold warfarin -BIPAP, for anxiety -hydroxyzine -Repeat ekg and troponins (06/23/2025) normal -Cardiac consultation suggested outpatient [facility],Continue follow-up at [facility] with primary ore dressing engineer as scheduled for mitral clip -nephrology consultation for possible hemodialysis as patient is not improving with diuresis and is still volume overloaded, pending #Acute exacerbation of COPD with pneumonitis #Pulmonary edema as seen on x-ray chest #Acute respiratory failure with hypoxia due to above #hemoptysis -Nebulization ipratropium bromide and albuterol -Methylprednisolone once a day stopped today 06/25/2025 and Prednisolone 20 mg b.i.d. per oral for 5 days begun today 06/25/2025 -Doxycycline 100 mg IV b.i.d. -quantifying amount of hemoptysis #SILVIA on CKD stage 4 -creatinine 2. 44, BUN 40 -Urine sodium, urine creatinine to protein ratio; feNa>2 -Monitor labs # Diabetes mellitus type 2, uncontrolled - Hb1AC ordered - ISS # multi-drug abuse (benzodiazepine and opiate) -counseled regarding cessation #vitamin B12 deficiency -Repleted #vitamin-D deficiency -repleted # hyperlipidemia -Continue atorvastatin 20 mg #Obesity - Counseled regarding need of exercise, lifestyle modification GI prophylaxis: Protonix 40 mg IV daily DVT prophylaxis: SCD Diet: diabetic, cardiac diet Goals of care discussed with the patient for more than 27 minutes: Full code status Case discussed with patient and nurse. Plan is to transfer to higher level of care, [place] for mitral clip Plan discussed with: Patient, Other (rn) My Orders My Orders Orders - VAL COCHRAN RESIDENT Procedure Category Date Status Time *Dr. [facility] CONS 8/1/25 Transmitted -[place] 13:13 Mrsa Screen MARIE 06/25/25 In Process 14:03 Prothrombin Time W/ LAB 06/26/25 Verified INR 04:00 Complete Blood Count LAB 06/26/25 Verified 04:00 Coumadin Per Pharmacy VIJAY 06/25/25 In Process Protcol 17:00 Date of Service: Jun 25, 2025 Billing Provider: JAMILA BANKS MD Common Visit Codes: [id number] INP/OBS CARE(HIGH) VAL COCHRAN RESIDENT Jun 25, 2025 15:12 JAMILA BANKS MD Jun 28, 2025 00:45
--- NOTE | 2025-06-25 17:20 | DVHINCON2 ---
VENITA VILLAR RESIDENT 06/25/25 1720: Date of service: Jun 25, [address] Borges Reason for Consultation hemoptysis History of Present Illness This is a 69-year-old male with a PMHx of diabetes mellitus, hyperlipidemia, heart failure with reduced ejection fraction (last EF 30%), COPD (on 2% O2 at baseline), prior CVA without residual deficits, CKD stage 4, and aortic valve replacement. This is his second admission for worsening shortness of breath, now accompanied by a dry cough and, over the past 2 days, new-onset blood-tinged sputum. He denies fevers, chills, or night sweats. He endorses orthopnea and paroxysmal nocturnal dyspnea. He has occasional atypical chest pain, not clearly exertional. Cardiac Workup: Recent echocardiogram shows EF 30%, kcbdogjg-it-rjuggj mitral regurgitation, moderate tricuspid regurgitation, and echogenicity at the aortic level with no clear prosthetic dysfunction. There is also evidence of moderate mitral annular calcification. Cardiology believes the mitral regurgitation is the main contributor to his symptoms and recommends transfer to a tertiary care center for further evaluation and potential surgical or percutaneous intervention. Pulmonary Workup: Chest CT shows mild cardiomegaly, mild interstitial and alveolar pulmonary edema, and patchy ground-glass opacities consistent with alveolar edema. No obvious signs of infection. No pleural effusions or masses. Past Pulmonary Hx: Ex-smoker, quit 20 years ago. Formerly followed by dry cleaning checker Dr. Moffett for COPD. Other Relevant PMHx: CKD stage 4 with declining renal function aortic valve replacement Diabetes mellitus Hyperlipidemia Stroke (without residual deficits) Social History: Former smoker, quit 20 years ago. No alcohol or illicit drug use. Family History: Cardiovascular disease G8 MOTHER G8 FATHER G8 MOTHER Cardiovascular disease G8 MOTHER G8 FATHER G8 MOTHER Colon cancer G8 MOTHER, Diabetes mellitus G8 FATHER, G8 FATHER G8 FATHER Diabetes mellitus G8 FATHER, G8 FATHER G8 FATHER Diabetes mellitus G8 FATHER, G8 FATHER G8 FATHER FH: cancer G8 MOTHER, FH: colon cancer FH: heart disease G8 MOTHER, FH: kidney disease G8 MOTHER, Hypertension G8 MOTHER G8 FATHER G8 MOTHER G8 FATHER Hypertension G8 MOTHER G8 FATHER G8 MOTHER G8 FATHER Ischemic heart disease G8 MOTHER G8 FATHER Allergies: Coded Allergies: Iodine (Verified Allergy, Unknown, 04/10/23) Iohexol (Verified Allergy, Unknown, 01/05/25) No Known Drug Allergy (Unverified Allergy, Unknown, 10/14/24) Home Meds Active Scripts Furosemide (Furosemide) 40 Mg Tab, 1 TAB PO DAILY for 30 Days, #30 TAB 5 Refills Prov:JESSICA DAHL RESIDENT 06/07/25 Mokmwioxpmt-Xjdmuwlirpfx-Gmhnw (Trelegy Ellipta 100-62.5-25 Mcg/INH) 1 Aer Aer, 1 AER IN DAILY for 30 Days, #2 AER Prov:JESSICA DAHL RESIDENT 06/07/25 Furosemide (Furosemide) 40 Mg Tab, 1 TAB PO DAILY for 30 Days, #30 TAB 5 Refills Prov:JESSICA DAHL RESIDENT 06/07/25 Puulhvmkvur-Kfmitgfupzzr-Khywt (Trelegy Ellipta 100-62.5-25 Mcg/INH) 1 Aer Aer, 1 AER IN DAILY for 30 Days, #2 AER Prov:JESSICA DAHL RESIDENT 06/07/25 Sucralfate (CARAFATE) 1 Gm Tab, 1 GM OR DAILY for 7 Days, #7 TAB Prov:VENITA VILLAR RESIDENT 11/06/24 Reported Medications Metoprolol Succinate (Metoprolol Succinate Er) 50 Mg Tab, 50 MG PO DAILY, TAB 11/06/24 Albuterol Sulfate (Albuterol Sulfate Hfa) 108 Mcg/Act Aer, 2 PUFF IN Q4-6HR PRN for 16 Days, #8.5 10/14/24 Glipizide (Glipizide) 5 Mg Tab, 1 TAB PO DAILY for 90 Days, #90 10/14/24 Ezetimibe (Zetia) 10 Mg Tab, 1 TAB PO DAILY for 90 Days, #90 10/14/24 Atorvastatin Calcium (Lipitor) 40 Mg Tab, 40 MG PO DAILY, TAB 08/31/24 Ascorbic Acid (VITAMIN C TABLET) 500 Mg Tb, 500 MG PO DAILY, TAB 07/20/24 Ferrous Sulfate (Ferosul) 325 Mg Tab, 1 TAB PO DAILY for 30 Days, #30 07/20/24 Insulin Glargine (Toujeo Solostar) 300 Unit/Ml Inj, 15 UNITS SC HS for 75 Days, #4.5 07/20/24 Amlodipine Besylate (NORVASC TABLET) 5 Mg Tb, 1 TAB PO DAILY, #30 TAB 5 Refills 06/27/24 Docusate Sodium (Colace) 100 Mg Cap, 1 CAP PO BID, #30 CAP 03/17/24 Warfarin Sodium (Warfarin Sodium) 3 Mg Tab, 1 TAB PO DAILY 03/14/24 Ipratropium [place] Hfa (Atrovent Hfa) 17 Mcg Aer, 2 PUFF INH Q6HR PRN for 75 Days, #38.7 01/20/24 Benazepril Hcl (Benazepril Hcl) 10 Mg Tab, 1 TAB PO DAILY for 90 Days, #90 01/20/24 Dapagliflozin Propanediol (Farxiga) 10 Mg Tab, 1 TAB PO DAILY for 90 Days, #90 01/20/24 Budesonide (Inhalation) (Budesonide) 0.5 Mg/2 Ml Janette, 0.5 MG IN QIDP 12/25/18 Beclomethasone Dipropionate (Qvar Redihaler) 40 Mcg/Act Aer, 40 MCG IN PRN PRN for SHORTNESS OF BREATH 12/24/18 Alprazolam (Alprazolam) 1 Mg Tab, 0.5 MG PO QPM PRN for ANXIETY Take 1/2 tablet (0.5 mg) by mouth at night as needed for anxiety 12/24/18 Fenofibrate (Tricor) 145 Mg Tab, 145 MG PO DAILY 11/14/10 Methocarbamol (Robaxin-750) 750 Mg Tab, 750 MG PO TID 11/14/10 Gabapentin (Neurontin) 600 Mg Tab, 600 MG PO TID 11/14/10 Current Medications Current Medications Medications (Trade) Dose Ordered Sig/Cynthia Route PRN Reason Start Time Stop Time Status Last Admin Carvedilol (Coreg Tablet) 6.25 mg Q12HR PO 06/24/25 22:00 06/25/25 10:38 Docusate Sodium (Colace Capsule) 100 mg BID PO 06/24/25 22:00 06/25/25 10:39 Isosorbide Mononitrate (Imdur Er Tablet) 30 mg DAILY PO 06/25/25 10:00 06/25/25 10:39 Vital Signs Vital Signs Date Time Temp Pulse Resp B/P (MAP) Pulse Ox O2 Delivery O2 Flow Rate FiO2 06/25/25 17:00 98.4 87 16 127/79 (95) 92 98.4 06/25/25 10:23 Room Air* 0 21 Physical Exam General: Elderly male, alert, NAD HEENT: Normocephalic, no JVD CV: Regular rate and rhythm, holosystolic murmur at apex, no rubs or gallops Pulm: Decreased breath sounds bilaterally, fine crackles at bases Abd: Soft, non-tender, no HSM Ext: No edema Neuro: A&O x3, no focal deficits Skin: Warm, dry, no lesions Labs/Diagnostic Data Labs Test 06/25/25 11:00 06/25/25 05:32 06/25/25 05:01 06/24/25 11:12 Range/Units Stool Occult Blood Negative Negative Stool Occult Blood Sample #3 Negative POC Glucose 161 H 70-106 mg/dl White Blood Count 11.6 H 4.4-10.8 10^3/uL Red Blood Count 3.86 L 4.5-5.90 10^6/uL Hemoglobin 11.5 L 13.5-17.5 g/dL Hematocrit 33.5 L 41.0-53.0 % Mean Corpuscular Volume 86.9 80.0-100.0 fL Mean Corpuscular Hemoglobin 29.8 28.0-32.0 pg Mean Corpuscular Hemoglobin Concent 34.3 32.0-36.0 g/dL Red Cell Distribution Width 15.2 H 11.8-14.3 % Platelet Count 180 140-450 10^3/uL Mean Platelet Volume 8.1 6.9-10.8 fL Neutrophils (%) (Auto) 91.7 H 37.0-80.0 % Lymphocytes (%) (Auto) 5.0 L 10.0-50.0 % Monocytes (%) (Auto) 3.2 0.0-12.0 % Eosinophils (%) (Auto) 0.0 0.0-7.0 % Basophils (%) (Auto) 0.1 0.0-2.0 % Neutrophils # (Auto) 10.6 H 1.6-8.6 10 ^3/uL Lymphocytes # (Auto) 0.6 0.4-5.4 10 ^3/uL Monocytes # (Auto) 0.4 0-1.3 10 ^3/uL Eosinophils # (Auto) 0 0-0.8 10 ^3/uL Basophils # (Auto) 0 0-0.2 10 ^3/uL Nucleated Red Blood Cells 0.0 % Prothrombin Time 16.8 H 9.3-11.8 sec Prothrombin Time INR 1.67 H 0.9-1.15 Activated Partial Thromboplast Time 32.3 24.5-34.5 SEC Sodium Level 139 136-145 mmol/L Potassium Level 5.1 3.5-5.1 mmol/L Chloride Level 104 98-107 mmol/L Carbon Dioxide Level 24 20-31 mmol/L Anion Gap 11 5-15 Blood Urea Nitrogen 81 #*H 9-23 mg/dL Creatinine 2.67 H 0.700-1.30 mg/dL Glomerular Filtration Rate Calc 25 >90 mL/min BUN/Creatinine Ratio 30.3 H 10.0-20.0 Serum Glucose 150 H 74-106 mg/dL Calcium Level 10.2 8.7-10.4 mg/dL Iron Level 63 L 65-175 ug/dL Total Iron Binding Capacity 304 250-425 ug/dL Percent Iron Saturation 20.7 20-55 % Ferritin 137.2 22-322 ng/mL D-Dimer, Quantitative 0.24 0.0-0.49 mg/L FEU Test 06/24/25 06:15 06/24/25 06:05 06/23/25 15:16 06/23/25 04:39 Range/Units Urine Creatinine 61.03 30.0-125.0 mg/dL Urine Protein/Creatinine Ratio 0.66 Urine Sodium 35 L 40-220 mmol/L Urine Total Protein 40.2 H 1-14 mg/dL Differential Total Cells Counted 100.0 100 Neutrophils % (Manual) 93 H 37.0-80.0 Band Neutrophils % (Manual) 0 Lymphocytes % (Manual) 5 L 10.0-50.0 Monocytes % (Manual) 2 0-12 Eosinophils % (Manual) 0 0-7 Basophils % (Manual) 0 0.0-2.0 Metamyelocytes % (manual) 0 Myelocytes % (Manual) 0 Promyelocytes % (Manual) 0 Blast Cells % (Manual) 0 Reactive Lymphocytes 0 Platelet Estimate Adequate Clumped Platelets None Magnesium Level 2.4 1.6-2.6 mg/dL Troponin I High Sensitivity 57 *H </=54 ng/L B-Type Natriuretic Peptide 444.32 0-100 pg/mL Test 06/22/25 14:17 06/22/25 12:00 06/22/25 06:38 06/21/25 15:20 Range/Units Influenza Type A Antigen Negative Negative Influenza Type B Antigen Negative Negative SARS-CoV-2 Antigen (Rapid) Negative NEGATIVE Urine Opiates Screen Pos NEGATIVE Urine Fentanyl Screen Neg NEGATIVE Urine Barbiturates Screen Neg NEGATIVE Urine Phencyclidine Screen Neg NEGATIVE Urine Amphetamines Screen Neg NEGATIVE Urine Benzodiazepines Screen Pos NEGATIVE Urine Cocaine Screen Neg NEGATIVE Urine Cannabinoids Screen Neg NEGATIVE Total Bilirubin 1.0 0.2-1.0 mg/dL Aspartate Amino Transferase (AST) 16 13-40 U/L Alanine Aminotransferase (ALT) 17 7-40 U/L Alkaline Phosphatase 78 46-116 U/L Total Protein 6.5 5.7-8.2 g/dL Albumin 4.3 3.2-4.8 g/dL Urine Color Colorless Yellow Urine Clarity Clear Clear Urine pH 5.0 5.0-9.0 Urine Specific [place] 1.007 1.001-1.035 Urine Protein 1+ H Negative Urine Ketones Negative Negative Urine Blood 1+ H Negative /uL Urine Nitrite Negative Negative Urine Bilirubin Negative Negative Urine Urobilinogen Normal Negative mg/dL Urine Leukocyte Esterase Negative Negative /uL Urine RBC 2 0 - 3 /hpf Urine Microscopic WBC < 1 0-3 /HPF Urine Squamous Epithelial Cells None seen <5 /hpf Urine Bacteria None seen None Seen /hpf Urine Hyaline Casts Few 0 - 2 /lpf Urine Glucose Normal Normal mg/dL Microbiology Date/Time Source Procedure Growth Status 06/22/25 06:15 Nose MRSA Screen - Final Complete Assessment HFrEF with severe MR and TR symptomatic Hemoptysis new onset CKD stage 4 worsening renal function COPD stable Aortic valve no dysfunction on echo DM, HLD, CVA chronic, stable Plan/Recommendation Continue diuresis as clinically appropriate for CHF. Pending possible transfer for [facility] Monitor sputum volume and appearance Hold bronchoscopy unless hemoptysis worsens or volume increases. Maintain baseline COPD inhalers; continue low dose steroids, continue AB Re-evaluate if respiratory status changes or new symptoms develop. Case discussed with Dr Jacinto Plan discussed with: Patient, Other (rn) MARIANN JACINTO MD 06/25/25 2250: Family History: Cardiovascular disease G8 MOTHER G8 FATHER G8 MOTHER Cardiovascular disease G8 MOTHER G8 FATHER G8 MOTHER Colon cancer G8 MOTHER, Diabetes mellitus G8 FATHER, G8 FATHER G8 FATHER Diabetes mellitus G8 FATHER, G8 FATHER G8 FATHER Diabetes mellitus G8 FATHER, G8 FATHER G8 FATHER FH: cancer G8 MOTHER, FH: colon cancer FH: heart disease G8 MOTHER, FH: kidney disease G8 MOTHER, Hypertension G8 MOTHER G8 FATHER G8 MOTHER G8 FATHER Hypertension G8 MOTHER G8 FATHER G8 MOTHER G8 FATHER Ischemic heart disease G8 MOTHER G8 FATHER Allergies: Coded Allergies: Iodine (Verified Allergy, Unknown, 04/10/23) Iohexol (Verified Allergy, Unknown, 01/05/25) No Known Drug Allergy (Unverified Allergy, Unknown, 10/14/24) Home Meds Active Scripts Furosemide (Furosemide) 40 Mg Tab, 1 TAB PO DAILY for 30 Days, #30 TAB 5 Refills Prov:LOUANN WhitfieldJESSICA RESIDENT 06/07/25 Vzdelazvelc-Xaxsdmubrcyg-Lskjm (Trelegy Ellipta 100-62.5-25 Mcg/INH) 1 Aer Aer, 1 AER IN DAILY for 30 Days, #2 AER Prov:[facility] 06/07/25 Furosemide (Furosemide) 40 Mg Tab, 1 TAB PO DAILY for 30 Days, #30 TAB 5 Refills Prov:[facility] 06/07/25 Ftutgipylbz-Fqjpcuusobcq-Itdne (Trelegy Ellipta 100-62.5-25 Mcg/INH) 1 Aer Aer, 1 AER IN DAILY for 30 Days, #2 AER Prov:LOUANN WhitfieldJESSICA RESIDENT 06/07/25 Sucralfate (CARAFATE) 1 Gm Tab, 1 GM OR DAILY for 7 Days, #7 TAB Prov:VENITA VILLAR RESIDENT 11/06/24 Reported Medications Metoprolol Succinate (Metoprolol Succinate Er) 50 Mg Tab, 50 MG PO DAILY, TAB 11/06/24 Albuterol Sulfate (Albuterol Sulfate Hfa) 108 Mcg/Act Aer, 2 PUFF IN Q4-6HR PRN for 16 Days, #8.5 10/14/24 Glipizide (Glipizide) 5 Mg Tab, 1 TAB PO DAILY for 90 Days, #90 10/14/24 Ezetimibe (Zetia) 10 Mg Tab, 1 TAB PO DAILY for 90 Days, #90 10/14/24 Atorvastatin Calcium (Lipitor) 40 Mg Tab, 40 MG PO DAILY, TAB 08/31/24 Ascorbic Acid (VITAMIN C TABLET) 500 Mg Tb, 500 MG PO DAILY, TAB 07/20/24 Ferrous Sulfate (Ferosul) 325 Mg Tab, 1 TAB PO DAILY for 30 Days, #30 07/20/24 Insulin Glargine (Toujeo Solostar) 300 Unit/Ml Inj, 15 UNITS SC HS for 75 Days, #4.5 07/20/24 Amlodipine Besylate (NORVASC TABLET) 5 Mg Tb, 1 TAB PO DAILY, #30 TAB 5 Refills 06/27/24 Docusate Sodium (Colace) 100 Mg Cap, 1 CAP PO BID, #30 CAP 03/17/24 Warfarin Sodium (Warfarin Sodium) 3 Mg Tab, 1 TAB PO DAILY 03/14/24 Ipratropium [place] Hfa (Atrovent Hfa) 17 Mcg Aer, 2 PUFF INH Q6HR PRN for 75 Days, #38.7 01/20/24 Benazepril Hcl (Benazepril Hcl) 10 Mg Tab, 1 TAB PO DAILY for 90 Days, #90 01/20/24 Dapagliflozin Propanediol (Farxiga) 10 Mg Tab, 1 TAB PO DAILY for 90 Days, #90 01/20/24 Budesonide (Inhalation) (Budesonide) 0.5 Mg/2 Ml Janette, 0.5 MG IN QIDP 12/25/18 Beclomethasone Dipropionate (Qvar Redihaler) 40 Mcg/Act Aer, 40 MCG IN PRN PRN for SHORTNESS OF BREATH 12/24/18 Alprazolam (Alprazolam) 1 Mg Tab, 0.5 MG PO QPM PRN for ANXIETY Take 1/2 tablet (0.5 mg) by mouth at night as needed for anxiety 12/24/18 Fenofibrate (Tricor) 145 Mg Tab, 145 MG PO DAILY 11/14/10 Methocarbamol (Robaxin-750) 750 Mg Tab, 750 MG PO TID 11/14/10 Gabapentin (Neurontin) 600 Mg Tab, 600 MG PO TID 11/14/10 VENITA VILLAR Jun 25, 2025 17:20 MARIANN JACINTO MD Jun 25, 2025 22:50
--- NOTE | 2025-06-25 17:44 | DVHPN2 ---
Consult Progress Note Subjective Other Systems: *Late entry Patient physically seen and examined at 1125am Patient in normal sinus rhythm at time of assessment Objective vital signs Vital Sign Date Time Temp Pulse Resp B/P (MAP) Pulse Ox O2 Delivery O2 Flow Rate FiO2 06/25/25 17:00 98.4 87 16 127/79 (95) 92 98.4 06/25/25 10:23 Room Air* 0 21 Total Intake and Output 06/24/25 06/24/25 06/25/25 15:00 23:00 07:00 Intake Total 100 ml 900 ml 400 ml Output Total 950 ml Balance 100 ml 900 ml -550 ml medications Current Medications Medications Dose Ordered Sig/Cynthia Route Start Time Stop Time Status Last Admin Dose Admin Aspirin 81 mg DAILY PO 06/22/25 10:00 06/24/25 10:14 81 MG Atorvastatin Calcium 20 mg HS PO 06/21/25 22:00 06/24/25 21:10 20 MG Ipratropium [place] 0.5 mg Q4HPRN PRN NEB 06/21/25 16:30 06/22/25 02:04 0.5 MG Gabapentin 300 mg TID PO 06/21/25 22:00 06/25/25 13:33 300 MG Diagnostic Test (Pha) 1 strip ACHS 06/21/25 17:00 06/25/25 17:25 1 STRIP Insulin Human Regular ACHS SC 06/21/25 17:00 06/25/25 17:33 3 UNITS Dextrose 50 ml UD PRN IV 06/21/25 16:30 Sodium Chloride 10 ml Q8HR IV 06/21/25 22:00 06/25/25 14:00 10 ML Acetaminophen/ Hydrocodone Bitart 1 tab Q4HP PRN PO 06/21/25 16:30 06/25/25 13:24 1 TAB Ondansetron HCl 4 mg Q4HP PRN IV 06/21/25 16:30 Docusate Sodium 100 mg BIDPRN PRN PO 06/21/25 16:30 06/23/25 10:52 100 MG Acetaminophen 650 mg Q6HP PRN PO 06/21/25 16:30 Nitroglycerin 0.4 mg Q5MINP PRN SL 06/21/25 16:30 06/23/25 13:58 0.4 MG Morphine Sulfate 2 mg Q30M PRN IV 06/21/25 16:30 8/1/25 05:27 2 MG Albuterol 2.5 mg Q4HR NEB 06/22/25 10:00 06/25/25 10:23 2.5 MG Ipratropium [place] 0.5 mg Q4HR NEB 06/22/25 10:00 06/25/25 10:23 0.5 MG Pantoprazole Sodium 40 mg DAILY IV 06/22/25 10:00 06/25/25 10:41 40 MG Ergocalciferol 50,000 unit Q7D PO 06/22/25 08:15 06/22/25 10:12 50,000 UNIT Morphine Sulfate 1 mg Q4HP PRN IV 06/22/25 09:15 06/24/25 06:36 1 MG Doxycycline Hyclate 100 ml @ 50 mls/hr Q12H IV 06/22/25 10:15 06/25/25 10:41 50 MLS/HR Warfarin Sodium RX PROTOCOL PER PHARMACY PO 06/24/25 08:30 Hold Guaifenesin 200 mg Q4HP PRN PO 06/24/25 10:15 06/25/25 10:40 200 MG Carvedilol 6.25 mg Q12HR PO 06/24/25 22:00 06/25/25 10:38 6.25 MG Docusate Sodium 100 mg BID PO 06/24/25 22:00 06/25/25 10:39 100 MG Isosorbide Mononitrate 30 mg DAILY PO 06/25/25 10:00 06/25/25 10:39 30 MG Prednisone 20 mg BID PO 06/25/25 22:00 06/30/25 12:00 Examination: GENERAL:Normal, LUNGS:Abnormal (Diminished bilateral lower lobes), CVS:Normal, NEURO:Normal laboratory and microbiology Laboratory Tests 06/25/25 05:01 Test 06/25/25 05:01 Range/Units Serum Glucose 150 H 74-106 mg/dL Problem List/Assessment/Plan Problem List/Assessment/Plan Acute on chronic decompensated HFrEF, NYHA class III NTSEMI, type II secondary to above Nonischemic cardiomyopathy Severe aortic stenosis status post open-heart with mechanical valve replacement (on warfarin therapy) Mitral valve/tricuspid valve regurgitation, moderate to severe degree Acute hypoxic respiratory failure secondary to pneumonia Pulmonary hypertension Hypertension Hyperlipidemia COPD Coby on CKD History of CVA Obesity Plan/Recommendation (Dr. Virk): Case discussed with . Transthoracic echocardiogram from 06/02/2025 reveals an EF of 30% with moderate to severe mitral insufficiency and moderate tricuspid regurgitation. Continue preload and afterload reduction as tolerated by patient blood pressures and renal function. Continue GDMT for HFrEF as renal function permits, avoid nephrotoxic agents. Maintain Coumadin levels at therapeutic range for an INR in between 2-3. Continue lipid lowering agent. If the patient is unable to tolerate aggressive preload and afterload reduction, and remains symptomatic, consider transfer to higher level of care for mitral clip evaluation. Nephrology consult and recommendations pending. Thank you for allowing us to care for this patient. Please call with any questions or concerns. This medical document was created using an electronic medical record system with voice recognition software and computerized dictation system. Although this document has been carefully reviewed, there might still be some phonetic and typographical errors. Occasional wrong-word or ``sound-alike substitutions may have occurred due to the inherent limitations of voice recognition software. These areas are purely typographical due to imperfections of the software programs and do not reflect any compromise in the patient's medical care. Please read the chart carefully and recognize, using context, where these substitutions have occurred. Plan discussed with: Patient Date of Service: Jun 25, 2025 Billing Provider: DAKOTAH CONROY Common Visit Codes: [id number] INP/OBS CARE(HIGH) DAKOTAH CONROY Jun 25, 2025 17:44
[2025-06-25 18:09] LABS: Hematocrit 36.1 % (41.0-53.0); Hemoglobin 12.1 g/dL (13.5-17.5); Mean Corpuscular Hemoglobin 29.2 pg (28.0-32.0); Mean Corpuscular Volume 87.5 fL (80.0-100.0); Nucleated Red Blood Cells % 0.1 %
[2025-06-25] MEDS: predniSONE 20 MG TAB PO SCH (21:35)
--- NOTE | 2025-06-25 22:39 | DVHINCON2 ---
Date of service: Jun 25, [address] Bal Reason for Consultation COPD exacerbation. History of Present Illness This is a 69-year-old man with past medical history including COPD (on 2% O2 at baseline), diabetes mellitus, hypertension, CHF with reduced ejection fraction (last EF 30%), prior CVA without residual deficits, CKD stage 4, and aortic valve replacement who presented to ED on 06/21/25 with c/o shortness of breath, cough and hemoptysis. This is his second admission for worsening shortness of breath, now accompanied by a dry cough and, over the past 2 days, new-onset blood-tinged sputum. Pt also admits to associated orthopnea and paroxysmal nocturnal dyspnea. He has occasional atypical chest pain, not clearly exertional. Denies fevers, chills, or night sweats or other acute complaints. ED workup included labs showing WBC 8.3, hemoglobin 10.9, hematocrit 32.2, platelets 137, sodium 139, potassium 4.2, BUN 34, creatinine 2.07, glucose 126, calcium 9.6, BNP 506.35, troponin 59. Initial labs showed BP of 117/76, heart rate 89, temperature 97.8 F, O2 saturation 97% on oxygen. Chest x-ray revealed pulmonary edema. Patient was admitted for further care. Pulmonary consultation is requested for evaluation and management of COPD exacerbation. Review of Systems: 14-point review of systems negative unless otherwise noted above. 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 Beaver for COPD. CKD stage 4 with declining renal function Diabetes mellitus Hypertension Hyperlipidemia Stroke (without residual deficits) CHF with reduced ejection fraction (last EF 30%) Past Surgical History: Aortic valve replacement Medications: Reviewed. Allergies: Iodine Iohexol Family History: Heart disease, diabetes, colon cancer, kidney disease. Social History: Former smoker, quit 20 years ago. No alcohol or illicit drug use. Family History: Cardiovascular disease G8 MOTHER G8 FATHER G8 MOTHER Cardiovascular disease G8 MOTHER G8 FATHER G8 MOTHER Colon cancer G8 MOTHER, Diabetes mellitus G8 FATHER, G8 FATHER G8 FATHER Diabetes mellitus G8 FATHER, G8 FATHER G8 FATHER Diabetes mellitus G8 FATHER, G8 FATHER G8 FATHER FH: cancer G8 MOTHER, FH: colon cancer FH: heart disease G8 MOTHER, FH: kidney disease G8 MOTHER, Hypertension G8 MOTHER G8 FATHER G8 MOTHER G8 FATHER Hypertension G8 MOTHER G8 FATHER G8 MOTHER G8 FATHER Ischemic heart disease G8 MOTHER G8 FATHER Allergies: Coded Allergies: Iodine (Verified Allergy, Unknown, 04/10/23) Iohexol (Verified Allergy, Unknown, 01/05/25) No Known Drug Allergy (Unverified Allergy, Unknown, 10/14/24) Home Meds Active Scripts Omeprazole (Gnp Omeprazole) 20 Mg Tab, 1 TAB PO BID, #90 TAB 1 Refill Prov:BECCA PHILIPPE MD 06/26/25 Prednisone (Prednisone) 20 Mg Tab, 20 MG PO DAILY, #7 MG Prov:BECCA PHILIPPE MD 06/26/25 Ipratropium [place] (Ipratropium [place]) 0.02 % Breanna, 0.5 % NEB TID, #30 ML Prov:BECCA PHILIPPE MD 06/26/25 Albuterol Sulfate (Albuterol Sulfate (5 mg/ml) 0.5%) 1 Neb Neb, 1 NEB IN TID, #30 INH Prov:BECCA PHILIPPE MD 06/26/25 Furosemide (Furosemide) 40 Mg Tab, 1 TAB PO DAILY, #60 TAB Prov:BECCA PHILIPPE MD 06/26/25 Atgtbsmtdml-Zmornpgnaozq-Ubcqx (Trelegy Ellipta 100-62.5-25 Mcg/INH) 1 Aer Aer, 1 AER IN DAILY for 30 Days, #2 AER Prov:JESSICA DAHL RESIDENT 06/07/25 Sucralfate (CARAFATE) 1 Gm Tab, 1 GM OR DAILY for 7 Days, #7 TAB Prov:VENITA VILLAR RESIDENT 11/06/24 Reported Medications Metoprolol Succinate (Metoprolol Succinate Er) 50 Mg Tab, 50 MG PO DAILY, TAB 11/06/24 Albuterol Sulfate (Albuterol Sulfate Hfa) 108 Mcg/Act Aer, 2 PUFF IN Q4-6HR PRN for 16 Days, #8.5 10/14/24 Ezetimibe (Zetia) 10 Mg Tab, 1 TAB PO DAILY for 90 Days, #90 10/14/24 Atorvastatin Calcium (Lipitor) 40 Mg Tab, 40 MG PO DAILY, TAB 08/31/24 Ferrous Sulfate (Ferosul) 325 Mg Tab, 1 TAB PO DAILY for 30 Days, #30 07/20/24 Insulin Glargine (Toujeo Solostar) 300 Unit/Ml Inj, 15 UNITS SC HS for 75 Days, #4.5 07/20/24 Amlodipine Besylate (NORVASC TABLET) 5 Mg Tb, 1 TAB PO DAILY, #30 TAB 5 Refills 06/27/24 Docusate Sodium (Colace) 100 Mg Cap, 1 CAP PO BID, #30 CAP 03/17/24 Warfarin Sodium (Warfarin Sodium) 3 Mg Tab, 1 TAB PO DAILY 03/14/24 Ipratropium [place] Hfa (Atrovent Hfa) 17 Mcg Aer, 2 PUFF INH Q6HR PRN for 75 Days, #38.7 01/20/24 Dapagliflozin Propanediol (Farxiga) 10 Mg Tab, 1 TAB PO DAILY for 90 Days, #90 01/20/24 Budesonide (Inhalation) (Budesonide) 0.5 Mg/2 Ml Janette, 0.5 MG IN QIDP 12/25/18 Beclomethasone Dipropionate (Qvar Redihaler) 40 Mcg/Act Aer, 40 MCG IN PRN PRN for SHORTNESS OF BREATH 12/24/18 Alprazolam (Alprazolam) 1 Mg Tab, 0.5 MG PO QPM PRN for ANXIETY Take 1/2 tablet (0.5 mg) by mouth at night as needed for anxiety 12/24/18 Fenofibrate (Tricor) 145 Mg Tab, 145 MG PO DAILY 11/14/10 Methocarbamol (Robaxin-750) 750 Mg Tab, 750 MG PO TID 11/14/10 Gabapentin (Neurontin) 600 Mg Tab, 600 MG PO TID 11/14/10 Discontinued Reported Medications Glipizide (Glipizide) 5 Mg Tab, 1 TAB PO DAILY for 90 Days, #90 10/14/24 Ascorbic Acid (VITAMIN C TABLET) 500 Mg Tb, 500 MG PO DAILY, TAB 07/20/24 Benazepril Hcl (Benazepril Hcl) 10 Mg Tab, 1 TAB PO DAILY for 90 Days, #90 01/20/24 Discontinued Scripts Furosemide (Furosemide) 40 Mg Tab, 1 TAB PO DAILY for 30 Days, #30 TAB 5 Refills Prov:JESSICA DAHL RESIDENT 06/07/25 Idraorbahzy-Siruvitgddww-Tmkhy (Trelegy Ellipta 100-62.5-25 Mcg/INH) 1 Aer Aer, 1 AER IN DAILY for 30 Days, #2 AER Prov:JESSICA DAHL RESIDENT 06/07/25 Current Medications Current Medications Medications (Trade) Dose Ordered Sig/Cynthia Route PRN Reason Start Time Stop Time Status Last Admin Isosorbide Mononitrate (Imdur Er Tablet) 30 mg DAILY PO 06/25/25 10:00 06/25/25 10:39 Prednisone 20 mg BID PO 06/25/25 22:00 06/30/25 12:00 06/25/25 21:35 Vital Signs Vital Signs Date Time Temp Pulse Resp B/P (MAP) Pulse Ox O2 Delivery O2 Flow Rate FiO2 06/25/25 21:54 98 Room Air* 0 21 06/25/25 21:54 88 20 06/25/25 21:36 139/85 06/25/25 21:00 97.3 97.3 Physical Exam Gen.: Patient lying in bed in no apparent distress. Breathing on room air. Head: Normocephalic, atraumatic. Eyes: EOMI/PERRLA. Ears: Normal hearing. Normal anatomy. Neck/trachea: Trachea midline, supple. Nose: Normal external anatomy. Mouth: Moist mucous membranes. Chest: Decreased air entry bilaterally. No wheezing or rhonchi. Cardiovascular: Positive S1, positive S2. Regular rate and rhythm. Abdomen: Positive bowel sounds in all 4 quadrants. Soft, non-tender, non- distended. : Deferred. Rectal: Deferred. Skin: Warm, dry. Intact. Extremities: 2+ radial pulses bilaterally. No lower extremity edema. Neuro: Awake, alert, oriented x3. No gross motor or sensory deficits. Cranial nerves II through XII intact. Gait not assessed Labs/Diagnostic Data Labs Test 06/25/25 21:14 06/25/25 17:55 06/25/25 11:00 06/25/25 05:01 Range/Units POC Glucose 182 H 70-106 mg/dl White Blood Count 11.2 H 4.4-10.8 10^3/uL Red Blood Count 4.13 L 4.5-5.90 10^6/uL Hemoglobin 12.1 L 13.5-17.5 g/dL Hematocrit 36.1 L 41.0-53.0 % Mean Corpuscular Volume 87.5 80.0-100.0 fL Mean Corpuscular Hemoglobin 29.2 28.0-32.0 pg Mean Corpuscular Hemoglobin Concent 33.4 32.0-36.0 g/dL Red Cell Distribution Width 15.2 H 11.8-14.3 % Platelet Count 205 140-450 10^3/uL Mean Platelet Volume 8.2 6.9-10.8 fL Neutrophils (%) (Auto) 95.8 H 37.0-80.0 % Lymphocytes (%) (Auto) 2.5 L 10.0-50.0 % Monocytes (%) (Auto) 1.6 0.0-12.0 % Eosinophils (%) (Auto) 0.0 0.0-7.0 % Basophils (%) (Auto) 0.1 0.0-2.0 % Neutrophils # (Auto) 10.7 H 1.6-8.6 10 ^3/uL Lymphocytes # (Auto) 0.3 L 0.4-5.4 10 ^3/uL Monocytes # (Auto) 0.2 0-1.3 10 ^3/uL Eosinophils # (Auto) 0 0-0.8 10 ^3/uL Basophils # (Auto) 0 0-0.2 10 ^3/uL Nucleated Red Blood Cells 0.1 % Stool Occult Blood Negative Negative Stool Occult Blood Sample #3 Negative Prothrombin Time 16.8 H 9.3-11.8 sec Prothrombin Time INR 1.67 H 0.9-1.15 Activated Partial Thromboplast Time 32.3 24.5-34.5 SEC Sodium Level 139 136-145 mmol/L Potassium Level 5.1 3.5-5.1 mmol/L Chloride Level 104 98-107 mmol/L Carbon Dioxide Level 24 20-31 mmol/L Anion Gap 11 5-15 Blood Urea Nitrogen 81 #*H 9-23 mg/dL Creatinine 2.67 H 0.700-1.30 mg/dL Glomerular Filtration Rate Calc 25 >90 mL/min BUN/Creatinine Ratio 30.3 H 10.0-20.0 Serum Glucose 150 H 74-106 mg/dL Calcium Level 10.2 8.7-10.4 mg/dL Iron Level 63 L 65-175 ug/dL Total Iron Binding Capacity 304 250-425 ug/dL Percent Iron Saturation 20.7 20-55 % Ferritin 137.2 22-322 ng/mL Test 06/24/25 11:12 06/24/25 06:15 06/24/25 06:05 06/23/25 15:16 Range/Units D-Dimer, Quantitative 0.24 0.0-0.49 mg/L FEU Urine Creatinine 61.03 30.0-125.0 mg/dL Urine Protein/Creatinine Ratio 0.66 Urine Sodium 35 L 40-220 mmol/L Urine Total Protein 40.2 H 1-14 mg/dL Differential Total Cells Counted 100.0 100 Neutrophils % (Manual) 93 H 37.0-80.0 Band Neutrophils % (Manual) 0 Lymphocytes % (Manual) 5 L 10.0-50.0 Monocytes % (Manual) 2 0-12 Eosinophils % (Manual) 0 0-7 Basophils % (Manual) 0 0.0-2.0 Metamyelocytes % (manual) 0 Myelocytes % (Manual) 0 Promyelocytes % (Manual) 0 Blast Cells % (Manual) 0 Reactive Lymphocytes 0 Platelet Estimate Adequate Clumped Platelets None Magnesium Level 2.4 1.6-2.6 mg/dL Troponin I High Sensitivity 57 *H </=54 ng/L Test 06/23/25 04:39 06/22/25 14:17 06/22/25 12:00 06/22/25 06:38 Range/Units B-Type Natriuretic Peptide 444.32 0-100 pg/mL Influenza Type A Antigen Negative Negative Influenza Type B Antigen Negative Negative SARS-CoV-2 Antigen (Rapid) Negative NEGATIVE Urine Opiates Screen Pos NEGATIVE Urine Fentanyl Screen Neg NEGATIVE Urine Barbiturates Screen Neg NEGATIVE Urine Phencyclidine Screen Neg NEGATIVE Urine Amphetamines Screen Neg NEGATIVE Urine Benzodiazepines Screen Pos NEGATIVE Urine Cocaine Screen Neg NEGATIVE Urine Cannabinoids Screen Neg NEGATIVE Total Bilirubin 1.0 0.2-1.0 mg/dL Aspartate Amino Transferase (AST) 16 13-40 U/L Alanine Aminotransferase (ALT) 17 7-40 U/L Alkaline Phosphatase 78 46-116 U/L Total Protein 6.5 5.7-8.2 g/dL Albumin 4.3 3.2-4.8 g/dL Test 06/21/25 15:20 Range/Units Urine Color Colorless Yellow Urine Clarity Clear Clear Urine pH 5.0 5.0-9.0 Urine Specific [place] 1.007 1.001-1.035 Urine Protein 1+ H Negative Urine Ketones Negative Negative Urine Blood 1+ H Negative /uL Urine Nitrite Negative Negative Urine Bilirubin Negative Negative Urine Urobilinogen Normal Negative mg/dL Urine Leukocyte Esterase Negative Negative /uL Urine RBC 2 0 - 3 /hpf Urine Microscopic WBC < 1 0-3 /HPF Urine Squamous Epithelial Cells None seen <5 /hpf Urine Bacteria None seen None Seen /hpf Urine Hyaline Casts Few 0 - 2 /lpf Urine Glucose Normal Normal mg/dL Microbiology Date/Time Source Procedure Growth Status 06/22/25 06:15 Nose MRSA Screen - Final Complete Assessment Impression: Hemoptysis 2/2 severe mitral regurgitation Severe mitral regurgitation Dyspnea on exertion Acute exacerbation of COPD. Atelectasis. Hx of nicotine dependence Plan: Supplemental oxygen PRN Titrate to keep O2 sats above 92%. Chest CT on 06/24/25 revealed mild cardiomegaly, mild interstitial and alveolar pulmonary edema, and patchy ground-glass opacities consistent with alveolar edema. No obvious signs of infection. No pleural effusions or masses. Follow up Cardiology recommendations Recent echocardiogram shows EF 30%, [id number] mitral regurgitation, moderate tricuspid regurgitation, and echogenicity at the aortic level with no clear prosthetic dysfunction. There is also evidence of moderate mitral annular calcification Blood pressure control. Continue bronchodilators. Continue antibiotics IV steroids Antitussive for cough Incentive spirometry Pain control Avoid oversedation Accu-Cheks, ISS. Protonix for GI ppx Monitor renal function. Monitor electrolytes. Supplement as necessary. Monitor ins and outs. GI/DVT prophylaxis. Prognosis: Poor given patient's multiple co-morbidities. Rest of plan per hospitalist and other consultants. Thank you Dr. Bal for allowing me to participate in this patient's care. Further recommendations will depend on the patient's clinical course. Please do not hesitate to contact me if you have any questions or concerns. This medical document was created using an electronic medical record system with [employer] system. Although these documentations are being carefully reviewed, there may still be some phonetic and typographical changes. The errors are purely typographical, due to imperfection on the software program, and do not reflect any compromise in the patient's medical care. Plan discussed with: Other (RN/Dr. Bal) MARIANN RIBERA MD Jun 25, 2025 22:39
[2025-06-26] VITALS (14 sets, daily range): BP systolic 117–147; BP diastolic 70–91; PULSE 79–99; RESP 17–20; TEMP 97–98; O2SAT 89–100
[2025-06-26 07:09] LABS: Hematocrit 32.8 % (41.0-53.0); Hemoglobin 11.4 g/dL (13.5-17.5); Mean Corpuscular Hemoglobin 30.0 pg (28.0-32.0); Mean Corpuscular Volume 86.3 fL (80.0-100.0); Nucleated Red Blood Cells % 0.0 %
[2025-06-26 07:15] LABS: Anion Gap 9 (5-15); Carbon Dioxide 24 mmol/L (20-31); Potassium 5.0 mmol/L (3.5-5.1); Sodium 141 mmol/L (136-145)
[2025-06-26 07:16] LABS: Calcium 9.4 mg/dL (8.7-10.4)
[2025-06-26 07:21] LABS: BUN/Creatinine Ratio 29.9 (10.0-20.0)
[2025-06-26 07:22] LABS: Blood Urea Nitrogen 75 mg/dL (9-23); Chloride 108 mmol/L (98-107); Glucose 126 mg/dL (74-106)
[2025-06-26 07:38] LABS: INR 1.63 (0.9-1.15); Prothrombin Time 16.5 sec (9.3-11.8)
--- NOTE | 2025-06-26 12:42 | DVHINCON2 ---
Date of service: Jun 26, 2025 Referring Physician Mariam Perrin NP Reason for Consultation ELEVATED CREATININE History of Present Illness This is a 69-year-old male with history of Chronic kidney disease stage IIIB, prosthetic aortic valve, history of mitral valve regurgitation, COPD on home oxygen, history of hepatitis-C, chronic low back pain, type 2 diabetes presenting to the emergency room because of shortness of breath. Patient admitted with impression of COPD exacerbation. Started on med nebs and IV antibiotics. During the hospital course patient did have an episode of blood-tinged sputum. Warfarin was put on hold. Also diuretics were put on hold for unknown reason. Nephrology has been consulted for elevated creatinine and for probable dialysis Past Medical History As stated above Past Surgical History As stated above Family History: Cardiovascular disease G8 MOTHER G8 FATHER G8 MOTHER Cardiovascular disease G8 MOTHER G8 FATHER G8 MOTHER Colon cancer G8 MOTHER, Diabetes mellitus G8 FATHER, G8 FATHER G8 FATHER Diabetes mellitus G8 FATHER, G8 FATHER G8 FATHER Diabetes mellitus G8 FATHER, G8 FATHER G8 FATHER FH: cancer G8 MOTHER, FH: colon cancer FH: heart disease G8 MOTHER, FH: kidney disease G8 MOTHER, Hypertension G8 MOTHER G8 FATHER G8 MOTHER G8 FATHER Hypertension G8 MOTHER G8 FATHER G8 MOTHER G8 FATHER Ischemic heart disease G8 MOTHER G8 FATHER Social History No active history of smoking, alcohol or drug abuse Allergies: Coded Allergies: Iodine (Verified Allergy, Unknown, 04/10/23) Iohexol (Verified Allergy, Unknown, 01/05/25) No Known Drug Allergy (Unverified Allergy, Unknown, 10/14/24) Home Meds Active Scripts Furosemide (Furosemide) 40 Mg Tab, 1 TAB PO DAILY for 30 Days, #30 TAB 5 Refills Prov:JESSICA DAHL RESIDENT 06/07/25 Mepohnzbwgq-Nzkoxwjijhid-Gpxop (Trelegy Ellipta 100-62.5-25 Mcg/INH) 1 Aer Aer, 1 AER IN DAILY for 30 Days, #2 AER Prov:JESSICA DAHL RESIDENT 06/07/25 Furosemide (Furosemide) 40 Mg Tab, 1 TAB PO DAILY for 30 Days, #30 TAB 5 Refills Prov:JESSICA DAHL RESIDENT 06/07/25 Nttppvskxhy-Ggszuugkctgc-Xvdah (Trelegy Ellipta 100-62.5-25 Mcg/INH) 1 Aer Aer, 1 AER IN DAILY for 30 Days, #2 AER Prov:LOUANN JESSICA [place] RESIDENT 06/07/25 Sucralfate (CARAFATE) 1 Gm Tab, 1 GM OR DAILY for 7 Days, #7 TAB Prov:VENITA VILLAR RESIDENT 11/06/24 Reported Medications Metoprolol Succinate (Metoprolol Succinate Er) 50 Mg Tab, 50 MG PO DAILY, TAB 11/06/24 Albuterol Sulfate (Albuterol Sulfate Hfa) 108 Mcg/Act Aer, 2 PUFF IN Q4-6HR PRN for 16 Days, #8.5 10/14/24 Glipizide (Glipizide) 5 Mg Tab, 1 TAB PO DAILY for 90 Days, #90 10/14/24 Ezetimibe (Zetia) 10 Mg Tab, 1 TAB PO DAILY for 90 Days, #90 10/14/24 Atorvastatin Calcium (Lipitor) 40 Mg Tab, 40 MG PO DAILY, TAB 08/31/24 Ascorbic Acid (VITAMIN C TABLET) 500 Mg Tb, 500 MG PO DAILY, TAB 07/20/24 Ferrous Sulfate (Ferosul) 325 Mg Tab, 1 TAB PO DAILY for 30 Days, #30 07/20/24 Insulin Glargine (Toujeo Solostar) 300 Unit/Ml Inj, 15 UNITS SC HS for 75 Days, #4.5 07/20/24 Amlodipine Besylate (NORVASC TABLET) 5 Mg Tb, 1 TAB PO DAILY, #30 TAB 5 Refills 06/27/24 Docusate Sodium (Colace) 100 Mg Cap, 1 CAP PO BID, #30 CAP 03/17/24 Warfarin Sodium (Warfarin Sodium) 3 Mg Tab, 1 TAB PO DAILY 03/14/24 Ipratropium [place] Hfa (Atrovent Hfa) 17 Mcg Aer, 2 PUFF INH Q6HR PRN for 75 Days, #38.7 01/20/24 Benazepril Hcl (Benazepril Hcl) 10 Mg Tab, 1 TAB PO DAILY for 90 Days, #90 01/20/24 Dapagliflozin Propanediol (Farxiga) 10 Mg Tab, 1 TAB PO DAILY for 90 Days, #90 01/20/24 Budesonide (Inhalation) (Budesonide) 0.5 Mg/2 Ml Janette, 0.5 MG IN QIDP 12/25/18 Beclomethasone Dipropionate (Qvar Redihaler) 40 Mcg/Act Aer, 40 MCG IN PRN PRN for SHORTNESS OF BREATH 12/24/18 Alprazolam (Alprazolam) 1 Mg Tab, 0.5 MG PO QPM PRN for ANXIETY Take 1/2 tablet (0.5 mg) by mouth at night as needed for anxiety 12/24/18 Fenofibrate (Tricor) 145 Mg Tab, 145 MG PO DAILY 11/14/10 Methocarbamol (Robaxin-750) 750 Mg Tab, 750 MG PO TID 11/14/10 Gabapentin (Neurontin) 600 Mg Tab, 600 MG PO TID 11/14/10 Current Medications Current Medications Medications (Trade) Dose Ordered Sig/Cynthia Route PRN Reason Start Time Stop Time Status Last Admin Prednisone 20 mg BID PO 06/25/25 22:00 06/30/25 12:00 06/26/25 10:25 Review of Systems 12 point review of system negative except as stated in the HPI Vital Signs Vital Signs Date Time Temp Pulse Resp B/P (MAP) Pulse Ox O2 Delivery O2 Flow Rate FiO2 06/26/25 10:25 139/91 06/26/25 10:25 85 06/26/25 09:21 18 99 06/26/25 09:12 Nasal Cannula 2.0 06/26/25 09:12 28 06/26/25 09:00 97.0 97.0 Physical Exam Awake alert oriented x3 HEENT: Normocephalic, no JVD Lungs: Bilateral scattered expiratory wheezes CVS: mechanical heart sound present Abdomen: Soft, bowel sounds present WALL MAN: No focal deficits Extremities: No edema Labs/Diagnostic Data Labs Test 06/26/25 11:34 06/26/25 05:23 06/25/25 11:00 06/25/25 05:01 Range/Units POC Glucose 255 H 70-106 mg/dl White Blood Count 10.7 4.4-10.8 10^3/uL Red Blood Count 3.80 L 4.5-5.90 10^6/uL Hemoglobin 11.4 L 13.5-17.5 g/dL Hematocrit 32.8 L 41.0-53.0 % Mean Corpuscular Volume 86.3 80.0-100.0 fL Mean Corpuscular Hemoglobin 30.0 28.0-32.0 pg Mean Corpuscular Hemoglobin Concent 34.8 32.0-36.0 g/dL Red Cell Distribution Width 14.9 H 11.8-14.3 % Platelet Count 180 140-450 10^3/uL Mean Platelet Volume 8.2 6.9-10.8 fL Neutrophils (%) (Auto) 93.0 H 37.0-80.0 % Lymphocytes (%) (Auto) 3.8 L 10.0-50.0 % Monocytes (%) (Auto) 3.1 0.0-12.0 % Eosinophils (%) (Auto) 0.0 0.0-7.0 % Basophils (%) (Auto) 0.1 0.0-2.0 % Neutrophils # (Auto) 9.9 H 1.6-8.6 10 ^3/uL Lymphocytes # (Auto) 0.4 0.4-5.4 10 ^3/uL Monocytes # (Auto) 0.3 0-1.3 10 ^3/uL Eosinophils # (Auto) 0 0-0.8 10 ^3/uL Basophils # (Auto) 0 0-0.2 10 ^3/uL Nucleated Red Blood Cells 0.0 % Prothrombin Time 16.5 H 9.3-11.8 sec Prothrombin Time INR 1.63 H 0.9-1.15 Sodium Level 141 136-145 mmol/L Potassium Level 5.0 3.5-5.1 mmol/L Chloride Level 108 H 98-107 mmol/L Carbon Dioxide Level 24 20-31 mmol/L Anion Gap 9 5-15 Blood Urea Nitrogen 75 H 9-23 mg/dL Creatinine 2.51 H 0.700-1.30 mg/dL Glomerular Filtration Rate Calc 27 >90 mL/min BUN/Creatinine Ratio 29.9 H 10.0-20.0 Serum Glucose 126 H 74-106 mg/dL Calcium Level 9.4 8.7-10.4 mg/dL Stool Occult Blood Negative Negative Stool Occult Blood Sample #3 Negative Activated Partial Thromboplast Time 32.3 24.5-34.5 SEC Iron Level 63 L 65-175 ug/dL Total Iron Binding Capacity 304 250-425 ug/dL Percent Iron Saturation 20.7 20-55 % Ferritin 137.2 22-322 ng/mL Test 06/24/25 11:12 06/24/25 06:15 06/24/25 06:05 06/23/25 15:16 Range/Units D-Dimer, Quantitative 0.24 0.0-0.49 mg/L FEU Urine Creatinine 61.03 30.0-125.0 mg/dL Urine Protein/Creatinine Ratio 0.66 Urine Sodium 35 L 40-220 mmol/L Urine Total Protein 40.2 H 1-14 mg/dL Differential Total Cells Counted 100.0 100 Neutrophils % (Manual) 93 H 37.0-80.0 Band Neutrophils % (Manual) 0 Lymphocytes % (Manual) 5 L 10.0-50.0 Monocytes % (Manual) 2 0-12 Eosinophils % (Manual) 0 0-7 Basophils % (Manual) 0 0.0-2.0 Metamyelocytes % (manual) 0 Myelocytes % (Manual) 0 Promyelocytes % (Manual) 0 Blast Cells % (Manual) 0 Reactive Lymphocytes 0 Platelet Estimate Adequate Clumped Platelets None Magnesium Level 2.4 1.6-2.6 mg/dL Troponin I High Sensitivity 57 *H </=54 ng/L Test 06/23/25 04:39 06/22/25 14:17 06/22/25 12:00 06/22/25 06:38 Range/Units B-Type Natriuretic Peptide 444.32 0-100 pg/mL Influenza Type A Antigen Negative Negative Influenza Type B Antigen Negative Negative SARS-CoV-2 Antigen (Rapid) Negative NEGATIVE Urine Opiates Screen Pos NEGATIVE Urine Fentanyl Screen Neg NEGATIVE Urine Barbiturates Screen Neg NEGATIVE Urine Phencyclidine Screen Neg NEGATIVE Urine Amphetamines Screen Neg NEGATIVE Urine Benzodiazepines Screen Pos NEGATIVE Urine Cocaine Screen Neg NEGATIVE Urine Cannabinoids Screen Neg NEGATIVE Total Bilirubin 1.0 0.2-1.0 mg/dL Aspartate Amino Transferase (AST) 16 13-40 U/L Alanine Aminotransferase (ALT) 17 7-40 U/L Alkaline Phosphatase 78 46-116 U/L Total Protein 6.5 5.7-8.2 g/dL Albumin 4.3 3.2-4.8 g/dL Test 06/21/25 15:20 Range/Units Urine Color Colorless Yellow Urine Clarity Clear Clear Urine pH 5.0 5.0-9.0 Urine Specific [place] 1.007 1.001-1.035 Urine Protein 1+ H Negative Urine Ketones Negative Negative Urine Blood 1+ H Negative /uL Urine Nitrite Negative Negative Urine Bilirubin Negative Negative Urine Urobilinogen Normal Negative mg/dL Urine Leukocyte Esterase Negative Negative /uL Urine RBC 2 0 - 3 /hpf Urine Microscopic WBC < 1 0-3 /HPF Urine Squamous Epithelial Cells None seen <5 /hpf Urine Bacteria None seen None Seen /hpf Urine Hyaline Casts Few 0 - 2 /lpf Urine Glucose Normal Normal mg/dL Microbiology Date/Time Source Procedure Growth Status 06/22/25 06:15 Nose MRSA Screen - Final Complete Assessment Chronic kidney disease stage IIIB Type 2 diabetes with nephropathy Systolic heart failure with an EF of 30% History of prosthetic aortic valve. Mitral valve regurgitation COPD History of hepatitis-C Hypertension Anemia in Chronic kidney disease Plan/Recommendation GFR is stable and at baseline. Hemoglobin is stable Recommend to reintroduce warfarin. Patient to continue with Lasix 40 mg p.o. daily. 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 There is no indication for renal replacement therapy. Plan discussed with: Patient GERARDO SHIN MD Jun 26, 2025 12:42
[2025-06-26] MEDS ORDERED: IPR002IS NEB (13:22)
[2025-06-26] MEDS ORDERED: PRED20TA2 PO (13:22)
[2025-06-26] MEDS ORDERED: OMEP20TA PO (13:22)
[2025-06-26] MEDS ORDERED: FURO40TA4 PO (13:22)
[2025-06-26] MEDS ORDERED: ALBU1NEB5 IN (13:22)
--- NOTE | 2025-06-26 13:26 | DVHDS2 ---
Discharge Summary Date of Admission Jun 21, 2025 at 16:25 Date of Discharge: Jun 26, 2025 Labs/Diagnostic Data: Laboratory Results Test 06/26/25 11:34 06/26/25 05:23 06/25/25 11:00 06/25/25 05:01 POC Glucose 255 mg/dl (70-106) White Blood Count 10.7 10^3/uL (4.4-10.8) Red Blood Count 3.80 10^6/uL (4.5-5.90) Hemoglobin 11.4 g/dL (13.5-17.5) Hematocrit 32.8 % (41.0-53.0) Mean Corpuscular Volume 86.3 fL (80.0-100.0) Mean Corpuscular Hemoglobin 30.0 pg (28.0-32.0) Mean Corpuscular Hemoglobin Concent 34.8 g/dL (32.0-36.0) Red Cell Distribution Width 14.9 % (11.8-14.3) Platelet Count 180 10^3/uL (140-450) Mean Platelet Volume 8.2 fL (6.9-10.8) Neutrophils (%) (Auto) 93.0 % (37.0-80.0) Lymphocytes (%) (Auto) 3.8 % (10.0-50.0) Monocytes (%) (Auto) 3.1 % (0.0-12.0) Eosinophils (%) (Auto) 0.0 % (0.0-7.0) Basophils (%) (Auto) 0.1 % (0.0-2.0) Neutrophils # (Auto) 9.9 10 ^3/uL (1.6-8.6) Lymphocytes # (Auto) 0.4 10 ^3/uL (0.4-5.4) Monocytes # (Auto) 0.3 10 ^3/uL (0-1.3) Eosinophils # (Auto) 0 10 ^3/uL (0-0.8) Basophils # (Auto) 0 10 ^3/uL (0-0.2) Nucleated Red Blood Cells 0.0 % Prothrombin Time 16.5 sec (9.3-11.8) Prothrombin Time INR 1.63 (0.9-1.15) Sodium Level 141 mmol/L (136-145) Potassium Level 5.0 mmol/L (3.5-5.1) Chloride Level 108 mmol/L (98-107) Carbon Dioxide Level 24 mmol/L (20-31) Anion Gap 9 (5-15) Blood Urea Nitrogen 75 mg/dL (9-23) Creatinine 2.51 mg/dL (0.700-1.30) Glomerular Filtration Rate Calc 27 mL/min (>90) BUN/Creatinine Ratio 29.9 (10.0-20.0) Serum Glucose 126 mg/dL (74-106) Calcium Level 9.4 mg/dL (8.7-10.4) Stool Occult Blood Negative (Negative) Stool Occult Blood Sample #3 (Negative) Activated Partial Thromboplast Time 32.3 SEC (24.5-34.5) Iron Level 63 ug/dL (65-175) Total Iron Binding Capacity 304 ug/dL (250-425) Percent Iron Saturation 20.7 % (20-55) Ferritin 137.2 ng/mL (22-322) Test 06/24/25 11:12 06/24/25 06:15 06/24/25 06:05 06/23/25 15:16 D-Dimer, Quantitative 0.24 mg/L FEU (0.0-0.49) Urine Creatinine 61.03 mg/dL (30.0-125.0) Urine Protein/Creatinine Ratio 0.66 Urine Sodium 35 mmol/L (40-220) Urine Total Protein 40.2 mg/dL (1-14) Differential Total Cells Counted 100.0 (100) Neutrophils % (Manual) 93 (37.0-80.0) Band Neutrophils % (Manual) 0 Lymphocytes % (Manual) 5 (10.0-50.0) Monocytes % (Manual) 2 (0-12) Eosinophils % (Manual) 0 (0-7) Basophils % (Manual) 0 (0.0-2.0) Metamyelocytes % (manual) 0 Myelocytes % (Manual) 0 Promyelocytes % (Manual) 0 Blast Cells % (Manual) 0 Reactive Lymphocytes 0 Platelet Estimate Adequate Clumped Platelets None Magnesium Level 2.4 mg/dL (1.6-2.6) Troponin I High Sensitivity 57 ng/L (</=54) Test 06/23/25 04:39 06/22/25 14:17 06/22/25 12:00 06/22/25 06:38 B-Type Natriuretic Peptide 444.32 pg/mL (0-100) Influenza Type A Antigen Negative (Negative) Influenza Type B Antigen Negative (Negative) SARS-CoV-2 Antigen (Rapid) Negative (NEGATIVE) Urine Opiates Screen Pos (NEGATIVE) Urine Fentanyl Screen Neg (NEGATIVE) Urine Barbiturates Screen Neg (NEGATIVE) Urine Phencyclidine Screen Neg (NEGATIVE) Urine Amphetamines Screen Neg (NEGATIVE) Urine Benzodiazepines Screen Pos (NEGATIVE) Urine Cocaine Screen Neg (NEGATIVE) Urine Cannabinoids Screen Neg (NEGATIVE) Total Bilirubin 1.0 mg/dL (0.2-1.0) Aspartate Amino Transferase (AST) 16 U/L (13-40) Alanine Aminotransferase (ALT) 17 U/L (7-40) Alkaline Phosphatase 78 U/L (46-116) Total Protein 6.5 g/dL (5.7-8.2) Albumin 4.3 g/dL (3.2-4.8) Test 06/21/25 15:20 Urine Color Colorless (Yellow) Urine Clarity Clear (Clear) Urine pH 5.0 (5.0-9.0) Urine Specific Caruthers 1.007 (1.001-1.035) Urine Protein 1+ (Negative) Urine Ketones Negative (Negative) Urine Blood 1+ /uL (Negative) Urine Nitrite Negative (Negative) Urine Bilirubin Negative (Negative) Urine Urobilinogen Normal mg/dL (Negative) Urine Leukocyte Esterase Negative /uL (Negative) Urine RBC 2 /hpf (0 - 3) Urine Microscopic WBC < 1 /HPF (0-3) Urine Squamous Epithelial Cells None seen /hpf (<5) Urine Bacteria None seen /hpf (None Seen) Urine Hyaline Casts Few /lpf (0 - 2) Urine Glucose Normal mg/dL (Normal) Other Laboratory Tests 06/26/25 05:23 Brief Hx & Hospital Course: The patient is a 69-year-old male with multiple past medical history including COPD, chronic kidney failure, CHF, CVA, DM, and hypertension who presented to [facility] ED with complaint of shortness of breaths. Patient reports he has been experiencing shortness of breaths, associated with cough, abdominal pain, nausea, vomiting, getting worse that prompted this visit. Patient was seen and evaluated in the ED, laboratory data shows WBC 8.3, hemoglobin 10.9, hematocrit 32.2, platelets 137, sodium 139, potassium 4.2, BUN 34, creatinine 2.07, glucose 126, calcium 9.6, BNP 506.35, troponin 59, blood pressure 117/76, heart rate 89, temperature 97.8 F, O2 saturation 97% on oxygen. Chest x-ray revealing pulmonary edema. Patient was started on IV Lasix, please see medication orders section in the computer. On my assessment, patient denied chest pain, no headache, no dizziness, no diaphoresis, currently on oxygen, no abdominal pain, no diarrhea, no nausea, no vomiting, no fever, no chills. Patient was admitted for further evaluation and medical management. He is admitted and evaluated by oral hygienist and logistics account manager/other consultants. Patient is clinically improved. COPD CHF is resolved. Patient resumed his Coumadin. Patient is advised to continue on use 2 L home oxygen at home and oral fluid restriction to 1200 mL per 24 hours. He is also encouraged and advised to follow up at [facility] for his leak eval and felt causing symptoms or shortness for breath. Patient once again educated and counseled regarding his heart failure and COPD. He is advised to continue the nebulizer treatments and increase his Lasix to 40 mg daily instead of taking 20 p.o. b.i.d.. Patient is otherwise clinically stable. Requesting to be discharged home given he has been here for more than three days. He says he is feeling better. He is evaluated by oral hygienist today Dr.Sheila Wick who also feels patient could be safely discharged home with outpatient follow up with PCP and consultants including Nephrology to further monitor chronic kidney disease. I have talked with the patient regarding his hospital diagnosis, treatment he received, discharge medications, discharge instructions and follow-up plan of care. He has verbalized understanding of these and agree with the care plan as outlined. Condition at Discharge: Stable Final Diagnosis/Problems List Chronic kidney disease stage IIIB Type 2 diabetes with nephropathy Systolic heart failure with an EF of 30% History of prosthetic aortic valve. Mitral valve regurgitation COPD History of hepatitis-C Hypertension Anemia in Chronic kidney disease COPD EXC, CHF, CKD3, ANXIETY, ANEMIA OF CHRONIC DZ Discharge Disposition: Home Discharge Instruct/Medications Diet: Cardiac 2g Na,low cholest, Renal Activity: No Restrictions, As Tolerated Follow Up/Referral: [facility] NEXT WEEK FOR YOUR LEAKY HEART VALVE AND MANAGEMENT OF HEART FAILURE FOLLOW WITH KIDNEY DOCTOR NEXT WEEK Medications: TO CONTINUE MEDICATOINS PRESCRIBED AND HOME MEDS PER DISCHARGE LIST Scheduled Albuterol Sulfate (Albuterol Sulfate Hfa), 2 PUFF IN Q4-6HR PRN, (Reported) Albuterol Sulfate (Albuterol Sulfate (5 mg/ml) 0.5%), 1 NEB IN TID Amlodipine Besylate (Norvasc Tablet), 1 TAB PO DAILY, (Reported) Atorvastatin Calcium (Lipitor), 40 MG PO DAILY, (Reported) Budesonide (Inhalation) (Budesonide), 0.5 MG IN QIDP, (Reported) Dapagliflozin Propanediol (Farxiga), 1 TAB PO DAILY, (Reported) Docusate Sodium (Colace), 1 CAP PO BID, (Reported) Ezetimibe (Zetia), 1 TAB PO DAILY, (Reported) Fenofibrate (Tricor), 145 MG PO DAILY, (Reported) Ferrous Sulfate (Ferosul), 1 TAB PO DAILY, (Reported) Tbgwgtuqvur-Tefdsqbabnyc-Vokue (Trelegy Ellipta 100-62.5-25 Mcg/INH), 1 AER IN DAILY Furosemide (Furosemide), 1 TAB PO DAILY Gabapentin (Neurontin), 600 MG PO TID, (Reported) Insulin Glargine (Toujeo Solostar), 15 UNITS SC HS, (Reported) Ipratropium [place] (Ipratropium [place]), 0.5 % NEB TID Ipratropium [place] Hfa (Atrovent Hfa), 2 PUFF INH Q6HR PRN, (Reported) Methocarbamol (Robaxin-750), 750 MG PO TID, (Reported) Metoprolol Succinate (Metoprolol Succinate Er), 50 MG PO DAILY, (Reported) Omeprazole (Gnp Omeprazole), 1 TAB PO BID Prednisone (Prednisone), 20 MG PO DAILY Sucralfate (Carafate), 1 GM OR DAILY Warfarin Sodium (Warfarin Sodium), 1 TAB PO DAILY, (Reported) Scheduled PRN Alprazolam (Alprazolam), 0.5 MG PO QPM PRN for ANXIETY, (Reported) Beclomethasone Dipropionate (Qvar Redihaler), 40 MCG IN PRN PRN for SHORTNESS OF BREATH, (Reported) Discontinued Medications Ascorbic Acid (Vitamin C Tablet), 500 MG PO DAILY, (Reported) Benazepril Hcl (Benazepril Hcl), 1 TAB PO DAILY, (Reported) Hrvildozmny-Anvoikepvnfo-Yvrsh (Trelegy Ellipta 100-62.5-25 Mcg/INH), 1 AER IN DAILY Furosemide (Furosemide), 1 TAB PO DAILY Glipizide (Glipizide), 1 TAB PO DAILY, (Reported) Discharge Statement: "Patient was advised to return to the ER or call 911 if any headaches, dizziness, shortness of breath, chest pain, abdominal pain, bleeding, fevers, or worsening of medical condition. Patient was counseled about treatment plan, medications, possible side effects, patientverbalized understanding. All questions were answered to the best of my ability. This discharge took greater then 30 minutes in planning, reviewing documentation, counseling the patient, and discussing with other team members." ASSESSMENT ASSESSMENT Assessment COPD EXC, CHF, CKD3, ANXIETY, ANEMIA OF CHRONIC DZ Date of Service: Jun 26, 2025 Billing Provider: BECCA PHILIPPE MD Common Visit Codes: 05009-BZL/OBS DISCH DAY >30min BECCA PHILIPPE MD Jun 26, 2025 13:26
--- NOTE | 2025-06-26 23:45 | DVHPN2 ---
Progress Note - Dictate Date Seen: Jun 26, 2025 Medical Necessity Reason Pt with a Central, PICC or Fol: No Subjective Patient seen and examined at bedside. Breathing comfortably on room air. Overnight events reviewed. vital signs Vital Sign Date Time Temp Pulse Resp B/P (MAP) Pulse Ox O2 Delivery O2 Flow Rate FiO2 06/26/25 16:53 97.8 96 20 138/88 (105) 92 97.8 06/26/25 14:41 Room Air 06/26/25 14:41 0 21 Total Intake and Output 06/25/25 06/25/25 06/26/25 15:00 23:00 07:00 Intake Total 500 ml 0 ml Output Total 800 ml 1530 ml Balance -300 ml -1530 ml objective Gen.: Patient lying in bed in no apparent distress. Breathing on room air. Head: Normocephalic, atraumatic. Eyes: EOMI/PERRLA. Ears: Normal hearing. Normal anatomy. Neck/trachea: Trachea midline, supple. Nose: Normal external anatomy. Mouth: Moist mucous membranes. Chest: Decreased air entry bilaterally. No wheezing or rhonchi. Cardiovascular: Positive S1, positive S2. Regular rate and rhythm. Abdomen: Positive bowel sounds in all 4 quadrants. Soft, non-tender, non- distended. : Deferred. Rectal: Deferred. Skin: Warm, dry. Intact. Extremities: 2+ radial pulses bilaterally. No lower extremity edema. Neuro: Awake, alert, oriented x3. No gross motor or sensory deficits. Cranial nerves II through XII intact. Gait not assessed laboratory and microbiology Laboratory Tests 06/26/25 05:23 Test 06/26/25 05:23 Range/Units Serum Glucose 126 H 74-106 mg/dL Assessment/Plan Impression: Hemoptysis 2/2 severe mitral regurgitation Severe mitral regurgitation Dyspnea on exertion Acute exacerbation of COPD. Atelectasis. Hx of nicotine dependence Events: Breathing on room air Supplemental oxygen PRN Continue bronchodilators Continue steroids Incentive spirometry No hemoptysis in sputum cup. Echo revealed severe mitral regurgitation Cardiology recs appreciated. Labs and imaging reviewed. Rest of plan as noted below. Plan: Supplemental oxygen PRN Titrate to keep O2 sats above 92%. Chest CT on 06/24/25 revealed mild cardiomegaly, mild interstitial and alveolar pulmonary edema, and patchy ground-glass opacities consistent with alveolar edema. No obvious signs of infection. No pleural effusions or masses. Follow up Cardiology recommendations Recent Echo shows EF 30%, [id number] mitral regurgitation, moderate tricuspid regurgitation, and echogenicity at the aortic level with no clear prosthetic dysfunction. Moderate mitral annular calcification Blood pressure control. Continue bronchodilators. Continue antibiotics IV steroids Antitussive for cough Incentive spirometry Pain control Avoid oversedation Accu-Cheks, ISS. Protonix for GI ppx Monitor renal function. Monitor electrolytes. Supplement as necessary. Monitor ins and outs. GI/DVT prophylaxis. Prognosis: Poor given patient's multiple co-morbidities. Rest of plan per hospitalist and other consultants. Thank you Dr. Bal for allowing me to participate in this patient's care. Further recommendations will depend on the patient's clinical course. Please do not hesitate to contact me if you have any questions or concerns. This medical document was created using an electronic medical record system with [employer] dictation system. Although these documentations are being carefully reviewed, there may still be some phonetic and typographical changes. The errors are purely typographical, due to imperfection on the software program, and do not reflect any compromise in the patient's medical care. Dietary Evaluation Review Comments: 1) Advance to [facility] 60gm+ renal specific 50gm protein diet as medically feasible 2) Refer Process Specialist for diabetes education 3) Monitor NPO status, lab values, wt trends, I/O Expected Outcomes/Goals: To meet >75% estimated needs Lab values to improve Plan discussed with: Patient, Other (LINCOLN Mei) MARIANN RIBERA MD Jun 26, 2025 23:45
== END 2025-06-26 18:19 | disposition home or self-care (01) | DRG 871 ==
LOC: EDUNIT# 12:53 → ER 12:53 → EDBD 12:53 → OVERFLOW 16:25 → TELE-WESTW 20:55
PROVIDERS: ADMIT Student in an Organized Health Care Education/Training Program; ATTEND Student in an Organized Health Care Education/Training Program
PROC: 5A09357 Assistance with Respiratory Ventilation, Less than 24 Consecutive Hours, Continuous Positive Airway Pressure (ICD-10-PCS; principal; 2025-06-22)
PROC: 5A09357 Assistance with Respiratory Ventilation, Less than 24 Consecutive Hours, Continuous Positive Airway Pressure (ICD-10-PCS; 2025-06-23)
PROC: 5A09357 Assistance with Respiratory Ventilation, Less than 24 Consecutive Hours, Continuous Positive Airway Pressure (ICD-10-PCS; 2025-06-24)
DX: A41.89 Other specified sepsis (principal); I21.A1 Myocardial infarction type 2; I50.43 Acute on chronic combined systolic (congestive) and diastolic (congestive) heart failure; J96.01 Acute respiratory failure with hypoxia; J15.9 Unspecified bacterial pneumonia; I13.0 Hypertensive heart and chronic kidney disease with heart failure and stage 1 through stage 4 chronic kidney disease, or unspecified chronic kidney disease; J44.1 Chronic obstructive pulmonary disease with (acute) exacerbation; J44.0 Chronic obstructive pulmonary disease with (acute) lower respiratory infection; N18.4 Chronic kidney disease, stage 4 (severe); J98.11 Atelectasis; N17.9 Acute kidney failure, unspecified; I69.354 Hemiplegia and hemiparesis following cerebral infarction affecting left non-dominant side; R04.2 Hemoptysis; I42.8 Other cardiomyopathies; Z20.822 Contact with and (suspected) exposure to COVID-19; E11.22 Type 2 diabetes mellitus with diabetic chronic kidney disease; D63.1 Anemia in chronic kidney disease; F41.9 Anxiety disorder, unspecified; G89.29 Other chronic pain; E78.5 Hyperlipidemia, unspecified; E66.9 Obesity, unspecified; I27.20 Pulmonary hypertension, unspecified; Z68.26 Body mass index [BMI] 26.0-26.9, adult; K74.60 Unspecified cirrhosis of liver; J98.4 Other disorders of lung; E55.9 Vitamin D deficiency, unspecified; F11.10 Opioid abuse, uncomplicated; F13.10 Sedative, hypnotic or anxiolytic abuse, uncomplicated; I08.1 Rheumatic disorders of both mitral and tricuspid valves; E53.8 Deficiency of other specified B group vitamins; Z99.81 Dependence on supplemental oxygen; Z91.041 Radiographic dye allergy status; Z79.01 Long term (current) use of anticoagulants; Z79.899 Other long term (current) drug therapy; Z79.4 Long term (current) use of insulin; I25.2 Old myocardial infarction; Z82.49 Family history of ischemic heart disease and other diseases of the circulatory system; Z83.3 Family history of diabetes mellitus; Z80.0 Family history of malignant neoplasm of digestive organs; Z95.2 Presence of prosthetic heart valve; Z87.891 Personal history of nicotine dependence; Z71.51 Drug abuse counseling and surveillance of drug abuser; Z88.8 Allergy status to other drugs, medicaments and biological substances
CPT/HCPCS: 36415; 71045; 71250; 74176; 76705; 80048; 80053; 80307; 81001; 82270; 82570; 82728; 82962; 83540; 83550; 83735; 83880; 84156; 84300; 84484; 85007; 85025; 85027; 85379; 85610; 85730; 87070; 87081; 87205; 87426; 87804; 93005; 94640; 94660; 96374; 96375; 99291; G0378; J1815; J1885; J2470; J3490

== ENCOUNTER 2025-07-29 12:23 | Emergency (ER) | payer OTHER, MEDICAID ==
[~2025-07-29] VITALS: Ht 160 cm; Wt 70.5 kg
[~2025-07-29 12:23] MED LIST changes: +ALBU1NEB5 IN; -ASCO500T11 PO; -BENA10TA90 PO; -GLIP5TAB21 PO; +IPR002IS NEB; +OMEP20TA PO; +PRED20TA2 PO
--- NOTE | 2025-07-29 12:39 | ED.PDOC ---
SOB-HPI HPI Comments This is a 69 year old male IAM presenting to the ED with chief complaint of SOB. Patient reports that he has been experiencing SOB with associated productive cough with brown/green sputum, headache, body aches, and nausea for the past 4-5 days. Patient notes he was given some Rocephin by his home health nurse 2 days ago. Patient denies any chest pain, dizziness, vomiting, diarrhea, fever, or chills. Time Seen by MD: 12:34 Primary Care Provider: AMADOU Reviewed notes: Nurses Notes, Lining Feller Notes, Medications, Allergies Information Source: Patient, Emergency Med Personnel Mode of Arrival: EMS Severity: Moderate Timing: Days Duration: Since onset Context: At Rest PE Risk Factors: None History of: COPD, CHF Prehospital treatment: Oxygen Modifying Factors: Nothing Associated Signs and Symptoms: Cough If cough with SOB: Productive, Green, Brown Past Medical History PAST MEDICAL HISTORY: CHF, CKF, COPD, CVA, DM, High Lipids, HTN, Liver, [place] Surgical History: CABG Family History Family History: Family hx of heart ruben Social History Smoker: Non-Smoker Alcohol: Denies ETOH Use Drugs: Denies Drug Use Lives In: Home Constitutional: reports: others (Body aches); denies: chills, diaphoresis, fatigue, fever, malaise, sweats, weakness EENTM: denies: blurred vision, double vision, ear bleeding, ear discharge, ear drainage, ear pain, ear ringing, eye pain, eye redness, hearing loss, mouth pain, mouth swelling, nasal discharge, nose bleeding, nose congestion, nose pain, photophobia, tearing, throat pain, throat swelling, voice changes, others Respiratory: reports: cough, shortness of breath; denies: hemoptysis, orthopnea, SOB at rest, SOB with excertion, stridor, wheezing, others Cardiovascular: denies: chest pain, dizzy spells, diaphoresis, Dyspnea on exertion, edema, irregular heart beat, left arm pain, lightheadedness, palpitations, PND, syncope, others Gastrointestinal: reports: nausea; denies: abdomen distended, abdominal pain, blood streaked bowels, constipated, diarrhea, dysphagia, difficulty swallowing, hematemesis, melena, poor appetite, poor fluid intake, rectal bleeding, rectal pain, vomiting, others Genitourinary: denies: burning, dysuria, flank pain, frequency, hematuria, incontinence, penile discharge, penile sore, pain, testicle pain, testicle swelling, urgency, others Neurological: reports: headache; denies: dizziness, fainting, left sided numbne ss, left sided weakness, numbness, paresthesia, pre-existing deficit, right sided numbness, right sided weakness, seizure, speech problems, tingling, tremors, weakness, others Musculoskeletal: denies: back pain, gout, joint pain, joint swelling, muscle pain, muscle stiffness, neck pain, others Integumetry: denies: bruises, change in color, change in hair/nails, dryness, laceration, lesions, lumps, rash, wounds, others Allergic/Immunocompromised: denies: Difficulty Healing, Frequent Infections, Hives, Itching, others Hematologic/Lymphatic: denies: anemia, blood clots, easy bleeding, easy bruising, swollen glands, others Endocrine: denies: excessive hunger, excessive sweating, excessive thirst, excessive urination, flushing, intolerance to cold, intolerance to heat, unexplained weight gain, unexplained weight loss, others Psychiatric: denies: anxiety, bipolar disorder, depression, hopeless, panic disorder, schizophrenia, sleepless, suicidal, others All Other Systems: Reviewed and Negative Physical Exam General Appearance: No Apparent Distress, Normal HEENT: Normal ENT Inspection, Pharynx Normal, TMs Normal Neck: Full Range of Motion, Non-Tender, Normal, Normal Inspection Respiratory: Chest Non-Tender, Lungs Clear, No Accessory Muscle Use, No Respiratory Distress, Normal Breath Sounds Cardiovascular: No Edema, No JVD, No Murmur, No Gallop, Normal Peripheral Pulses, Regular Rate/Rhythm Breast Exam: Deferred Gastrointestinal: No Organomegaly, Non Tender, No Pulsatile Mass, Normal Bowel Sounds, Soft Genitalia: Deferred Pelvic: Deferred Rectal: Deferred Extremities: No calf tenderness, Normal capillary refill, Normal inspection, Normal range of motion, Non-tender, No pedal edema Musculoskeletal : Apperance: Normal Neurologic: Alert, food and beverage outlets manager II-XII nml as Tested, No Motor Deficits, Normal Affect, Normal Mood, No Sensory Deficits Cerebellar Function: Normal Reflexes: Normal Skin: Dry, Normal Color, Warm Lymphatic: No Adenopathy Was a procedure done? Was a procedure done?: No Differential Dx Differential Diagnosis: CHF, COPD, Dysrhythmia, Pneumonia X-Ray, Labs, Meds, VS Vital Signs Date Time Temp Pulse Resp B/P (MAP) Pulse Ox O2 Delivery O2 Flow Rate FiO2 07/29/25 12:40 97.6 110 18 148/92 95 97.6 07/29/25 12:36 107 Time of 1ST Reevaluation: 13:33 Reevaluation 1ST: Unchanged Patient Education/Counseling: Diagnosis, Treatment Family Education/Counseling: No Family Present SEPSIS Sepsis Screen Physician Orders Chest Portable (07/29/25 12:39) Electrocardigram (07/29/25 12:30) Rapid Influenza A&B (07/29/25 12:30) Covid19 Antigen Edilma (07/29/25 ) Electrocardigram (07/29/25 13:30) Electrocardigram (07/29/25 15:30) Vital Signs Date Time Temp Pulse Resp B/P (MAP) Pulse Ox O2 Delivery O2 Flow Rate FiO2 07/29/25 12:40 97.6 110 18 148/92 95 97.6 07/29/25 12:36 107 Departure 1 Departure Time of Disposition: 17:36 (You presented with a worsening shortness of breath and chest pain. Patient eloped prior to workup completion) Impression: Primary Impression: Shortness of breath Additional Impression: Fatigue Qualified Codes: R53.83 - Other fatigue Disposition: 07 LEFT AWOL/ELOPED Condition: Serious Critical Care Note Critical Care Time?: No Stability Stability form required: No Heart Score Heart Score: Heart Score Response (Comments) Value History N/A 0 EKG N/A 0 Age N/A 0 Risk Factors N/A 0 Troponin N/A 0 Total 0 I personally scribed for TIANNA LUBIN MD ([email or web address]) on 07/29/25 at 12:39. Electronically submitted by Omid Bell [email or web address]). TIANNA LUBIN MD Jul 29, 2025 12:39
[2025-07-29 12:40] VITALS: BP 148/92; PULSE 110; RESP 18; TEMP 97.6; O2SAT 95
--- NOTE | 2025-07-29 13:24 | DVH ---
INDICATION: sob TECHNIQUE: Frontal view of the chest. COMPARISON: XY CHEST XRAY 1 VIEW on DOS: 07/06/25, CT CHEST WITHOUT CONTRAST on DOS: 06/24/25, XY CHEST PORTABLE on DOS: 06/23/25, XY CHEST XRAY 1 VIEW on DOS: 06/07/25, XY CHEST XRAY 1 VIEW on DOS: 06/04/25 FINDINGS: MEDIAN STERNOTOMY. Cardiomegaly. There is no evidence of pleural disease. The lungs are clear. Th e bony structures of the chest are intact without fracture. IMPRESSION: 1. Cardiomegaly with CHF.
--- NOTE | 2025-07-29 18:47 | ECG ---
[facility] Test Date: 2025-07-29 Test Time: 12:32:56 Pat Name: MANDIE KELLY Department: Room: Gender: M Program Manager Rn: DANIEL : 1955 Requested By: TIANNA LUBIN Order Number: [id number] Reading MD: Jacinto Virk Measurements Intervals [place] Rate: 107 P: 65 FL: 197 QRS: 48 QRSD: 85 T: 61 QT: 334 QTc: 446 Interpretive Statements Sinus tachycardia Left atrial enlargement Electronically Signed On 08-02-2025 10:19:15 PDT by Jacinto Virk Please click the below link to view image of tracing.
== END 2025-07-29 13:10 | disposition left against medical advice (07) ==
LOC: ER 12:23 → EDBD 12:23 → EDUNIT# 12:23 → ER 13:10
DX: R06.02 Shortness of breath (principal); R53.83 Other fatigue; I11.0 Hypertensive heart disease with heart failure; I50.9 Heart failure, unspecified; J44.9 Chronic obstructive pulmonary disease, unspecified; E11.9 Type 2 diabetes mellitus without complications; Z86.73 Personal history of transient ischemic attack (TIA), and cerebral infarction without residual deficits; Z95.1 Presence of aortocoronary bypass graft; Z79.899 Other long term (current) drug therapy
CPT/HCPCS: 71045; 93005

== ENCOUNTER 2025-09-28 09:32 | Outpatient (CLI) | payer OTHER, MEDICAID ==
[2025-09-28 10:28] LABS: INR 1.37 (0.9-1.15); Prothrombin Time 14.1 sec (9.3-11.8)
== END 2025-09-28 17:00 | disposition home or self-care (01) ==
LOC: LAB 09:32
PROVIDERS: ATTEND Physician Assistant
DX: D68.69 Other thrombophilia (principal); Z95.2 Presence of prosthetic heart valve
CPT/HCPCS: 36415; 85610

== ENCOUNTER 2025-10-11 10:02 | Outpatient (CLI) | payer MEDICARE, MEDICAID ==
[~2025-10-11 10:02] MED LIST changes: +AUG875T PO
[2025-10-11 10:26] LABS: INR 1.89 (0.9-1.15); Prothrombin Time 18.8 sec (9.3-11.8)
== END 2025-10-11 17:00 | disposition home or self-care (01) ==
LOC: LAB 10:02 → EDUNIT# 10:02 → LAB 17:00
PROVIDERS: ATTEND Physician Assistant
DX: D68.69 Other thrombophilia (principal); Z95.2 Presence of prosthetic heart valve
CPT/HCPCS: 36415; 85610

== ENCOUNTER 2025-10-15 09:34 | Outpatient (CLI) | payer OTHER, MEDICAID ==
[2025-10-15 10:36] LABS: INR 2.83 (0.9-1.15); Prothrombin Time 27.1 sec (9.3-11.8)
== END 2025-10-15 17:00 | disposition home or self-care (01) ==
LOC: EDUNIT# 09:34 → LAB 09:34
PROVIDERS: ATTEND Physician Assistant
DX: D68.69 Other thrombophilia (principal); Z95.2 Presence of prosthetic heart valve
CPT/HCPCS: 36415; 85610

== ENCOUNTER 2025-10-16 03:20 | Inpatient (IN) | payer OTHER, MEDICAID ==
[~2025-10-16] VITALS: Ht 154.9 cm; Wt 60.0 kg
--- NOTE | 2025-10-16 03:44 | ED.PDOC ---
HPI Comments HPI: 69-year-old male who came to ER via EMS for chest pain. Patient has extensive cardiac history. About 30 minutes ago, he woke up with left sided chest pains, pressure associated with shortness of breath. On scene patient is diaphoretic, short of breath, tachycardic up to 120s, saturating 97% at 2 L/min Was discharged here last October 07 and diagnosed with Acute on chronic decompensated diastolic heart failure HFrEF 30% NSTEMI, likely type 2, secondary to above Nonischemic cardiomyopathy. Hypertensive heart disease with acute systolic chf Severe aortic stenosis status post open-heart with mechanical valve replacement (on warfarin therapy) since 20 years Mitral valve/tricuspid valve regurgitation, moderate to severe degree. Pulmonary hypertension Secondary hypercoagulable state Acute hypoxic respiratory failure secondary to pneumonia Acute pneumonia, likely bacterial SILVIA, likely superimposed on CKD stage 4 Anemia, likely of chronic kidney disease Secondary hyperparathyroidism Diabetes mellius, type 2 with hyperglycemia Transamnitis Hyperlipidemia History of CVA Past medical history: CVA with residual left-sided weakness, diabetes mellitus on insulin, HFrEF 30%, COPD on 2 L home oxygen, asthma, aortic valve replacement in 2003 on warfarin, CKD stage 4, hypertension, 3 DC with no stent placement Past surgical history: Aortic valve replacement in 2003 Social History: HPI: Poor Historian. Patient is on Coumadin daily for history of PE. REVIEW OF SYSTEMS: CONSTITUTIONAL: Denies acute: fever, diaphoresis, chills, generalized weakness. HEAD: Denies acute: headache, photophobia Eyes: Denies acute: Double vision, vision loss, eye pain, eye discharge. EARS: Denies acute: tinnitus, hearing loss, ear discharge, ear pain, THROAT: Denies acute: sore throat, swelling, difficulty swallowing , pain with swallowing, change in voice. NECK: Denies acute: neck pain, neck swelling, stiff neck. HEART: Denies acute : palpitations, LUNGS: Denies acute: wheezing, cough, hemoptysis ABDOMEN: Denies acute: abdominal pain, Nausea, Vomiting, diarrhea, melena , hematemesis, hematochezia SKIN: Denies acute: rash, redness, lesions, itchiness. EXTREMITIES: Denies acute: calf pain, numbness, tingling, weakness, denies pain in extremity. Denies acute: Low back pain. Neuro: Denies acute: focal neurological deficit, motor or sensory focal neurological deficit, tremors, seizure like activity, confusion, dizziness, change in mental status, loss of bowel or bladder function, cauda equina like symptoms. : Denies acute: dysuria, hematuria, flank pain, increase in urinary frequency. PSYCH: Denies acute: hallucination, suicidal ideation, homicidal ideation. PHYSICAL EXAM: General: ---moderate-----acute distress, awake and alert. Head: normocephalic, atraumatic. No raccoon's eyes, no pino sign. Neck: supple, trachea is midline, no swelling. Throat: Normal phonation. Eyes:, no erythema, no purulent discharge, no proptosis, no icterus. Heart: regular tachycardic, no significant murmur appreciated. Lungs: Kfoe-ci-tqxwrkzg respiratory distress, Able to speak in full sentences. No wheezing, no rhonchi, no crackles. No stridors Abdomen: non tender to palpation, non distended, soft, no guarding, no rebound, + bowel sounds. Neuro: Awake, Alert, oriented to name, self, situation, follows commands GCS=15. Speech is normal. Skin: no petechia, no purpura, no cyanosis, non-pale, not jaundice. Lower extremities: --no - Pitting edema no deformity, no focal swelling, no calf TTP. Makes eye contact. moves all four extremities. Face: no apparent facial droop. ED COURSE: DISCLAIMER: This medical document was created using an electronic medical record system with voice recognition software and computerized dictation system. Although this document has been carefully reviewed, there might still be some phonetic and typographical errors. Occasional wrong-word or "sound-alike" substitutions may have occurred due to the inherent limitations of voice recognition software. These areas are purely typographical due to imperfections of the software programs and do not reflect any compromise in the patient's medical care. Please read the chart carefully and recognize, using context, where these substitutions have occurred. Chief Complaint: Chest Pain Time Seen by MD: 03:43 Reviewed Notes: Nurses Notes, Allergies Allergies: Coded Allergies: Iodine (Unverified Allergy, Unknown, 06/21/25) Information Source: Patient, Emergency Med Personnel Mode of Arrival: EMS Past Medical History PAST MEDICAL HISTORY: CHF, CKF, COPD, CVA, DM, High Lipids, HTN, Liver, DC Surgical History: Denies all surgeries Family History Family History: Reviewed,noncontributory to illness, Family hx of heart ruben Social History Smoker: Non-Smoker Alcohol: Denies ETOH Use Drugs: Denies Drug Use Lives In: Home Was a procedure done? Was a procedure done?: No CP Differential Dx Differential Diagnosis: N/A Differential Diagnosis: Other (Ddx include but not limitied to gastritis, musculoskeletal pain, radiculopathy, atypical chest pain, dissection, aneurysm, ACS, unstable angina, hiatal hernia, GERD, anxiety, costochondritis, PE, pneumothroax, neoplasm, cardiac ischemia, drug abuse, anemia.) X-Ray, Labs, Meds, VS Vital Signs Date Time Temp Pulse Resp B/P (MAP) Pulse Ox O2 Delivery O2 Flow Rate FiO2 10/16/25 04:14 Nasal Cannula* 2 28 10/16/25 04:14 99.1 124 32 146/97 (113) 97 99.1 10/16/25 04:08 123 10/16/25 04:00 116 10/16/25 03:55 22 98 Nasal Cannula* 2 28 10/16/25 03:35 143 10/16/25 03:20 98.7 120 28 146/95 97 98.7 Lab Test 10/16/25 04:56 10/16/25 03:56 Range/Units Troponin I High Sensitivity 94 *H 115 *H </=54 ng/L White Blood Count 11.9 H 4.4-10.8 10^3/uL Red Blood Count 4.22 L 4.5-5.90 10^6/uL Hemoglobin 11.7 L 13.5-17.5 g/dL Hematocrit 36.0 L 41.0-53.0 % Mean Corpuscular Volume 85.5 80.0-100.0 fL Mean Corpuscular Hemoglobin 27.8 L 28.0-32.0 pg Mean Corpuscular Hemoglobin Concent 32.6 32.0-36.0 g/dL Red Cell Distribution Width 16.5 H 11.8-14.3 % Platelet Count 153 140-450 10^3/uL Mean Platelet Volume 7.9 6.9-10.8 fL Neutrophils (%) (Auto) 87.2 H 37.0-80.0 % Lymphocytes (%) (Auto) 5.5 L 10.0-50.0 % Monocytes (%) (Auto) 5.7 0.0-12.0 % Eosinophils (%) (Auto) 1.0 0.0-7.0 % Basophils (%) (Auto) 0.6 0.0-2.0 % Neutrophils # (Auto) 10.4 H 1.6-8.6 10 ^3/uL Lymphocytes # (Auto) 0.7 0.4-5.4 10 ^3/uL Monocytes # (Auto) 0.7 0-1.3 10 ^3/uL Eosinophils # (Auto) 0.1 0-0.8 10 ^3/uL Basophils # (Auto) 0.1 0-0.2 10 ^3/uL Nucleated Red Blood Cells 0.0 % Prothrombin Time 25.1 H 9.3-11.8 sec Prothrombin Time INR 2.60 H 0.9-1.15 Activated Partial Thromboplast Time 38.8 H 24.5-34.5 SEC Sodium Level 143 136-145 mmol/L Potassium Level 4.7 3.5-5.1 mmol/L Chloride Level 108 H 98-107 mmol/L Carbon Dioxide Level 23 20-31 mmol/L Anion Gap 12 5-15 Blood Urea Nitrogen 38 H 9-23 mg/dL Creatinine 2.40 H 0.700-1.30 mg/dL Glomerular Filtration Rate Calc 29 >90 mL/min BUN/Creatinine Ratio 15.8 10.0-20.0 Serum Glucose 101 74-106 mg/dL Calcium Level 9.5 8.7-10.4 mg/dL Magnesium Level 2.2 1.6-2.6 mg/dL Total Bilirubin 1.2 H 0.2-1.0 mg/dL Aspartate Amino Transferase (AST) 63 H 13-40 U/L Alanine Aminotransferase (ALT) 91 H 7-40 U/L Alkaline Phosphatase 101 46-116 U/L B-Type Natriuretic Peptide 1687.48 0-100 pg/mL Total Protein 7.1 5.7-8.2 g/dL Albumin 4.4 3.2-4.8 g/dL [facility] [address] [place] [facility] [place] [address] Ph: [phone] DIAGNOSTIC IMAGING Diagnostic Imaging Report : [id number] Signed PATIENT: MANDIE KELLY ACCT: [id number] UNIT: [id number] : 1955 LOC: ER ROOM / BED: / AGE / SEX: 69 / M ADM STATUS: REG ER SERVICE 0334 ORDERING PHYSICIAN: RAJ HILL DO PROCEDURE(s): CXRP - CHEST PORTABLE REASON: cp/sob ORDER NUMBER(s): [id number], ACCESSION NUMBER(s): [id number] CHEST RADIOGRAPH Indication: cp/sob Technique: Single frontal view of the chest was obtained Comparison: XY CHEST XRAY 1 VIEW on DOS: 10/04/25, XY CHEST PORTABLE on DOS: 07/29/25, XY CHEST XRAY 1 VIEW on DOS: 07/06/25 IMPRESSION: There is cardiomegaly with median sternotomy wires and prosthetic cardiac valve. Kceo-rv-tunnywiw pulmonary vascular congestion. No sizable effusion or pneumothorax. ATED BY: MARYJANE LA MD DICTATED DATE/TIME: 10/16/25405 SIGNED BY: MARYJANE LA MD SIGNED DATE/TIME: 10/16/25405 CC: Time of 1ST Reevaluation: 03:42 Reevaluation 1ST: Unchanged Patient Education/Counseling: Diagnosis, Treatment Family Education/Counseling: No Family Present Comments MDM: patient presented with the above HPI.---cardiac---workup was initiated. patient was found with the above mentioned diagnosis. the following medications were ordered: please refer to order lists of meds and tests obtained by myself Dr. Hill. Patient ED course and VS have been stabilized. Patient has been reassessed in the ED and remained in a stable condition. Pertinent incidental findings were discussed with the patient and/or family. Patient/family voices understanding and is agreeable with plan. Patient has been observed in the ED adequate length of time to insure improvement/stability. Escalation of care considered: Consideration of escalation to observation or admission Patient was given Lasix, Solu-Medrol, DuoNeb treatment. Patient is already anticoagulated on Coumadin. Patient was ADMITTED to the medicine team for further evaluation and treatment of their presentation. All the reports of any imaging studies that were ordered by myself were reviewed by myself. SEPSIS Sepsis Screen Physician Orders Chest Portable (10/16/25 03:34) Joy Operator (10/16/25 ) Electrocardigram (10/16/25 03:34) Electrocardigram (10/16/25 04:34) Electrocardigram (10/16/25 06:34) Vital Signs Date Time Temp Pulse Resp B/P (MAP) Pulse Ox O2 Delivery O2 Flow Rate FiO2 10/16/25 04:14 Nasal Cannula* 2 28 10/16/25 04:14 99.1 124 32 146/97 (113) 97 99.1 10/16/25 04:08 123 10/16/25 04:00 116 10/16/25 03:55 22 98 Nasal Cannula* 2 28 10/16/25 03:35 143 10/16/25 03:20 98.7 120 28 146/95 97 98.7 Laboratory Tests Test 10/16/25 03:56 White Blood Count 11.9 10^3/uL (4.4-10.8) H Departure 1 Departure Time of Disposition: 03:52 Impression: Primary Impression: Acute respiratory distress Additional Impressions: CHF exacerbation COPD exacerbation Elevated troponin Anticoagulated on Coumadin Disposition: ADMITTED INPATIENT Admit to: Tele Condition: Guarded Discharged With: Self Critical Care Note Critical Care Time?: Yes (1 hr-critical care time only) Stability Stability form required: No Heart Score Heart Score: Heart Score Response (Comments) Value History Moderate Suspicious 1 EKG Repolarization Disturb 1 Age >65 2 Risk Factors >3 or Hx ASHD 2 Troponin >3 x's Normal limit 2 Total 8 I personally scribed for RAJ HILL DO ([email or web address]) on 10/16/25 at 03:44. Electronically submitted by Hu Serrano ([facility]). I personally scribed for RAJ HILL DO ([email or web address]) on 10/16/25 at 03:48. Electronically submitted by Hu Serrano ([facility]). I personally scribed for RAJ HILL DO ([email or web address]) on 10/16/25 at 04:51. Electronically submitted by Hu Serrano ([facility]). I personally scribed for RAJ HILL DO ([email or web address]) on 10/16/25 at 05:34. Electronically submitted by Hu Serrano ([email or web address]). RAJ HILL DO Oct 16, 2025 03:44
[2025-10-16] MEDS ORDERED: ALBUTEROL SULF 2.5 MG/0.5ML(0.5%) NEB SOLN ONE (03:46)
[2025-10-16] MEDS: ALBUTEROL SULF 2.5 MG/0.5ML(0.5%) NEB SOLN NEB ONE (03:54)
[2025-10-16] MEDS: IPRATROPIUM BROM 0.5 MG/2.5ML INH SOL NEB ONE (03:55)
--- NOTE | 2025-10-16 04:07 | DVH ---
CHEST RADIOGRAPH Indication: cp/sob Technique: Single frontal view of the chest was obtained Comparison: XY CHEST XRAY 1 VIEW on DOS: 10/04/25, XY CHEST PORTABLE on DOS: 07/29/25, XY CHEST XRAY 1 VIEW on DOS: 07/06/25 IMPRESSION: There is cardiomegaly with median sternotomy wires and prosthetic cardiac valve. Zrpo-si-qkxzmbne pulmonary vascular congestion. No sizable effusion or pneumothorax.
[2025-10-16 04:08] LABS: Hematocrit 36.0 % (41.0-53.0); Hemoglobin 11.7 g/dL (13.5-17.5); Mean Corpuscular Hemoglobin 27.8 pg (28.0-32.0); Mean Corpuscular Volume 85.5 fL (80.0-100.0); Nucleated Red Blood Cells % 0.0 %
[2025-10-16 04:27] LABS: Albumin 4.4 g/dL (3.2-4.8); Alkaline Phosphatase 101 U/L (46-116); Anion Gap 12 (5-15); BUN/Creatinine Ratio 15.8 (10.0-20.0); Calcium 9.5 mg/dL (8.7-10.4); Carbon Dioxide 23 mmol/L (20-31); Glucose 101 mg/dL (74-106); Magnesium 2.2 mg/dL (1.6-2.6); Potassium 4.7 mmol/L (3.5-5.1); Sodium 143 mmol/L (136-145); Total Protein 7.1 g/dL (5.7-8.2)
[2025-10-16 04:28] LABS: Bilirubin, Total 1.2 mg/dL (0.2-1.0)
[2025-10-16 04:32] LABS: Alanine Aminotransferase 91 U/L (7-40); Blood Urea Nitrogen 38 mg/dL (9-23); Chloride 108 mmol/L (98-107)
[2025-10-16 04:33] LABS: INR 2.6 (0.9-1.15); Partial Thromboplastin Time 38.8 SEC (24.5-34.5); Prothrombin Time 25.1 sec (9.3-11.8)
[2025-10-16] MEDS ORDERED: HYDROcodone-ACET 5/325MG TAB PO PRN (05:15)
[2025-10-16] MEDS ORDERED: NITROGLYCERIN 0.4 MG SL TAB SL PRN (05:15)
[2025-10-16] MEDS ORDERED: MORPHINE SULFATE INJ 2 MG/ml SYRG IV PRN (05:15)
[2025-10-16] MEDS ORDERED: methylPREDNISolone SOD SUCC 40 MG/ML VL ONE ×2 (05:20)
[2025-10-16] MEDS ORDERED: FUROSEMIDE 40 MG/4 ML VIAL ONE ×2 (05:20→06:30)
--- NOTE | 2025-10-16 05:22 | DVHHPRES ---
History of Present Illness Resident Creating Document: PAUL CASTRO RESIDENT History of Present Illness This is a 69-year-old male with past medical history of DM 2 on insulin, heart failure with reduced ejection fraction EF 40%,COPD on 2 L home oxygen, history of CVA 2002, asthma, aortic valve replacement 2003 on warfarin, CKD stage 4, ex- smoker brought by EMS due to chest pain. As per patient patient was sleeping and suddenly woke up around 8:00 p.m. day before admission due to chest pain which is 9/10 intensity, left side of the chest, no radiation, tried home medicine but not relieved,. Chest pain associated with cough, SOB, fatigue, palpitation, headache and sweating. Patient had dental extraction on 10/02, following which he started to feel fevers and chills, associated with shortness of breaths and productive cough needs hospitalization on October 05, 2025 and discharged on October 07 with p.o. antibiotic Augmentin. Patient compliance with his home medication. Currently denies any fever, diarrhea, dysuria , nausea vomiting. Past Medical/Surgical History: Diabetes Mellitus type 2, HFrEF 40%, COPD with home oxygen 2L, CVA 2002, asthma, CKD stage 4,aortic valve replacement 2003 on warfarin Past Social History: The patient lives at home, smokes 3 cigarettes per day, denies alcohol or illicit drugs abuse. Allergy: Iodine PCP: Unable to recall Home medication: [place], Farxiga, Entresto ,trilagy Ellipta, Lopressor , furosemide 40, sodium bicarb, warfarin 3 mg, atorvastatin , ipratropium, omeprazole, insulin lispro, isosorbide dinitrate , ezetimibe . Review of Systems Constitutional: Yes: Weakness, Malaise; No: Fever, Chills, Sweats, Other Eyes: No: Pain, Vision change, Conjunctivae inflammation, Eyelid inflammation, Other, Redness ENT: No: Ear pain, Ear discharge, Nose pain, Nose discharge, Nose congestion, Mouth pain, Mouth swelling, Throat pain, Throat swelling, Other Respiratory: No: Cough, Dry, Shortness of breath, SOB with excertion, Wheezing, Hemoptysis, Pleuritic Pain, Sputum, Wheezing, Other Cardiovascular: Chest Pain, Palpitations, Lt Headedness; No: Orthopnea, Paroxysmal Noc. Dyspnea, Edema, Other Gastrointestinal: Abdominal Pain; No: Nausea, Vomiting, Diarrhea, Constipation, Melena, Hematochezia, Other Genitourinary: No Dysuria, No Frequency, No Incontinence, No Hematuria, No Retention, No Other Musculoskeletal: back pain Skin: No: Rash, Lesions, Jaundice, Bruising, Other Neurological: Weakness; No: Numbness, Incoordination, Change in speech, Confusion, Seizures, Other Allergies: Coded Allergies: Iodine (Unverified Allergy, Unknown, 06/21/25) Medications Current Medications Medications Dose Ordered Sig/Cynthia Route Start Time Stop Time Status Last Admin Dose Admin Acetaminophen/ Hydrocodone Bitart 1 tab Q4HP PRN PO 10/16/25 05:15 UNV Nitroglycerin 0.4 mg Q5MINP PRN SL 10/16/25 05:15 UNV Morphine Sulfate 2 mg Q30M PRN IV 10/16/25 05:15 UNV Furosemide 40 mg BIDD IV 10/16/25 06:00 UNV Exam Vital Signs Vital Signs Date Time Temp Pulse Resp B/P (MAP) Pulse Ox O2 Delivery O2 Flow Rate FiO2 10/16/25 04:14 Nasal Cannula* 2 28 10/16/25 04:14 99.1 124 32 146/97 (113) 97 99.1 General Appearance: Alert, Oriented X3, Cooperative, moderate distress HEENT: Atraumatic, PERRLA, EOMI, Mucous membr. moist/pink Respiratory: Normal air movement, Other (Expiratory wheeze and bilateral basal crackles) Cardiovascular: Regular rate, Normal S1, Normal S2 Abdominal: Normal bowel sounds, Soft, Other (Tender on deep palpation) Skin: No rashes, No breakdown Neuro: Normal speech, Strength at 5/5 X4 ext, Sensation intact, Other (Gait instability) Psych/Mental Status: Mental status NL Labs/Xrays Labs Test 10/16/25 03:56 Range/Units White Blood Count 11.9 H 4.4-10.8 10^3/uL Red Blood Count 4.22 L 4.5-5.90 10^6/uL Hemoglobin 11.7 L 13.5-17.5 g/dL Hematocrit 36.0 L 41.0-53.0 % Mean Corpuscular Volume 85.5 80.0-100.0 fL Mean Corpuscular Hemoglobin 27.8 L 28.0-32.0 pg Mean Corpuscular Hemoglobin Concent 32.6 32.0-36.0 g/dL Red Cell Distribution Width 16.5 H 11.8-14.3 % Platelet Count 153 140-450 10^3/uL Mean Platelet Volume 7.9 6.9-10.8 fL Neutrophils (%) (Auto) 87.2 H 37.0-80.0 % Lymphocytes (%) (Auto) 5.5 L 10.0-50.0 % Monocytes (%) (Auto) 5.7 0.0-12.0 % Eosinophils (%) (Auto) 1.0 0.0-7.0 % Basophils (%) (Auto) 0.6 0.0-2.0 % Neutrophils # (Auto) 10.4 H 1.6-8.6 10 ^3/uL Lymphocytes # (Auto) 0.7 0.4-5.4 10 ^3/uL Monocytes # (Auto) 0.7 0-1.3 10 ^3/uL Eosinophils # (Auto) 0.1 0-0.8 10 ^3/uL Basophils # (Auto) 0.1 0-0.2 10 ^3/uL Nucleated Red Blood Cells 0.0 % Prothrombin Time 25.1 H 9.3-11.8 sec Prothrombin Time INR 2.60 H 0.9-1.15 Activated Partial Thromboplast Time 38.8 H 24.5-34.5 SEC Sodium Level 143 136-145 mmol/L Potassium Level 4.7 3.5-5.1 mmol/L Chloride Level 108 H 98-107 mmol/L Carbon Dioxide Level 23 20-31 mmol/L Anion Gap 12 5-15 Blood Urea Nitrogen 38 H 9-23 mg/dL Creatinine 2.40 H 0.700-1.30 mg/dL Glomerular Filtration Rate Calc 29 >90 mL/min BUN/Creatinine Ratio 15.8 10.0-20.0 Serum Glucose 101 74-106 mg/dL Calcium Level 9.5 8.7-10.4 mg/dL Magnesium Level 2.2 1.6-2.6 mg/dL Total Bilirubin 1.2 H 0.2-1.0 mg/dL Aspartate Amino Transferase (AST) 63 H 13-40 U/L Alanine Aminotransferase (ALT) 91 H 7-40 U/L Alkaline Phosphatase 101 46-116 U/L Troponin I High Sensitivity 115 *H </=54 ng/L B-Type Natriuretic Peptide 1687.48 0-100 pg/mL Total Protein 7.1 5.7-8.2 g/dL Albumin 4.4 3.2-4.8 g/dL SEPSIS Sepsis Screen Date sepsis recognized/suspect: Oct 16, 2025 Time Sepsis recognized/suspect: 319 Recent Procedure: No On Antibiotic Therapy: No Respiratory Rate >20: No Heart Rate >90: Yes Temp<36 C (96.8 F) or >38.3 C: No SBP <90 or MAP <65 mmHG: No New Acute Mental Status Change: No Is the patient on CPAP, BIPAP,: No Physician Orders Chest Portable (10/16/25 03:34) Centrifuge Separator Tender (10/16/25 ) Electrocardigram (10/16/25 03:34) Troponin-I Hs (10/16/25 04:34) Troponin-I Hs (10/16/25 06:34) Electrocardigram (10/16/25 04:34) Electrocardigram (10/16/25 06:34) Admit (10/16/25 05:13) Code Status (10/16/25 05:13) Hydrocodone-Acet 5/325mg Tab ([place] 5/32 (10/16/25 05:15) Cardiac Diet-2gna,Lofat,Lochol (10/16/25 Breakfast) Nitroglycerin Sublingual (Ntrostat Subli (10/16/25 05:15) Morphine Sulfate Injection (10/16/25 05:15) Oxygen By Nasal Cannula (10/16/25 05:13) Stat Ekg For Chest Pain (10/16/25 05:13) Notify Md Of Changes From Base (10/16/25 05:13) Outside Installation Machinist For 24 Hours (10/16/25 05:13) Emergency Dysrhythmia Protocol (10/16/25 05:13) Rhythm Strips Once Every Shift (10/16/25 05:13) Furosemide Injection (Lasix Injection) (10/16/25 06:00) Vital Signs Date Time Temp Pulse Resp B/P (MAP) Pulse Ox O2 Delivery O2 Flow Rate FiO2 10/16/25 04:14 Nasal Cannula* 2 28 10/16/25 04:14 99.1 124 32 146/97 (113) 97 99.1 10/16/25 04:08 123 10/16/25 04:00 116 10/16/25 03:55 22 98 Nasal Cannula* 2 28 10/16/25 03:35 143 10/16/25 03:20 98.7 120 28 146/95 97 98.7 Laboratory Tests Test 10/16/25 03:56 White Blood Count 11.9 10^3/uL (4.4-10.8) H Medications Medications Dose Ordered Sig/Cynthia Route Start Time Stop Time Status Last Admin Dose Admin Albuterol 2.5 mg ONCE ONCE NEB 10/16/25 03:45 10/16/25 03:46 DC 10/16/25 03:54 2.5 MG Ipratropium [place] 1 mg ONCE ONCE NEB 10/16/25 03:45 10/16/25 03:46 DC 10/16/25 03:55 1 MG Assessment/Plan Assessment/Plan Acute systolic heart failure, NYHA class III NTSEMI, type II secondary to above Nonischemic cardiomyopathy Severe aortic stenosis status post open-heart with mechanical valve replacement (on warfarin therapy) Mitral valve/tricuspid valve regurgitation, moderate to severe degree Pericardial effusion Essential hypertension Hyperlipidemia Type 2 diabetes mellitus HR 120, respiratory rate 28, 2 L oxygen on N/C-on admission BP 146/95 In ER patient received furosemide, methylprednisolone, breathing treatment EKG: Sinus tachycardia, heart rate 123, QTC [address] changes Troponin: 115> 94 BNP-1687.48 Magnesium-2.2 CXR-There is cardiomegaly with median sternotomy wires and prosthetic cardiac valve. Eloq-id-udhirfrd pulmonary vascular congestion. Echo on 10/05/2025 showed LVEF 40%, dilated LV cavity, severe mitral regurgitation, moderate mitral stenosis, severe tricuspid regurgitation, small pericardial effusion. Continue preload and afterload reduction as tolerated by patient blood pressures and renal function. Continue Lasix Resume GDMT for HFrEF as renal function permits Maintain Coumadin levels at therapeutic range for an INR in between 2.5-3.5. ( PT 25.1, INR 2.60, PTT 38.8) Ezetimibe -home med Insulin sliding scale Strict I&Os, cardiac diet, fluid restriction Acute hypoxic respiratory failure secondary to pneumonia Sepsis likely pneumonia Gram-positive Gram-negative ? COPD exacerbation Pulmonary hypertension Started empiric antibiotic doxycycline and ceftriaxone Breathing treatment with albuterol and ipratropium Methylprednisone Continue oxygen 2 L Lactic acid Blood and sputum culture COVID 19 and influenza test Monitor lab Acute kidney injury likely superimposed on CKD stage 4 Anemia likely chronic kidney disease Secondary hyperparathyroidism Creatinine 2.40, EGFR 29 Avoid nephrotoxic drugs PTH:204.8 on 10/05/2025 Hemoglobin 11.7 Monitor CBC Nephrology consult Transaminitis Total bilirubin 1.2, AST 63, ALT 91 History of CVA Gait instability Low-back pain Continue pain med Fall precaution Physical therapy Obesity Lifestyle modification Diet: Cardiac GI prophylaxis: Pantoprazole DVT prophylaxis: Warfarin Goals of care discussions. More than 29 minute spent with patient. Full code status. Case discussed with Dr. Caraballo. Plan discussed with: Patient, Other (Nurse) My Orders Orders - PAUL CASTRO Procedure Category Date Status Time Admit ADMIT 10/16/25 Transmitted 05:13 Code Status CODE 10/16/25 Transmitted 05:13 Hydrocodone-Acet PHA 10/16/25 Logged 5/325mg Tab ([place] 05:15 Cardiac DIET 10/16/25 Transmitted Diet-2gna,Lofat,Lochol Breakfast Nitroglycerin PHA 10/16/25 Logged Sublingual (Ntrostat 05:15 Morphine Sulfate PHA 10/16/25 Logged Injection 05:15 Oxygen By Nasal RT 10/16/25 Transmitted Cannula 05:13 Stat Ekg For Chest [facility] 10/16/25 In Process Pain 05:13 Notify Of Changes [facility] 10/16/25 In Process From Base 05:13 Outside Installation Machinist For [facility] 10/16/25 In Process 24 Hours 05:13 Emergency Dysrhythmia [facility] 10/16/25 In Process Protocol 05:13 Rhythm Strips Once [facility] 10/16/25 In Process Every Shift 05:13 Furosemide Injection [facility] 10/16/25 Logged (Lasix Injection) 06:00 Date of Service: Oct 16, 2025 Billing Provider: CRISTIANA CARABALLO MD Common Visit Codes: 11687-[id number] INP/OBS CARE (HIGH) Secondary Visit Codes: 75691-[id number] CARE PLAN 30 MINUTES PAUL CASTRO Oct 16, 2025 05:22
[2025-10-16] MEDS: methylPREDNISolone SOD SUCC 125 MG/2 ML VL IV ONE (05:27)
[2025-10-16] MEDS: FUROSEMIDE 40 MG/4 ML VIAL IV ONE (05:27)
[2025-10-16] MEDS ORDERED: ALBUTEROL SULF 2.5 MG/0.5ML(0.5%) NEB SOLN NEB PRN (05:30)
[2025-10-16] MEDS ORDERED: IPRATROPIUM BROM 0.5 MG/2.5ML INH SOL NEB PRN (05:30)
[2025-10-16] MEDS: FUROSEMIDE 40 MG/4 ML VIAL IV SCH (06:00)
--- NOTE | 2025-10-16 06:15 | ECG ---
[facility] Test Date: 2025-10-16 Test Time: 04:08:24 Pat Name: MANDIE KELLY Department: COUNTS INCLUDE 234 BEDS AT THE [facility] ED Room: [address] [place] [address] Gender: M Director Search: DELIA : 1955 Requested By: RAJ HILL Order Number: [id number] Reading MD: Jacinto Virk Measurements Intervals [place] Rate: 123 P: 0 [place]: 157 QRS: 76 QRSD: 77 T: 53 QT: 301 QTc: 431 Interpretive Statements Sinus tachycardia Probable left atrial enlargement Electronically Signed On 10-16-2025 10:37:40 PST by Jacinto Virk Please click the below link to view image of tracing.
--- NOTE | 2025-10-16 06:17 | ECG ---
[facility] Test Date: 2025-10-16 Test Time: 03:35:51 Pat Name: MANDIE KELLY Department: ED Room: [address] [place] [address] A Gender: M Studio Coordinator: DELIA : 1955 Requested By: RAJ HILL Order Number: [id number] Reading MD: Jacinto Virk Measurements Intervals [place] Rate: 143 P: 0 [place]: 132 QRS: 97 QRSD: 158 T: 94 QT: 349 QTc: 539 Interpretive Statements Poor quality data, interpretation may be affected Atrial-ventricular dual-paced complexes No further rhythm analysis attempted due to paced rhythm Nonspecific intraventricular conduction delay Borderline T abnormalities, lateral leads Artifact in lead(s) I,II,aVR,aVL,aVF,V1,V2,V3,V4,V5,V6 Electronically Signed On 10-16-2025 10:37:38 PST by Jacinto Virk Please click the below link to view image of tracing.
[2025-10-16 06:35] VITALS: BP 165/94; PULSE 116; RESP 22; TEMP 98.7; O2SAT 96
[2025-10-16] MEDS: INSULIN LISPRO (HUMAN) 100 UNITS/ML ML SC SCH (07:00)
[2025-10-16] MEDS ORDERED: methylPREDNISolone SOD SUCC 40 MG/ML VL IV SCH (10:00)
[2025-10-16] MEDS ORDERED: DOXYCYCLINE 100 MG TAB/CAP PO SCH (10:00)
--- NOTE | 2025-10-16 14:39 | DVHDS2 ---
Discharge Summary Date of Admission Oct 16, 2025 at 05:13 Date of Discharge: Oct 16, 2025 Labs/Diagnostic Data: Laboratory Results Test 10/16/25 04:56 10/16/25 03:56 Troponin I High Sensitivity 94 ng/L (</=54) White Blood Count 11.9 10^3/uL (4.4-10.8) Red Blood Count 4.22 10^6/uL (4.5-5.90) Hemoglobin 11.7 g/dL (13.5-17.5) Hematocrit 36.0 % (41.0-53.0) Mean Corpuscular Volume 85.5 fL (80.0-100.0) Mean Corpuscular Hemoglobin 27.8 pg (28.0-32.0) Mean Corpuscular Hemoglobin Concent 32.6 g/dL (32.0-36.0) Red Cell Distribution Width 16.5 % (11.8-14.3) Platelet Count 153 10^3/uL (140-450) Mean Platelet Volume 7.9 fL (6.9-10.8) Neutrophils (%) (Auto) 87.2 % (37.0-80.0) Lymphocytes (%) (Auto) 5.5 % (10.0-50.0) Monocytes (%) (Auto) 5.7 % (0.0-12.0) Eosinophils (%) (Auto) 1.0 % (0.0-7.0) Basophils (%) (Auto) 0.6 % (0.0-2.0) Neutrophils # (Auto) 10.4 10 ^3/uL (1.6-8.6) Lymphocytes # (Auto) 0.7 10 ^3/uL (0.4-5.4) Monocytes # (Auto) 0.7 10 ^3/uL (0-1.3) Eosinophils # (Auto) 0.1 10 ^3/uL (0-0.8) Basophils # (Auto) 0.1 10 ^3/uL (0-0.2) Nucleated Red Blood Cells 0.0 % Prothrombin Time 25.1 sec (9.3-11.8) Prothrombin Time INR 2.60 (0.9-1.15) Activated Partial Thromboplast Time 38.8 SEC (24.5-34.5) Sodium Level 143 mmol/L (136-145) Potassium Level 4.7 mmol/L (3.5-5.1) Chloride Level 108 mmol/L (98-107) Carbon Dioxide Level 23 mmol/L (20-31) Anion Gap 12 (5-15) Blood Urea Nitrogen 38 mg/dL (9-23) Creatinine 2.40 mg/dL (0.700-1.30) Glomerular Filtration Rate Calc 29 mL/min (>90) BUN/Creatinine Ratio 15.8 (10.0-20.0) Serum Glucose 101 mg/dL (74-106) Calcium Level 9.5 mg/dL (8.7-10.4) Magnesium Level 2.2 mg/dL (1.6-2.6) Total Bilirubin 1.2 mg/dL (0.2-1.0) Aspartate Amino Transferase (AST) 63 U/L (13-40) Alanine Aminotransferase (ALT) 91 U/L (7-40) Alkaline Phosphatase 101 U/L (46-116) B-Type Natriuretic Peptide 1687.48 pg/mL (0-100) Total Protein 7.1 g/dL (5.7-8.2) Albumin 4.4 g/dL (3.2-4.8) Other Laboratory Tests 10/16/25 03:56 Brief Hx & Hospital Course: This is a 69-year-old male with past medical history of DM 2 on insulin, heart failure with reduced ejection fraction EF 40%,COPD on 2 L home oxygen, history of CVA 2002, asthma, aortic valve replacement 2003 on warfarin, CKD stage 4, ex- smoker brought by EMS due to chest pain. As per patient patient was sleeping and suddenly woke up around 8:00 p.m. day before admission due to chest pain which is 9/10 intensity, left side of the chest, no radiation, tried home medicine but not relieved,. Chest pain associated with cough, SOB, fatigue, palpitation, headache and sweating. Patient had dental extraction on 10/02, following which he started to feel fevers and chills, associated with shortness of breaths and productive cough needs hospitalization on October 05, 2025 and discharged on October 07 with p.o. antibiotic Augmentin. Patient compliance with his home medication. Currently denies any fever, diarrhea, dysuria , nausea vomiting. Past Medical/Surgical History: Diabetes Mellitus type 2, HFrEF 40%, COPD with home oxygen 2L, CVA 2002, asthma, CKD stage 4,aortic valve replacement 2003 on warfarin Past Social History: The patient lives at home, smokes 3 cigarettes per day, denies alcohol or illicit drugs abuse. This patient was assigned to me to round on for today. Patient's eloped from ER before I came to see the patient. Condition at Discharge: Undetermined Final Diagnosis/Problems List Patient's eloped from the ER. Discharge Disposition: Eloped SNF Discharge Will this Physician continue t: No Discharge Instruct/Medications Scheduled Amoxicillin & Pot Clavulanate (Augmentin Tablet), 875 MG PO BID Discharge Statement: "Patient was advised to return to the ER or call 911 if any headaches, dizziness, shortness of breath, chest pain, abdominal pain, bleeding, fevers, or worsening of medical condition. Patient was counseled about treatment plan, medications, possible side effects, patientverbalized understanding. All questions were answered to the best of my ability. This discharge took greater then 30 minutes in planning, reviewing documentation, counseling the patient, and discussing with other team members." ASSESSMENT ASSESSMENT Assessment Date of Service: Oct 16, 2025 Billing Provider: MUNDO FLAHERTY MD Common Visit Codes: 66696-UZV/OBS DISCH DAY <30MIN MUNDO FLAHERTY MD Oct 16, 2025 14:39
== END 2025-10-16 07:10 | disposition left against medical advice (07) | DRG 871 ==
LOC: EDUNIT# 03:20 → EDBD 03:20 → ER 03:20 → OVERFLOW 05:13 → EDUNIT# 05:13
PROVIDERS: ATTEND Emergency Medicine
DX: A41.9 Sepsis, unspecified organism (principal); I21.A1 Myocardial infarction type 2; J96.01 Acute respiratory failure with hypoxia; J18.9 Pneumonia, unspecified organism; I50.23 Acute on chronic systolic (congestive) heart failure; I42.9 Cardiomyopathy, unspecified; I27.20 Pulmonary hypertension, unspecified; D63.8 Anemia in other chronic diseases classified elsewhere; J44.0 Chronic obstructive pulmonary disease with (acute) lower respiratory infection; N17.9 Acute kidney failure, unspecified; Z79.01 Long term (current) use of anticoagulants; I13.0 Hypertensive heart and chronic kidney disease with heart failure and stage 1 through stage 4 chronic kidney disease, or unspecified chronic kidney disease; I69.354 Hemiplegia and hemiparesis following cerebral infarction affecting left non-dominant side; N18.4 Chronic kidney disease, stage 4 (severe); E11.22 Type 2 diabetes mellitus with diabetic chronic kidney disease; E66.9 Obesity, unspecified; Z95.2 Presence of prosthetic heart valve; Z68.25 Body mass index [BMI] 25.0-25.9, adult; R26.89 Other abnormalities of gait and mobility; F17.210 Nicotine dependence, cigarettes, uncomplicated; E78.5 Hyperlipidemia, unspecified; E21.3 Hyperparathyroidism, unspecified; R74.01 Elevation of levels of liver transaminase levels; Z99.81 Dependence on supplemental oxygen; Z79.4 Long term (current) use of insulin; Z86.711 Personal history of pulmonary embolism; Z91.041 Radiographic dye allergy status
CPT/HCPCS: 36415; 71045; 80053; 83735; 83880; 84484; 85025; 85610; 85730; 93005; 94640; 96374; 96375; 99291; G0378